=== PATIENT | male | born 1985 | race Two or more races ===

== ENCOUNTER 2017-04-11 01:16 | Emergency (ER) | payer OTHER ==
[~2017-04-11] VITALS: Ht 188 cm; Wt 93.0 kg
[~2017-04-11 01:16] MED LIST: AMLO25TA PO; DICY10SO PO; FLUO20CA19 PO; LISI20TA PO; MULT1TAB8 PO; PANT40TA2 PO; ZOFR4TAB3 PO
[2017-04-11] MEDS ORDERED: TESS100C PO (01:48)
[2017-04-11] MEDS ORDERED: MUCI600T37 PO (01:48)
[2017-04-11] MEDS ORDERED: IBUP-1022 PO (01:48)
[2017-04-11] MEDS ORDERED: SUDA30TA PO (01:48)
[2017-04-11] MEDS ORDERED: FLON1SPR (01:48)
[2017-04-11 01:53] VITALS: BP 150/100
[2017-04-11] MEDS ORDERED: BENZONATATE 100 MG CAP PO ONE (02:00)
== END 2017-04-11 02:05 | disposition home or self-care (01) ==
LOC: M ED 01:16
DX: J06.9 Acute upper respiratory infection, unspecified (principal)

== ENCOUNTER 2017-04-20 06:08 | Emergency (ER) | payer OTHER ==
[~2017-04-20] VITALS: Ht 188 cm; Wt 95.5 kg
[~2017-04-20 06:08] MED LIST changes: +FLON1SPR; +IBUP-1022 PO; +MUCI600T37 PO; +SUDA30TA PO; +TESS100C PO
--- NOTE | 2017-04-20 06:57 | ED PDOC ---
Post-Departure Follow-Up WHEN ASKING PT ABOUT ORIGIN OF HIS SYMPTOMS TODAY, HE STATED, "WELL I HAVEN'T BEEN ABLE TO EAT IN A WHILE. I CAN'T REMEMBER THE LAST TIME I ATE. I'M BEING SEEN FOR THAT NEXT WEEK." PT STATES, "EVERY TIME I EAT, I VOMIT." STATES HE HAS LOST 60-70LBS OF WEIGHT OVER THE LAST FEW MONTHS. STATES THE LAST TIME HE WAS ABLE TO HOLD DOWN FOOD WAS IN THE SPRING TIME, POSSIBLY 6 MONTHS AGO. PT STATES HE CAN DRINK, "A LITTLE" BUT DOES NOT ALWAYS STAY HYDRATED. PT STATES SOME DYSURIA THIS MORNING. DENIES ANY ABDOMINAL PAIN OVER THE PAST 6 MONTHS WITH HIS OTHER SYMPTOMS. JADON GARCIA PA-C Apr 20, 2017 06:57
[2017-04-20] MEDS ORDERED: NS 1,000 ML IV ONE (07:00)
[2017-04-20 07:07] LABS: BASO # 0.1 10^3/uL (0.0-0.2); BASO % 0.5 % (0.0-1.0); EOS # 0.2 10^3/uL (0.0-0.50); EOS % 2.2 % (0.0-3.0); IMMATURE GRANULOCYTE % 0.4 % (0-0); LYMPH % 19.5 % (24.0-44.0); MEAN CORPUSCULAR HEMOGLOBIN 31.3 pg (27.0-33.0); MEAN CORPUSCULAR VOLUME 91.8 fl (80.0-96.0); MONO # 0.8 10^3/uL (0.0-0.8); MONO % 7.6 % (0.0-5.0); NEUTROPHILS % 69.8 % (36.0-66.0); PLATELET COUNT, AUTOMATED 240 10^3/uL (150-450); RED CELL DISTRIBUTION WIDTH 12.3 % (11.5-14.5)
--- NOTE | 2017-04-20 07:30 | REPUSA ---
CLINICAL HISTORY: Abdominal pain. TECHNIQUE: Multiple axial, sagittal and coronal CT images were obtained through the abdomen and pelvi s without administration of oral or IV contrast material. COMMENTS: Bilateral nonobstructing renal stones with the largest measuring 3 mm. 3 mm obstructing stone of the right ureter at the L4 level. Mild fullness of the right collecting system. Fluid-filled mildly prominent small bowel, probably reactive ileus. The liver is of uniform attenuation without mass or defect. There is no intra or extrahepatic biliary ductal dilatation. The spleen is normal. The gallbladder is within normal limits. The pancreas is of normal contour and attenuation characteristics. There is no evidence of adrenal mass. There is no evidence for appendicitis. There is no bowel wall thickening. No evidence for small or la rge bowel obstruction. There is no evidence of abdominal ascites or lymphadenopathy. There is no evidence of intrinsic or extrinsic bladder mass. Diffuse thickening of the wall of the bladder. There is no pelvic ascites or lymphadenopathy. Uncomplicated colonic diverticulosis. Images of the lung bases show no evidence of pleural or parenchymal mass. There are no pleural effusi ons. The bony structures are free of lytic or blastic lesions. Mild prostatomegaly. IMPRESSION: Obstructing stone of the right ureter. Bilateral nephrolithiasis. Reactive small bowel ileus. Thickened bladder. Underdistention versus minimal cystitis. Thank you for your kind referral of this patient.
[2017-04-20 08:21] LABS: ALBUMIN 3.9 GM/DL (3.2-5.2); ALBUMIN/GLOBULIN RATIO 1.05 (1.00-1.93); ALKALINE PHOSPHATASE 77 U/L (45-117); ALT/SGPT 36 U/L (12-78); ANION GAP 6 MEQ/L (8-16); AST/SGOT 21 U/L (15-37); BILIRUBIN,TOTAL 0.6 MG/DL (0.2-1.0); BLOOD UREA NITROGEN 14 MG/DL (7-18); CARBON DIOXIDE LEVEL 28 MEQ/L (21-32); CHLORIDE LEVEL 107 MEQ/L (98-107); CREATININE FOR GFR 0.67 MG/DL (0.70-1.30); GLOMERULAR FILTRATION RATE > 60.0 (>60); GLUCOSE, FASTING 96 MG/DL (70-105); POTASSIUM SERUM 3.8 MEQ/L (3.5-5.1); SODIUM LEVEL 141 MEQ/L (136-145); TOTAL PROTEIN 7.6 GM/DL (6.4-8.2)
[2017-04-20] MEDS ORDERED: FLOM5CAP PO (08:35)
[2017-04-20] MEDS ORDERED: NAPR500T PO (08:35)
[2017-04-20] MEDS ORDERED: NORCOTAB PO (08:35)
[2017-04-20 09:08] VITALS: BP 155/86
== END 2017-04-20 09:06 | disposition home or self-care (01) ==
LOC: M ED 06:08
DX: N20.2 Calculus of kidney with calculus of ureter (principal); Z72.0 Tobacco use

== ENCOUNTER → 2017-05-03 | Outpatient (CLI) | payer OTHER ==
[~2017-05-03] MED LIST changes: +E-Z-PAQUE 96% w/w SUSP 176GM BTL As Ordered ONE; +FLOM5CAP PO; +NAPR500T PO; +NORCOTAB PO
--- NOTE | 2017-05-03 19:26 | REP ---
Small bowel follow-through The procedure was performed under the direct supervision of Dr. Anglin. The images were reviewed with Dr. Anglin. The activities director scouting film shows no organomegaly or pathological masses. The intestinal gas pattern is nonspecific. Liquid barium was administered and the barium column was followed through the small bowel to the level of the terminal ileum. Small bowel transit time is approximately 3 hours . During fluoroscopy gentle palpation shows all loops are freely movable and pliable. There are no fixed or angulated loops. The small bowel mucosal pattern is normal in course and caliber. There is no transition to suggest a partial small bowel obstruction. Spot filming of the terminal ileum shows it to be unremarkable. Impression: Small bowel follow-through examination within normal limits. 35 seconds of fluoro time was utilized for this procedure. Reviewed by MARYELLEN Mclaughlin 05/03/2017 05:30 PSigned by Derek Anglin MD 05/03/2017 07:16 P
== END ==
LOC: M RAD 08:18
PROVIDERS: ATTEND Internal Medicine Gastroenterology
DX: R19.7 Diarrhea, unspecified (principal); R63.4 Abnormal weight loss

== ENCOUNTER → 2017-05-06 | Outpatient (CLI) | payer OTHER ==
[~2017-05-06] MED LIST changes: -E-Z-PAQUE 96% w/w SUSP 176GM BTL As Ordered ONE
[2017-05-06 20:13] LABS: BASO % 0.8 % (0.0-1.0); EOS # 0.2 10^3/uL (0.0-0.50); EOS % 3.7 % (0.0-3.0); IMMATURE GRANULOCYTE % 0.2 % (0-0); LYMPH # 1.6 10^3/uL (1.5-4.5); LYMPH % 31.6 % (24.0-44.0); MEAN CORPUSCULAR HEMOGLOBIN 31.9 pg (27.0-33.0); MEAN CORPUSCULAR HGB CONC 33.1 g/dl (32.0-36.5); MEAN CORPUSCULAR VOLUME 96.4 fl (80.0-96.0); MONO # 0.4 10^3/uL (0.0-0.8); MONO % 8.2 % (0.0-5.0); NEUTROPHILS # 2.8 10^3/uL (1.8-7.7); NEUTROPHILS % 55.5 % (36.0-66.0); PLATELET COUNT, AUTOMATED 206 10^3/uL (150-450); RED CELL DISTRIBUTION WIDTH 12.5 % (11.5-14.5); WHITE BLOOD COUNT 5.1 10^3/uL (4.0-10.0)
[2017-05-06 21:09] LABS: ALBUMIN 3.9 GM/DL (3.2-5.2); ALBUMIN/GLOBULIN RATIO 1.22 (1.00-1.93); ALKALINE PHOSPHATASE 74 U/L (45-117); ALT/SGPT 35 U/L (12-78); ANION GAP 7 MEQ/L (8-16); AST/SGOT 17 U/L (15-37); BILIRUBIN,TOTAL 0.3 MG/DL (0.2-1.0); BLOOD UREA NITROGEN 11 MG/DL (7-18); CALCIUM LEVEL 8.2 MG/DL (8.5-10.1); CARBON DIOXIDE LEVEL 27 MEQ/L (21-32); CHLORIDE LEVEL 108 MEQ/L (98-107); CREATININE FOR GFR 0.68 MG/DL (0.70-1.30); GLOMERULAR FILTRATION RATE > 60.0 (>60); GLUCOSE, FASTING 130 MG/DL (70-105); POTASSIUM SERUM 4.5 MEQ/L (3.5-5.1); SODIUM LEVEL 142 MEQ/L (136-145); TOTAL PROTEIN 7.1 GM/DL (6.4-8.2)
== END ==
LOC: M SMT 11:23
PROVIDERS: ATTEND Internal Medicine Gastroenterology
DX: R19.7 Diarrhea, unspecified (principal); R63.4 Abnormal weight loss

== ENCOUNTER 2017-05-10 13:32 | Day surgery (SDC) | payer OTHER ==
[~2017-05-10] VITALS: Ht 188 cm; Wt 92.9 kg
[~2017-05-10 13:32] MED LIST changes: +LIDOCAINE 2% INJ 100 MG/5 ML SDV (FOR ANES.) As Ordered ONE; +PROPOFOL 200 MG/20 ML VIAL As Ordered ONE
[2017-05-10] MEDS ORDERED: NS 1,000 ML IV ONE (13:45)
--- NOTE | 2017-05-10 14:54 | ROOR ---
Patient Name: Julito Conroy Procedure Date: 05/10/2017 2:42 PM Date of : 1985 Age: 32 Room: [facility] Gender: Male Note Status: Finalized Procedure: Upper GI endoscopy Indications: Generalized abdominal pain, Diarrhea, Nausea Providers: Tadeo PABLO MD Referring MD: Dhiraj RAO MD Requesting Provider: Medicines: Monitored Anesthesia Care Complications: No immediate complications. Procedure: Pre-Anesthesia Assessment: - The heart rate, respiratory rate, oxygen saturations, blood pressure, adequacy of pulmonary ventilation, and response to care were monitored throughout the procedure. The Endoscope was introduced through the mouth, and advanced to the second part of duodenum. The upper GI endoscopy was accomplished without difficulty. The patient tolerated the procedure well. Findings: The esophagus was normal. The stomach was normal. The examined duodenum was normal. Impression: - Normal esophagus. - Normal stomach. - Normal examined duodenum. - No specimens collected. Recommendation: - Observe patient's clinical course. - Continue present medications. - Consider trial on Amitriptyline 10-25 mg po QHS for functional abdominal symptoms Tadeo Pablo MD Tadeo PABLO MD 05/10/2017 2:54:34 PM This report has been signed electronically. Number of Addenda: 0 Note Initiated On: 05/10/2017 2:42 PM Estimated Blood Loss: Estimated blood loss: none.
--- NOTE | 2017-05-10 15:11 | ROOR ---
Patient Name: Julito Conroy Procedure Date: 05/10/2017 2:42 PM Date of : 1985 Age: 32 Room: [facility] Gender: Male Note Status: Finalized Procedure: Colonoscopy Indications: Generalized abdominal pain, Suspected irritable bowel syndrome, Chronic diarrhea Providers: Tadeo PABLO MD Referring MD: Dhiraj RAO MD Requesting Provider: Medicines: Monitored Anesthesia Care Complications: No immediate complications. Procedure: Pre-Anesthesia Assessment: - The heart rate, respiratory rate, oxygen saturations, blood pressure, adequacy of pulmonary ventilation, and response to care were monitored throughout the procedure. The Colonoscope was introduced through the anus and advanced to 10 cm into the ileum. The colonoscopy was performed without difficulty. The patient tolerated the procedure well. The quality of the bowel preparation was good. Findings: The perianal and digital rectal examinations were normal. Mild diverticulosis and small internal hemorrhoids. The entire examined colon appeared normal on direct and retroflexion views. The terminal ileum appeared normal. Biopsies for histology were taken with a cold forceps for evaluation of microscopic colitis. Impression: - Mild diverticulosis and small internal hemorrhoids. - The entire examined colon is normal on direct and retroflexion views. - The examined portion of the ileum was normal. - Biopsies were taken with a cold forceps for evaluation of microscopic colitis. - Irritable bowel syndrome. Recommendation: - Continue present medications. - Telephone endoscopist for pathology results in 2 weeks. - For continued Irritable bowel symptoms, will consider trial on Amitriptyline 10-25 mg QHS. Tadeo Pablo MD Tadeo PABLO MD 05/10/2017 3:10:52 PM This report has been signed electronically. Number of Addenda: 0 Note Initiated On: 05/10/2017 2:42 PM Estimated Blood Loss: Estimated blood loss: none.
[2017-05-10 15:40] VITALS: BP 158/99
== END 2017-05-10 15:57 | disposition home or self-care (01) ==
LOC: M OPP 13:32 → EDSTATUS 14:30 → M OPP 15:57
PROVIDERS: ATTEND Internal Medicine Gastroenterology
DX: R10.84 Generalized abdominal pain (principal); R63.4 Abnormal weight loss; R19.7 Diarrhea, unspecified; R11.2 Nausea with vomiting, unspecified; K57.30 Diverticulosis of large intestine without perforation or abscess without bleeding; K64.8 Other hemorrhoids; K58.9 Irritable bowel syndrome, unspecified; I10 Essential (primary) hypertension; J00 Acute nasopharyngitis [common cold]; F31.9 Bipolar disorder, unspecified; F41.9 Anxiety disorder, unspecified; Z87.442 Personal history of urinary calculi; F17.290 Nicotine dependence, other tobacco product, uncomplicated; Z79.899 Other long term (current) drug therapy; Z80.0 Family history of malignant neoplasm of digestive organs

== ENCOUNTER → 2017-05-14 | Outpatient (REF) | payer OTHER, MEDICARE ==
[~2017-05-14] MED LIST changes: -LIDOCAINE 2% INJ 100 MG/5 ML SDV (FOR ANES.) As Ordered ONE; -PROPOFOL 200 MG/20 ML VIAL As Ordered ONE
== END ==
LOC: M SMT 13:39
PROVIDERS: ATTEND Nurse Practitioner Women's Health
DX: N20.0 Calculus of kidney (principal)

== ENCOUNTER → 2017-06-20 | Outpatient (REF) | payer OTHER, MEDICARE | LOC: M LAB REF 17:33 | PROVIDERS: ATTEND Family Medicine Addiction Medicine | DX: N20.0 Calculus of kidney (principal) ==

== ENCOUNTER 2017-07-19 17:39 | Emergency (ER) | payer OTHER, MEDICARE ==
[2017-07-19 18:32] LABS: KETONE, URINE AUTO RFX NEGATIVE (NEGATIVE); LEUKOCYTE ESTERASE UR AUTO RFX NEGATIVE (NEGATIVE); MUCUS, URINE RFX SMALL (NEGATIVE); NITRITE, URINE AUTO RFX NEGATIVE (NEGATIVE); RBC, URINE AUTO RFX 48 /HPF (0-3); SPECIFIC GRAVITY UR AUTO RFX 1.015 (1.002-1.035); SQUAM EPITHELIAL CELL UR AURFX 0 /HPF (0-6); WBC, URINE AUTO RFX 1 /HPF (0-3)
[2017-07-19 19:24] LABS: BASO # 0.1 10^3/uL (0.0-0.2); BASO % 0.3 % (0.0-1.0); EOS # 0.1 10^3/uL (0.0-0.50); EOS % 0.4 % (0.0-3.0); IMMATURE GRANULOCYTE # 0.1 10^3/uL (0-0); IMMATURE GRANULOCYTE % 0.6 % (0-0); LYMPH # 1.4 10^3/uL (1.5-4.5); LYMPH % 7.9 % (24.0-44.0); MEAN CORPUSCULAR HEMOGLOBIN 31.7 pg (27.0-33.0); MEAN CORPUSCULAR HGB CONC 34.5 g/dl (32.0-36.5); MEAN CORPUSCULAR VOLUME 91.9 fl (80.0-96.0); MONO # 0.8 10^3/uL (0.0-0.8); MONO % 4.5 % (0.0-5.0); NEUTROPHILS # 14.7 10^3/uL (1.8-7.7); NEUTROPHILS % 86.3 % (36.0-66.0); PLATELET COUNT, AUTOMATED 246 10^3/uL (150-450); RED CELL DISTRIBUTION WIDTH 12.8 % (11.5-14.5)
[2017-07-19 19:45] LABS: ANION GAP 5 MEQ/L (8-16); BLOOD UREA NITROGEN 8 MG/DL (7-18); CALCIUM LEVEL 9.2 MG/DL (8.5-10.1); CARBON DIOXIDE LEVEL 32 MEQ/L (21-32); CHLORIDE LEVEL 104 MEQ/L (98-107); CREATININE FOR GFR 0.73 MG/DL (0.70-1.30); GLOMERULAR FILTRATION RATE > 60.0 (>60); GLUCOSE, FASTING 90 MG/DL (70-105); POTASSIUM SERUM 3.7 MEQ/L (3.5-5.1); SODIUM LEVEL 141 MEQ/L (136-145)
== END 2017-07-19 20:19 | disposition home or self-care (01) ==
LOC: M ED 17:39
DX: N20.1 Calculus of ureter (principal); N13.30 Unspecified hydronephrosis; K58.9 Irritable bowel syndrome, unspecified; F17.210 Nicotine dependence, cigarettes, uncomplicated; Z79.899 Other long term (current) drug therapy; Z87.442 Personal history of urinary calculi; Z98.890 Other specified postprocedural states
CPT/HCPCS: 74176

== ENCOUNTER 2017-08-08 05:22 | Emergency (ER) | payer OTHER, MEDICARE ==
[2017-08-08 05:55] LABS: BILIRUBIN, URINE MANUAL NEGATIVE (NEGATIVE); BLOOD URINE MANUAL RFX POSITIVE (NEGATIVE); GLUCOSE, URINE (UA) MANUAL NEGATIVE (NEGATIVE); KETONE, URINE MANUAL 1+ mg/dL (NEGATIVE); NITRITE, URINE MANUAL RFX NEGATIVE (NEGATIVE); PROTEIN, URINE MANUAL REFLEX 1+ mg/dL (NEGATIVE); UROBILINOGEN, URINE MANUAL NORMAL (NORMAL)
[2017-08-08 05:56] LABS: MICROSCOPIC INDICATED? RFX YES (NO)
[2017-08-08 06:04] LABS: SQUAMOUS EPITHELIAL CELL URINE NONE SEEN /hpf (SMALL AMT); WBC, URINE MAN RFX NONE SEEN /hpf (0-3)
[2017-08-08 06:06] LABS: BACTERIA, URINE SMALL AMOUNT; HYALINE CAST, URINE NONE SEEN /lpf (0-1); MICROSCOPIC EXAM PERFORMED; MUCUS, URINE MOD AMOUNT (NEGATIVE)
[2017-08-08] MEDS: KETOROLAC 30 MG/ML VIAL (J1885) IV (06:30)
[2017-08-08] MEDS: ONDANSETRON 4MG/2ML VIAL (J2405) IV (06:30)
[2017-08-08] MEDS: NS 1,000 ML IV (06:30)
[2017-08-08 07:06] LABS: HEMATOCRIT 46.1 % (42.0-52.0); HEMOGLOBIN 15.9 g/dl (14.0-18.0); MEAN CORPUSCULAR HEMOGLOBIN 31.6 pg (27.0-33.0); MEAN CORPUSCULAR HGB CONC 34.5 g/dl (32.0-36.5); MEAN CORPUSCULAR VOLUME 91.7 fl (80.0-96.0); PLATELET COUNT, AUTOMATED 155 10^3/uL (150-450); RED BLOOD COUNT 5.03 10^6/uL (4.30-6.10); RED CELL DISTRIBUTION WIDTH 12.5 % (11.5-14.5); WHITE BLOOD COUNT 5.8 10^3/uL (4.0-10.0)
[2017-08-08 08:03] LABS: ANION GAP 6 MEQ/L (8-16); BLOOD UREA NITROGEN 16 MG/DL (7-18); CALCIUM LEVEL 9.3 MG/DL (8.5-10.1); CARBON DIOXIDE LEVEL 28 MEQ/L (21-32); CHLORIDE LEVEL 105 MEQ/L (98-107); CREATININE FOR GFR 0.78 MG/DL (0.70-1.30); GLOMERULAR FILTRATION RATE > 60.0 (>60); GLUCOSE, FASTING 116 MG/DL (70-105); POTASSIUM SERUM 3.9 MEQ/L (3.5-5.1); SODIUM LEVEL 139 MEQ/L (136-145)
[2017-08-08] MEDS: MORPHINE 4 MG/ML 1ML SYRINGE IV (08:06)
== END 2017-08-08 08:57 | disposition home or self-care (01) ==
LOC: M ED 05:22
DX: N20.1 Calculus of ureter (principal); K58.9 Irritable bowel syndrome, unspecified; F17.210 Nicotine dependence, cigarettes, uncomplicated; Z79.899 Other long term (current) drug therapy; Z87.442 Personal history of urinary calculi
CPT/HCPCS: J2405

== ENCOUNTER → 2017-08-12 | Outpatient (CLI) | payer OTHER ==
[2017-08-12 12:08] LABS: HEMATOCRIT 42.7 % (42.0-52.0); HEMOGLOBIN 14.7 g/dl (14.0-18.0); MEAN CORPUSCULAR HEMOGLOBIN 31.1 pg (27.0-33.0); MEAN CORPUSCULAR HGB CONC 34.4 g/dl (32.0-36.5); MEAN CORPUSCULAR VOLUME 90.5 fl (80.0-96.0); PLATELET COUNT, AUTOMATED 201 10^3/uL (150-450); RED BLOOD COUNT 4.72 10^6/uL (4.30-6.10); WHITE BLOOD COUNT 5.5 10^3/uL (4.0-10.0)
[2017-08-12 12:20] LABS: INR 0.98; PROTHROMBIN TIME 13.1 SECONDS (12.4-14.5)
[2017-08-12 12:21] LABS: PARTIAL THROMBOPLASTIN TIME 31.8 SECONDS (26.8-37.9)
[2017-08-12 12:32] LABS: ANION GAP 6 MEQ/L (8-16); BLOOD UREA NITROGEN 12 MG/DL (7-18); CALCIUM LEVEL 9.2 MG/DL (8.5-10.1); CARBON DIOXIDE LEVEL 29 MEQ/L (21-32); CHLORIDE LEVEL 106 MEQ/L (98-107); CREATININE FOR GFR 0.66 MG/DL (0.70-1.30); GLOMERULAR FILTRATION RATE > 60.0 (>60); GLUCOSE, FASTING 91 MG/DL (70-100); POTASSIUM SERUM 3.8 MEQ/L (3.5-5.1); SODIUM LEVEL 141 MEQ/L (136-145)
== END ==
LOC: M LAB 11:12
DX: Z01.812 Encounter for preprocedural laboratory examination (principal); N20.1 Calculus of ureter
CPT/HCPCS: 80048

== ENCOUNTER → 2017-08-12 | Outpatient (REF) | payer OTHER, MEDICARE ==
[2017-08-12 11:08] LABS: APPEARANCE, URINE CLEAR (CLEAR); BACTERIA, URINE AUTO NEGATIVE (NEGATIVE); BILIRUBIN, URINE AUTO NEGATIVE (NEGATIVE); BLOOD, URINE BLOOD 2+ (NEGATIVE); COLOR, URINE YELLOW (YELLOW); GLUCOSE, URINE (UA) AUTO NEGATIVE (NEGATIVE); KETONE, URINE AUTO NEGATIVE (NEGATIVE); LEUKOCYTE ESTERASE, URINE AUTO NEGATIVE (NEGATIVE); MUCUS, URINE SMALL (NEGATIVE); NITRITE, URINE AUTO NEGATIVE (NEGATIVE); PROTEIN, URINE AUTO NEGATIVE (NEGATIVE); RBC, URINE AUTO 2 /HPF (0-3); SPECIFIC GRAVITY URINE AUTO 1.012 (1.002-1.035); SQUAMOUS EPITHELIAL CELL UR AU 0 /HPF (0-6); UROBILINOGEN, URINE AUTO 0.2 mg/dL (0.0-2.0); WBC, URINE AUTO 1 /HPF (0-3)
== END ==
LOC: M SMT 10:35
DX: N20.1 Calculus of ureter (principal); Z01.818 Encounter for other preprocedural examination
CPT/HCPCS: 81001

== ENCOUNTER → 2017-08-27 | Outpatient (REF) | payer OTHER ==
[2017-08-27 12:51] LABS: APPEARANCE, URINE HAZY (CLEAR); BACTERIA, URINE AUTO NEGATIVE (NEGATIVE); BILIRUBIN, URINE AUTO NEGATIVE (NEGATIVE); BLOOD, URINE BLOOD NEGATIVE (NEGATIVE); COLOR, URINE YELLOW (YELLOW); GLUCOSE, URINE (UA) AUTO NEGATIVE (NEGATIVE); KETONE, URINE AUTO NEGATIVE (NEGATIVE); LEUKOCYTE ESTERASE, URINE AUTO NEGATIVE (NEGATIVE); MUCUS, URINE SMALL (NEGATIVE); NITRITE, URINE AUTO NEGATIVE (NEGATIVE); PROTEIN, URINE AUTO NEGATIVE (NEGATIVE); RBC, URINE AUTO 0 /HPF (0-3); SPECIFIC GRAVITY URINE AUTO 1.021 (1.002-1.035); SQUAMOUS EPITHELIAL CELL UR AU 0 /HPF (0-6); UROBILINOGEN, URINE AUTO 0.2 mg/dL (0.0-2.0); WBC, URINE AUTO 0 /HPF (0-3)
== END ==
LOC: M LAB REF 12:28
DX: N20.0 Calculus of kidney (principal)

== ENCOUNTER → 2017-08-30 | Outpatient (CLI) | payer OTHER | LOC: M RAD 14:40 | DX: N20.1 Calculus of ureter (principal); N13.30 Unspecified hydronephrosis | CPT/HCPCS: 74176 ==

== ENCOUNTER 2018-04-17 22:48 | Emergency (ER) | payer OTHER ==
[2018-04-17] MEDS: IBUPROFEN 800 MG TAB PO (23:32)
[2018-04-17] MEDS: AUGMENTIN 875 MG TAB PO (23:32)
[2018-04-17] MEDS: NORCO 5/325MG TABLET (BULK FOR ED) PO (23:32)
== END 2018-04-17 23:35 | disposition home or self-care (01) ==
LOC: M ED 22:48
DX: K02.9 Dental caries, unspecified (principal); I10 Essential (primary) hypertension; K58.9 Irritable bowel syndrome, unspecified; Z79.899 Other long term (current) drug therapy; F17.210 Nicotine dependence, cigarettes, uncomplicated
CPT/HCPCS: 99282

== ENCOUNTER 2018-04-19 11:46 | Emergency (ER) | payer OTHER ==
[2018-04-19] MEDS: PERCOCET 5MG/325MG TAB PO (13:46)
== END 2018-04-19 13:48 | disposition home or self-care (01) ==
LOC: M ED 11:46
DX: K08.89 Other specified disorders of teeth and supporting structures (principal); K13.79 Other lesions of oral mucosa; I10 Essential (primary) hypertension; Z72.0 Tobacco use; Z95.818 Presence of other cardiac implants and grafts; Z79.899 Other long term (current) drug therapy
CPT/HCPCS: 99283

== ENCOUNTER 2018-04-28 01:11 | Observation (INO) | payer OTHER ==
[2018-04-28] MEDS: NS 1,000 ML IV ×4 (01:30→14:33)
[2018-04-28 01:57] LABS: BASO % 0.4 % (0.0-1.0); EOS # 0.2 10^3/uL (0.0-0.50); EOS % 2.1 % (0.0-3.0); HEMATOCRIT 41.8 % (42.0-52.0); HEMOGLOBIN 14.9 g/dl (13.5-17.5); IMMATURE GRANULOCYTE % 0.2 % (0-3.0); LYMPH # 2.6 10^3/uL (1.5-4.5); LYMPH % 26.8 % (24.0-44.0); MEAN CORPUSCULAR HEMOGLOBIN 31.9 pg (27.0-33.0); MEAN CORPUSCULAR HGB CONC 35.6 g/dl (32.0-36.5); MEAN CORPUSCULAR VOLUME 89.5 fl (80.0-96.0); MONO % 10.5 % (0.0-5.0); NEUTROPHILS # 5.8 10^3/uL (1.8-7.7); PLATELET COUNT, AUTOMATED 211 10^3/uL (150-450); RED BLOOD COUNT 4.67 10^6/uL (4.30-6.10); WHITE BLOOD COUNT 9.7 10^3/uL (4.0-10.0)
[2018-04-28] MEDS ORDERED: ATROPINE SULF 1MG/10ML SYRINGE (J0461) As Ordered (02:00)
[2018-04-28] MEDS: ATROPINE SULF 1MG/10ML SYRINGE (J0461) IV (02:21)
[2018-04-28 02:39] LABS: ANION GAP 8 MEQ/L (8-16); BLOOD UREA NITROGEN 19 MG/DL (7-18); CARBON DIOXIDE LEVEL 29 MEQ/L (21-32); CHLORIDE LEVEL 104 MEQ/L (98-107); CPK CREATINE PHOSPHOKINASE 123 U/L (39-308); CREATININE FOR GFR 0.81 MG/DL (0.70-1.30); ETHYL ALCOHOL (ETHANOL) < 0.003 % (0.000-0.010); FREE THYROXINE INDEX 3.5 % (1.4-3.8); GLOMERULAR FILTRATION RATE > 60.0 (>60); GLUCOSE, FASTING 119 MG/DL (70-100); MB/CK RELATIVE INDEX 1.38 (< OR =4); POTASSIUM SERUM 2.9 MEQ/L (3.5-5.1); SODIUM LEVEL 141 MEQ/L (136-145); T UPTAKE 33 % (33-40); THYROXINE (T4) 10.6 UG/DL (4.5-12.0); TROPONIN I < 0.02 NG/ML (< 0.10)
[2018-04-28] MEDS: POTASSIUM CHLORIDE 10 MEQ SR TABLET PO ×2 (02:45→10:01)
[2018-04-28] MEDS: CLINDAMYCIN 150 MG CAP PO ×3 (06:00→21:59)
[2018-04-28] MEDS: amLODIPine 5 MG TAB PO (08:18)
[2018-04-28] MEDS: CHLORHEXIDINE ORAL RINSE 0.12%/15ML 120ML BOTTLE SSP ×4 (08:18→20:09)
[2018-04-28] MEDS: LISINOPRIL 40 MG TAB PO (08:18)
[2018-04-28] MEDS ORDERED: CHLORTHALIDONE 12.5MG PER 1/2 TABLET PO (09:00)
[2018-04-28 09:43] LABS: ANION GAP 4 MEQ/L (8-16); BLOOD UREA NITROGEN 16 MG/DL (7-18); CALCIUM LEVEL 8.7 MG/DL (8.5-10.1); CARBON DIOXIDE LEVEL 31 MEQ/L (21-32); CHLORIDE LEVEL 108 MEQ/L (98-107); CPK CREATINE PHOSPHOKINASE 99 U/L (39-308); CREATININE FOR GFR 0.62 MG/DL (0.70-1.30); GLOMERULAR FILTRATION RATE > 60.0 (>60); GLUCOSE, FASTING 93 MG/DL (70-100); MAGNESIUM LEVEL 1.9 MG/DL (1.8-2.4); MB/CK RELATIVE INDEX 1.21 (< OR =4); POTASSIUM SERUM 3.7 MEQ/L (3.5-5.1); SODIUM LEVEL 143 MEQ/L (136-145); TROPONIN I < 0.02 NG/ML (< 0.10)
[2018-04-28] MEDS: PERCOCET 5MG/325MG TAB PO (11:29)
[2018-04-28] MEDS: LIDOCAINE VISCOUS 2% SOLN 15ML UDC PO ×2 (14:21→20:09)
[2018-04-28] MEDS ORDERED: ISOVUE-370 76% 100ML VIAL (Q9967) As Ordered (15:25)
[2018-04-28] MEDS: KETOROLAC 30 MG/ML VIAL (J1885) IV (16:30)
[2018-04-28] MEDS: ACETAMINOPHEN TAB 650MG DOSE (2X325MG) PO (18:05)
[2018-04-28] MEDS: KETOROLAC TROMETHAMINE 10 MG TAB PO (21:59)
[2018-04-28] MEDS ORDERED: KETOROLAC 30 MG/ML VIAL (J1885) IV (22:00)
[2018-04-29] MEDS: NS 1,000 ML IV (01:30)
[2018-04-29] MEDS: KETOROLAC TROMETHAMINE 10 MG TAB PO ×2 (05:13→09:29)
[2018-04-29] MEDS: CLINDAMYCIN 150 MG CAP PO (05:13)
[2018-04-29] MEDS: LIDOCAINE VISCOUS 2% SOLN 15ML UDC PO (09:00)
[2018-04-29] MEDS: LISINOPRIL 40 MG TAB PO (09:29)
[2018-04-29] MEDS: amLODIPine 5 MG TAB PO (09:29)
[2018-04-29] MEDS: CHLORHEXIDINE ORAL RINSE 0.12%/15ML 120ML BOTTLE SSP (09:29)
[2018-04-29 10:01] LABS: ANION GAP 3 MEQ/L (8-16); BLOOD UREA NITROGEN 12 MG/DL (7-18); CARBON DIOXIDE LEVEL 31 MEQ/L (21-32); CHLORIDE LEVEL 109 MEQ/L (98-107); CREATININE FOR GFR 0.73 MG/DL (0.70-1.30); GLOMERULAR FILTRATION RATE > 60.0 (>60); GLUCOSE, FASTING 124 MG/DL (70-100); POTASSIUM SERUM 3.5 MEQ/L (3.5-5.1); SODIUM LEVEL 143 MEQ/L (136-145)
== END 2018-04-29 10:36 | disposition home or self-care (01) ==
LOC: M ED 01:11 → M ED INP 02:18 → M ICU 11:01 → M ED INP 11:01 → M ICU 11:01
DX: R55 Syncope and collapse (principal); R00.1 Bradycardia, unspecified; I10 Essential (primary) hypertension; K08.89 Other specified disorders of teeth and supporting structures; Z79.899 Other long term (current) drug therapy; F17.210 Nicotine dependence, cigarettes, uncomplicated
CPT/HCPCS: J0461

== ENCOUNTER 2018-10-27 23:41 | Emergency (ER) | payer OTHER ==
[~2018-10-27] VITALS: Ht 188 cm; Wt 95.5 kg
[~2018-10-27 23:41] MED LIST changes: +ACET500T15 PO; +AMLO5TAB6 PO; +AMOX500C PO; +CHLO125TA; +CHLO125TA PO; +CIPR-249 PO; +CLEO300C2 PO; +FLOM0.4C39 PO; -FLOM5CAP PO; +HYDR-3715; +HYDR-3715 PO; +IBUP1TAB6 PO; +IBUP1TAB7 PO; +KETO10TAB PO; +LISI40TA PO; +MAGICMW SSP; +NAPR-837 PO; -NAPR500T PO; +NORC1TAB7 PO; -NORCOTAB PO; +OXYC1TAB23 PO; -PANT40TA2 PO; +PANT40TA3 PO; +PERC5TAB12 PO; +PERI12LIQ SSP; +ZOFR4TAB14 PO; -ZOFR4TAB3 PO
[2018-10-27 23:42] VITALS: BP 168/78
[2018-10-27] MEDS ORDERED: CHLORTHALIDONE (23:55)
[2018-10-27] MEDS ORDERED: AMLODIPINE (23:55)
== END 2018-10-28 02:02 | disposition left against medical advice (07) ==
LOC: M ED 23:41
DX: Z53.21 Procedure and treatment not carried out due to patient leaving prior to being seen by health care provider (principal)

== ENCOUNTER → 2019-01-23 | Outpatient (REF) | payer OTHER ==
[~2019-01-23] MED LIST changes: +AMLODIPINE; +CHLORTHALIDONE
[2019-01-23 17:35] LABS: BASO % 0.5 % (0.0-1.0); EOS # 0.2 10^3/uL (0.0-0.50); EOS % 2.4 % (0.0-3.0); HEMATOCRIT 47.4 % (42.0-52.0); HEMOGLOBIN 16.2 g/dl (13.5-17.5); LYMPH % 23.8 % (24.0-44.0); MEAN CORPUSCULAR HEMOGLOBIN 31.8 pg (27.0-33.0); MEAN CORPUSCULAR HGB CONC 34.2 g/dl (32.0-36.5); MEAN CORPUSCULAR VOLUME 92.9 fl (80.0-96.0); MONO # 0.7 10^3/uL (0.0-0.8); MONO % 7.9 % (0.0-5.0); NEUTROPHILS # 5.4 10^3/uL (1.8-7.7); NEUTROPHILS % 65.2 % (36.0-66.0); PLATELET COUNT, AUTOMATED 251 10^3/uL (150-450); WHITE BLOOD COUNT 8.3 10^3/uL (4.0-10.0)
[2019-01-23 17:50] LABS: ALBUMIN 4.7 GM/DL (3.2-5.2); ALT/SGPT 31 U/L (12-78); BILIRUBIN,TOTAL 0.3 MG/DL (0.2-1.0); BLOOD UREA NITROGEN 11 MG/DL (7-18); CALCIUM LEVEL 9.7 MG/DL (8.5-10.1); CARBON DIOXIDE LEVEL 29 MEQ/L (21-32); CHLORIDE LEVEL 107 MEQ/L (98-107); CHOLESTEROL LEVEL 193 MG/DL (<200); CHOLESTEROL RISK RATIO 5.514 (<5); CREATININE FOR GFR 0.82 MG/DL (0.70-1.30); FREE T4 0.98 NG/DL (0.76-1.46); GLOMERULAR FILTRATION RATE > 60.0 (>60); GLUCOSE, FASTING 102 MG/DL (70-100); HDL CHOLESTEROL 35 MG/DL (>40); LDL CHOLESTEROL 135 MG/DL (<100); NON-HDL-C 158 MG/DL; POTASSIUM SERUM 3.8 MEQ/L (3.5-5.1); SODIUM LEVEL 142 MEQ/L (136-145); THYROID STIMULATING HORMONE 0.699 uIU/ML (0.358-3.740); TOTAL 25(OH) VITAMIN D 20.8 NG/ML (30.0-100.0); TOTAL PROTEIN 8.1 GM/DL (6.4-8.2); TRIGLYCERIDES LEVEL 114 MG/DL (<150)
[2019-01-23 17:56] LABS: HEMOGLOBIN A1c 5.1 %
[2019-01-27 00:06] LABS: Lyme Disease IgG/IgM Antibodie <0.91 ISR (0.00-0.90); Lyme Disease IgM Ab Quantitati <0.80 index (0.00-0.79)
== END ==
LOC: M LAB REF 16:26
PROVIDERS: ATTEND Family Medicine
DX: Z13.228 Encounter for screening for other metabolic disorders (principal)

== ENCOUNTER → 2019-04-15 | Outpatient (REF) | payer OTHER ==
[~2019-04-15] MED LIST changes: -LISI20TA PO; +LISI20TA19 PO
[2019-04-15 14:24] LABS: ALBUMIN 4.3 GM/DL (3.2-5.2); ALT/SGPT 34 U/L (12-78); BILIRUBIN,TOTAL 0.6 MG/DL (0.2-1.0); BLOOD UREA NITROGEN 12 MG/DL (7-18); CALCIUM LEVEL 9.1 MG/DL (8.5-10.1); CARBON DIOXIDE LEVEL 27 MEQ/L (21-32); CHLORIDE LEVEL 105 MEQ/L (98-107); CHOLESTEROL LEVEL 184 MG/DL (<200); CREATININE FOR GFR 0.73 MG/DL (0.70-1.30); GLOMERULAR FILTRATION RATE > 60.0 (>60); GLUCOSE, FASTING 95 MG/DL (70-100); HDL CHOLESTEROL 40 MG/DL (>40); LDL CHOLESTEROL 128 MG/DL (<100); NON-HDL-C 144 MG/DL; POTASSIUM SERUM 3.7 MEQ/L (3.5-5.1); SODIUM LEVEL 140 MEQ/L (136-145); TOTAL PROTEIN 7.6 GM/DL (6.4-8.2); TRIGLYCERIDES LEVEL 78 MG/DL (<150)
== END ==
LOC: M LAB REF 12:30
PROVIDERS: ATTEND Family Medicine
DX: E78.5 Hyperlipidemia, unspecified (principal)

== ENCOUNTER 2020-12-25 09:06 | Emergency (ER) | payer OTHER ==
[~2020-12-25] VITALS: Ht 188 cm; Wt 97.7 kg
[~2020-12-25 09:06] MED LIST changes: +AMLO1TAB24 PO; -AMLO5TAB6 PO; -FLUO20CA19 PO; +FLUO20CA22 PO; -LISI20TA19 PO; +LISI20TA35 PO; -LISI40TA PO; +LISI40TA4 PO; +PANT40TA29 PO; -PANT40TA3 PO
[2020-12-25] MEDS ORDERED: ACET-910 PO (09:18)
[2020-12-25] MEDS ORDERED: MECLIZINE 25 MG TABLET PO ONE (09:40)
--- NOTE | 2020-12-25 09:51 | REP ---
INDICATION: CVA COMPARISON: 02/26/2016 TECHNIQUE: Portable AP view of the chest FINDINGS: The mediastinum and cardiac silhouette are stable and within normal limits for portable technique. The lung andrade are clear without acute consolidation, effusion, or pneumothorax. Skeletal structures are intact. Loop recorder noted. IMPRESSION: No acute cardiopulmonary process appreciated. <Electronically signed by Darryl Naqvi > 12/25/20 [id number]
[2020-12-25 09:57] LABS: BASO % 0.2 % (0.0-1.0); EOS # 0.1 10^3/uL (0.0-0.5); EOS % 0.7 % (0.0-3.0); HEMATOCRIT 48.3 % (42.0-52.0); HEMOGLOBIN 16.5 g/dl (13.5-17.5); LYMPH # 1.3 10^3/uL (1.5-5.0); LYMPH % 11.2 % (24.0-44.0); MEAN CORPUSCULAR HEMOGLOBIN 31.7 pg (27.0-33.0); MEAN CORPUSCULAR HGB CONC 34.2 g/dl (32.0-36.5); MEAN CORPUSCULAR VOLUME 92.9 fl (80.0-96.0); MONO # 0.5 10^3/uL (0.0-0.8); MONO % 4.3 % (2.0-8.0); NEUTROPHILS # 9.9 10^3/uL (1.5-8.5); NEUTROPHILS % 83.3 % (36.0-66.0); PLATELET COUNT, AUTOMATED 217 10^3/uL (150-450); WHITE BLOOD COUNT 11.9 10^3/uL (4.0-10.0)
[2020-12-25] MEDS ORDERED: ISOVUE-370 76% 100ML VIAL As Ordered ONE (09:57)
[2020-12-25] MEDS ORDERED: ONDANSETRON 4MG/2ML VIAL IV ONE (10:05)
[2020-12-25] MEDS ORDERED: ONDANSETRON 4MG/2ML VIAL As Ordered ONE (10:06)
[2020-12-25 10:28] LABS: CK-MB VALUE MASS 1.4 NG/ML (<3.6); CPK CREATINE PHOSPHOKINASE 173 U/L (39-308); MB/CK RELATIVE INDEX 0.81 (< OR =4); TROPONIN I < 0.02 NG/ML (< 0.10)
[2020-12-25] MEDS ORDERED: NS 500 ML IV ONE (10:50)
[2020-12-25 10:56] LABS: ACETAMINOPHEN LEVEL < 2.0 UG/ML (10.0-30.0); ETHYL ALCOHOL (ETHANOL) 0.003 % (0.000-0.010); SALICYLATE LEVEL 2.6 MG/DL (5.0-30.0); THYROID STIMULATING HORMONE 0.899 uIU/ML (0.358-3.740)
--- NOTE | 2020-12-25 11:10 | REP ---
INDICATION: CVA - Nursing interventions must not delay CT COMPARISON: 10/08/2015 TECHNIQUE: Axial noncontrast images from the skull base to the vertex with coronal reformations. This CT examination was performed using the following dose reduction techniques: Automated exposure control, adjustment of mA and/or kv according to the patient's size, and use of iterative reconstruction technique. FINDINGS: The ventricles, sulci, and cisterns are normal in position and appearance. Ulloa-white differentiation is maintained. No acute intracranial hemorrhage, mass/mass effect, pathology or trauma/injury. No evidence for acute infarction. No extra-axial fluid collection. Calvarium is intact. Paranasal sinuses and mastoid air cells are clear. IMPRESSION: Normal noncontrast head CT. No evidence for acute intracranial pathology or trauma/injury. <Electronically signed by Darryl Naqvi > 12/25/20 [id number]
--- NOTE | 2020-12-25 11:13 | REP ---
INDICATION: CVA - Nursing interventions must not delay CT. COMPARISON: None. TECHNIQUE: Axial contrast-enhanced images were obtained from the thoracic inlet to the skull base with coronal and sagittal reformations using 100 cc Isovue 370 intravenous contrast material. Maximal intensity projection and multiplanar re-formation images along with 3-D rendered imaging of the arterial vasculature. This CT examination was performed using the following dose reduction techniques: Automated exposure control, adjustment of mA and/or kv according to the patient's size, and the use of iterative reconstruction technique. FINDINGS: The common carotid arteries, carotid bulbs and visualized portions of the external and the internal carotid arteries are normal. There is no evidence for appreciable stenosis or occlusion. The bilateral vertebral arteries and visualized basilar artery are patent and symmetric. There are no atherosclerotic lesions, areas of significant stenosis or occlusion identified. No obvious vascular abnormality noted.. IMPRESSION: Normal CT angiography of the neck <Electronically signed by Darryl Naqvi > 12/25/20 [id number]
--- NOTE | 2020-12-25 11:15 | REP ---
INDICATION: CVA - Nursing interventions must not delay CT. COMPARISON: None. TECHNIQUE: CT contrast dose: 100 ml of intravenous Isovue 370. Axial contrast-enhanced images were obtained from the skull base to the vertex with coronal reformations using 100 cc Isovue 370 intravenous contrast material. Maximal intensity projection and multiplanar re-formation images along with 3-D rendered imaging of the arterial vasculature. FINDINGS: The [id number] and visualized vertebrobasilar system appear intact and normal. Vasculature to the bilateral hemispheres appear symmetric. No obvious arteriovenous malformation or aneurysm detected. Remainder of the examination appears essentially normal. IMPRESSION: Normal CT angiography of the head. No obvious arteriovenous malformation or aneurysm. Vasculature to the bilateral hemispheres and posterior fossa appear symmetric. <Electronically signed by Darryl Naqvi > 12/25/20 [id number]
[2020-12-25] MEDS ORDERED: AMLO1TAB25 PO (12:33)
[2020-12-25] MEDS ORDERED: CHLO125TA PO ×2 (12:33→13:07)
[2020-12-25 13:05] LABS: AMPHETAMINES LEVEL URINE NEGATIVE (NEGATIVE); BARBITURATES URINE NEGATIVE (NEGATIVE); BENZODIAZEPINES URINE NEGATIVE (NEGATIVE); CANNABINOIDS URINE POSITIVE (NEGATIVE); COCAINE METABOLITE URINE NEGATIVE (NEGATIVE); METHADONE URINE NEGATIVE (NEGATIVE); OPIATES URINE NEGATIVE (NEGATIVE); PHENCYCLIDINE URINE NEGATIVE (NEGATIVE)
[2020-12-25] MEDS ORDERED: LISI40TA4 PO (13:05)
[2020-12-25] MEDS ORDERED: lisinopriL 40 MG TAB PO ONE (13:05)
[2020-12-25] MEDS ORDERED: CHLORTHALIDONE 12.5MG PER 1/2 TABLET PO ONE (13:05)
[2020-12-25] MEDS ORDERED: MECL1TAB31 PO (13:07)
[2020-12-25 13:31] VITALS: BP 159/94
--- NOTE | 2020-12-25 19:26 | ECGEPIP ---
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
== END 2020-12-25 13:54 | disposition home or self-care (01) ==
LOC: M ED 09:06
DX: I10 Essential (primary) hypertension (principal); H81.4 Vertigo of central origin; F17.200 Nicotine dependence, unspecified, uncomplicated; F19.10 Other psychoactive substance abuse, uncomplicated; Z91.14 Patient's other noncompliance with medication regimen
CPT/HCPCS: 70450; 70496; 70498; 71045; 80047; 80143; 80307; 81001; 82077; 82550; 82553; 84443; 85025; 85730; 87798; 93005; 93041; 94760; 96361; 96374; 99285; J2405; Q9967

== ENCOUNTER 2021-04-02 10:36 | Inpatient (IN) | payer OTHER ==
[~2021-04-02] VITALS: Ht 188 cm; Wt 90.6 kg
[2021-04-02] MEDS: carBAMazepine 100MG *1/2* TABLET PO SCH ×2 (09:00→21:06)
[~2021-04-02 10:36] MED LIST changes: +ACET-910 PO; +AMLO1TAB25 PO; +MECL1TAB31 PO
[2021-04-02] MEDS ORDERED: NS 1,000 ML IV ONE (11:05)
[2021-04-02] MEDS ORDERED: diazePAM 10MG/2ML SYRINGE (J3360 PER 5MG) IV ONE ×2 (11:05→11:50)
[2021-04-02 11:41] LABS: HEMATOCRIT 45.1 % (42.0-52.0); MEAN CORPUSCULAR HEMOGLOBIN 32.7 pg (27.0-33.0); MEAN CORPUSCULAR HGB CONC 35.5 g/dl (32.0-36.5); MEAN CORPUSCULAR VOLUME 92.2 fl (80.0-96.0); PLATELET COUNT, AUTOMATED 283 10^3/uL (150-450); RED BLOOD COUNT 4.89 10^6/uL (4.30-6.10); WHITE BLOOD COUNT 14.8 10^3/uL (4.0-10.0)
[2021-04-02] MEDS ORDERED: MEDR4PAK PO (11:43)
[2021-04-02] MEDS ORDERED: ATOR1TAB21 PO (11:43)
[2021-04-02] MEDS ORDERED: GABA600T4 (11:43)
[2021-04-02] MEDS ORDERED: CARB1TAB20 PO (11:43)
[2021-04-02] MEDS ORDERED: ONDANSETRON 4MG/2ML VIAL IV ONE (11:50)
[2021-04-02 12:06] LABS: ALBUMIN 4.6 GM/DL (3.2-5.2); ALT/SGPT 52 U/L (12-78); BILIRUBIN,TOTAL 0.6 MG/DL (0.2-1.0); BLOOD UREA NITROGEN 21 MG/DL (7-18); CALCIUM LEVEL 11.3 MG/DL (8.5-10.1); CARBON DIOXIDE LEVEL 30 MEQ/L (21-32); CHLORIDE LEVEL 103 MEQ/L (98-107); CREATININE FOR GFR 0.86 MG/DL (0.70-1.30); GLOMERULAR FILTRATION RATE > 60.0 (>60); GLUCOSE, FASTING 155 MG/DL (70-100); POTASSIUM SERUM 4.5 MEQ/L (3.5-5.1); SODIUM LEVEL 139 MEQ/L (136-145)
[2021-04-02] MEDS ORDERED: MECL-86 PO (12:57)
[2021-04-02] MEDS ORDERED: HOME MED LIST COMPLETE! XX SCH (13:00)
[2021-04-02] MEDS ORDERED: ACETAMINOPHEN TAB 650MG DOSE (2X325MG) PO PRN (13:40)
--- NOTE | 2021-04-02 13:55 | HPEPDOC ---
[facility] Medical History & Physical Date of Admission Apr 02, 2021 Date of Service: Apr 02, 2021 History and Physical Chief complaint: Who presented to the hospital with dizziness History of present illness: Patient is a 36-year-old male with a PMHx of Bradycardia, HTN, DLP, Hx of Vertigo, Recently diagnosed with Trigeminal neuralgia (on Prednisone / Carbamazepine) who presented to the hospital with vertigo. Patient reported that he woke up this morning with the room spinning reported significant nausea and multiple episodes of vomiting. Patient reported that he has vomited at least 8 times described as watery. The last episode contained a small amount of blood. Patient denies any chest pain, shortness of breath or cough. Denies any abdominal pain, has reported diarrhea. Denies any urinary discomfort or constipation. At home. Patient has not experience any fevers but did report chills. Patient has reported that he was experiencing some jaw pain earlier and was evaluated by the dentist who says that was not the cause. He subsequently went to urgent care who suggested that he might be having trigeminal neuralgia. Ultimately went to [facility] on Saturday and was prescribed steroids and carbamazepine. 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; 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 Review of Systems: 10 point review of systems complete, all negative otherwise stated in HPI Physical exam: - Vitals: BP [160/70], HR [45], RR [16], Sat [100%RA], Temp [96.6F] - General: Lying in bed, No acute distress, Speaking in full sentences, AAOx3 - HEENT: NC, AT, PERRLA - CVS: Bradycardia, +S1S2, - Murmurs / rubs / gallops - Lungs: Fair air entry bilaterally, No appreciable wheezing / rales / rhonchi - Abdomen: Soft, Non-distended, Non-tender - Extremities: No lower extremity edema, No calf tenderness - Neuro: No focal motor or sensory deficit - Skin: No visible rashes Labs: See below Imaging: See below EKG: See below Assessment and Plan: Intractable nausea and vomiting - likely 2/2 vertigo - Remains hemodynamically stable and afebrile - No significant electrolyte abnormalities or signs of dehydration - Will continue with Zofran PRN (QTC noted and not prolonged) - s/p 1 L NS in the ER - c/w Normal saline at this time Acute vertigo - Patient reported that he had a prior history of vertigo December/2020 - Has reported that hes been experiencing vertigo since he experienced a head trauma December 2020 - Currently patient does not exhibit any focal neurologic deficits - Will get MRI / MRA Brain - s/p Diazepam x2 in the ER - Will start Meclizine - Will have PT / OT (Vestibular therapy) evaluation Hypercalcemia - Will check Vitamin D and PTH - c/w IV fluids (see above) Leukocytosis - likely 2/2 corticosteroid use - Review of systems does not reveal any source of infection - Will hold off on antibiotic therapy Bradycardia - Patient reports that he has had a workup in [place] with a tilt table test - Patient also had a loop recorder placement 2015; without any significant findings - c/w Telemetry monitoring at this time HTN - BP slightly elevated - Will hold Chlorthalidone - c/w Lisinopril with hold parameters DLP - c/w Atorvastatin Trigeminal neuralgia - Patient reports that this was recently diagnosed to [facility] on Saturday - Has been prescribed Medrol pack / Carbamazepine DVT prophylaxis - Will start CAM/Sequentials Vital Signs Vital Signs Date Time Temp Pulse Resp B/P (MAP) Pulse Ox O2 Delivery O2 Flow Rate FiO2 04/02/21 12:36 40 04/02/21 12:31 160/70 (100) 04/02/21 12:21 16 100 Room Air 04/02/21 11:00 96.6 Laboratory Data Labs 24H Laboratory Tests 2 04/02/21 11:30: Nucleated Red Blood Cells % (auto) 0.0, Anion Gap 6L, Glomerular Filtration Rate > 60.0, Calcium Level 11.3H, Total Bilirubin 0.6, Aspartate Amino Transf (AST/SGOT) 19, Alanine Aminotransferase (ALT/SGPT) 52, Alkaline Phosphatase 88, Total Protein 8.0, Albumin 4.6, Albumin/Globulin Ratio 1.4 04/02/21 13:16: CBC/BMP Laboratory Tests 04/02/21 11:30 Home Medications Scheduled Atorvastatin Calcium (Atorvastatin Calcium) 20 Mg Tablet, 20 MG PO DAILY Carbamazepine (Carbamazepine) 200 Mg Tablet, 100 MG PO BID START 200MG BID ON 04/05/21 Chlorthalidone (Chlorthalidone) 25 Mg Tablet, 12.5 MG PO DAILY Lisinopril (Lisinopril) 40 Mg Tab, 40 MG PO DAILY Methylprednisolone (Medrol) 4 Mg Tab.ds.pk, 1 DOSE PO ASDIRECTED TAKE 6 TABS ON THE FIRST DAY THEN 5 TABS, THEN 4 TABS, THEN 3 TABS, THEN 2 TABS, THEN 1 TAB Scheduled PRN Meclizine HCl (Meclizine HCl) 25 Mg Tablet, 25 MG PO TID PRN for DIZZINESS Allergies Coded Allergies: No Known Allergies (Unverified , 10/27/18) EMILY STEVENSON MD Apr 02, 2021 13:55
[2021-04-02 14:01] LABS: RSV AMPLIFICATION NEGATIVE (NEGATIVE)
[2021-04-02] MEDS: NS 1,000 ML IV SCH (14:16)
[2021-04-02] MEDS: MECLIZINE 25 MG TABLET PO SCH ×3 (15:33→23:44)
[2021-04-02] MEDS: lisinopriL 40 MG TAB PO SCH (15:34)
[2021-04-02] MEDS: LACTOBACILLUS ACIDOPHILUS CAP (BACID) PO SCH ×2 (16:00→20:33)
[2021-04-02] MEDS: ONDANSETRON 4MG/2ML VIAL IV PRN (18:37)
[2021-04-02 20:00] VITALS: BP 145/80
--- NOTE | 2021-04-02 20:12 | ECGEPIP ---
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
[2021-04-02] MEDS: ATORVASTATIN 20 MG TAB PO SCH (20:33)
--- NOTE | 2021-04-02 21:07 | REPVR ---
PROCEDURE INFORMATION: Exam: MR Head Without Contrast Exam date and time: 04/02/2021 7:14 PM Age: 36 years old Clinical indication: Intractable vertigo, left sided facial pain that comes and goes, severe headache; Tension TECHNIQUE: Imaging protocol: MR of the head without contrast. COMPARISON: 1. CT Head without contrast 12/25/2020 10:[address] ANGIO HEAD 12/25/2020 10:00:47 AM (The reports from these studies were not available for review at the time of this interpretation.) FINDINGS: Limitations: Motion artifact degrades the image quality of several sequences obtained. Brain: There is no acute infarct. No acute intracranial hemorrhage is seen. No mass, mass effect, midline shift, or herniation is noted. The cortical gyration pattern, basal ganglia, thalami, brainstem, and cerebellum are normal in appearance. Cerebral ventricles: Normal. No hydrocephalus. Bones/joints: Unremarkable. Paranasal sinuses: There is mild mucosal thickening in the ethmoid sinuses. No air-fluid levels are seen in the sinuses. Mastoid air cells: The mastoid air cells are well aerated. Orbital cavity: The globes and orbits are unremarkable. Soft tissues: Unremarkable. IMPRESSION: Normal MRI brain without contrast. Electronically signed by: Sandeep Franco On 04/02/2021 21:06:51 PM
--- NOTE | 2021-04-02 21:08 | REPVR ---
PROCEDURE INFORMATION: Exam: MRA Head Without Contrast; Arteriography Exam date and time: 04/02/2021 7:14 PM Age: 36 years old Clinical indication: Other: Severe vertigo; Headache; Patient HX: Intractable vertigo, lt sided facial pain that comes and goes, severe h/a TECHNIQUE: Imaging protocol: Magnetic resonance angiography head without contrast. Exam focused on the arteries. COMPARISON: CT ANGIO HEAD 12/25/2020 10:00 AM FINDINGS: ANTERIOR CIRCULATION: Right internal carotid artery: Intracranial segment is patent with no significant stenosis. No aneurysm. Right middle cerebral artery: No occlusion or significant stenosis. No aneurysm. Right anterior cerebral artery: No occlusion or significant stenosis. No aneurysm. Left internal carotid artery: Intracranial segment is patent with no significant stenosis. No aneurysm. Left middle cerebral artery: No occlusion or significant stenosis. No aneurysm. Left anterior cerebral artery: No occlusion or significant stenosis. No aneurysm. POSTERIOR CIRCULATION: Right vertebral artery: No occlusion or significant stenosis. No aneurysm. Left vertebral artery: No occlusion or significant stenosis. No aneurysm. Basilar artery: No occlusion or significant stenosis. No aneurysm. Right posterior cerebral artery: No occlusion or significant stenosis. No aneurysm. Left posterior cerebral artery: No occlusion or significant stenosis. No aneurysm. IMPRESSION: No stenosis or occlusion. Electronically signed by: Cam Greene On 04/02/2021 21:08:13 PM
[2021-04-03] VITALS: BP 122/57
[2021-04-03] MEDS: NS 1,000 ML IV SCH ×2 (03:49→15:32)
[2021-04-03 04:00] VITALS: BP 120/66
[2021-04-03 05:32] LABS: BASO # 0.1 10^3/uL (0.0-0.2); BASO % 0.5 % (0.0-1.0); EOS # 0.2 10^3/uL (0.0-0.5); EOS % 2.3 % (0.0-3.0); HEMATOCRIT 41.8 % (42.0-52.0); HEMOGLOBIN 14.3 g/dl (13.5-17.5); LYMPH # 2.6 10^3/uL (1.5-5.0); LYMPH % 25.1 % (24.0-44.0); MEAN CORPUSCULAR HEMOGLOBIN 32.6 pg (27.0-33.0); MEAN CORPUSCULAR HGB CONC 34.2 g/dl (32.0-36.5); MEAN CORPUSCULAR VOLUME 95.4 fl (80.0-96.0); MONO # 1.3 10^3/uL (0.0-0.8); MONO % 12.1 % (2.0-8.0); NEUTROPHILS # 6.3 10^3/uL (1.5-8.5); NEUTROPHILS % 59.7 % (36.0-66.0); PLATELET COUNT, AUTOMATED 232 10^3/uL (150-450); RED BLOOD COUNT 4.38 10^6/uL (4.30-6.10); WHITE BLOOD COUNT 10.5 10^3/uL (4.0-10.0)
[2021-04-03 05:50] LABS: BLOOD UREA NITROGEN 20 MG/DL (7-18); CALCIUM LEVEL 10.2 MG/DL (8.5-10.1); CARBON DIOXIDE LEVEL 32 MEQ/L (21-32); CHLORIDE LEVEL 107 MEQ/L (98-107); CREATININE FOR GFR 0.67 MG/DL (0.70-1.30); GLOMERULAR FILTRATION RATE > 60.0 (>60); GLUCOSE, FASTING 77 MG/DL (70-100); MAGNESIUM LEVEL 2.3 MG/DL (1.8-2.4); POTASSIUM SERUM 4.4 MEQ/L (3.5-5.1); SODIUM LEVEL 142 MEQ/L (136-145)
[2021-04-03] MEDS: MECLIZINE 25 MG TABLET PO SCH ×4 (05:50→23:58)
[2021-04-03] MEDS: ONDANSETRON 4MG/2ML VIAL IV PRN ×2 (06:38→12:07)
[2021-04-03 07:22] VITALS: BP 127/56
[2021-04-03] MEDS: carBAMazepine 100MG *1/2* TABLET PO SCH ×2 (09:36→21:24)
[2021-04-03] MEDS: ATORVASTATIN 20 MG TAB PO SCH (09:36)
[2021-04-03] MEDS: LACTOBACILLUS ACIDOPHILUS CAP (BACID) PO SCH ×3 (09:36→21:24)
[2021-04-03] MEDS: lisinopriL 40 MG TAB PO SCH (09:36)
--- NOTE | 2021-04-03 09:42 | IPNPDOC ---
Text Note Date of Service The patient was seen on 04/03/21. NOTE Subjective: Patient is a 36-year-old male with a PMHx of Bradycardia, HTN, DLP, Hx of Vertigo, Recently diagnosed with Trigeminal neuralgia (on Prednisone / Carbamazepine) who presented to the hospital with vertigo. Patient reported that he woke up on 8/12 AM with the room spinning reported significant nausea and multiple episodes of vomiting. Patient reported that he has vomited at least 8 times described as watery. Patient was admitted to hospital service for intractable nausea and vomiting. Patient was seen and examined at the bedside. Patient denies any chest pain, shortness breath, palpitations. Reports that he still experiences some dizzi ness, however, markedly improved compared to yesterday. Has not experience any further nausea, vomiting. Denies any abdominal pain, diarrhea, or urinary discomfort. Objective: Vitals (See below) General: Lying in bed, appears comfortable, AAOx3 HEENT: NC, AT CVS: RRR, +S1S2 Lungs: Fair air entry b/l, no wheezing, rales or rhonchi Abdomen: Soft, nondistended, nontender Extremities: No evidence of edema Imaging: MRI Brain 04/02: Normal MRI brain without contrast. MRA Brain 04/02: No stenosis or occlusion. Assessment and plan: s/p Intractable nausea and vomiting - likely 2/2 vertigo - Again he remain hemodynamically stable / Afebrile - No significant electrolyte abnormalities or signs of dehydration - c/w Zofran PRN (QTC noted and not prolonged) - c/w Normal saline for maintenance until tolerating PO diet - Will consider advancing diet this afternoon Acute vertigo - Patient reported that he had a prior history of vertigo December/2020 - Has reported that hes been experiencing vertigo since he experienced a head trauma December 2020 - No focal neurologic deficits - Imaging noted above; negative - s/p Diazepam x2 in the ER - c/w Meclizine - c/w PT / OT (Vestibular therapy) evaluation Hypercalcemia - Vitamin D and PTH pending - c/w IV fluids (see above) Leukocytosis - likely 2/2 corticosteroid use - Trending down - Review of systems does not reveal any source of infection - No indication for antibiotics at this time Bradycardia - Patient reports that he has had a workup in [place] with a tilt table test - Patient also had a loop recorder placement 2015; without any significant findings - c/w Telemetry monitoring at this time HTN - BP normotensive - Will hold Chlorthalidone (re: poor oral intake / on fluids) - c/w Lisinopril with hold parameters DLP - c/w Atorvastatin Trigeminal neuralgia - Patient reports that this was recently diagnosed to [facility] on Saturday - Has been prescribed Medrol pack / Carbamazepine DVT prophylaxis - c/w CAM/Sequentials Disposition: - Awaiting clinical improvement VSZion, I+O VSZion I+O Laboratory Tests 04/02/21 11:30 04/03/21 04:55 04/03/21 04:56 Vital Signs Date Time Temp Pulse Resp B/P (MAP) Pulse Ox O2 Delivery O2 Flow Rate FiO2 04/03/21 07:22 97.6 44 18 127/56 (79) 96 Room Air I&O- Last 24 Hours up to 6 AM 04/03/21 06:00 Intake Total 1960 ml Output Total 300 ml Balance 1660 ml EMILY STEVENSON MD Apr 03, 2021 09:42
[2021-04-03 12:01] VITALS: BP 133/73
[2021-04-03 12:34] LABS: PTH INTACT 73.9 PG/ML (18.5-88.0); TOTAL 25(OH) VITAMIN D 27.8 NG/ML (30.0-100.0)
[2021-04-03] MEDS ORDERED: METOCLOPRAMIDE INJ 10MG/2ML VIAL (J2765 PER 1) IV PRN (18:10)
[2021-04-03 20:00] VITALS: BP 113/58
[2021-04-03 22:15] VITALS: BP 145/75
[2021-04-04 00:07] VITALS: BP 139/88
[2021-04-04] MEDS: NS 1,000 ML IV SCH ×2 (02:53→15:25)
[2021-04-04 03:45] VITALS: BP 141/89
--- NOTE | 2021-04-04 04:35 | IPNPDOC ---
Text Note Date of Service The patient was seen on 04/04/21. NOTE Significant event. Pt with notably worse dizziness and sustained bradycardia hr 35. Pt reports the dizziness woke him up then became nauseated. He appears weak and ill, cooling rag on forehead. Nurse reports pt was diaphoretic at time of episode. BG 75, hr 35, BP 148/56, RR 14, T97.3. HR improved to 42 during exam. He is regular rohan. CTA. no neuro deficits appreciated. Pt reports he feels about as poorly as he has been before the episode. He is unable to give much detail regarding heart history or his baseline HR. Pt reports "always thought had high HR". He did have noted w/u in [place] tilt table, but uncertain timing and loop recorder 2015. EKG sinus rohan, no evidence of block. Check orthostats modified supine/sitting (not standing). AM labs for metabolic considerations WCTM and adjust care plan accordingly. VS,Fishbone, I+O VS, Fishbone, I+O Laboratory Tests 04/03/21 04:55 04/03/21 04:56 Vital Signs Date Time Temp Pulse Resp B/P (MAP) Pulse Ox O2 Delivery O2 Flow Rate FiO2 04/04/21 00:07 97.3 42 139/88 (105) 04/03/21 22:15 17 99 Room Air I&O- Last 24 Hours up to 6 AM 04/04/21 06:00 Intake Total 1850 ml Output Total 500 ml Balance 1350 ml KANDI BEASLEY NP Apr 04, 2021 04:26
[2021-04-04 05:20] LABS: BASO # 0.1 10^3/uL (0.0-0.2); BASO % 0.8 % (0.0-1.0); EOS # 0.2 10^3/uL (0.0-0.5); EOS % 2.4 % (0.0-3.0); HEMATOCRIT 40.2 % (42.0-52.0); LYMPH # 2.7 10^3/uL (1.5-5.0); LYMPH % 33.3 % (24.0-44.0); MEAN CORPUSCULAR HEMOGLOBIN 32.6 pg (27.0-33.0); MEAN CORPUSCULAR HGB CONC 34.8 g/dl (32.0-36.5); MEAN CORPUSCULAR VOLUME 93.7 fl (80.0-96.0); MONO # 0.9 10^3/uL (0.0-0.8); MONO % 10.6 % (2.0-8.0); NEUTROPHILS # 4.2 10^3/uL (1.5-8.5); NEUTROPHILS % 52.6 % (36.0-66.0); PLATELET COUNT, AUTOMATED 196 10^3/uL (150-450); RED BLOOD COUNT 4.29 10^6/uL (4.30-6.10)
[2021-04-04 05:45] VITALS: BP_SYST 110; BP_SYST 128; BP_SYST 135; BP_DIAS 62; BP_DIAS 80; BP_DIAS 89
[2021-04-04 05:45] LABS: HEMOGLOBIN A1c 5.2 %
[2021-04-04 06:00] VITALS: BP 118/69
[2021-04-04 06:08] LABS: BLOOD UREA NITROGEN 19 MG/DL (7-18); CALCIUM LEVEL 9.7 MG/DL (8.5-10.1); CARBON DIOXIDE LEVEL 28 MEQ/L (21-32); CHLORIDE LEVEL 107 MEQ/L (98-107); GLOMERULAR FILTRATION RATE > 60.0 (>60); GLUCOSE, FASTING 91 MG/DL (70-100); MAGNESIUM LEVEL 2.4 MG/DL (1.8-2.4); PHOSPHORUS LEVEL 2.3 MG/DL (2.5-4.9); POTASSIUM SERUM 4.2 MEQ/L (3.5-5.1); SODIUM LEVEL 141 MEQ/L (136-145); THYROID STIMULATING HORMONE 0.555 uIU/ML (0.358-3.740)
[2021-04-04] MEDS: MECLIZINE 25 MG TABLET PO SCH ×2 (06:08→11:30)
[2021-04-04] MEDS: lisinopriL 40 MG TAB PO SCH (09:00)
[2021-04-04] MEDS: LACTOBACILLUS ACIDOPHILUS CAP (BACID) PO SCH (09:08)
[2021-04-04] MEDS: carBAMazepine 100MG *1/2* TABLET PO SCH (09:08)
[2021-04-04] MEDS: ATORVASTATIN 20 MG TAB PO SCH (09:09)
[2021-04-04 10:21] LABS: VITAMIN B12 LEVEL 791 PG/ML (247-911)
[2021-04-04] MEDS ORDERED: MECL-86 PO (13:13)
--- NOTE | 2021-04-04 15:59 | DS.PDOC ---
Discharge Summary General Date of Admission Apr 02, 2021 at 13:38 Date of Discharge 04/04/2021 Attending Physician: BROOKLYN LEGER MD Discharge Summary PROCEDURES PERFORMED DURING STAY: None ADMITTING DIAGNOSES: Vertigo DISCHARGE DIAGNOSES: Vertigo likely multifactorial possible BPPV and recent trigeminal neuralgia Chronic history of asymptomatic bradycardia HTN DLP Hx of Vertigo Recently diagnosed with Trigeminal neuralgia (on Prednisone / Carbamazepine) COMPLICATIONS/CHIEF COMPLAINT: Intractable Vomiting,Vertigo. HISTORY OF PRESENT ILLNESS: 36-year-old male with a PMHx of Bradycardia, HTN, DLP, Hx of Vertigo, Recently diagnosed with Trigeminal neuralgia (on Prednisone / Carbamazepine) who presented to the hospital with acute vertigo with significant nausea and multiple episodes of vomiting. Patient reported that he had vomited at least 8 times, without any associated headache, chest pain, shortness of breath, vision changes. He also denied any abdominal pain, fever, chills. On his presentation, he reported that he had been experiencing some jaw pain earlier and was evaluated by the dentist who says that was not the cause. He subsequently went to urgent care who suggested that he might be having trigeminal neuralgia. Ultimately went to [facility] where he was prescribed steroids and carbamazepine. HOSPITAL COURSE: He was admitted for ongoing vertigo and had an MRI brain and MRA that were negative for mass, bleeding, infarction. He was seen by PT that noted L sided positive [facility] but suspected that it was likely a combination of factors including the ongoing neuralgia. They recommended that he was safe for discharge home with some meclizine and would likely benefit from some vestibular therapy in the outpatient setting. He did have noted nocturnal sinus bradycardic episodes. He now reports that he feels better and is being discharged home to continue PRN meclizine and with a script for outpatient vestibular therapy with close PCP follow up. I discussed with him that if these symptoms persist he may require neurology referral in the outpatient setting. DISCHARGE MEDICATIONS: Please see below. ALLERGIES: Please see below. PHYSICAL EXAMINATION ON DISCHARGE: VITAL SIGNS: Please see below. General: Lying in bed, appears comfortable, AAOx3 HEENT: NC, AT CVS: RRR, +S1S2 Lungs: Fair air entry b/l, no wheezing, rales or rhonchi Abdomen: Soft, nondistended, nontender Extremities: No evidence of edema LABORATORY DATA: Please see below. IMAGING: MRI Brain 04/02: Normal MRI brain without contrast. MRA Brain 04/02: No stenosis or occlusion. PROGNOSIS: Good ACTIVITY: As tolerated DIET: regular DISCHARGE PLAN: home with PRN meclizine, close PCP follow up and script for outpatient vestibular therapy. DISPOSITION: Home DISCHARGE INSTRUCTIONS: home with PRN meclizine, close PCP follow up and script for outpatient vestibular therapy. ITEMS TO FOLLOWUP ON ON OUTPATIENT: Vertigo DISCHARGE CONDITION: Stable TIME SPENT ON DISCHARGE: 46 minutes. Vital Signs/I&Os Vital Signs Date Time Temp Pulse Resp B/P (MAP) Pulse Ox O2 Delivery O2 Flow Rate FiO2 04/04/21 06:00 97.5 43 15 118/69 (85) 98 Room Air I&O- Last 24 Hours up to 6 AM 04/04/21 06:00 Intake Total 2490 ml Output Total 500 ml Balance 1990 ml Laboratory Data Labs 24H Laboratory Tests 2 04/04/21 03:48: Bedside Glucose (Misc Panel) 75 04/04/21 04:25: Bedside Glucose (Misc Panel) 78 04/04/21 05:11: Immature Granulocyte % (Auto) 0.3, Neutrophils (%) (Auto) 52.6, Lymphocytes (%) (Auto) 33.3, Monocytes (%) (Auto) 10.6H, Eosinophils (%) (Auto) 2.4, Basophils (%) (Auto) 0.8, Neutrophils # (Auto) 4.2, Lymphocytes # (Auto) 2.7, Monocytes # (Auto) 0.9H, Eosinophils # (Auto) 0.2, Basophils # (Auto) 0.1, Nucleated Red Blood Cells % (auto) 0.0, Anion Gap 6L, Glomerular Filtration Rate > 60.0, Estimated Mean Plasma Glucose 103, Hemoglobin A1c 5.2, Calcium Level 9.7, Phosphorus Level 2.3L, Magnesium Level 2.4, Vitamin B12 Level 791, Thyroid Stimulating Hormone (TSH) 0.555 CBC/BMP Laboratory Tests 04/04/21 05:11 FSBS Laboratory Tests Test 04/04/21 03:48 04/04/21 04:25 Range/Units Bedside Glucose (Misc Panel) 75 78 70-105 MG/DL Discharge Medications Scheduled Atorvastatin Calcium (Atorvastatin Calcium) 20 Mg Tablet, 20 MG PO DAILY, (Reported) Carbamazepine (Carbamazepine) 200 Mg Tablet, 100 MG PO BID, (Reported) START 200MG BID ON 04/05/21 Chlorthalidone (Chlorthalidone) 25 Mg Tablet, 12.5 MG PO DAILY, (Reported) Lisinopril (Lisinopril) 40 Mg Tab, 40 MG PO DAILY, (Reported) Methylprednisolone (Medrol) 4 Mg Tab.ds.pk, 1 DOSE PO ASDIRECTED, (Reported) TAKE 6 TABS ON THE FIRST DAY THEN 5 TABS, THEN 4 TABS, THEN 3 TABS, THEN 2 TABS, THEN 1 TAB Scheduled PRN Meclizine HCl (Meclizine HCl) 25 Mg Tablet, 25 MG PO TIDP PRN for DIZZINESS Allergies Coded Allergies: No Known Allergies (Unverified , 10/27/18) BROOKLYN LEGER MD Apr 04, 2021 15:59
--- NOTE | 2021-04-04 18:16 | ECGEPIP ---
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
== END 2021-04-04 16:30 | disposition home or self-care (01) | DRG 111 ==
LOC: M ED 10:36 → M ED INP 13:38 → M PCU 20:04 → M MSPAV 04-03 22:17
PROVIDERS: ADMIT Internal Medicine; ATTEND Internal Medicine
DX: H81.13 Benign paroxysmal vertigo, bilateral (principal); E83.52 Hypercalcemia; I10 Essential (primary) hypertension; R11.2 Nausea with vomiting, unspecified; D72.829 Elevated white blood cell count, unspecified; R00.1 Bradycardia, unspecified; G50.0 Trigeminal neuralgia; Z79.899 Other long term (current) drug therapy

== ENCOUNTER 2021-05-12 19:13 | Emergency (ER) | payer OTHER ==
[~2021-05-12] VITALS: Ht 188 cm; Wt 95.6 kg
[~2021-05-12 19:13] MED LIST changes: +ATOR1TAB21 PO; +CARB1TAB20 PO; +GABA600T4; +MECL-86 PO; +MEDR4PAK PO
--- OUTSIDE RECORDS SUMMARY | 2021-05-12 19:21 | CCD ---
Author Organization Unknown Address [address] [place] [address] Phone [phone] Care Team Providers Care Sorting And Folding Supervisor Name Role Phone [facility] 2 [phone] Allergies Code Code System Name Reaction Severity Status Onset 862252 RxNorm Chantix Active 08/21/2016 Medications Name Status Start Date Stop Date amlodipine 10 mg tablet Completed 02/04/20 21 atorvastatin 10 mg tablet Completed 2020 atorvastatin 20 mg tablet TAKE ONE TABLET BY MOUTH ONCE DAILY Active Not available carbamazepine 200 mg tablet TAKE 1/2 TABLET BY MOUTH TWICE DAILY FOR FOURTEEN DAYS, THEN TAKE ONE TABLET BY MOUTH TWICE DAILY Active Not available chlorthalidone 25 mg tablet Active Not available cyclobenzaprine 10 mg tablet TAKE ONE TABLET BY MOUTH THREE TIMES DAILY Completed 02/03/2021 gabapentin 600 mg tablet TAKE ONE TABLET BY MOUTH THREE TIMES DAILY DIRECTED Active Not available ibuprofen 800 mg tablet Completed 02/04/20 21 lisinopril 40 mg tablet TAKE ONE TABLET BY MOUTH ONCE DAILY Active Not available meclizine 25 mg tablet TAKE ONE TABLET BY MOUTH THREE TIMES DAILY NEEDED FOR dizziness Active Not available methylprednisolone 4 mg tablets in a dos e pack USE DIRECTED ON PACKAGE - START TOMORROW Completed 04/13/2021 nicotine 14 mg/24 hr daily transdermal patch Completed 05/30/2020 Problems Name Status Onset Date Source Hypertensive Disorder Active 03/09/2014 History Emotional State Finding Unknown 03/09/2014 History Hyperlipidemia Active 03/19/2014 History Open Wound of Nose Unknown 03/31/2014 History Generalized Anxiety Disorder Active 04/12/2014 His tory Depressive Disorder Active 04/12/2014 History Verruca Plantaris Active 11/22/2014 History Nicotine Dependence Active 03/16/2015 History Gastroesophageal Reflux Disease Active 03/16/2015 History Gastroesophageal Reflux Disease without Esophagitis Active 03/16/2015 History Syncope and Collapse Unknown 04/19/2015 History Memory Finding Unknown 05/04/2015 History Dysthymia Unknown 03/28/2016 History Vomiting without Nausea Unknown 03/29/2017 History Clinical Finding Unknown 04/26/2017 History Overweight Unknown 04/21/2018 History Body Mass Index 25-29 - Overweight Active 04/21/2018 History Tooth Finding Unknown 04/21/2018 History Tobacco Use and Exposure - Finding Unknown 05/07/2018 History Puncture Wound of Foot Unknown 10/28/2018 History Influenza Vaccine Needed Unknown 10/28/2018 History Endocrine/metabolic Screening Unknown 10/28/2018 Hi story Cellulitis of Finger of Left Hand Unknown 10/28/2018 History Vitamin D Deficiency Active 01/30/2019 History Syncope Active 09/13/2020 Procedures Notes: Loop recorder Results Lab Results Date Name Specimen Result Interpretation Description Value Range Status Address 04/04/2021 Glucose, Fingerstick, Blood Normal Bedside Glucose 75 mg/dL 70- 105 mg/dL [facility]: 83 0 [facility] 04/04/2021 Glucose, Fingerstick, Blood Normal Bedside Glucose 78 mg/dL 70- 105 mg/dL [facility]: 83 0 [facility] 04/04/2021 CBC W/ Auto Diff Normal White Blood Count 8.0 10 4.0-10.0 10 [facility]: 830 [facility] Low Red Blood Count 4.29 10 4.30-6.10 10 [facility]: 830 [facility] Normal Hemoglobin 14.0 g/dL 13.5-17.5 g/dL [facility]: 0 [facility] Low Hematocrit 40.2 % 42.0-52.0 % [facility]: 830 [facility] Normal Mean Corpuscular Volume 93.7 fL 80.0 -96.0 fL [facility]: 830 [facility] Normal Mean Corpuscular Hemoglobin 32.6 pg 27.0-33.0 pg [facility]: 0 [facility] Normal Mean Corpuscular HGB Conc 34.8 g/dL 32.0-36.5 g/dL [facility]: 0 [facility] Normal Red Cell Distribution Width 12.1 % 1 1.5-14.5 % [facility]: 830 [facility] Normal Platelet Count, Automated 196 10 150 -450 10 [facility]: 830 [facility] Normal Neutrophils % 52.6 % 36.0-66.0 % [facility]: 830 [facility] Normal Lymph % 33.3 % 24.0-44.0 % [facility]: 830 [facility] High Rogers % 10.6 % 2.0-8.0 % Final [facility]: 830 [facility] Normal Eos % 2.4 % 0.0-3.0 % [facility]: 830 [facility] Normal Baso % 0.8 % 0.0-1.0 % [facility]: [address] [place] [address] Normal Immature Granulocyte % 0.3 % 0-3.0 % [facility]: [address] [place] [address] Normal Nucleated Red Blood Cell % 0.0 % 0- 0 % [facility]: [address] [facility] Normal Neutrophils # 4.2 10 1.5-8.5 10 [facility]: 830 [facility] Normal Lymph # 2.7 10 1.5-5.0 10 [facility]: 8[address] [facility] High Rogers # 0.9 10 0.0-0.8 10 [facility]: 830 [facility] Normal Eos # 0.2 10 0.0-0.5 10 [facility]: 830 [facility] Normal Baso # 0.1 10 0.0-0.2 10 [facility]: 830 [facility] 04/04/2021 HbA1C (Hemoglobin a1C), Blood Normal Hemogl obin a1C 5.2 % [facility]: 830 [facility] Normal Estimated Average Glucose 103 mg/dL 60-110 mg/dL [facility]: 0 [facility] 04/04/2021 BMP, Serum or Plasma Normal Glucose, Fastin g 91 mg/dL 70-100 mg/dL [facility]: 83 0 [facility] High Blood Urea Nitrogen 19 mg/dL 7-18 mg /dL [facility]: 0 [facility] Low Creatinine for GFR 0.60 mg/dL 0.70-1 .30 mg/dL [facility]: 0 [facility] Normal Glomerular Filtration Rate > 60.0 >6 0 [facility]: [address] [facility] Normal Sodium Level 141 mEq/L 136-145 mEq/L [facility]: 8[address] [facility] Normal Potassium Serum 4.2 mEq/L 3.5-5.1 mE q/L [facility]: 0 [facility] Normal Chloride Level 107 mEq/L 98-107 mEq/ L [facility]: 8[address] [facility] Normal Carbon Dioxide Level 28 mEq/L 21-32 mEq/L [facility]: 8[address] [facility] Low Anion Gap 6 mEq/L 8-16 mEq/L [facility]: 830 [facility] Normal Calcium Level 9.7 mg/dL 8.5-10.1 mg/ dL [facility]: 830 [facility] 04/04/2021 Phosphorus Level Low Phosphorus Level 2 .3 mg/dL 2.5-4.9 mg/dL [facility]: 0 [facility] 04/04/2021 Magnesium, Serum or Plasma Normal Magnesium Level 2.4 mg/dL 1.8-2.4 mg/dL [facility]: 83 0 [facility] 04/04/2021 TSH, Serum or Plasma Normal Thyroid Stimulating Hormone 0.555 uIU/mL 0.358-3.740 uIU/mL [facility] nter: 830 [facility] 04/04/2021 Vitamin B12, Serum Normal Vitamin B12 Level 791 pg/mL 247-911 pg/mL [facility]: 83 0 [facility] 04/03/2021 CBC W/ Auto Diff High White Blood Count 10.5 10 4.0-10.0 10 [facility]: 830 [facility] Normal Red Blood Count 4.38 10 4.30-6.10 10 [facility]: 830 [facility] Normal Hemoglobin 14.3 g/dL 13.5-17.5 g/dL [facility]: [address] [place] [address] Low Hematocrit 41.8 % 42.0-52.0 % [facility]: [address] [place] [address] Normal Mean Corpuscular Volume 95.4 fL 80.0 -96.0 fL [facility]: [address] [place] [address] Normal Mean Corpuscular Hemoglobin 32.6 pg 27.0-33.0 pg [facility]: [address] [place] [address] Normal Mean Corpuscular HGB Conc 34.2 g/dL 32.0-36.5 g/dL [facility]: [address] [place] [address] Normal Red Cell Distribution Width 12.4 % 1 1.5-14.5 % [facility]: [address] [place] [address] Normal Platelet Count, Automated 232 10 150 -450 10 [facility]: 0 [facility] Normal Neutrophils % 59.7 % 36.0-66.0 % [facility]: 8[address] [facility] Normal Lymph % 25.1 % 24.0-44.0 % [facility]: 8[address] [facility] High Rogers % 12.1 % 2.0-8.0 % [facility]: 8[address] [facility] Normal Eos % 2.3 % 0.0-3.0 % [facility]: 0 [facility] Normal Baso % 0.5 % 0.0-1.0 % [facility]: 0 [facility] Normal Immature Granulocyte % 0.3 % 0-3.0 % [facility]: 0 [facility] Normal Nucleated Red Blood Cell % 0.0 % 0- 0 % [facility]: 830 [facility] Normal Neutrophils # 6.3 10 1.5-8.5 10 [facility]: 830 [facility] Normal Lymph # 2.6 10 1.5-5.0 10 [facility]: 8[address] [facility] High Rogers # 1.3 10 0.0-0.8 10 [facility]: 830 [facility] Normal Eos # 0.2 10 0.0-0.5 10 [facility]: 830 [facility] Normal Baso # 0.1 10 0.0-0.2 10 [facility]: 830 [facility] 04/03/2021 BMP, Serum or Plasma Normal Glucose, Fastin g 77 mg/dL 70-100 mg/dL [facility]: 83 0 [facility] High Blood Urea Nitrogen 20 mg/dL 7-18 mg /dL [facility]: 830 [facility] Low Creatinine for GFR 0.67 mg/dL 0.70-1 .30 mg/dL [facility]: 0 [facility] Normal Glomerular Filtration Rate > 60.0 >6 0 [facility]: 830 [facility] Normal Sodium Level 142 mEq/L 136-145 mEq/L [facility]: 830 [facility] Normal Potassium Serum 4.4 mEq/L 3.5-5.1 mE q/L [facility]: 830 [facility] Normal Chloride Level 107 mEq/L 98-107 mEq/ L [facility]: 0 [facility] Normal Carbon Dioxide Level 32 mEq/L 21-32 mEq/L [facility]: 0 [facility] Low Anion Gap 3 mEq/L 8-16 mEq/L [facility]: 0 [facility] High Calcium Level 10.2 mg/dL 8.5-10.1 mg /dL [facility]: 830 [facility] 04/03/2021 Magnesium, Serum or Plasma Normal Magnesium Level 2.3 mg/dL 1.8-2.4 mg/dL [facility]: 83 0 [facility] 04/03/2021 Glucose, Fingerstick, Blood Normal Bedside Glucose 91 mg/dL 70- 105 mg/dL [facility]: 83 0 [facility] 04/02/2021 Cbc High White Blood Count 14.8 10 4.0-10 .0 10 [facility]: 830 [facility] Normal Red Blood Count 4.89 10 4.30-6.10 10 [facility]: 830 [facility] Normal Hemoglobin 16.0 g/dL 13.5-17.5 g/dL [facility]: 830 [facility] Normal Hematocrit 45.1 % 42.0-52.0 % [facility]: 830 [facility] Normal Mean Corpuscular Volume 92.2 fL 80.0 -96.0 fL [facility]: 830 [facility] Normal Mean Corpuscular Hemoglobin 32.7 pg 27.0-33.0 pg [facility]: 0 [facility] Normal Mean Corpuscular HGB Conc 35.5 g/dL 32.0-36.5 g/dL [facility]: 0 [facility] Normal Red Cell Distribution Width 12.1 % 1 1.5-14.5 % [facility]: [address] [facility] Normal Platelet Count, Automated 283 10 150 -450 10 [facility]: 830 [facility] Normal Nucleated Red Blood Cell % 0.0 % 0- 0 % [facility]: 830 [facility] 04/02/2021 CMP, Serum or Plasma High Glucose, Fastin g 155 mg/dL 70-100 mg/dL [facility]: 83 0 [facility] High Blood Urea Nitrogen 21 mg/dL 7-18 mg /dL [facility]: [address] [place] [address] Normal Creatinine for GFR 0.86 mg/dL 0.70-1 .30 mg/dL [facility]: [address] [place] [address] Normal Glomerular Filtration Rate > 60.0 >6 0 [facility]: 0 [facility] Normal Sodium Level 139 mEq/L 136-145 mEq/L [facility]: [address] [place] [address] Normal Potassium Serum 4.5 mEq/L 3.5-5.1 mE q/L [facility]: 0 [facility] Normal Chloride Level 103 mEq/L 98-107 mEq/ L [facility]: [address] [place] [address] Normal Carbon Dioxide Level 30 mEq/L 21-32 mEq/L [facility]: [address] [place] [address] Low Anion Gap 6 mEq/L 8-16 mEq/L [facility]: [address] [place] [address] High Calcium Level 11.3 mg/dL 8.5-10.1 mg /dL [facility]: 0 [facility] Normal AST/SGOT 19 U/L 7-37 U/L [facility]: 0 [facility] Normal ALT/SGPT 52 U/L 12-78 U/L [facility]: 0 [facility] Normal Alkaline Phosphatase 88 U/L 45-117 U /L [facility]: [address] [place] [address] Normal Bilirubin,total 0.6 mg/dL 0.2-1.0 mg /dL [facility]: 0 [facility] Normal Total Protein 8.0 gm/dL 6.4-8.2 gm/d L [facility]: 0 [facility] Normal Albumin 4.6 gm/dL 3.2-5.2 gm/dL Nicolasa l [facility]: 0 [facility] Normal Albumin/globulin Ratio 1.4 [facility]: 0 [facility] 04/02/2021 Influenza A/B RSV Covid Amp Normal Influenza a Amplification negative negative [facility] nter: 830 [facility] Normal Influenza B Amplification negative n egative [facility]: 830 [facility] Normal RSV Amplification negative negative [facility]: 8[address] [facility] Normal Sars Covid-19 Amplification negative negative [facility]: [address] [facility] 04/02/2021 Ionized Calcium Normal Ionized Calcium 4.5 mg/dL 4.5-5.3 mg/dL [facility]: 830 [facility] 04/02/2021 PTH (Parathyroid Hormone), Intact, Serum or Plasma Normal PTH Intact 73.9 pg/mL 18.5-88.0 pg/mL [facility]: 0 [facility] 04/02/2021 Vitamin D, 25-Hydroxy, Total, Serum Low Total 25(Oh) Vitamin D 27.8 NG/mL 30.0-100.0 NG/mL [facility] nter: 830 [facility] 12/25/2020 Glucose, Fingerstick, Blood High Bedside Glucose 114 mg/dL 70- 105 mg/dL [facility]: 83 0 [facility] 12/25/2020 UA W/ Reflex to Culture Normal Appearance, Urine Rfx clear clear [facility]: 83 0 [facility] Normal Color, Urine Rfx yellow yellow [facility]: 830 [facility] Normal pH,urine Rfx 7.0 units 5.0-9.0 units [facility]: 830 [facility] Normal Specific Lee Ur Auto Rfx S3 1.002-1.035 [facility]: 8[address] [facility] High Protein, Urine Auto Rfx 2+ mg/dL neg ative mg/dL [facility]: 830 [facility] Normal Glucose, Urine (UA) Auto Rfx n egative mg/dL negative mg/dL [facility]: 8[address] [facility] High Ketone, Urine Auto Rfx 1+ mg/dL nega tive mg/dL [facility]: [address] [facility] Normal Urobilinogen, Urine Auto Rfx 0.2 mg/ dL 0.0-2.0 mg/dL [facility]: 8[address] [facility] Normal Bilirubin, Urine Auto Rfx negative n egative [facility]: 8[address] [facility] Normal Nitrite, Urine Auto Rfx negative neg ative [facility]: 830 [facility] Normal Leukocyte Esterase Ur Auto Rfx negat megha negative [facility]: 8[address] [facility] Normal Blood, Urine Blood Rfx negative nega tive [facility]: 830 [facility] Normal WBC, Urine Auto Rfx 1 /hpf 0-3 /hpf [facility]: 830 [facility] Normal RBC, Urine Auto Rfx 1 /hpf 0-3 /hpf [facility]: 8[address] [facility] Normal Bacteria, Urine Auto Rfx negative [facility] 830 [facility] Normal Squam Epithelial Cell Ur Aurfx 0 /hp f 0-6 /hpf [facility]: 8[address] [facility] Normal Mucus, Urine Rfx small negative Fin [facility]: 8[address] [facility] Normal Hyaline Cast, Urine Auto Rfx 0 /lpf 0-1 /lpf [facility]: 830 [facility] 12/25/2020 Drug Screen, Urine Normal Amphetamines Leve l Urine negative negative [facility]: 83 0 [facility] Normal Barbiturates Urine negative negative [facility]: 8[address] [facility] Normal Benzodiazepines Urine negative negat megha [facility]: 8[address] [facility] High Cannabinoids Urine positive negative [facility]: 8[address] [facility] Normal Cocaine Metabolite Urine negative ne gative [facility]: 8[address] [facility] Normal Methadone Urine negative negative [facility]: 830 [facility] Normal Opiates Urine negative negative Nicolasa l [facility]: 8[address] [facility] Normal Phencyclidine Urine negative negativ e Final [facility]: 8[address] [facility] Lipid Panel, Serum Blood venous High Cholesterol, T otal 233 mg/dL <200 mg/dL Final [facility]: 875 [facility] Blood venous Low HDL Cholesterol 35 mg/dL > or = 40 mg/dL Final [facility]: 875 [facility] Blood venous Normal Triglycerides 108 mg/dL <150 mg/dL Final [facility]: 875 [facility] Blood venous High LDL-cholesterol 175 mg/dL (ca lc) Final [facility]: 8[address] [facility] Blood venous High Chol/hdlc Ratio 6.7 (calc) <5 .0 (calc) Final [facility]: 8[address] [facility] Blood venous High Non HDL Cholesterol 198 mg/dL (calc) <130 mg/dL (calc) Final [facility]: 875 [facility] CMP, Serum or Plasma Blood venous High Glucose 110 mg/dL 65-99 mg/dL Final [facility]: 875 [facility] Normal Urea Nitrogen (BUN) 15 mg/dL 7-25 mg/dL Final [facility]: 8[address] [facility] Blood venous Normal Creatinine 0.70 mg/dL 0.60-1. 35 mg/dL [facility]: [address] [facility] Blood venous Normal eGFR Non-afr. Austrian 1 21 mL/min/1.73m2 > or = 60 mL/min/1.73m2 Final [facility]: [address] [facility] Blood venous Normal eGFR 14 0 mL/min/1.73m2 > or = 60 mL/min/1.73m2 Final [facility]: 8[address] [facility] Blood venous BUN/creatinine Ratio not applicable (calc) 6-22 (calc) Final [facility]: [address] Brandan thurstonee [facility] Blood venous Normal Sodium 139 mmol/L 135-146 mmo l/L Final [facility]: 8[address] [facility] Blood venous Normal Potassium 4.0 mmol/L 3.5-5.3 mmol/L Final [facility]: 8[address] [facility] Blood venous Normal Chloride 103 mmol/L 98-110 mm ol/L [facility]: [address] [facility] Blood venous Normal Carbon Dioxide 29 mmol/L 20-3 2 mmol/L Final [facility]: [address] [facility] Blood venous High Calcium 11.0 mg/dL 8.6-10.3 m g/dL [facility]: [address] [facility] Blood venous Normal Protein, Total 7.5 g/dL 6.1-8 .1 g/dL [facility]: [address] [facility] Blood venous Normal Albumin 4.8 g/dL 3.6-5.1 g/dL [facility]: [address] [facility] Blood venous Normal Globulin 2.7 g/dL (calc) 1.9- 3.7 g/dL (calc) Final [facility]: 8[address] [facility] Blood venous Normal Albumin/globulin Ratio 1 .8 (calc) 1.0-2.5 (calc) Final [facility]: [address] [facility] Blood venous Normal Bilirubin, Total 0.6 mg/dL 0. 2-1.2 mg/dL Final [facility]: [address] [facility] Blood venous Normal Alkaline Phosphatase 84 U/L 3 6-130 U/L Final [facility]: 8[address] [facility] Blood venous Normal Ast 23 U/L 10-40 U/L Final [facility]: 8[address] [facility] Blood venous Normal Alt 23 U/L 9-46 U/L Final [facility]: 8[address] [facility] Urinalysis, Complete Color tnp Fi nal [facility]: [facility] Past Encounters 04/14/2021 [facility]: [address] [place] [phone], Ph. 04/13/2021 Body Mass Index 25-29 - Overweight; Tobacco User; Vertigo; Fatigue Ashia Steinberg PA-C: [address] [place] [phone], Ph. 02/17/2021 Hypertensive Disorder Ashia SHANTE Steinberg: [address] [place] [address], Ph. 02/03/2021 Hypertensive Disorder; Obstructive Sleep Apnea Syndrome Ashia Steinberg PA-C: [address] [place] [address], Ph. 11/29/2020 SARS-CoV-2 Vaccination Lyndsay GRETTA CesarC: [address] [place] [phone], Ph. 11/01/2020 SARS-CoV-2 Vaccination GRETTA GonzalezC: [address] [place] [phone], Ph. 05/30/2020 Low Back Pain; Hip Pain Ashia Steinberg PA-C: [address] [place] [address], Ph. Social History Tobacco Smoking Status Light Tobacco Smoker (1/4 pack per da y) Vaccine List Vaccine Type COVID-19, mRNA, LNP-S, PF, 100 mcg/0.5 m L dose 10.5 mL 10.5 mL Tdap 10/28/20180.5 mL Plan of Care Reminders Provider Appointments None recorded. Lab None recorded. Referral None recorded. Procedures None recorded. Surgeries None recorded. Imaging None recorded. Vitals 04/13/2021 04:40PM ESTABLISHED [id number] Height Weight BMI Blood Pressure 74 in 212 lbs 2 oz 27.2 kg/m2 132/83 mm[Hg] 02/17/2021 08:40AM NURSE LAB COLLECTION Height 74 in 02/03/2021 09:20AM ESTABLISHED [id number] Height Weight BMI Blood Pressure 74 in 209 lbs 26.8 kg/m2 136/75 mm[Hg] 05/30/2020 10:20AM ESTABLISHED [id number] Height Weight BMI Blood Pressure 74 in 210 lbs 4 oz 27 kg/m2 143/97 mm[Hg] 09/08/2019 Height Weight BMI Blood Pressure 74 in 212 lbs 9.6 oz 27.39 kg/m2 149/88 mm[Hg ] 05/08/2019 Height Weight BMI Blood Pressure 74 in 208 lbs 26.80 kg/m2 150/80 mm[Hg] 01/30/2019 Height Weight BMI Blood Pressure 74 in 212 lbs 27.32 kg/m2 157/87 mm[Hg] 10/28/2018 Height Weight BMI Blood Pressure 74 in 217 lbs 27.96 kg/m2 159/84 mm[Hg]
--- OUTSIDE RECORDS SUMMARY | 2021-05-12 19:21 | CCD ---
Author Organization Unknown Address [address] [place] [address] Phone [phone] Care Team Providers Care Smoke Jumper Supervisor Name Role Phone [facility] 2 [phone] Allergies Code Code System Name Reaction Severity Status Onset 236751 RxNorm Chantix Active 08/21/2016 Medications Name Status Start Date Stop Date amlodipine 10 mg tablet Completed 02/04/20 21 atorvastatin 10 mg tablet Completed 2020 atorvastatin 20 mg tablet TAKE ONE TABLET BY MOUTH ONCE DAILY Active Not available carbamazepine 200 mg tablet TAKE 1/2 TABLET BY MOUTH TWICE DAILY FOR FOURTEEN DAYS, THEN TAKE ONE TABLET BY MOUTH TWICE DAILY Completed 05/10/2021 chlorthalidone 25 mg tablet Active Not available cyclobenzaprine 10 mg tablet TAKE ONE TABLET BY MOUTH THREE TIMES DAILY Completed 02/03/2021 gabapentin 600 mg tablet TAKE ONE TABLET BY MOUTH THREE TIMES DAILY DIRECTED Completed 05/10/2021 ibuprofen 800 mg tablet Completed 02/04/20 21 [...] mg/24 hr daily transdermal patch Completed 05/30/2020 Vitamin C Active Not available Problems Name Status Onset Date Source Hypertensive [...] Bedside Glucose 75 mg/dL 70- 105 mg/dL [facility]: 83 0 [facility] 04/04/2021 Glucose, Fingerstick, Blood Normal Bedside Glucose 78 mg/dL 70- 105 mg/dL [facility]: 83 0 [facility] 04/04/2021 CBC W/ Auto Diff Normal White Blood Count 8.0 10 4.0-10.0 10 [facility]: 830 [facility] Low Red Blood Count 4.29 10 4.30-6.10 10 [facility]: 830 [facility] Normal Hemoglobin 14.0 g/dL 13.5-17.5 g/dL [facility]: 830 [facility] Low Hematocrit 40.2 % 42.0-52.0 % [facility]: 830 [facility] Normal Mean Corpuscular Volume 93.7 fL 80.0 -96.0 fL [facility]: 830 [facility] Normal Mean Corpuscular Hemoglobin 32.6 pg 27.0-33.0 pg [facility]: 830 [facility] Normal Mean Corpuscular HGB Conc 34.8 g/dL 32.0-36.5 g/dL [facility]: 830 [facility] Normal Red Cell Distribution Width 12.1 % 1 1.5-14.5 % [facility]: 830 [facility] Normal Platelet Count, Automated 196 10 150 -450 10 [facility]: 830 [facility] Normal Neutrophils % 52.6 % 36.0-66.0 % [facility]: 830 [facility] Normal Lymph % 33.3 % 24.0-44.0 % [facility]: 830 [facility] High [place] % 10.6 % 2.0-8.0 % Final [facility]: 830 [facility] Normal Eos % 2.4 % 0.0-3.0 % [facility]: 830 [facility] Normal Baso % 0.8 % 0.0-1.0 % [facility]: 830 [facility] Normal Immature Granulocyte % 0.3 % 0-3.0 % [facility]: 830 [facility] Normal Nucleated Red Blood Cell % 0.0 % 0- 0 % [facility]: 830 [facility] Normal Neutrophils # 4.2 10 1.5-8.5 10 [facility]: 830 [facility] Normal Lymph # 2.7 10 1.5-5.[address] [facility]: 830 [facility] [place] # 0.9 10 0.0-0.8 10 [facility]: 830 [facility] Normal Eos # 0.2 10 0.0-0.5 10 [facility]: 830 [facility] Normal Baso # 0.1 10 0.0-0.2 10 [facility]: 830 [facility] 04/04/2021 HbA1C (Hemoglobin a1C), Blood Normal Hemogl obin a1C 5.2 % [facility]: 830 [facility] Normal Estimated Average Glucose 103 mg/dL 60-110 mg/dL [facility]: 830 [facility] 04/04/2021 BMP, Serum or Plasma Normal Glucose, Fastin g 91 mg/dL 70-100 mg/dL [facility]: 83 0 [facility] High Blood Urea Nitrogen 19 mg/dL 7-18 mg /dL [facility]: 0 [facility] Low Creatinine for GFR 0.60 mg/dL 0.70-1 .30 mg/dL [facility]: 0 [facility] Normal Glomerular Filtration Rate > 60.0 >6 0 [facility]: 830 [facility] Normal Sodium Level 141 mEq/L 136-145 mEq/L [facility]: 0 [facility] Normal Potassium Serum 4.2 mEq/L 3.5-5.1 mE q/L [facility]: 830 [facility] Normal Chloride Level 107 mEq/L 98-107 mEq/ L [facility]: 0 [facility] Normal Carbon Dioxide Level 28 mEq/L 21-32 mEq/L [facility]: 830 [facility] Low Anion Gap 6 mEq/L 8-16 mEq/L [facility]: 0 [facility] Normal Calcium Level 9.7 mg/dL 8.5-10.1 mg/ dL [facility]: 830 [facility] 04/04/2021 Phosphorus Level Low Phosphorus Level 2 .3 mg/dL 2.5-4.9 mg/dL [facility]: 830 [facility] 04/04/2021 Magnesium, Serum or Plasma Normal Magnesium Level 2.4 mg/dL 1.8-2.4 mg/dL [facility]: 83 0 [facility] 04/04/2021 TSH, Serum or Plasma Normal Thyroid Stimulating Hormone 0.555 uIU/mL 0.358-3.740 uIU/mL [facility] nter: 830 [facility] 04/04/2021 Vitamin B12, Serum Normal Vitamin B12 Level 791 pg/mL 247-911 pg/mL [facility]: 83 0 [facility] 04/03/2021 CBC W/ Auto Diff High White Blood Count 10.5 10 4.0-10.0 10 [facility]: 830 [facility] Normal Red Blood Count 4.38 10 4.30-6.10 10 [facility]: 830 [facility] Normal Hemoglobin 14.3 g/dL 13.5-17.5 g/dL [facility]: 830 [facility] Low Hematocrit 41.8 % 42.0-52.0 % [facility]: 830 [facility] Normal Mean Corpuscular Volume 95.4 fL 80.0 -96.0 fL [facility]: [address] [place] [address] Normal Mean Corpuscular Hemoglobin 32.6 pg 27.0-33.0 pg [facility]: [address] [place] [address] Normal Mean Corpuscular HGB Conc 34.2 g/dL 32.0-36.5 g/dL [facility]: 830 [facility] Normal Red Cell Distribution Width 12.4 % 1 1.5-14.5 % [facility]: 0 [facility] Normal Platelet Count, Automated 232 10 150 -450 10 [facility]: 830 [facility] Normal Neutrophils % 59.7 % 36.0-66.0 % Fin [facility]: 830 [facility] Normal Lymph % 25.1 % 24.0-44.0 % [facility]: 830 [facility] High [place] % 12.1 % 2.0-8.0 % [facility]: 830 [facility] Normal Eos % 2.3 % 0.0-3.0 % [facility]: 830 [facility] Normal Baso % 0.5 % 0.0-1.0 % [facility]: 830 [facility] Normal Immature Granulocyte % 0.3 % 0-3.0 % [facility]: 830 [facility] Normal Nucleated Red Blood Cell % 0.0 % 0- 0 % [facility]: 830 [facility] Normal Neutrophils # 6.3 10 1.5-8.5 10 [facility]: 830 [facility] Normal Lymph # 2.6 10 1.5-5.[address] [facility]: 830 [facility] High [place] # 1.3 10 0.0-0.8 10 [facility]: 830 [facility] Normal Eos # 0.2 10 0.0-0.5 10 [facility]: 830 [facility] Normal Baso # 0.1 10 0.0-0.2 10 [facility]: 0 [facility] 04/03/2021 BMP, Serum or Plasma Normal Glucose, Fastin g 77 mg/dL 70-100 mg/dL [facility]: 83 0 [facility] High Blood Urea Nitrogen 20 mg/dL 7-18 mg /dL [facility]: 0 [facility] Low Creatinine for GFR 0.67 mg/dL 0.70-1 .30 mg/dL [facility]: [address] [place] [address] Normal Glomerular Filtration Rate > 60.0 >6 0 [facility]: 0 [facility] Normal Sodium Level 142 mEq/L 136-145 mEq/L [facility]: 0 [facility] Normal Potassium Serum 4.4 mEq/L 3.5-5.1 mE q/L [facility]: 830 [facility] Normal Chloride Level 107 mEq/L 98-107 mEq/ L [facility]: 0 [facility] Normal Carbon Dioxide Level 32 mEq/L 21-32 mEq/L [facility]: 0 [facility] Low Anion Gap 3 mEq/L 8-16 mEq/L [facility]: 0 [facility] High Calcium Level 10.2 mg/dL 8.5-10.1 mg /dL [facility]: 830 [facility] 04/03/2021 Magnesium, Serum or Plasma Normal Magnesium Level 2.3 mg/dL 1.8-2.4 mg/dL [facility]: 83 0 [facility] 04/03/2021 Glucose, Fingerstick, Blood Normal Bedside Glucose 91 mg/dL 70- 105 mg/dL [facility]: 83 0 [facility] 04/02/2021 Cbc High White Blood Count 14.8 10 4.0-10 .0 10 [facility]: 830 [facility] Normal Red Blood Count 4.89 10 4.30-6.10 10 [facility]: 830 [facility] Normal Hemoglobin 16.0 g/dL 13.5-17.5 g/dL [facility]: 830 [facility] Normal Hematocrit 45.1 % 42.0-52.0 % [facility]: 830 [facility] Normal Mean Corpuscular Volume 92.2 fL 80.0 -96.0 fL [facility]: 830 [facility] Normal Mean Corpuscular Hemoglobin 32.7 pg 27.0-33.0 pg [facility]: 830 [facility] Normal Mean Corpuscular HGB Conc 35.5 g/dL 32.0-36.5 g/dL [facility]: 830 [facility] Normal Red Cell Distribution Width 12.1 % 1 1.5-14.5 % [facility]: 830 [facility] Normal Platelet Count, Automated 283 10 150 -450 10 [facility]: 830 [facility] Normal Nucleated Red Blood Cell % 0.0 % 0- 0 % [facility]: 830 [facility] 04/02/2021 CMP, Serum or Plasma High Glucose, Fastin g 155 mg/dL 70-100 mg/dL [facility]: 83 0 [facility] High Blood Urea Nitrogen 21 mg/dL 7-18 mg /dL [facility]: 830 [facility] Normal Creatinine for GFR 0.86 mg/dL 0.70-1 .30 mg/dL [facility]: 830 [facility] Normal Glomerular Filtration Rate > 60.0 >6 0 [facility]: 830 [facility] Normal Sodium Level 139 mEq/L 136-145 mEq/L [facility]: 830 [facility] Normal Potassium Serum 4.5 mEq/L 3.5-5.1 mE q/L [facility]: 830 [facility] Normal Chloride Level 103 mEq/L 98-107 mEq/ L [facility]: 0 [facility] Normal Carbon Dioxide Level 30 mEq/L 21-32 mEq/L [facility]: 0 [facility] Low Anion Gap 6 mEq/L 8-16 mEq/L [facility]: 0 [facility] High Calcium Level 11.3 mg/dL 8.5-10.1 mg /dL [facility]: 830 [facility] Normal AST/SGOT 19 U/L 7-37 U/L [facility]: 0 [facility] Normal ALT/SGPT 52 U/L 12-78 U/L [facility]: 830 [facility] Normal Alkaline Phosphatase 88 U/L 45-117 U /L [facility]: 830 [facility] Normal Bilirubin,total 0.6 mg/dL 0.2-1.0 mg /dL [facility]: 830 [facility] Normal Total Protein 8.0 gm/dL 6.4-8.2 gm/d L [facility]: 830 [facility] Normal Albumin 4.6 gm/dL 3.2-5.2 gm/dL Nicolas[facility]: 830 [facility] Normal Albumin/globulin Ratio 1.4 [facility]: 0 [facility] 04/02/2021 Influenza A/B RSV Covid Amp Normal Influenza a Amplification negative negative [facility] nter: 830 [facility] Normal Influenza B Amplification negative n egative [facility]: 830 [facility] Normal RSV Amplification negative negative [facility]: 830 [facility] Normal Sars Covid-19 Amplification negative negative [facility]: 830 [facility] 04/02/2021 Ionized Calcium Normal Ionized Calcium 4.5 mg/dL 4.5-5.3 mg/dL [facility]: 830 [facility] 04/02/2021 PTH (Parathyroid Hormone), Intact, Serum or Plasma Normal PTH Intact 73.9 pg/mL 18.5-88.0 pg/mL [facility]: 830 [facility] 04/02/2021 Vitamin D, 25-Hydroxy, Total, Serum Low Total 25(Oh) Vitamin D 27.8 NG/mL 30.0-100.0 NG/mL [facility] nter: 830 [facility] 12/25/2020 Glucose, Fingerstick, Blood High Bedside Glucose 114 mg/dL 70- 105 mg/dL [facility]: 83 0 [facility] 12/25/2020 UA W/ Reflex to Culture Normal Appearance, Urine Rfx clear clear [facility]: 83 0 [facility] Normal Color, Urine Rfx yellow yellow [facility]: 830 [facility] Normal pH,urine Rfx 7.0 units 5.0-9.0 units [facility]: 830 [facility] Normal Specific Carpenter Ur Auto Rfx S3 1.002-1.035 [facility]: 830 [facility] High Protein, Urine Auto Rfx 2+ mg/dL neg ative mg/dL [facility]: 830 [facility] Normal Glucose, Urine (UA) Auto Rfx n egative mg/dL negative mg/dL [facility]: 830 [facility] High Ketone, Urine Auto Rfx 1+ mg/dL nega tive mg/dL [facility]: 830 [facility] Normal Urobilinogen, Urine Auto Rfx 0.2 mg/ dL 0.0-2.0 mg/dL [facility]: 830 [facility] Normal Bilirubin, Urine Auto Rfx negative n egative [facility]: 830 [facility] Normal Nitrite, Urine Auto Rfx negative neg ative [facility]: 830 [facility] Normal Leukocyte Esterase Ur Auto Rfx negat megha negative [facility]: 830 [facility] Normal Blood, Urine Blood Rfx negative nega tive [facility]: 830 [facility] Normal WBC, Urine Auto Rfx 1 /hpf 0-3 /hpf [facility]: 830 [facility] Normal RBC, Urine Auto Rfx 1 /hpf 0-3 /hpf [facility]: 830 [facility] Normal Bacteria, Urine Auto Rfx negative ne gative [facility]: 830 [facility] Normal Squam Epithelial Cell Ur Aurfx 0 /hp f 0-6 /hpf [facility]: 830 [facility] Normal Mucus, Urine Rfx small negative Fin [facility]: 830 [facility] Normal Hyaline Cast, Urine Auto Rfx 0 /lpf 0-1 /lpf [facility]: 830 [facility] 12/25/2020 Drug Screen, Urine Normal Amphetamines Leve l Urine negative negative [facility]: 83 0 [facility] Normal Barbiturates Urine negative negative [facility]: 830 [facility] Normal Benzodiazepines Urine negative negat megha [facility]: 830 [facility] High Cannabinoids Urine positive negative [facility]: 830 [facility] Normal Cocaine Metabolite Urine negative ne gative [facility]: 830 [facility] Normal Methadone Urine negative negative Fi [facility]: 830 [facility] Normal Opiates Urine negative negative Nicolas[facility] l [facility]: 830 [facility] Normal Phencyclidine Urine negative negativ e Final [facility]: 830 [facility] Lipid Panel, Serum Blood venous High Cholesterol, T otal 233 mg/dL <200 mg/dL Final [facility]: 875 [facility] Blood venous Low HDL Cholesterol 35 mg/dL > or = 40 mg/dL Final [facility]: 8[address] [facility] Blood venous Normal Triglycerides 108 mg/dL <150 mg/dL Final [facility]: 8[address] [facility] Blood venous High LDL-cholesterol 175 mg/dL (ca lc) Final [facility]: 8[address] [facility] Blood venous High Chol/hdlc Ratio 6.7 (calc) <5 .0 (calc) Final [facility]: 8[address] [facility] Blood venous High Non HDL Cholesterol 198 mg/dL (calc) <130 mg/dL (calc) Final [facility]: 8[address] [facility] CMP, Serum or Plasma Blood venous High Glucose 110 mg/dL 65-99 mg/dL [facility]: 875 [facility] Blood venous Normal Urea Nitrogen (BUN) 15 mg/dL 7-25 mg/dL [facility]: 8[address] [facility] Blood venous Normal Creatinine 0.70 mg/dL 0.60-1. 35 mg/dL Final [facility]: 8[address] [facility] Blood venous Normal eGFR Non-afr. [place]rugu[place] 1 21 mL/min/1.73m2 > or = 60 mL/min/1.73m2 Final [facility]: 8[address] [facility] Blood venous Normal eGFR 14 0 mL/min/1.73m2 > or = 60 mL/min/1.73m2 Final [facility]: 8[address] [facility] Blood venous BUN/creatinine Ratio not applicable (calc) 6-22 (calc) [facility]: [address] [facility] Blood venous Normal Sodium 139 mmol/L 135-146 mmo l/L Final [facility]: 8[address] [facility] Blood venous Normal Potassium 4.0 mmol/L 3.5-5.3 mmol/L [facility]: 8[address] [facility] Blood venous Normal Chloride 103 mmol/L 98-110 mm ol/L [facility]: 8[address] [facility] Blood venous Normal Carbon Dioxide 29 mmol/L 20-3 2 mmol/L [facility]: 8[address] [facility] Blood venous High Calcium 11.0 mg/dL 8.6-10.3 m g/dL [facility]: 8[address] [facility] Blood venous Normal Protein, Total 7.5 g/dL 6.1-8 .1 g/dL [facility]: 8[address] [facility] Blood venous Normal Albumin 4.8 g/dL 3.6-5.1 g/dL [facility]: 8[address] [facility] Blood venous Normal Globulin 2.7 g/dL (calc) 1.9- 3.7 g/dL (calc) Final [facility]: 8[address] [facility] Blood venous Normal Albumin/globulin Ratio 1 .8 (calc) 1.0-2.5 (calc) [facility]: [address] [facility] Blood venous Normal Bilirubin, Total 0.6 mg/dL 0. 2-1.2 mg/dL [facility]: 8[address] [facility] Blood venous Normal Alkaline Phosphatase 84 U/L 3 6-130 U/L Final [facility]: 8[address] [facility] Blood venous Normal Ast 23 U/L 10-40 U/L Final [facility]: 8[address] [facility] Blood venous Normal Alt 23 U/L 9-46 U/L Final uest [facility]: [address] [facility] Urinalysis, Complete Color tnp Fi nal [facility]: [address] [facility] Lyme Disease Igg+igm, Serum, Reflex Western Blot Blood ve nous Normal Lyme Ab Screen <0.[address] [facility]: 8[address] [facility] Past Encounters 05/10/2021 Nicotine Dependence with Current Use; Patient New to Provider; Immunization Advised; Hyperlipidemia; Vertigo Chelle JewellNEERAJ worley: [address] [place] [address], Ph. 04/14/2021 Ashia Steinberg PA-C: [address] [place] [address], Ph. 04/13/2021 Body Mass Index 25-29 - Overweight; Tobacco User; Vertigo; Fatigue Ashia Steinberg PA-C: [address] [place] [address], Ph. 02/17/2021 Hypertensive Disorder Ashia Steinberg PA-C: [address] [place] [address], Ph. 02/03/2021 Hypertensive Disorder; Obstructive Sleep Apnea Syndrome Ashia Steinberg PA-C: [address] [place] [phone], Ph. 11/29/2020 Administration of SARS-CoV-2 Antigen Vaccine GRETTA GonzalezC: [address] [place] [phone], Ph. 11/01/2020 Administration of SARS-CoV-2 Antigen Vaccine GRETTA GonzalezC: [address] [place] [phone], Ph. 05/30/2020 Low Back Pain; Hip Pain Ashia Steinberg PA-C: [address] [place] [address], Ph. Social History Tobacco Smoking Status Heavy Tobacco Smoker (1 pack per a da y) Vaccine List Vaccine Type COVID-19, mRNA, LNP-S, PF, 100 mcg/0.5 m L dose 10.5 mL 10.5 mL Tdap 10/28/20180.5 mL Notes: Pt declines flu vaccine today, is extremely fearful of needles, will consider getting it in the future. Plan of Care Reminders Provider Appointments None recorded. Lab None recorded. Referral None recorded. Procedures None recorded. Surgeries None recorded. Imaging None recorded. Vitals 05/10/2021 08:00AM ESTABLISHED [id number] Height Weight BMI Blood Pressure 74 in 213 lbs 4 oz 27.4 kg/m2 125/82 mm[Hg] 04/13/2021 04:40PM ESTABLISHED [id number] Height Weight BMI Blood Pressure 74 in 212 lbs 2 oz 27.2 kg/m2 132/83 mm[Hg] 02/17/2021 08:40AM NURSE LAB COLLECTION Height 74 in 02/03/2021 09:20AM ESTABLISHED [id number] Height Weight BMI Blood Pressure 74 in 209 lbs 26.8 kg/m2 136/75 mm[Hg] 05/30/2020 10:20AM ESTABLISHED [id number] Height Weight BMI Blood Pressure 74 in [...]
--- OUTSIDE RECORDS SUMMARY | 2021-05-12 19:22 | CCD | Continuity of Care Document ---
Author Organization Unknown Address Unknown Phone Unavailable Care Team Providers Care Vault Mechanic Name Role Phone Jeninfer Escamilla DO AUTM [phone] Problems Active Problems Provider Date Syncope and collapse Chuckie Crabtree MD Onset: 04/21/2015 Obstructive sleep apnea syndrome Chuckie Crabtree MD Onset: 04/21/2015 Electrocardiogram abnormal Chuckie Crabtree MD Onset: 2014 Chronic bronchitis Chuckie Crabtree MD Onset: 04/21/2015 Essential hypertension GREG Dill Onset: 03/18/20 17 Tobacco user GREG Dill Onset: 2017 Overweight GREG Dill Onset: 2017 Dietary management surveillance GREG Dill Onset: 2017 Presence of other cardiac implants and grafts GREG Dill Onset: 2017 Mixed hyperlipidemia AILYN Balderas Onset: 1 Social History Type Date Description Comments Sex Unknown ETOH Use Does not consume alcohol Tobacco Use Start: Unknown Patient is a current smoker, smo kes every day about 1/2 to 3/4 ppd, previously 2 ppd, started at 12 yrs old Smoking Status Reviewed: 09/27/20 Patient is a current smoker, smokes every day about 1/2 to 3/4 ppd, previously 2 ppd, started at 12 yrs old Exercise Type/Frequency Walks daily Exercise Type/Frequency Physical Labor Exercise Type/Frequency Does yardwork twice a we ek Exercise Type/Frequency Does yardwork sporadical ly snow shoveling as needed Exercise Limitations None Allergies, Adverse Reactions, Alerts Active Allergies Criticality Reaction | Severity Comments Date Chantix Unable to assess criticality memory loss and GI issues 08/06/2019 Inactive Allergies NKDA Unable to assess criticality 04/21/2015 Medications Active Medications SIG Qnty Indications Ordering Provide r Date Chlorthalidone 25mg Tablets 1 by mouth every day Jennifer Escamilla DO 2020 Meclizine HCL 25mg Tablets Every 8 Hours 30tabs Unknown 12/25/2020 Atorvastatin Calcium 10mg Tablets 1 by mouth every night at bedtime Unknown Amlodipine Besylate 10mg Tablets 1 by mouth every day 90tabs Tadeo Morton MD 08/07/2018 Lisinopril 40mg Tablets 1 by mouth every day 90tabs Chuckie Crabtree MD 03/25/2018 Acetaminophen 325mg Tablets Every 4-6 Hours As Needed as needed for Pain Or Fever 100tabs Unkn own Immunizations Description No Information Available Vital Signs Date Vital Result Comment 09/27/2020 8:02am Weight 216.00 lb Home Weight 217lb Height 74 inches 6'2" BMI (Body Mass Index) 27.7 kg/m2 BP Systolic Sitting 146 mmHg Ra, large cuff BP Diastolic Sitting 84 mmHg Ra, large cuff 03/08/2020 9:09am Weight 201.00 lb Home Weight 210lb Home weight Height 74 inches 6'2" BMI (Body Mass Index) 25.8 kg/m2 BP Systolic Sitting 128 mmHg BP Diastolic Sitting 82 mmHg Results Test Acquired Date Facility Test Result H/L Range Note CBC without Differential 12/25/2020 [facility] - not inter faced (315)- - White Blood Count 11.9 High 5.0-10.0 Red Blood Count 5.20 4.00-5.40 Platelets 217 172-450 Hemoglobin 16.5 Hematocrit 48.3 Laboratory test finding 12/25/2020 [facility] - not interf aced (315)- - Troponin <0.02 Thyroid Stimulating Hormone 0.899 Procedures Description No Information Available Medical Devices Description No Information Available Encounters Description No Information Available Assessments Description No Information Available Plan of Treatment Future Appointment(s):* 03/31/2021 8:15 am - AILYN Balderas at Main Office 09/27/2020 - AILYN Balderas* I10 Essential (primary) hypertension* New Labs:* BMP, Ordered: 09/27/20 * Recommendations:* Continue amlodipine, chlorthalidone, and lisinopril at the current dosages Advised patient to please monitor blood pressures at home and to alert our office for readings >140/>90 or <110/<60 Please obtain labs * R55 Syncope and collapse* Recommendations:* Advised patient to alert our office with any additional episodes of syncope No further evaluation is needed at this time * Z95.818 Presence of other cardiac implants and grafts* Recommendations:* No further evaluation is necessary * E78.2 Mixed hyperlipidemia* New Labs:* Lipid Panel, Ordered: 09/27/20 * Recommendations:* Please obtain fasting labs Continue atorvastatin at the current dosage * G47.33 Obstructive sleep apnea (adult) (pediatric)* Recommendations:* Reinforced the consistent use of CPAP will assist in blood pressure reduction and promote nocturnal blood pressure dipping patterns. Negative effects of hypoxia during sleep were reviewed including impaired daytime cognition and level of alertness. * F17.210 Nicotine dependence, cigarettes, uncomplicated* Recommendations:* Advised patient on the negative consequences of continued tobacco abuse including but not limited to chronic bronchitis, emphysema, lung cancer, CAD, [place], CVA * R94.31 Abnormal electrocardiogram [ECG] [EKG]* Recommendations:* No further evaluation is needed at this time. * E66.3 Overweight * Z87.891 Personal history of nicotine dependence * Z71.3 Dietary counseling and surveillance* Recommendations:* Recommended for patient to follow a more whole food diet. Advised patient to avoid overly processed foods and packaged foods. Advised patient to avoid sodas, juices and other liquid calories. Recommended at least 30 minutes of exercise 3 days a week. * Z71.6 Tobacco abuse counseling * All * Follow up:* Follow up in 6 months Functional Status Functional Condition Comment Date Status Independent with all ADL's Activ e Mental Status Description No Information Available Referrals Description No Information Available
--- OUTSIDE RECORDS SUMMARY | 2021-05-12 19:22 | CCD | Continuity of Care Document ---
Author Author Julito CAMERON Organization Unknown Address [address] [place] [address] [place] [address] Phone [phone] Care Team Providers Care Local Area Network Systems Adminstrator Name Role Phone Jennifer Escamilla AUTM [phone] Ashia Steinberg AUTM [phone] Problems Active Problems Provider Date Syncope and [...] a current smoker, smo kes every day 1 ppd, previously 2 ppd, started at 12 yrs old Smoking Status Reviewed: 03/31/21 Patient is a current smoker, smokes every day 1 ppd, previously 2 ppd, started at 12 yrs old Exercise Type/Frequency Walks daily Exercise Type/Frequency Physical Labor Exercise Type/Frequency Does yardwork twice a we ek Exercise Type/Frequency Does yardwork sporadical ly snow shoveling as needed Exercise Limitations Other Trigeminal neuralgia Allergies, Adverse Reactions, Alerts Active Allergies Criticality Reaction | Severity Comments Date Chantix Unable to assess criticality memory loss and GI issues 08/06/2019 Inactive Allergies NKDA Unable to assess criticality 04/21/2015 Medications Active Medications SIG Qnty Indications Ordering Provide r Date Methylprednisolone 4mg Tablets 6 by mouth day 1, 5 by mouth day 2, 4 by mouth day 3, 3 by mouth day 4, 2 by mouth day 5, and 1 by mouth day 6 Kathy Chacon PA 03/2021 Atorvastatin Calcium 20mg Tablets 1 by mouth every night at bedtime Ashia Steinberg PA 0 03/30/2021 Chlorthalidone 25mg Tablets 1/2 by mouth every day Ashia Steinberg PA 03/30/2021 Carbamazepine 200mg Tablets 1/2 by mouth twice a day for 14 days then 1 by mouth twice daily Humberto Clement PA 03/30/2021 Chlorthalidone 25mg Tablets 1 by mouth every day Jennifer Escamilla DO 2020 Meclizine HCL 25mg Tablets Every 8 Hours 30tabs Unknown 12/25/2020 Lisinopril 40mg Tablets 1 by mouth every day 90tabs Chuckie Crabtree MD 03/25/2018 Acetaminophen 325mg Tablets Every 4-6 Hours As Needed as needed for Pain Or Fever 100tabs Unkn own Covid-19 vaccine, Unspecified Inj ection Unknown Covid-19 vaccine, Unspecified Inj ection Unknown Immunizations Description No Information Available Vital Signs Date Vital Result Comment 03/31/2021 8:11am Weight 200.00 lb Height 74 inches 6'2" BMI (Body Mass Index) 25.7 kg/m2 Heart Rate 77 /min BP Systolic Sitting 128 mmHg large cuff, Ra BP Diastolic Sitting 84 mmHg large cuff, Ra 09/27/2020 8:02am Weight 216.00 lb Home Weight 217lb Height 74 inches 6'2" BMI (Body Mass Index) 27.7 kg/m2 BP Systolic Sitting 146 mmHg Ra, large cuff BP Diastolic Sitting 84 mmHg Ra, large cuff Results Test Acquired Date Facility Test Result H/L Range Note CBC without Differential 12/25/2020 [facility] - not inter faced (315)- - White Blood Count 11.9 High 5.0-10.0 Red Blood Count 5.20 4.00-5.40 Platelets 217 172-450 Hemoglobin 16.5 Hematocrit 48.3 Laboratory test finding 12/25/2020 [facility] - not interf aced (315)- - Troponin <0.02 Thyroid Stimulating Hormone 0.899 Procedures Date Code Description Status 03/31/2021 94899 Smoking & Tobacco Ce ssation Counseling Visit Intermediate 3-10Min Completed 03/31/2021 47176 Office/Outpatient Established Mo d MDM 30-39 Min Completed 03/31/2021 90468 ECG 12-Lead Completed Medical Devices Description No Information Available Encounters Type Date Location Provider Dx Diagnosis Office Visit 03/31/2021 8:15a Main Office AILYN Balderas I10 Essential (primary) hypertension R55 Syncope and collapse 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 E78.2 Mixed hyperlipidemia G47.33 Obstructive sleep apnea (nima lt) (pediatric) F17.210 Nicotine dependence, cigaret mau, uncomplicated R94.31 Abnormal electrocardiogram [ ECG] [EKG] Z71.3 Dietary counseling and surve illance Assessments Date Code Description Provider 03/31/2021 I10 Essential (primary) hypertension AILYN Balderas 03/31/2021 R55 Syncope and collapse AILYN Molina 03/31/2021 Z95.818 Presence of other cardiac implan ts and grafts AILYN Balderas 03/31/2021 E78.2 Mixed hyperlipidemia AILYN Molina 03/31/2021 G47.33 Obstructive sleep apnea (adult) (pediatric) AILYN Balderas 03/31/2021 F17.210 Nicotine dependence, cigarettes, uncomplicated AILYN Balderas 03/31/2021 R94.31 Abnormal electrocardiogram [ECG] [EKG] AILYN Balderas 03/31/2021 Z71.3 Dietary counseling and surveilla nce AILYN Balderas Plan of Treatment Future Appointment(s):* 09/28/2021 8:15 am - AILYN Balderas at Main Office 03/31/2021 - AILYN Balderas* I10 Essential (primary) hypertension* New Labs:* CMP & CBC, Ordered: 03/31/21 * Recommendations:* Continue amlodipine, chlorthalidone, and lisinopril [...] Mixed hyperlipidemia* New Labs:* Lipid Panel, Ordered: 03/31/21 * Recommendations:* Please obtain fasting labs Continue atorvastatin at the current dosage * G47.33 Obstructive sleep apnea (adult) (pediatric)* Recommendations:* Reinforced the consistent use of therapy will assist in blood pressure reduction and promote nocturnal blood pressure dipping patterns. Negative effects of hypoxia during sleep were reviewed including impaired daytime cognition and level of alertness. * F17.210 Nicotine dependence, cigarettes, uncomplicated* Recommendations:* Advised patient on the negative consequences of continued tobacco abuse including but not limited to chronic bronchitis, emphysema, lung cancer, CAD, [place], CVA * R94.31 Abnormal electrocardiogram [ECG] [EKG]* Recommendations:* No further evaluation is needed at this time. * Z71.3 Dietary counseling and surveillance* Recommendations:* Recommended for patient to follow a more whole food diet. Advised patient to avoid overly processed foods and packaged foods. Advised patient to avoid sodas, juices and other liquid calories. Recommended at least 30 minutes of exercise 3 days a week. * All * Comments:* Advised patient while he is on steroids he may experience palpitations and elevated blood pressure readings, if these persist after he is done with the steroids please contact the office. * Follow up:* Follow up in 6 months Functional Status Functional Condition Comment Date Status Independent with all ADL's Activ e Mental Status Description No Information Available Referrals Description No Information Available
--- OUTSIDE RECORDS SUMMARY | 2021-05-12 19:22 | CCD ---
Author Organization Unknown Address [address] [place] [address] Phone [phone] Care Team Providers Care [employer] Name Role Phone [facility] 2 [phone] Allergies Code Code System Name Reaction Severity Status Onset 625689 RxNorm Chantix Active 08/21/2016 Medications Name Status [...] Bedside Glucose 75 mg/dL 70- 105 mg/dL [facility]: 83 0 [facility] 04/04/2021 Glucose, Fingerstick, Blood Normal Bedside Glucose 78 mg/dL 70- 105 mg/dL [facility]: 83 0 [facility] 04/04/2021 CBC W/ Auto Diff Normal White Blood Count 8.0 10 4.0-10.0 10 [facility]: 830 [facility] Low Red Blood Count 4.29 10 4.30-6.10 10 [facility]: 830 [facility] Normal Hemoglobin 14.0 g/dL 13.5-17.5 g/dL [facility]: 0 [facility] Low Hematocrit 40.2 % 42.0-52.0 % [facility]: 830 [facility] Normal Mean Corpuscular Volume 93.7 fL 80.0 -96.0 fL [facility]: 830 [facility] Normal Mean Corpuscular Hemoglobin 32.6 pg 27.0-33.0 pg [facility]: 0 [facility] Normal Mean Corpuscular HGB Conc 34.8 g/dL 32.0-36.5 g/dL [facility]: 0 [facility] Normal Red Cell Distribution Width 12.1 % 1 1.5-14.5 % [facility]: 830 [facility] Normal Platelet Count, Automated 196 10 150 -450 10 [facility]: 830 [facility] Normal Neutrophils % 52.6 % 36.0-66.0 % [facility]: 830 [facility] Normal Lymph % 33.3 % 24.0-44.0 % [facility]: 830 [facility] High Anderson % 10.6 % 2.0-8.0 % Final [facility]: 830 [facility] Normal Eos % 2.4 % 0.0-3.0 % [facility]: 830 [facility] Normal Baso % 0.8 % 0.0-1.0 % [facility] [place]: [address] [place] [address] Normal Immature Granulocyte % 0.3 % 0-3.0 % [facility]: [address] [place] [address] Normal Nucleated Red Blood Cell % 0.0 % 0- 0 % [facility]: 830 [facility] Normal Neutrophils # 4.2 10 1.5-8.5 10 [facility]: 830 [facility] Normal Lymph # 2.7 10 1.5-5.0 10 [facility]: 830 [facility] High Anderson # 0.9 10 0.0-0.8 10 [facility]: 830 [facility] Normal Eos # 0.2 10 0.0-0.[address] [facility]: 830 [facility] Normal Baso # 0.1 10 0.0-0.2 10 [facility]: 830 [facility] 04/04/2021 HbA1C (Hemoglobin a1C), Blood Normal Hemogl obin a1C 5.2 % [facility]: 830 [facility] Normal Estimated Average Glucose 103 mg/dL 60-110 mg/dL [facility]: 0 [facility] 04/04/2021 BMP, Serum or Plasma Normal Glucose, Fastin g 91 mg/dL 70-100 mg/dL [facility]: 83 0 [facility] High Blood Urea Nitrogen 19 mg/dL 7-18 mg /dL [facility]: 0 [facility] Low Creatinine for GFR 0.60 mg/dL 0.70-1 .30 mg/dL [facility]: 0 [facility] Normal Glomerular Filtration Rate > 60.0 >6 0 [facility]: 830 [facility] Normal Sodium Level 141 mEq/L 136-145 mEq/L [facility]: 830 [facility] Normal Potassium Serum 4.2 mEq/L 3.5-5.1 mE q/L [facility]: 0 [facility] Normal Chloride Level 107 mEq/L 98-107 mEq/ L [facility]: 830 [facility] Normal Carbon Dioxide Level 28 mEq/L 21-32 mEq/L [facility]: 830 [facility] Low Anion Gap 6 mEq/L 8-16 mEq/L [facility]: 830 [facility] Normal Calcium Level 9.7 mg/dL 8.5-10.1 mg/ dL [facility]: 830 [facility] 04/04/2021 Phosphorus Level Low Phosphorus Level 2 .3 mg/dL 2.5-4.9 mg/dL [facility]: 0 [facility] 04/04/2021 Magnesium, Serum or Plasma Normal Magnesium Level 2.4 mg/dL 1.8-2.4 mg/dL [facility]: 83 0 [facility] 04/04/2021 TSH, Serum or Plasma Normal Thyroid Stimulating Hormone 0.555 uIU/mL 0.358-3.740 uIU/mL [facility] nter: 830 [facility] 04/04/2021 Vitamin B12, Serum Normal Vitamin B12 Level 791 pg/mL 247-911 pg/mL [facility]: 83 0 [facility] 04/03/2021 CBC W/ Auto Diff High White Blood Count 10.5 10 4.0-10.0 10 [facility]: 830 [facility] Normal Red Blood Count 4.38 10 4.30-6.10 10 [facility]: 830 [facility] Normal Hemoglobin 14.3 g/dL 13.5-17.5 g/dL [facility]: [address] [place] [address] Low Hematocrit 41.8 % 42.0-52.0 % [facility]: [address] [place] [address] Normal Mean Corpuscular Volume 95.4 fL 80.0 -96.0 fL [facility]: [address] [place] [address] Normal Mean Corpuscular Hemoglobin 32.6 pg 27.0-33.0 pg [facility]: [address] [place] [address] Normal Mean Corpuscular HGB Conc 34.2 g/dL 32.0-36.5 g/dL [facility]: [address] [place] [address] Normal Red Cell Distribution Width 12.4 % 1 1.5-14.5 % [facility]: [address] [place] [address] Normal Platelet Count, Automated 232 10 150 -450 10 [facility]: 0 [facility] Normal Neutrophils % 59.7 % 36.0-66.0 % [facility]: 830 [facility] Normal Lymph % 25.1 % 24.0-44.0 % [facility]: 830 [facility] High Anderson % 12.1 % 2.0-8.0 % [facility] [place]: 830 [facility] Normal Eos % 2.3 % 0.0-3.0 % [facility]: 0 [facility] Normal Baso % 0.5 % 0.0-1.0 % [facility] [place]: 0 [facility] Normal Immature Granulocyte % 0.3 % 0-3.0 % [facility]: 0 [facility] Normal Nucleated Red Blood Cell % 0.0 % 0- 0 % [facility]: 830 [facility] Normal Neutrophils # 6.3 10 1.5-8.[address] [facility]: 830 [facility] Normal Lymph # 2.6 10 1.5-5.0 10 [facility]: 830 [facility] High Anderson # 1.3 10 0.0-0.8 10 [facility]: 830 [facility] Normal Eos # 0.2 10 0.0-0.[address] [facility] [place]: 830 [facility] Normal Baso # 0.1 10 0.0-0.2 10 [facility]: 830 [facility] 04/03/2021 BMP, Serum or Plasma Normal Glucose, Fastin g 77 mg/dL 70-100 mg/dL [facility]: 83 0 [facility] High Blood Urea Nitrogen 20 mg/dL 7-18 mg /dL [facility]: 830 [facility] Low Creatinine for GFR 0.67 mg/dL 0.70-1 .30 mg/dL [facility]: 0 [facility] Normal Glomerular Filtration Rate > 60.0 >6 0 [facility]: 830 [facility] Normal Sodium Level 142 mEq/L 136-145 mEq/L [facility]: 830 [facility] Normal Potassium Serum 4.4 mEq/L 3.5-5.1 mE q/L [facility]: 830 [facility] Normal Chloride Level 107 mEq/L 98-107 mEq/ L [facility]: 0 [facility] Normal Carbon Dioxide Level 32 mEq/L 21-32 mEq/L [facility]: 0 [facility] Low Anion Gap 3 mEq/L 8-16 mEq/L [facility]: 0 [facility] High Calcium Level 10.2 mg/dL 8.5-10.1 mg /dL [facility]: 830 [facility] 04/03/2021 Magnesium, Serum or Plasma Normal Magnesium Level 2.3 mg/dL 1.8-2.4 mg/dL [facility]: 83 0 [facility] 04/03/2021 Glucose, Fingerstick, Blood Normal Bedside Glucose 91 mg/dL 70- 105 mg/dL [facility]: 83 0 [facility] 04/02/2021 Cbc High White Blood Count 14.8 10 4.0-10 .0 10 [facility]: 830 [facility] Normal Red Blood Count 4.89 10 4.30-6.10 10 [facility]: 830 [facility] Normal Hemoglobin 16.0 g/dL 13.5-17.5 g/dL [facility]: 830 [facility] Normal Hematocrit 45.1 % 42.0-52.0 % [facility]: 830 [facility] Normal Mean Corpuscular Volume 92.2 fL 80.0 -96.0 fL [facility]: 830 [facility] Normal Mean Corpuscular Hemoglobin 32.7 pg 27.0-33.0 pg [facility]: 0 [facility] Normal Mean Corpuscular HGB Conc 35.5 g/dL 32.0-36.5 g/dL [facility]: 0 [facility] Normal Red Cell Distribution Width 12.1 % 1 1.5-14.5 % [facility]: 830 [facility] Normal Platelet Count, Automated 283 10 150 -450 10 [facility]: 830 [facility] Normal Nucleated Red Blood Cell % 0.0 % 0- 0 % [facility]: 830 [facility] 04/02/2021 CMP, Serum or Plasma High Glucose, Fastin g 155 mg/dL 70-100 mg/dL [facility]: 83 0 [facility] High Blood Urea Nitrogen 21 mg/dL 7-18 mg /dL [facility]: [address] [place] [address] Normal Creatinine for GFR 0.86 mg/dL 0.70-1 .30 mg/dL [facility]: [address] [place] [address] Normal Glomerular Filtration Rate > 60.0 >6 0 [facility]: 0 [facility] Normal Sodium Level 139 mEq/L 136-145 mEq/L [facility]: [address] [place] [address] Normal Potassium Serum 4.5 mEq/L 3.5-5.1 mE q/L [facility]: 0 [facility] Normal Chloride Level 103 mEq/L 98-107 mEq/ L [facility]: [address] [place] [address] Normal Carbon Dioxide Level 30 mEq/L 21-32 mEq/L [facility]: [address] [place] [address] Low Anion Gap 6 mEq/L 8-16 mEq/L [facility]: [address] [place] [address] High Calcium Level 11.3 mg/dL 8.5-10.1 mg /dL [facility]: 0 [facility] Normal AST/SGOT 19 U/L 7-37 U/L [facility]: 0 [facility] Normal ALT/SGPT 52 U/L 12-78 U/L [facility]: 0 [facility] Normal Alkaline Phosphatase 88 U/L 45-117 U /L [facility]: [address] [place] [address] Normal Bilirubin,total 0.6 mg/dL 0.2-1.0 mg /dL [facility]: 0 [facility] Normal Total Protein 8.0 gm/dL 6.4-8.2 gm/d L [facility]: 0 [facility] Normal Albumin 4.6 gm/dL 3.2-5.2 gm/dL [facility]: 0 [facility] Normal Albumin/globulin Ratio 1.4 [facility]: 0 [facility] 04/02/2021 Influenza A/B RSV Covid Amp Normal Influenza a Amplification negative negative [facility] nter: 830 [facility] Normal Influenza B Amplification negative n egative [facility]: 830 [facility] Normal RSV Amplification negative negative [facility]: 830 [facility] Normal Sars Covid-19 Amplification negative negative [facility]: 830 [facility] 04/02/2021 Ionized Calcium Normal Ionized Calcium 4.5 mg/dL 4.5-5.3 mg/dL [facility]: 830 [facility] 04/02/2021 PTH (Parathyroid Hormone), Intact, Serum or Plasma Normal PTH Intact 73.9 pg/mL 18.5-88.0 pg/mL [facility]: 0 [facility] 04/02/2021 Vitamin D, 25-Hydroxy, Total, Serum Low Total 25(Oh) Vitamin D 27.8 NG/mL 30.0-100.0 NG/mL [facility] nter: 830 [facility] 12/25/2020 Glucose, Fingerstick, Blood High Bedside Glucose 114 mg/dL 70- 105 mg/dL [facility]: 83 0 [facility] 12/25/2020 UA W/ Reflex to Culture Normal Appearance, Urine Rfx clear clear [facility]: 83 0 [facility] Normal Color, Urine Rfx yellow yellow [facility]: 830 [facility] Normal pH,urine Rfx 7.0 units 5.0-9.0 units [facility]: 830 [facility] Normal Specific [place] Ur Auto Rfx S3 1.002-1.035 [facility]: 830 [facility] High Protein, Urine Auto Rfx 2+ mg/dL neg ative mg/dL [facility]: 830 [facility] Normal Glucose, Urine (UA) Auto Rfx n egative mg/dL negative mg/dL [facility]: 830 [facility] High Ketone, Urine Auto Rfx 1+ mg/dL nega tive mg/dL [facility]: 830 [facility] Normal Urobilinogen, Urine Auto Rfx 0.2 mg/ dL 0.0-2.0 mg/dL [facility]: 830 [facility] Normal Bilirubin, Urine Auto Rfx negative n egative [facility]: 830 [facility] Normal Nitrite, Urine Auto Rfx negative neg ative [facility]: 830 [facility] Normal Leukocyte Esterase Ur Auto Rfx negat megha negative [facility]: 830 [facility] Normal Blood, Urine Blood Rfx negative nega tive [facility]: 830 [facility] Normal WBC, Urine Auto Rfx 1 /hpf 0-3 /hpf [facility]: 830 [facility] Normal RBC, Urine Auto Rfx 1 /hpf 0-3 /hpf [facility]: 830 [facility] Normal Bacteria, Urine Auto Rfx negative [facility] 830 [facility] Normal Squam Epithelial Cell Ur Aurfx 0 /hp f 0-6 /hpf [facility]: 830 [facility] Normal Mucus, Urine Rfx small negative Fin [facility]: 830 [facility] Normal Hyaline Cast, Urine Auto Rfx 0 /lpf 0-1 /lpf [facility]: 830 [facility] 12/25/2020 Drug Screen, Urine Normal Amphetamines Leve l Urine negative negative [facility]: 83 0 [facility] Normal Barbiturates Urine negative negative [facility]: 830 [facility] Normal Benzodiazepines Urine negative negat megha [facility]: 830 [facility] High Cannabinoids Urine positive negative [facility]: 830 [facility] Normal Cocaine Metabolite Urine negative ne gative [facility]: 830 [facility] Normal Methadone Urine negative negative Fi [facility]: 830 [facility] Normal Opiates Urine negative negative [facility]: 830 [facility] Normal Phencyclidine Urine negative negativ e Final [facility]: 830 [facility] Lipid Panel, Serum Blood venous High Cholesterol, T otal 233 mg/dL <200 mg/dL Final [facility]: [address] [facility] Blood venous Low HDL Cholesterol 35 mg/dL > or = 40 mg/dL Final [facility]: [address] [facility] Blood venous Normal Triglycerides 108 mg/dL <150 mg/dL Final [facility]: [address] [facility] Blood venous High LDL-cholesterol 175 mg/dL (ca lc) Final [facility]: [address] [facility] Blood venous High Chol/hdlc Ratio 6.7 (calc) <5 .0 (calc) Final [facility]: [address] [facility] Blood venous High Non HDL Cholesterol 198 mg/dL (calc) <130 mg/dL (calc) Final [facility]: [address] [facility] CMP, Serum or Plasma Blood venous High Glucose 110 mg/dL 65-99 mg/dL Final [facility]: [facility] Normal Urea Nitrogen (BUN) 15 mg/dL 7-25 mg/dL Final [facility]: [address] [facility] Blood venous Normal Creatinine 0.70 mg/dL 0.60-1. 35 mg/dL [facility]: [address] [facility] Blood venous Normal eGFR Non-afr. Indonesian 1 21 mL/min/1.73m2 > or = 60 mL/min/1.73m2 Final [facility]: [address] [facility] Blood venous Normal eGFR 14 0 mL/min/1.73m2 > or = 60 mL/min/1.73m2 Final [facility]: [address] [facility] Blood venous BUN/creatinine Ratio not applicable (calc) 6-22 (calc) Final [facility]: [address] [facility] Blood venous Normal Sodium 139 mmol/L 135-146 mmo l/L Final [facility]: [address] [facility] Blood venous Normal Potassium 4.0 mmol/L 3.5-5.3 mmol/L Final [facility]: [address] [facility] Blood venous Normal Chloride 103 mmol/L 98-110 mm ol/L [facility]: [address] [facility] Blood venous Normal Carbon Dioxide 29 mmol/L 20-3 2 mmol/L Final [facility]: [address] [facility] Blood venous High Calcium 11.0 mg/dL 8.6-10.3 m g/dL [facility]: [address] [facility] Blood venous Normal Protein, Total 7.5 g/dL 6.1-8 .1 g/dL [facility]: [address] [facility] Blood venous Normal Albumin 4.8 g/dL 3.6-5.1 g/dL [facility]: [address] [facility] Blood venous Normal Globulin 2.7 g/dL (calc) 1.9- 3.7 g/dL (calc) Final [facility]: [address] [facility] Blood venous Normal Albumin/globulin Ratio 1 .8 (calc) 1.0-2.5 (calc) Final [facility]: [address] [facility] Blood venous Normal Bilirubin, Total 0.6 mg/dL 0. 2-1.2 mg/dL Final [facility]: [address] [facility] Blood venous Normal Alkaline Phosphatase 84 U/L 3 6-130 U/L Final [facility]: [address] [facility] Blood venous Normal Ast 23 U/L 10-40 U/L Final [facility]: [address] [facility] Blood venous Normal Alt 23 U/L 9-46 U/L Final [facility]: [address] [facility] Urinalysis, Complete Color tnp Fi nal [facility] Past Encounters 04/14/2021 [facility] BermudezC: [address] [place] [address], Ph. 04/13/2021 Body Mass Index 25-29 - Overweight; Tobacco User; Vertigo; Fatigue Ashia Steinberg PA-C: [address] [place] [phone], Ph. 02/17/2021 Hypertensive Disorder Ashia SHANTE Steinberg: [address] [place] [address], Ph. 02/03/2021 Hypertensive Disorder; Obstructive Sleep Apnea Syndrome Ashia Steinberg PA-C: [address] [place] [address], Ph. 11/29/2020 SARS-CoV-2 Vaccination Lyndsay GRETTA CesarC: [address] [place] [phone], Ph. 11/01/2020 SARS-CoV-2 Vaccination GRETTA GonzalezC: [address] [place] [phone], Ph. 05/30/2020 Low Back Pain; Hip Pain Ashia Steinberg PA-C: [address] [place] [address], Ph. Social History Tobacco Smoking Status Light Tobacco Smoker (1/4 pack per da y) Vaccine List Vaccine Type COVID-19, mRNA, LNP-S, PF, 100 mcg/0.5 m L dose 10.5 mL 10.5 mL Tdap 10/28/20180.5 mL Plan of Care Reminders Provider Appointments None recorded. Lab None recorded. Referral None recorded. Procedures None recorded. Surgeries None recorded. Imaging None recorded. Vitals 04/13/2021 04:40PM ESTABLISHED [id number] Height Weight BMI Blood Pressure 74 in 212 lbs 2 oz 27.2 kg/m2 132/83 mm[Hg] 02/17/2021 08:40AM NURSE LAB COLLECTION Height 74 in 02/03/2021 09:20AM ESTABLISHED [id number] Height Weight BMI Blood Pressure 74 in 209 lbs 26.8 kg/m2 136/75 mm[Hg] 05/30/2020 10:20AM ESTABLISHED [id number] Height Weight BMI Blood Pressure 74 in [...]
--- OUTSIDE RECORDS SUMMARY | 2021-05-12 19:22 | CCD ---
Author Organization Unknown Address [address] [place] [address] Phone [phone] Care Team Providers Care Cashier Host/Hostess Name Role Phone Ashia Steinberg Unavailable Unavailable Allergies Code Code System Name Reaction Severity Status Onset 153672 RxNorm Chantix Active 08/21/2016 Medications Name Status Start Date Stop Date amlodipine 10 mg tablet Completed 02/04/20 21 atorvastatin 10 mg tablet Completed 2020 chlorthalidone 25 mg tablet Active Not available cyclobenzaprine 10 mg tablet TAKE ONE TABLET BY MOUTH THREE TIMES DAILY Completed 02/03/2021 ibuprofen 800 mg tablet Completed 02/04/20 21 lisinopril 40 mg tablet TAKE ONE TABLET BY MOUTH ONCE DAILY Active Not available meclizine 25 mg tablet TAKE ONE TABLET BY MOUTH EVERY 8 HOURS Active Not available nicotine 14 mg/24 hr daily transdermal patch [...] History Gastroesophageal Reflux Disease Active 03/16/2015 History Finding of Esophagus Active 03/16/2015 History Syncope and Collapse Unknown [...] Result Interpretation Description Value Range Status Address 12/25/2020 Glucose, Fingerstick, Blood High Bedside Glucose 114 mg/dL 70- 105 mg/dL [facility]: [address] [facility] 12/25/2020 UA W/ Reflex to Culture Normal Appearance, Urine Rfx clear clear [facility]: [address] [facility] Normal Color, Urine Rfx yellow yellow [facility]: [address] [facility] Normal pH,urine Rfx 7.0 units 5.0-9.0 units [facility]: [address] [facility] Normal Specific [place] Ur Auto Rfx S3 1.002-1.035 [facility]: [address] [facility] High Protein, Urine Auto Rfx 2+ mg/dL neg ative mg/dL [facility]: [address] [facility] Normal Glucose, Urine (UA) Auto Rfx n egative mg/dL negative mg/dL [facility]: [address] [facility] High Ketone, Urine Auto Rfx 1+ mg/dL nega tive mg/dL [facility]: [address] [facility] Normal Urobilinogen, Urine Auto Rfx 0.2 mg/ dL 0.0-2.0 mg/dL [facility]: [address] [facility] Normal Bilirubin, Urine Auto Rfx negative n egative [facility]: [address] [facility] Normal Nitrite, Urine Auto Rfx negative neg ative [facility]: [address] [facility] Normal Leukocyte Esterase Ur Auto Rfx negat megha negative [facility]: [address] [facility] Normal Blood, Urine Blood Rfx negative nega tive [facility]: [address] [facility] Normal WBC, Urine Auto Rfx 1 /hpf 0-3 /hpf [facility]: [address] [facility] Normal RBC, Urine Auto Rfx 1 /hpf 0-3 /hpf [facility]: [address] [facility] Normal Bacteria, Urine Auto Rfx negative ne gative [facility]: [address] [facility] Normal Squam Epithelial Cell Ur Aurfx 0 /hp f 0-6 /hpf [facility]: [address] [facility] Normal Mucus, Urine Rfx small negative Fin al [facility]: [address] [facility] Normal Hyaline Cast, Urine Auto Rfx 0 /lpf 0-1 /lpf [facility]: [address] [facility] 12/25/2020 Drug Screen, Urine Normal Amphetamines Leve l Urine negative negative [facility]: [address] [facility] Normal Barbiturates Urine negative negative [facility]: [address] [facility] Normal Benzodiazepines Urine negative negat megha [facility]: [address] [facility] High Cannabinoids Urine positive negative [facility]: [address] [facility] Normal Cocaine Metabolite Urine negative ne gative [facility]: [address] [facility] Normal Methadone Urine negative negative Fi nal [facility]: [address] [facility] Normal Opiates Urine negative negative Nicolasa l [facility]: [address] [facility] Normal Phencyclidine Urine negative negativ e [facility]: [address] [facility] Past Encounters 02/17/2021 Hypertensive Disorder Ashia Steinberg PA-C: [address] [place] [address], Ph. 02/03/2021 Hypertensive Disorder; Obstructive Sleep Apnea Syndrome Ashia Steinberg PA-C: [address] [place] [address], Ph. 11/29/2020 SARS-CoV-2 Vaccination GRETTA GonzalezC: [address] [place] [address], Ph. 11/01/2020 SARS-CoV-2 Vaccination NEERAJ Gonzalez-C: [address] [place] [address], Ph. 05/30/2020 Low Back Pain; Hip Pain [facility]: [address] [place] [address], Ph. Social History Tobacco Smoking Status Light Tobacco Smoker (1/4 pack per da y) Vaccine List Vaccine Type COVID-19, mRNA, LNP-S, PF, 100 mcg/0.5 m L dose 10.5 mL 10.5 mL Tdap 10/28/20180.5 mL Plan of Care Reminders Provider Appointments None recorded. Lab None recorded. Referral None recorded. Procedures None recorded. Surgeries None recorded. Imaging None recorded. Vitals 02/17/2021 08:40AM NURSE LAB COLLECTION Height 74 in 02/03/2021 09:20AM ESTABLISHED [id number] Height Weight BMI Blood Pressure 74 in 209 lbs 26.8 kg/m2 136/75 mm[Hg] 05/30/2020 10:20AM ESTABLISHED [id number] Height Weight BMI Blood Pressure 74 in [...]
--- OUTSIDE RECORDS SUMMARY | 2021-05-12 19:23 | CCD ---
Author Author [facility] Address Unknown Phone Unavailable Care Team Providers Care Adolescent Psychiatrist Name Role Phone Angelia Horner MD Unavailable Unavailable Angelia Horner MD Unavailable Unavailable Angelia Horner MD Unavailable Unavailable Angelia Horner MD Unavailable Unavailable Angelia Horner MD Unavailable Unavailable Angelia Horner MD Unavailable Unavailable Angelia Horner MD Unavailable Unavailable Angelia Horner MD Unavailable Unavailable Angelia Horner MD Unavailable Unavailable Angelia Horner MD Unavailable Unavailable Angelia Horner MD Unavailable Unavailable Angelia Horner MD Unavailable Unavailable Angelia Horner MD Unavailable Unavailable Angelia Horner MD Unavailable Unavailable Angelia Horner MD Unavailable Unavailable Angelia Horner MD Unavailable Unavailable Angelia Horner MD Unavailable Unavailable Angelia Horner MD Unavailable Unavailable Angelia Horner MD Unavailable Unavailable Angelia Horner MD Unavailable Unavailable Angelia Horner MD Unavailable Unavailable Angelia Horner MD Unavailable Unavailable Angelia Horner MD Unavailable Unavailable Angelia Horner MD Unavailable Unavailable Angelia Honrer MD Unavailable Unavailable Angelia Horner MD Unavailable Unavailable Angelia Horner MD Unavailable Unavailable Angelia Horner MD Unavailable Unavailable Angelia Horner MD Unavailable Unavailable Angelia Horner MD Unavailable Unavailable Angelia Horner MD Unavailable Unavailable Angelia Horner MD Unavailable Unavailable Angelia Horner MD Unavailable Unavailable Angelia Horner MD Unavailable Unavailable Angelia Horner MD Unavailable Unavailable Angelia Horner MD Unavailable Unavailable Angelia Horner MD Unavailable Unavailable Angelia Horner MD Unavailable Unavailable Angelia Horner MD Unavailable Unavailable Angelia Horner MD Unavailable Unavailable Angelia Horner MD Unavailable Unavailable Angelia Horner MD Unavailable Unavailable Angelia Horner MD Unavailable Unavailable Angelia Horner MD Unavailable Unavailable Angelia Horner MD Unavailable Unavailable Angelia Horner MD Unavailable Unavailable Angelia Horner MD Unavailable Unavailable Angelia Horner MD Unavailable Unavailable Angelia Horner MD Unavailable Unavailable Angelia Horner MD Unavailable Unavailable Angelia Horner MD Unavailable Unavailable Angelia Horner MD Unavailable Unavailable Angelia Horner MD Unavailable Unavailable Angelia Horner MD Unavailable Unavailable Angelia Horner MD Unavailable Unavailable Angelia Horner MD Unavailable Unavailable Angelia Horner MD Unavailable Unavailable Angelia Horner MD Unavailable Unavailable Angelia Horner MD Unavailable Unavailable Angelia Horner MD Unavailable Unavailable Angelia Horner MD Unavailable Unavailable Angelia Horner MD Unavailable Unavailable Angelia Horner MD Unavailable Unavailable Angelia Horner MD Unavailable Unavailable Angelia Horner MD Unavailable Unavailable Angelia Horner MD Unavailable Unavailable Angelia Horner MD Unavailable Unavailable Angelia Horner MD Unavailable Unavailable Angelia Horner MD Unavailable Unavailable Angelia Horner MD Unavailable Unavailable Angelia Horner MD Unavailable Unavailable Angelia Horner MD Unavailable Unavailable Angelia Horner MD Unavailable Unavailable Angelia Horner MD Unavailable Unavailable Angelia Horner MD Unavailable Unavailable Angelia Horner MD Unavailable Unavailable Angelia Horner MD Unavailable Unavailable Angelia Horner MD Unavailable Unavailable Angelia Horner MD Unavailable Unavailable Angelia Horner MD Unavailable Unavailable Angelia Horner MD Unavailable Unavailable Angelia Horner MD Unavailable Unavailable Angelia Horner MD Unavailable Unavailable Angelia Horner MD Unavailable Unavailable Angelia Horner MD Unavailable Unavailable Angelia Horner MD Unavailable Unavailable Angelia Horner MD Unavailable Unavailable Angelia Horner MD Unavailable Unavailable Angelia Horner MD Unavailable Unavailable Angelia Horner MD Unavailable Unavailable Angelia Horner MD Unavailable Unavailable Angelia Horner MD Unavailable Unavailable Angelia Horner MD Unavailable Unavailable Meme WANG MD Unavailable Unavailable Meme WANG MD Unavailable Unavailable Meme WANG MD Unavailable Unavailable Meme WANG MD Unavailable Unavailable Meme WANG MD Unavailable Unavailable Meme WANG MD Unavailable Unavailable Meme WANG MD Unavailable Unavailable Meme WANG MD Unavailable Unavailable Meme WANG MD Unavailable Unavailable Meme WANG MD Unavailable Unavailable Meme WANG MD Unavailable Unavailable Meme WANG MD Unavailable Unavailable Meme WANG MD Unavailable Unavailable Meme WANG MD Unavailable Unavailable Meme WANG MD Unavailable Unavailable Meme WANG MD Unavailable Unavailable Meme WANG MD Unavailable Unavailable Meme WANG MD Unavailable Unavailable Meme WANG MD Unavailable Unavailable Meme WANG MD Unavailable Unavailable Meme WANG MD Unavailable Unavailable Meme WANG MD Unavailable Unavailable Meme WANG MD Unavailable Unavailable Meme WANG MD Unavailable Unavailable Meme WANG MD Unavailable Unavailable Meme WANG MD Unavailable Unavailable Meme WANG MD Unavailable Unavailable Meme WANG MD Unavailable Unavailable Meme WANG MD Unavailable Unavailable Meme WANG MD Unavailable Unavailable Meme WANG MD Unavailable Unavailable Meme WANG MD Unavailable Unavailable Meme WANG MD Unavailable Unavailable Meme WANG MD Unavailable Unavailable Meme WANG MD Unavailable Unavailable Meme WANG MD Unavailable Unavailable Meme WANG MD Unavailable Unavailable Meme WANG MD Unavailable Unavailable Meme WANG MD Unavailable Unavailable Meme WANG MD Unavailable Unavailable Meme WANG MD Unavailable Unavailable Meme WANG MD Unavailable Unavailable Meme WANG MD Unavailable Unavailable Meme WANG MD Unavailable Unavailable Meme WANG MD Unavailable Unavailable Meme WANG MD Unavailable Unavailable Meme WANG MD Unavailable Unavailable Meme WANG MD Unavailable Unavailable Meme WANG MD Unavailable Unavailable Meem WANG MD Unavailable Unavailable Meme WANG MD Unavailable Unavailable Meme WANG MD Unavailable Unavailable Meme WANG MD Unavailable Unavailable Meme WANG MD Unavailable Unavailable Meme WANG MD Unavailable Unavailable Meme WANG MD Unavailable Unavailable Meme WANG MD Unavailable Unavailable Meme WANG MD Unavailable Unavailable Meme WANG MD Unavailable Unavailable Meme WANG MD Unavailable Unavailable Meme WANG MD Unavailable Unavailable Meme WANG MD Unavailable Unavailable Meme WANG MD Unavailable Unavailable Meme WANG MD Unavailable Unavailable Meme WANG MD Unavailable Unavailable Meme WANG MD Unavailable Unavailable Meme WANG MD Unavailable Unavailable Meme WANG MD Unavailable Unavailable Meme WANG MD Unavailable Unavailable Meme WANG MD Unavailable Unavailable Meme WANG MD Unavailable Unavailable Meme WANG MD Unavailable Unavailable Meme WANG MD Unavailable Unavailable Meme WANG MD Unavailable Unavailable Meme WANG MD Unavailable Unavailable Meme WANG MD Unavailable Unavailable Meme AWNG MD Unavailable Unavailable Meme WANG MD Unavailable Unavailable Meme WANG MD Unavailable Unavailable Meme WANG MD Unavailable Unavailable Meme WANG MD Unavailable Unavailable Mmee WANG MD Unavailable Unavailable Meme WANG MD Unavailable Unavailable Meme WANG MD Unavailable Unavailable Meme WANG MD Unavailable Unavailable Meme WANG MD Unavailable Unavailable Meme WANG MD Unavailable Unavailable Meme WANG MD Unavailable Unavailable Meme WANG MD Unavailable Unavailable SYMENOW, G CHRISTOPHER PA Unavailable Unavailable SYMENOW, G CHRISTOPHER PA Unavailable Unavailable SYMENOW, G CHRISTOPHER PA Unavailable Unavailable SYMENOW, G CHRISTOPHER PA Unavailable Unavailable SYMENOW, G CHRISTOPHER PA Unavailable Unavailable SYMENOW, G CHRISTOPHER PA Unavailable Unavailable SYMENOW, G CHRISTOPHER PA Unavailable Unavailable SYMENOW, G CHRISTOPHER PA Unavailable Unavailable SYMENOW, G CHRISTOPHER PA Unavailable Unavailable SYMENOW, G CHRISTOPHER PA Unavailable Unavailable SYMENOW, G CHRISTOPHER PA Unavailable Unavailable SYMENOW, G CHRISTOPHER PA Unavailable Unavailable SYMENOW, G CHRISTOPHER PA Unavailable Unavailable SYMENOW, G CHRISTOPHER PA Unavailable Unavailable SYMENOW, G CHRISTOPHER PA Unavailable Unavailable SYMENOW, G CHRISTOPHER PA Unavailable Unavailable NISHA, L AIMEE PA Unavailable Unavailable NISHA, L AIMEE PA Unavailable Unavailable NISHA, L AIMEE PA Unavailable Unavailable NISHA, L AIMEE PA Unavailable Unavailable NISHA, L AIMEE PA Unavailable Unavailable NISHA, L AIMEE PA Unavailable Unavailable NISHA, L AIMEE PA Unavailable Unavailable NISHA, L AIMEE PA Unavailable Unavailable NISHA, L AIMEE PA Unavailable Unavailable NISHA, L AIMEE PA Unavailable Unavailable NISHA, L AIMEE PA Unavailable Unavailable NISHA, L AIMEE PA Unavailable Unavailable NISHA, L AIMEE PA Unavailable Unavailable NISHA, L AIMEE PA Unavailable Unavailable NISHA, L AIMEE PA Unavailable Unavailable NISHA, L AIMEE PA Unavailable Unavailable YOON, G EDWARD RPA Unavailable Unavailable YOON, G EDWARD RPA Unavailable Unavailable YOON, G EDWARD RPA Unavailable Unavailable YOON, G EDWARD RPA Unavailable Unavailable YOON, G EDWARD RPA Unavailable Unavailable YOON, G EDWARD RPA Unavailable Unavailable YOON, G EDWARD RPA Unavailable Unavailable YOON, G EDWARD RPA Unavailable Unavailable YOON, G EDWARD RPA Unavailable Unavailable YOON, G EDWARD RPA Unavailable Unavailable YOON, G EDWARD RPA Unavailable Unavailable YOON, G EDWARD RPA Unavailable Unavailable YOON, G EDWARD RPA Unavailable Unavailable YOON, G EDWARD RPA Unavailable Unavailable YOON, G EDWARD RPA Unavailable Unavailable YOON, G EDWARD RPA Unavailable Unavailable YOON, G EDWARD RPA Unavailable Unavailable YOON, G EDWARD RPA Unavailable Unavailable YOON, G EDWARD RPA Unavailable Unavailable YOON, G EDWARD RPA Unavailable Unavailable YOON, G EDWARD RPA Unavailable Unavailable YOON, G EDWARD RPA Unavailable Unavailable YOON, G EDWARD RPA Unavailable Unavailable YOON, G EDWARD RPA Unavailable Unavailable YOON, G EDWARD RPA Unavailable Unavailable YOON, G EDWARD RPA Unavailable Unavailable YOON, G EDWARD RPA Unavailable Unavailable YOON, G EDWARD RPA Unavailable Unavailable YOON, G EDWARD RPA Unavailable Unavailable YOON, G EDWARD RPA Unavailable Unavailable YOON, G EDWARD RPA Unavailable Unavailable YOON, G EDWARD RPA Unavailable Unavailable YOON, G EDWARD RPA Unavailable Unavailable YOON, G EDWARD RPA Unavailable Unavailable YOON, G EDWARD RPA Unavailable Unavailable Chelle Clay Unavailable [phone] Chelle Clay Unavailable [phone] Yun Clayly Unavailable [phone] Scordo, M Ashia PA Unavailable Unavailable Scordo, M Ashia PA Unavailable Unavailable Scordo, M Ashia PA Unavailable Unavailable Scordo, M Ashia PA Unavailable Unavailable Scordo, M Ashia PA Unavailable Unavailable Scordo, M Ashia PA Unavailable Unavailable Scordo, M Ashia PA Unavailable Unavailable Scordo, M Ashia PA Unavailable Unavailable Scordo, M Ashia PA Unavailable Unavailable Scordo, M Ashia PA Unavailable Unavailable Scordo, M Ashia PA Unavailable Unavailable Scordo, M Ashia PA Unavailable Unavailable Scordo, M Ashia PA Unavailable Unavailable Scordo, M Ashia PA Unavailable Unavailable Scordo, M Ashia PA Unavailable Unavailable Scordo, M Ashia PA Unavailable Unavailable Scordo, M Ashia PA Unavailable Unavailable Scordo, M Ashia PA Unavailable Unavailable Scordo, M Ashia PA Unavailable Unavailable Scordo, M Ashia PA Unavailable Unavailable Scordo, M Ashia PA Unavailable Unavailable Scordo, M Ashia PA Unavailable Unavailable Scordo, M Ashia PA Unavailable Unavailable Scordo, M Ashia PA Unavailable Unavailable Scordo, M Ashia PA Unavailable Unavailable Scordo, M Ashia PA Unavailable Unavailable Scordo, M Ashia PA Unavailable Unavailable Scordo, M Ashia PA Unavailable Unavailable Scordo, M Ashia PA Unavailable Unavailable Scordo, M Ashia PA Unavailable Unavailable Scordo, M Ashia PA Unavailable Unavailable Scordo, M Ashia PA Unavailable Unavailable Scordo, M Ashia PA Unavailable Unavailable Scordo, M Ashia PA Unavailable Unavailable Scordo, M Ashia PA Unavailable Unavailable Scordo, M Ashia PA Unavailable Unavailable Scordo, M Ashia PA Unavailable Unavailable Scordo, M Ashia PA Unavailable Unavailable Scordo, M Ashia PA Unavailable Unavailable Scordo, M Ashia PA Unavailable Unavailable Scordo, M Ashia PA Unavailable Unavailable Scordo, M Ashia PA Unavailable Unavailable Scordo, M Ashia PA Unavailable Unavailable Scordo, M Ashia PA Unavailable Unavailable Scordo, M Ashia PA Unavailable Unavailable Scordo, M Ashia PA Unavailable Unavailable Scordo, M Ashia PA Unavailable Unavailable CHANLIECCO, C KOMAL MD Unavailable Unavailable CHANLIECCO, C KOMAL MD Unavailable Unavailable CHANLIECCO, C KOMAL MD Unavailable Unavailable CHANLIECCO, C KOMAL MD Unavailable Unavailable CHANLIECCO, C KOMAL MD Unavailable Unavailable CHANLIECCO, C KOMAL MD Unavailable Unavailable CHANLIECCO, C KOMAL MD Unavailable Unavailable CHANLIECCO, C KOMAL MD Unavailable Unavailable CHANLIECCO, C KOMAL MD Unavailable Unavailable CHANLIECCO, C KOMAL MD Unavailable Unavailable CHANLIECCO, C KOMAL MD Unavailable Unavailable Cesar, [place] Lyndsay Unavailable Unavailable Cesar, [place] Lyndsay Unavailable Unavailable Cesar, [place] Lyndsay Unavailable Unavailable Cesar, [place] Lyndsay Unavailable Unavailable Cesar, [place] Lyndsay Unavailable Unavailable Cesar, [place] Lyndsay Unavailable Unavailable Cesar, [place] Lyndsay Unavailable Unavailable Cesar, [place] Lyndsay Unavailable Unavailable Cesar, [place] Lyndsay Unavailable Unavailable Cesar, [place] Lyndsay Unavailable Unavailable Cesar, [place] Lyndsay Unavailable Unavailable Cesar, [place] Lyndsay Unavailable Unavailable Cesar, [place] Lyndsay Unavailable Unavailable Re-disclosure Warning The records that you are about to access may contain information from federally-assisted alcohol or drug abuse programs. If such information is present, then the following federally mandated warning applies: This information has been disclosed to you from records protected by federal confidentiality rules (42 CFR part 2). The federal rules prohibit you from making any further disclosure of this information unless further disclosure is expressly permitted by the written consent of the person to whom it pertains or as otherwise permitted by 42 CFR part 2. A general authorization for the release of medical or other information is NOT sufficient for this purpose. The Federal rules restrict any use of the information to criminally investigate or prosecute any alcohol or drug abuse patient.The records that you are about to access may contain highly sensitive health information, the redisclosure of which is protected by Article 27-F of the [facility] Public Health law. If you continue you may have access to information: Regarding HIV / AIDS; Provided by facilities licensed or operated by the [facility] Office of Mental Health; or Provided by the [facility] Office for People With Developmental Disabilities. If such information is present, then the following [facility] mandated warning applies: This information has been disclosed to you from confidential records which are protected by state law. State law prohibits you from making any further disclosure of this information without the specific written consent of the person to whom it pertains, or as otherwise permitted by law. Any unauthorized further disclosure in violation of state law may result in a fine or prison sentence or both. A general authorization for the release of medical or other information is NOT sufficient authorization for further disc losure. Family History Family Member Name Family Member Gender Family Member Status Date o f Status Description Data Source(s) Unknown Unknown Problem [facility] PGM Unknown Unknown Problem [facility] ([facility]) Encounters Encounter Providers Location Date Indications Data Source(s ) NEERAJ Johnson: [address], [place] [address], Ph. Attender: Chelle Clay [facility] Medical 05/10/2021 12:00:00 AM EDT [facility]) Ashia Steinberg PA-C: [address], [place] [address], Ph. Attender: Ashia ROBERTSON [facility] Medical 04/14/2021 12:00:00 AM EDT [facility]) Ashia Steinberg PA-C: [address], [place] [address], Ph. Attender: Ashia ROBERTSON [facility] Medical 04/14/2021 12:00:00 AM EDT [facility]) Ashia Steinberg PA-C: [address], [place] [address], Ph. Attender: Ashia ROBERTSON [facility] Medical 04/14/2021 12:00:00 AM EDT [facility]) Ashia Scordo, PA-C: [address], [place] [address], Ph. Attender: Ashia ROBERTSON [facility] Medical 04/13/2021 12:00:00 AM EDT [facility]) Ashia Steinberg PA-C: [address], [place] [address], Ph. Attender: Ashia ROBERTSON [facility] Medical 04/13/2021 12:00:00 AM EDT [place] ([facility]) Ashia Steinberg PA-C: [address], [place] [address], Ph. Attender: Ashia ROBERTSON [facility] Medical 04/13/2021 12:00:00 AM EDT [place] ([facility]) Outpatient Attender: AIMEE ROBERTSON Main Office 03/31/2021 0 8:15:00 AM EDT [facility] ([facility]) Emergency Attender: KOMAL PEREZ MDConsultant: Paul Horner MD 03/30/2021 08:31:00 AM EDT - 03/30/2021 10:10:00 AM EDT [facility] Patient discharged. Outpatient Attender: DAISHA YOON RPA 03/29 09:01:59 AM EDT - 03/29/2021 10:43:28 AM EDT [facility] ([facility] ) Ashia Steinberg PA-C: [address], [place] [address], Ph. Attender: Ashia ROBERTSON [facility] Medical 02/17/2021 12:00:00 AM EDT [facility]) Ashia Steinberg PA-C: [address], [place] [address], Ph. Attender: Ashia ROBERTSON [facility] Medical 02/17/2021 12:00:00 AM EDT [place] ([facility]) Ashia Steinberg PA-C: [address], [place] [address], Ph. Attender: Ashia ROBERTSON [facility] Medical 02/17/2021 12:00:00 AM EDT [facility] ([facility]) Ashia Steinberg PA-C: [address], [place] [address], Ph. Attender: Ashia ROBERTSON [facility] Medical 02/17/2021 12:00:00 AM EDT [facility] ([facility]) Ashia Steinberg PA-C: [address], [place] [address], Ph. Attender: Ashia ROBERTSON [facility] Medical 02/03/2021 12:00:00 AM EDT [facility] ([facility]) Ashia Steinberg PA-C: [address], [place] [address], Ph. Attender: Ashia ROBERTSON [facility] Medical 02/03/2021 12:00:00 AM EDT [place] ([facility]) Ashia Steinberg PA-C: [address], [place] [address], Ph. Attender: Ashia ROBERTSON [facility] Medical 02/03/2021 12:00:00 AM EDT [place] ([facility]) Ashia Steinberg PA-C: [address], [place] [address], Ph. Attender: Ashia ROBERTSON [facility] Medical 02/03/2021 12:00:00 AM EDT [place] ([facility]) Ashia Steinberg PA-C: [address] [place] [address], Ph. Attender: Ashia ROBERTSON [facility] Medical 02/03/2021 12:00:00 AM EDT [facility] ([facility]) GRETTA GonzalezC: [address], [place] [address], Ph. Attender: Lyndsay Cesar [facility] Medical 11/29/2020 12:00:00 AM EDT [place] ([facility]) GRETTA GonzalezC: [address] [place] [address], Ph. Attender: Lyndsay Cesar [facility] Medical 11/29/2020 12:00:00 AM EDT [place] ([facility]) GRETTA GonzalezC: [address], [place] [address], Ph. Attender: Lyndsay Cesar [facility] Medical 11/29/2020 12:00:00 AM EDT [place] ([facility]) GREG Gonzalez: [address], [place] [address], Ph. Attender: Lyndsay Cesar [facility] Medical 11/29/2020 12:00:00 AM EDT [place] ([facility]) GRETTA GonzalezC: [address] [place] [address], Ph. Attender: Lyndsay Cesar [facility] Medical 11/29/2020 12:00:00 AM EDT [place] ([facility]) GRETTA GonzalezC: [address], [place] [address], Ph. Attender: Lyndsay Cesar [facility] Medical 11/29/2020 12:00:00 AM EDT [place] ([facility]) GRETTA GonzalezC: [address], [place] [address], Ph. Attender: Lyndsay Cesar [facility] Medical 11/01/2020 12:00:00 AM EDT [place] ([facility]) GRETTA GonzalezC: [address], [place] [address], Ph. Attender: Lyndsay Cesar [facility] Medical 11/01/2020 12:00:00 AM EDT [place] ([facility]) GRETTA GonzalezC: [address], [place] [address], Ph. Attender: Lyndsay Cesar [facility] Medical 11/01/2020 12:00:00 AM EDT [place] ([facility]) GRETTA GonzalezC: [address], [place] [address], Ph. Attender: Lyndsay Cesar [facility] Medical 11/01/2020 12:00:00 AM EDT [place] ([facility]) GRETTA GonzalezC: [address], [place] [address], Ph. Attender: Lyndsay Cesar [facility] Medical 11/01/2020 12:00:00 AM EDT [place] ([facility]) GRETTA GonzalezC: [address], [place] [address], Ph. Attender: Lyndsay Cesar [facility] Medical 11/01/2020 12:00:00 AM EDT [place] ([facility]) GRETTA GonzalezC: [address], [place] [address], Ph. Attender: Lyndsay Cesar [facility] Medical 11/01/2020 12:00:00 AM EDT [place] ([facility]) Outpatient Attender: AIMEE ROBERTSON Main Office 09/27/2020 0 7:00:00 AM EST [facility] ([facility]) Ashia Steinberg PA-C: [address], [facility] [place] [address], Ph. Attender: Ashia ROBERTSON [facility] Medical 05/30/2020 12:00:00 AM EST [place] ([facility]) Ashia Steinberg PA-C: [address], [facility] [place] [address], Ph. Attender: Ashia ROBERTSON [facility] Medical 05/30/2020 12:00:00 AM EST [place] ([facility]) Ashia Steinberg PA-C: [address], [place] [address], Ph. Attender: Ashia ROBERTSON [facility] Medical 05/30/2020 12:00:00 AM EST [place] ([facility]) Ashia Steinberg PA-C: [address], [place] [address], Ph. Attender: Ashia ROBERTSON [facility] Medical 05/30/2020 12:00:00 AM EST [place] ([facility]) Ashia Steinberg PA-C: [address], [place] [address], Ph. Attender: Ashia ROBERTSON [facility] Medical 05/30/2020 12:00:00 AM EST [place] ([facility]) Ashia Steinberg PA-C: [address], [place] [address], Ph. Attender: Ashia ROBERTSON [facility] Medical 05/30/2020 12:00:00 AM EST [facility] ([facility]) Ashia Steinberg PA-C: [address], [place] [address], Ph. Attender: Ashia ROBERTSON [facility] Medical 05/30/2020 12:00:00 AM EST [facility]) Ashia Steinberg PA-C: [address], [place] [address], Ph. Attender: Ashia ROBERTSON [facility] Medical 05/30/2020 12:00:00 AM LORNA VICTORIAENA ([facility]) Emergency Attender: TIMI ROBERTSON EMERGENCY ROOM- ER 03/30/2020 01:12:00 PM EDT - 03/30/2020 02:32:00 PM EDT [facility] Patient discharged. Outpatient Attender: JAYLON WANG MD 03/30/2020 08:06:00 A M EDT [facility] Immunizations Vaccine Date Status Description Data Source(s) COVID-19, mRNA, LNP-S, PF, 100 mcg/0.5 mL dose 11/29/2020 05 :26:14 PM EDT completed .5 mL [place] ([facility]) COVID-19, mRNA, LNP-S, PF, 100 mcg/0.5 mL dose 11/29/2020 05 :26:14 PM EDT completed .5 mL [facility]) COVID-19, mRNA, LNP-S, PF, 100 mcg/0.5 mL dose 11/29/2020 05 :26:14 PM EDT completed .5 mL [facility]) COVID-19, mRNA, LNP-S, PF, 100 mcg/0.5 mL dose 11/29/2020 05 :26:14 PM EDT completed .5 mL [facility]) COVID-19, mRNA, LNP-S, PF, 100 mcg/0.5 mL dose 11/29/2020 05 :26:14 PM EDT completed .5 mL [facility]) COVID-19, mRNA, LNP-S, PF, 100 mcg/0.5 mL dose 11/29/2020 05 :26:14 PM EDT completed .5 mL [facility]) COVID-19 VACCINE Moderna 11/29/2020 12:00:00 AM EDT completed NYSIIS Vaccine Series Complete: YESThis Data wa s Submitted to [facility] Via NYSIIS. COVID-19, mRNA, LNP-S, PF, 100 mcg/0.5 mL dose 11/01/2020 06 :02:28 PM EDT completed .5 mL [facility]) COVID-19, mRNA, LNP-S, PF, 100 mcg/0.5 mL dose 11/01/2020 06 :02:28 PM EDT completed .5 mL [facility]) COVID-19, mRNA, LNP-S, PF, 100 mcg/0.5 mL dose 11/01/2020 06 :02:28 PM EDT completed .5 mL [facility]) COVID-19, mRNA, LNP-S, PF, 100 mcg/0.5 mL dose 11/01/2020 06 :02:28 PM EDT completed .5 mL [facility]) COVID-19, mRNA, LNP-S, PF, 100 mcg/0.5 mL dose 11/01/2020 06 :02:28 PM EDT completed 10.5 mL [place] ([facility]) COVID-19, mRNA, LNP-S, PF, 100 mcg/0.5 mL dose 11/01/2020 06 :02:28 PM EDT completed .5 mL [place] ([facility]) COVID-19, mRNA, LNP-S, PF, 100 mcg/0.5 mL dose 11/01/2020 06 :02:28 PM EDT completed .5 mL [place] ([facility]) COVID-19 VACCINE Moderna 11/01/2020 12:00:00 AM EDT completed [facility]SIIS Vaccine Series Complete: NOThis Data was Submitted to [facility] Via ADMETA. Medications Medication Brand Name Start Date Product Form Dose Route Admi nistrative Instructions Pharmacy Instructions Status Indications Reaction Description Data Source(s) Methylprednisolone 4 MG Oral Tablet Methylprednisolone 03/2021 12:00:00 AM EDT ORAL active [facility] ([facility] Chlorthalidone 25 MG Oral Tablet Chlorthalidone 03/30/2021 12:00:00 A M EDT ORAL active [facility] ([facility]) atorvastatin 20 MG Oral Tablet Atorvastatin Calcium 03/30/2021 1 2:00:00 AM EDT ORAL active [facility] ( [facility]) Carbamazepine 200 MG Oral Tablet Carbamazepine 03/30/2021 12:00:00 AM EDT ORAL active [facility] ([facility]) Chlorthalidone 25 MG Oral Tablet Chlorthalidone 12/30/2020 12:00:00 A M EDT ORAL active [facility] ([facility]) 40 mg 12/25/2020 12:00:00 AM EDT tablet 30 TAKE ONE TABLET BY MOUTH EVERY DAY TAKE ONE TABLET BY MOUTH EVERY DAY SOLD: 12/25/2020 Romero Sims Meclizine Hydrochloride 25 MG Oral Tablet MECLIZINE HCL 12/25/2020 12:00:00 AM EDT tablet 30 TAKE ONE TABLET BY MOUTH [place] RY 8 HOURS TAKE ONE TABLET BY MOUTH EVERY 8 HOURS SOLD: 12/25/2020 Romero cook Meclizine Hydrochloride 25 MG Oral Tablet Meclizine HCL 12/25/2020 12:00:00 AM EDT active [facility] ([facility]) 25 mg 12/25/2020 12:00:00 AM EDT tablet 30 TAKE ONE-HALF TABLET BY MOUTH EVERY DAY TAKE ONE-HALF TABLET BY MOUTH EVERY DAY SOLD: 12/25/2020 Romero iSms 24 HR Nicotine 0.583 MG/HR Transdermal P atch nicotine 14 mg/24 hr daily transdermal patch nicotine 14 mg/24 hr daily transdermal patch completed 24 HR nicotine 0.583 MG/HR Trans dermal System [place] ([facility]) atorvastatin 10 MG Oral Tablet atorvastatin 10 mg tabl et atorvastatin 10 mg tablet completed atorvastatin 10 MG Oral Tablet [place] ([facility]) Amlodipine 10 MG Oral Tablet amlodipine 10 mg tablet amlodipine 10 mg tablet completed amlodipine 10 MG Oral Tablet [place] ([facility]) Amlodipine 10 MG Oral Tablet amlodipine 10 mg tablet amlodipine 10 mg tablet completed amlodipine 10 MG Oral Tablet [place] ([facility]) gabapentin 600 MG Oral Tablet gabapentin 600 mg tablet TAKE ONE TABLET BY MOUTH THREE TIMES DAILY DIRECTED gabapentin 600 mg tablet TAKE ONE TABLET BY MOUTH THREE TIMES DAILY DIRECTED complete d gabapentin 600 MG Oral Tablet [facility]) atorvastatin 10 MG Oral Tablet atorvastatin 10 mg tabl et atorvastatin 10 mg tablet completed atorvastatin 10 MG Oral Tablet [place] ([facility]) Ibuprofen 800 MG Oral Tablet ibuprofen 800 mg tablet ibuprofen 8 00 mg tablet completed ibuprofen 800 MG Oral Tablet [facility]) atorvastatin 10 MG Oral Tablet atorvastatin 10 mg tabl et atorvastatin 10 mg tablet completed atorvastatin 10 MG Oral Tablet [place] ([facility]) 24 HR Nicotine 0.583 MG/HR Transdermal P atch nicotine 14 mg/24 hr daily transdermal patch nicotine 14 mg/24 hr daily transdermal patch completed 24 HR nicotine 0.583 MG/HR Trans dermal System [place] ([facility]) 24 HR Nicotine 0.583 MG/HR Transdermal P atch nicotine 14 mg/24 hr daily transdermal patch nicotine 14 mg/24 hr daily transdermal patch completed 24 HR nicotine 0.583 MG/HR Trans dermal System [place] ([facility]) Ibuprofen 800 MG Oral Tablet ibuprofen 800 mg tablet ibuprofen 8 00 mg tablet completed ibuprofen 800 MG Oral Tablet [place] ([facility]) Ibuprofen 800 MG Oral Tablet ibuprofen 800 mg tablet ibuprofen 8 00 mg tablet completed ibuprofen 800 MG Oral Tablet [place] ([facility]) Amlodipine 10 MG Oral Tablet amlodipine 10 mg tablet amlodipine 10 mg tablet completed amlodipine 10 MG Oral Tablet [place] ([facility]) Cyclobenzaprine hydrochloride 10 MG Oral Tablet cyclobenzaprine 10 mg tablet TAKE ONE TABLET BY MOUTH THREE TIMES DAILY cyclobenzaprine 10 mg tablet TAKE ONE TABLET BY MOUTH THREE TIMES DAILY comp leted cyclobenzaprine hydrochloride 10 MG Oral Tablet [place] ([facility]) atorvastatin 10 MG Oral Tablet atorvastatin 10 mg tabl et atorvastatin 10 mg tablet completed atorvastatin 10 MG Oral Tablet [place] ([facility]) Cyclobenzaprine hydrochloride 10 MG Oral Tablet cyclobenzaprine 10 mg tablet TAKE ONE TABLET BY MOUTH THREE TIMES DAILY cyclobenzaprine 10 mg tablet TAKE ONE TABLET BY MOUTH THREE TIMES DAILY comp leted cyclobenzaprine hydrochloride 10 MG Oral Tablet [place] ([facility]) 24 HR Nicotine 0.583 MG/HR Transdermal P atch nicotine 14 mg/24 hr daily transdermal patch nicotine 14 mg/24 hr daily transdermal patch completed 24 HR nicotine 0.583 MG/HR Trans dermal System [place] ([facility]) Ibuprofen 800 MG Oral Tablet ibuprofen 800 mg tablet ibuprofen 8 00 mg tablet completed ibuprofen 800 MG Oral Tablet [place] ([facility]) Carbamazepine 200 MG Oral Tablet carbama zepine 200 mg tablet TAKE 1/2 TABLET BY MOUTH TWICE DAILY FOR FOURTEEN DAYS, THEN TAKE ONE TABLET BY MOUTH TWICE DAILY carbamazepine 200 mg tablet TAKE 1/2 TABLET BY MOUTH TWICE DAILY FOR FOURTEEN DAYS, THEN TAKE ONE TABLET BY MOUTH TWICE DAILY completed carbamazepine 200 MG Oral Tablet [place] ([facility]) atorvastatin 10 MG Oral Tablet atorvastatin 10 mg tabl et atorvastatin 10 mg tablet completed atorvastatin 10 MG Oral Tablet [place] ([facility]) Amlodipine 10 MG Oral Tablet amlodipine 10 mg tablet amlodipine 10 mg tablet completed amlodipine 10 MG Oral Tablet [place] ([facility]) methylprednisolone 4 mg tablets in a dos e pack USE DIRECTED ON PACKAGE - START TOMORROW [id number] completed methylprednisolone 4 mg tablets in a dose pack [place] ([facility]) 24 HR Nicotine 0.583 MG/HR Transdermal P atch nicotine 14 mg/24 hr daily transdermal patch nicotine 14 mg/24 hr daily transdermal patch completed 24 HR nicotine 0.583 MG/HR Trans dermal System [place] ([facility]) Amlodipine 10 MG Oral Tablet amlodipine 10 mg tablet amlodipine 10 mg tablet completed amlodipine 10 MG Oral Tablet [place] ([facility]) 24 HR Nicotine 0.583 MG/HR Transdermal P atch nicotine 14 mg/24 hr daily transdermal patch nicotine 14 mg/24 hr daily transdermal patch completed 24 HR nicotine 0.583 MG/HR Trans dermal System [place] ([facility]) Cyclobenzaprine hydrochloride 10 MG Oral Tablet cyclobenzaprine 10 mg tablet TAKE ONE TABLET BY MOUTH THREE TIMES DAILY cyclobenzaprine 10 mg tablet TAKE ONE TABLET BY MOUTH THREE TIMES DAILY comp leted cyclobenzaprine hydrochloride 10 MG Oral Tablet [place] ([facility]) methylprednisolone 4 mg tablets in a dos e pack USE DIRECTED ON PACKAGE - START [id number] completed methylprednisolone 4 mg tablets in a dose pack [place] ([facility]) 24 HR Nicotine 0.583 MG/HR Transdermal P atch nicotine 14 mg/24 hr daily transdermal patch nicotine 14 mg/24 hr daily transdermal patch completed 24 HR nicotine 0.583 MG/HR Trans dermal System [place] ([facility]) Ibuprofen 800 MG Oral Tablet ibuprofen 800 mg tablet ibuprofen 8 00 mg tablet completed ibuprofen 800 MG Oral Tablet [place] ([facility]) Cyclobenzaprine hydrochloride 10 MG Oral Tablet cyclobenzaprine 10 mg tablet TAKE ONE TABLET BY MOUTH THREE TIMES DAILY cyclobenzaprine 10 mg tablet TAKE ONE TABLET BY MOUTH THREE TIMES DAILY comp leted cyclobenzaprine hydrochloride 10 MG Oral Tablet [place] ([facility]) methylprednisolone 4 mg tablets in a dos e pack USE DIRECTED ON PACKAGE - START [id number] completed methylprednisolone 4 mg tablets in a dose pack [place] ([facility]) 24 HR Nicotine 0.583 MG/HR Transdermal P atch nicotine 14 mg/24 hr daily transdermal patch nicotine 14 mg/24 hr daily transdermal patch completed 24 HR nicotine 0.583 MG/HR Trans dermal System [place] ([facility]) Cyclobenzaprine hydrochloride 10 MG Oral Tablet cyclobenzaprine 10 mg tablet TAKE ONE TABLET BY MOUTH THREE TIMES DAILY cyclobenzaprine 10 mg tablet TAKE ONE TABLET BY MOUTH THREE TIMES DAILY comp leted cyclobenzaprine hydrochloride 10 MG Oral Tablet [place] ([facility]) Insurance Providers Payer name Policy type / Coverage type Policy ID Covered alliance party ID Covered alliance party's relationship to henderson Policy [place] Plan Information Medicaid S [id number] S [id number] Medicaid S [id number] S [id number] UN COMMUNITY PLAN MCDHMO [id number] SP [id number] Managed Care - Community Plan [facility] P [id number] S [id number] Medicaid S [id number] S [id number] Managed Care - Community Plan [facility] P [id number] S [id number] Managed Care - Community Plan [facility] P [id number] S [id number] Managed Care - Community Plan [facility] P [id number] S [id number] Medicaid S [id number] S [id number] [employer]AN MCDHMO [id number] SP [id number] [facility] MCDHMO [id number] SP [id number] [facility] [employer] MCDHMO [id number] SP [id number] Managed Care - Community Plan [facility] P [id number] S [id number] Medicaid S [id number] S [id number] Managed Care - Community Plan [facility] P [id number] S [id number] Medicaid S [id number] S [id number] Managed Care - Community Plan [facility] P [id number] S [id number] Managed Care - [facility] Community Plan P [id number] S [id number] Medicaid S [id number] S [id number] Managed Care - [facility] Community Plan P [id number] S [id number] [facility] Commercial [employer] Co. [id number] Self [id number] UN COMMUNITY PLAN XIX - OP/ER [id number] 18 [id number] [facility] MEDICAID [id number] S [id number] [facility] MEDICAID [id number] S [id number] [facility] MEDICAID [id number] S [id number] [facility] Commercial [id number] Self [id number] [facility](MCAID) O [id number] S [id number] [facility] [id number] SP [id number] [facility] Health Maintenance Organization (HMO) [id number] Self [id number] [facility]-Community Plan-[place] Commercial [id number] Self [facility] MEDICAID [place] HMO 000 S 000 UN COMMUNITY PLAN [facility] [id number] SP [id number] UN COMMUNITY PLAN [facility] [id number] SP [id number] Problems, Conditions, and Diagnoses Code Display Name Description Problem Type Effective Dates Data Source(s) B16896 Nicotine dependence, cigarettes, uncompl icated Nicotine dependence, cigarettes, uncomplicated Diagnosis 03/30/2021 08:31:00 AM EDT [facility] I10 Essential (primary) hypertension Essential (primary) h ypertension Diagnosis 03/30/2021 08:31:00 AM [facility] G500 Trigeminal neuralgia Trigeminal neuralgia Diagnosis 03/30/2021 08:31:00 AM [facility] K0889 Other specified disorders of teeth and s upporting structures Other specified disorders of teeth and supporting structures Diagnosis 03/30/2021 08:31:00 AM [facility] 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 NURSING (CURRENT) DRUG THERAPY Diagnosis 03/30/2020 01:12:00 PM [facility] F17.210 Nicotine dependence, cigarettes, uncompl icated NICOTINE DEPENDENCE, CIGARETTES, UNCOMPLICATED Diagnosis 03/30/2020 01:12:00 PM T [facility] I10 Essential (primary) hypertension ESSENTIAL (PRIMARY) H YPERTENSION Diagnosis 03/30/2020 01:12:00 PM [facility] R19.7 Diarrhea, unspecified DIARRHEA, UNSPECIFIED Diagnosis 03/30/2020 01:12:00 PM [facility] E78.2 Mixed hyperlipidemia Mixed hyperlipidemia Problem 09/27/2020 12:00:00 AM LORNA LEWIS ([facility]) [id number] Syncope Syncope Problem 09/13/2020 12:00:00 AM ALLEN ALMON[place] ([facility]) [id number] Syncope Syncope Problem 09/13/2020 12:00:00 AM [place]EN [place] ([facility]) [id number] Syncope Syncope Problem 09/13/2020 12:00:00 AM [place] ([facility]) [id number] Syncope Syncope Problem 09/13/2020 12:00:00 AM [facility] [place] ([facility]) [id number] Syncope Syncope Problem 09/13/2020 12:00:00 AM [facility]EN [place] ([facility]) [id number] Syncope Syncope Problem 09/13/2020 12:00:00 AM ALLEN [place] ([facility]) [id number] Syncope Syncope Problem 09/13/2020 12:00:00 AM ALLEN [place] ([facility]) [id number] Cellulitis of finger of left hand Cellul itis of Finger of Left Hand Problem 10/28/2018 12:00:00 AM EDT - 05/30/2020 12:00:00 AM LORNA ALMON[place] ([facility]) [id number] Endocrine/metabolic screening Endocrine/metabolic Scre ening Problem 10/28/2018 12:00:00 AM EDT - 05/30/2020 12:00:00 AM LORNA [place] ([facility]) [id number] Influenza vaccine needed Influenza Vaccine Needed Pro blem 10/28/2018 12:00:00 AM EDT - 05/30/2020 12:00:00 AM LORNA [place] ([facility]) [id number] Puncture wound of foot Puncture Wound of Foot Problem 10/28/2018 12:00:00 AM EDT - 05/30/2020 12:00:00 AM LORNA [place] ([facility]) [id number] Cellulitis of finger of left hand Cellul itis of Finger of Left Hand Problem 10/28/2018 12:00:00 AM EDT - 05/30/2020 12:00:00 AM LORNA [place] ([facility]) [id number] Endocrine/metabolic screening Endocrine/metabolic Scre ening Problem 10/28/2018 12:00:00 AM EDT - 05/30/2020 12:00:00 AM LORNA [place] ([facility]) [id number] Influenza vaccine needed Influenza Vaccine Needed Pro blem 10/28/2018 12:00:00 AM EDT - 05/30/2020 12:00:00 AM LORNA ALMON[place] ([facility]) [id number] Puncture wound of foot Puncture Wound of Foot Problem 10/28/2018 12:00:00 AM EDT - 05/30/2020 12:00:00 AM LORNA [place]MON[place] ([facility]) [id number] Cellulitis of finger of left hand Cellul itis of Finger of Left Hand Problem 10/28/2018 12:00:00 AM EDT - 05/30/2020 12:00:00 AM LORNA ALMONTE ([facility]) [id number] Endocrine/metabolic screening Endocrine/metabolic Scre ening Problem 10/28/2018 12:00:00 AM EDT - 05/30/2020 12:00:00 AM LORNA [place] ([facility]) [id number] Influenza vaccine needed Influenza Vaccine Needed Pro blem 10/28/2018 12:00:00 AM EDT - 05/30/2020 12:00:00 AM LORNA [place] ([facility]) [id number] Puncture wound of foot Puncture Wound of Foot Problem 10/28/2018 12:00:00 AM EDT - 05/30/2020 12:00:00 AM LORNA ALMONTE ([facility]) [id number] Cellulitis of finger of left hand Cellul itis of Finger of Left Hand Problem 10/28/2018 12:00:00 AM EDT - 05/30/2020 12:00:00 AM LORNA ALMON[place] ([facility]) [id number] Endocrine/metabolic screening Endocrine/metabolic Scre ening Problem 10/28/2018 12:00:00 AM EDT - 05/30/2020 12:00:00 AM LORNA [place] ([facility]) [id number] Influenza vaccine needed Influenza Vaccine Needed Pro blem 10/28/2018 12:00:00 AM EDT - 05/30/2020 12:00:00 AM LORNA [place] ([facility]) [id number] Puncture wound of foot Puncture Wound of Foot Problem 10/28/2018 12:00:00 AM EDT - 05/30/2020 12:00:00 AM LORNA [place] ([facility]) [id number] Cellulitis of finger of left hand Cellul itis of Finger of Left Hand Problem 10/28/2018 12:00:00 AM EDT - 05/30/2020 12:00:00 AM EST [place] ([facility]) [id number] Endocrine/metabolic screening Endocrine/metabolic Scre ening Problem 10/28/2018 12:00:00 AM EDT - 05/30/2020 12:00:00 AM EST [place] ([facility]) [id number] Influenza vaccine needed Influenza Vaccine Needed Pro blem 10/28/2018 12:00:00 AM EDT - 05/30/2020 12:00:00 AM EST [place] ([facility]) [id number] Puncture wound of foot Puncture Wound of Foot Problem 10/28/2018 12:00:00 AM EDT - 05/30/2020 12:00:00 AM EST [place] ([facility]) [id number] Cellulitis of finger of left hand Cellul itis of Finger of Left Hand Problem 10/28/2018 12:00:00 AM EDT - 05/30/2020 12:00:00 AM LORNA ALMONTE ([facility]) [id number] Endocrine/metabolic screening Endocrine/metabolic Scre ening Problem 10/28/2018 12:00:00 AM EDT - 05/30/2020 12:00:00 AM EST [place] ([facility]) [id number] Influenza vaccine needed Influenza Vaccine Needed Pro blem 10/28/2018 12:00:00 AM EDT - 05/30/2020 12:00:00 AM LORNA ALMON[place] ([facility]) [id number] Puncture wound of foot Puncture Wound of Foot Problem 10/28/2018 12:00:00 AM EDT - 05/30/2020 12:00:00 AM LORNA [place]MON[place] ([facility]) [id number] Cellulitis of finger of left hand Cellul itis of Finger of Left Hand Problem 10/28/2018 12:00:00 AM EDT - 05/30/2020 12:00:00 AM EST [place] ([facility]) [id number] Endocrine/metabolic screening Endocrine/metabolic Scre ening Problem 10/28/2018 12:00:00 AM EDT - 05/30/2020 12:00:00 AM EST [place] ([facility]) [id number] Influenza vaccine needed Influenza Vaccine Needed Pro blem 10/28/2018 12:00:00 AM EDT - 05/30/2020 12:00:00 AM LORNA ALMON[place] ([facility]) [id number] Puncture wound of foot Puncture Wound of Foot Problem 10/28/2018 12:00:00 AM EDT - 05/30/2020 12:00:00 AM LORNA ALMON[place] ([facility]) [id number] Cellulitis of finger of left hand Cellul itis of Finger of Left Hand Problem 10/28/2018 12:00:00 AM EDT - 05/30/2020 12:00:00 AM LORNA [place] ([facility]) [id number] Endocrine/metabolic screening Endocrine/metabolic Scre ening Problem 10/28/2018 12:00:00 AM EDT - 05/30/2020 12:00:00 AM LORNA [place] ([facility]) [id number] Influenza vaccine needed Influenza Vaccine Needed Pro blem 10/28/2018 12:00:00 AM EDT - 05/30/2020 12:00:00 AM LORNA [place] ([facility]) [id number] Puncture wound of foot Puncture Wound of Foot Problem 10/28/2018 12:00:00 AM EDT - 05/30/2020 12:00:00 AM LORNA [place] ([facility]) [id number] Tobacco use and exposure - finding Tobacco Use a nd Exposure - Finding Problem 05/07/2018 12:00:00 AM EDT - 05/30/2020 12:00:00 AM ALLEN ALMON[place] ([facility]) [id number] Tobacco use and exposure - finding Tobacco Use a nd Exposure - Finding Problem 05/07/2018 12:00:00 AM EDT - 05/30/2020 12:00:00 AM ALLEN ALMONTE ([facility]) [id number] Tobacco use and exposure - finding Tobacco Use a nd Exposure - Finding Problem 05/07/2018 12:00:00 AM EDT - 05/30/2020 12:00:00 AM ALLEN ALMON[place] ([facility]) [id number] Tobacco use and exposure - finding Tobacco Use a nd Exposure - Finding Problem 05/07/2018 12:00:00 AM EDT - 05/30/2020 12:00:00 AM ALLEN ALMONTE ([facility]) [id number] Tobacco use and exposure - finding Tobacco Use a nd Exposure - Finding Problem 05/07/2018 12:00:00 AM EDT - 05/30/2020 12:00:00 AM ALLEN ALMON[place] ([facility]) [id number] Tobacco use and exposure - finding Tobacco Use a nd Exposure - Finding Problem 05/07/2018 12:00:00 AM EDT - 05/30/2020 12:00:00 AM ALLEN ALMONTE ([facility]) [id number] Tobacco use and exposure - finding Tobacco Use a nd Exposure - Finding Problem 05/07/2018 12:00:00 AM EDT - 05/30/2020 12:00:00 AM ALLEN ALMONTE ([facility]) [id number] Tobacco use and exposure - finding Tobacco Use a nd Exposure - Finding Problem 05/07/2018 12:00:00 AM EDT - 05/30/2020 12:00:00 AM ALLEN ALMONTE ([facility]) [id number] Tooth finding Tooth Finding Problem 04/21/2018 12 :00:00 AM EDT - 05/30/2020 12:00:00 AM EST SUZY ([facility]) [id number] Overweight Overweight Problem 04/21/2018 12:0 0:00 AM EDT - 05/30/2020 12:00:00 AM EST [facility]Z[place] ([facility]) [id number] Tooth finding Tooth Finding Problem 04/21/2018 12 :00:00 AM EDT - 05/30/2020 12:00:00 AM EST [facility] ([facility]) [id number] Overweight Overweight Problem 04/21/2018 12:0 0:00 AM EDT - 05/30/2020 12:00:00 AM EST [facility]Z[place] ([facility]) [id number] Tooth finding Tooth Finding Problem 04/21/2018 12 :00:00 AM EDT - 05/30/2020 12:00:00 AM EST [place] ([facility]) [id number] Overweight Overweight Problem 04/21/2018 12:0 0:00 AM EDT - 05/30/2020 12:00:00 AM EST [facility] ([facility]) [id number] Tooth finding Tooth Finding Problem 04/21/2018 12 :00:00 AM EDT - 05/30/2020 12:00:00 AM EST [facility] ([facility] [facility] [id number] Overweight Overweight Problem 04/21/2018 12:0 0:00 AM EDT - 05/30/2020 12:00:00 AM EST [facility] ([facility]) [id number] Tooth finding Tooth Finding Problem 04/21/2018 12 :00:00 AM EDT - 05/30/2020 12:00:00 AM EST [facility] ([facility]) [id number] Overweight Overweight Problem 04/21/2018 12:0 0:00 AM EDT - 05/30/2020 12:00:00 AM EST [facility] ([facility]) [id number] Tooth finding Tooth Finding Problem 04/21/2018 12 :00:00 AM EDT - 05/30/2020 12:00:00 AM EST [facility] ([facility]) [id number] Overweight Overweight Problem 04/21/2018 12:0 0:00 AM EDT - 05/30/2020 12:00:00 AM EST SUZY ([facility]) [id number] Tooth finding Tooth Finding Problem 04/21/2018 12 :00:00 AM EDT - 05/30/2020 12:00:00 AM EST [facility] ([facility]) [id number] Overweight Overweight Problem 04/21/2018 12:0 0:00 AM EDT - 05/30/2020 12:00:00 AM EST [facility] ([facility]) [id number] Tooth finding Tooth Finding Problem 04/21/2018 12 :00:00 AM EDT - 05/30/2020 12:00:00 AM EST [facility] ([facility]) [id number] Overweight Overweight Problem 04/21/2018 12:0 0:00 AM EDT - 05/30/2020 12:00:00 AM EST SUZ[facility] ([facility]) [id number] Clinical finding Clinical Finding Problem 017 12:00:00 AM EDT - 05/30/2020 12:00:00 AM EST [facility]ZY ([facility]) [id number] Clinical finding Clinical Finding Problem 017 12:00:00 AM EDT - 05/30/2020 12:00:00 AM EST SUZY ([facility]) [id number] Clinical finding Clinical Finding Problem 017 12:00:00 AM EDT - 05/30/2020 12:00:00 AM EST [facility] ([facility] er) [id number] Clinical finding Clinical Finding Problem 017 12:00:00 AM EDT - 05/30/2020 12:00:00 AM EST [facility] ([facility] er) [id number] Clinical finding Clinical Finding Problem 017 12:00:00 AM EDT - 05/30/2020 12:00:00 AM EST [facility] ([facility] er) [id number] Clinical finding Clinical Finding Problem 017 12:00:00 AM EDT - 05/30/2020 12:00:00 AM EST [facility] ([facility] er) [id number] Clinical finding Clinical Finding Problem 017 12:00:00 AM EDT - 05/30/2020 12:00:00 AM EST [facility] ([facility] er) [id number] Clinical finding Clinical Finding Problem 017 12:00:00 AM EDT - 05/30/2020 12:00:00 AM EST [facility]ZY ([facility] er) [id number] Vomiting without nausea Vomiting without Nausea Pro blem 03/29/2017 12:00:00 AM EDT - 05/30/2020 12:00:00 AM EST SUZ[facility] ([facility]) [id number] Vomiting without nausea Vomiting without Nausea Pro blem 03/29/2017 12:00:00 AM EDT - 05/30/2020 12:00:00 AM EST SUZY ([facility]) [id number] Vomiting without nausea Vomiting without Nausea Pro blem 03/29/2017 12:00:00 AM EDT - 05/30/2020 12:00:00 AM EST SUZY ([facility]) [id number] Vomiting without nausea Vomiting without Nausea Pro blem 03/29/2017 12:00:00 AM EDT - 05/30/2020 12:00:00 AM EST SUZY ([facility]) [id number] Vomiting without nausea Vomiting without Nausea Pro blem 03/29/2017 12:00:00 AM EDT - 05/30/2020 12:00:00 AM EST [facility] ([facility]) [id number] Vomiting without nausea Vomiting without Nausea Pro blem 03/29/2017 12:00:00 AM EDT - 05/30/2020 12:00:00 AM EST SUZY ([facility]) [id number] Vomiting without nausea Vomiting without Nausea Pro blem 03/29/2017 12:00:00 AM EDT - 05/30/2020 12:00:00 AM EST SUZY ([facility]) [id number] Vomiting without nausea Vomiting without Nausea Pro blem 03/29/2017 12:00:00 AM EDT - 05/30/2020 12:00:00 AM EST SUZY ([facility]) [id number] Dysthymia Dysthymia Problem 03/28/2016 12:0 0:00 AM EDT - 05/30/2020 12:00:00 AM EST SUZY ([facility] er) [id number] Dysthymia Dysthymia Problem 03/28/2016 12:0 0:00 AM EDT - 05/30/2020 12:00:00 AM EST [facility]ZY ([facility] er) [id number] Dysthymia Dysthymia Problem 03/28/2016 12:0 0:00 AM EDT - 05/30/2020 12:00:00 AM EST [facility] ([facility] er) [id number] Dysthymia Dysthymia Problem 03/28/2016 12:0 0:00 AM EDT - 05/30/2020 12:00:00 AM EST [facility]ZY ([facility] er) [id number] Dysthymia Dysthymia Problem 03/28/2016 12:0 0:00 AM EDT - 05/30/2020 12:00:00 AM EST [facility] ([facility] er) [id number] Dysthymia Dysthymia Problem 03/28/2016 12:0 0:00 AM EDT - 05/30/2020 12:00:00 AM EST [facility] ([facility] er) [id number] Dysthymia Dysthymia Problem 03/28/2016 12:0 0:00 AM EDT - 05/30/2020 12:00:00 AM EST [facility] ([facility] er) [id number] Dysthymia Dysthymia Problem 03/28/2016 12:0 0:00 AM EDT - 05/30/2020 12:00:00 AM EST SUZY ([facility]) [id number] Memory finding Memory Finding Problem 05/04/2015 12:00:00 AM EDT - 05/30/2020 12:00:00 AM EST [facility]ZY ([facility]) [id number] Memory finding Memory Finding Problem 05/04/2015 12:00:00 AM EDT - 05/30/2020 12:00:00 AM EST [facility]ZY ([facility]) [id number] Memory finding Memory Finding Problem 05/04/2015 12:00:00 AM EDT - 05/30/2020 12:00:00 AM EST [facility] ([facility]) [id number] Memory finding Memory Finding Problem 05/04/2015 12:00:00 AM EDT - 05/30/2020 12:00:00 AM EST [facility] ([facility]) [id number] Memory finding Memory Finding Problem 05/04/2015 12:00:00 AM EDT - 05/30/2020 12:00:00 AM EST [facility] ([facility]) [id number] Memory finding Memory Finding Problem 05/04/2015 12:00:00 AM EDT - 05/30/2020 12:00:00 AM EST [facility] ([facility]) [id number] Memory finding Memory Finding Problem 05/04/2015 12:00:00 AM EDT - 05/30/2020 12:00:00 AM EST [facility] ([facility]) [id number] Memory finding Memory Finding Problem 05/04/2015 12:00:00 AM EDT - 05/30/2020 12:00:00 AM EST [facility] ([facility]) [id number] Syncope and collapse Syncope and Collapse Problem 04/19/2015 12:00:00 AM EDT - 05/30/2020 12:00:00 AM EST [facility] ([facility]) [id number] Syncope and collapse Syncope and Collapse Problem 04/19/2015 12:00:00 AM EDT - 05/30/2020 12:00:00 AM EST [facility] ([facility]) [id number] Syncope and collapse Syncope and Collapse Problem 04/19/2015 12:00:00 AM EDT - 05/30/2020 12:00:00 AM EST [facility] ([facility] er) [id number] Syncope and collapse Syncope and Collapse Problem 04/19/2015 12:00:00 AM EDT - 05/30/2020 12:00:00 AM EST [facility] ([facility] er) [id number] Syncope and collapse Syncope and Collapse Problem 04/19/2015 12:00:00 AM EDT - 05/30/2020 12:00:00 AM EST [facility] ([facility] er) [id number] Syncope and collapse Syncope and Collapse Problem 04/19/2015 12:00:00 AM EDT - 05/30/2020 12:00:00 AM EST [facility] ([facility] er) [id number] Syncope and collapse Syncope and Collapse Problem 04/19/2015 12:00:00 AM EDT - 05/30/2020 12:00:00 AM EST [facility] ([facility] er) [id number] Syncope and collapse Syncope and Collapse Problem 04/19/2015 12:00:00 AM EDT - 05/30/2020 12:00:00 AM EST [facility]ZY ([facility] er) [id number] Open wound of nose Open Wound of Nose Problem 04/2014 12:00:00 AM EDT - 05/30/2020 12:00:00 AM EST [facility] ([facility] er) [id number] Open wound of nose Open Wound of Nose Problem 04/2014 12:00:00 AM EDT - 05/30/2020 12:00:00 AM EST [facility] ([facility] er) [id number] Open wound of nose Open Wound of Nose Problem 04/2014 12:00:00 AM EDT - 05/30/2020 12:00:00 AM EST [facility] ([facility] er) [id number] Open wound of nose Open Wound of Nose Problem 04/2014 12:00:00 AM EDT - 05/30/2020 12:00:00 AM EST [facility] ([facility] er) [id number] Open wound of nose Open Wound of Nose Problem 04/2014 12:00:00 AM EDT - 05/30/2020 12:00:00 AM EST [facility] ([facility] er) [id number] Open wound of nose Open Wound of Nose Problem 04/2014 12:00:00 AM EDT - 05/30/2020 12:00:00 AM EST [facility] ([facility] er) [id number] Open wound of nose Open Wound of Nose Problem 04/2014 12:00:00 AM EDT - 05/30/2020 12:00:00 AM EST [facility] ([facility] er) [id number] Open wound of nose Open Wound of Nose Problem 04/2014 12:00:00 AM EDT - 05/30/2020 12:00:00 AM EST [facility] ([facility] er) [id number] Emotional state finding Emotional State Finding Proble 03/09/2014 12:00:00 AM EDT - 05/30/2020 12:00:00 AM EST [facility] ([facility]) [id number] Emotional state finding Emotional State Finding Proble 03/09/2014 12:00:00 AM EDT - 05/30/2020 12:00:00 AM EST SUZY ([facility]) [id number] Emotional state finding Emotional State Finding Proble 03/09/2014 12:00:00 AM EDT - 05/30/2020 12:00:00 AM EST [facility]ZY ([facility]) [id number] Emotional state finding Emotional State Finding Proble 03/09/2014 12:00:00 AM EDT - 05/30/2020 12:00:00 AM EST [facility] ([facility]) [id number] Emotional state finding Emotional State Finding Proble 03/09/2014 12:00:00 AM EDT - 05/30/2020 12:00:00 AM EST [facility] ([facility]) [id number] Emotional state finding Emotional State Finding Proble 03/09/2014 12:00:00 AM EDT - 05/30/2020 12:00:00 AM EST [facility] ([facility]) [id number] Emotional state finding Emotional State Finding Proble 03/09/2014 12:00:00 AM EDT - 05/30/2020 12:00:00 AM EST [facility]ZY ([facility]) [id number] Emotional state finding Emotional State Finding Proble 03/09/2014 12:00:00 AM EDT - 05/30/2020 12:00:00 AM EST [facility]) Surgeries/Procedures Procedure Description Date Indications Data Source(s) ECG ROUTINE ECG W/LEAST 12 LDS W/I&R 03/31/2021 12:00: 00 AM EDT [facility]) OFFICE OUTPATIENT VISIT 25 MINUTES 03/31/2021 12:00:00 AM EDT [facility]) TOBACCO USE CESSATION INTERMEDIATE 3-10 MINUTES 2020 12:00:00 AM EDT [facility] ([facility]iology [facility]) ECG ROUTINE ECG W/LEAST 12 LDS W/I&R 09/27/2020 12:00: 00 AM EST [facility] ([facility]) Results ID Date Data Source [id number] 04/17/2021 12:00:00 AM EDT [facility]) Name Value Range Interpretation Code Description Data Claudia rce(s) Supporting Document(s) Borrelia burgdorferi Ab [Units/volume] in Serum by Immunoassay <0.9 0 Lyme Ab Screen [facility]) ID Date Data Source [id number] 04/04/2021 05:11:00 AM EDT [facility]) Name Value Range Interpretation Code Description Data Claudia rce(s) Supporting Document(s) vitamin B12 level 791 pg/mL [id number] Vitamin B12 Level [facility]) ID Date Data Source [id number] 04/04/2021 05:11:00 AM EDT [facility]) Name Value Range Interpretation Code Description Data Claudia rce(s) Supporting Document(s) thyroid stimulating hormone 0.555 uIU/mL 0.358-3.740 Thyroid Stimulating Hormone [facility]) ID Date Data Source [id number] 04/04/2021 05:11:00 AM EDT [facility]) Name Value Range Interpretation Code Description Data Claudia rce(s) Supporting Document(s) magnesium level 2.4 mg/dL 1.8-2.4 Magnesium Level [facility] ([facility]) ID Date Data Source [id number] 04/04/2021 05:11:00 AM EDT [place] ([facility]) Name Value Range Interpretation Code Description Data Claudia rce(s) Supporting Document(s) phosphorus level 2.3 mg/dL 2.5-4.9 Below low normal Phosphorus [place] [facility] ([facility]) ID Date Data Source [id number] 04/04/2021 05:11:00 AM EDT [facility]) Name Value Range Interpretation Code Description Data Claudia rce(s) Supporting Document(s) glucose, fasting 91 mg/dL 70-100 Glucose, Fasting AT [facility] ([facility]) creatinine for GFR 0.60 mg/dL 0.70-1.30 Below low normal Creatinine for GFR [facility] ([facility]) blood urea nitrogen 19 mg/dL 7-18 Above high normal Blood Ure a Nitrogen [facility] ([facility]) sodium level 141 mEq/L 136-145 Sodium Level [facility] ([facility]) glomerular filtration rate > 60.0 >60 Glomerula r Filtration Rate [place] ([facility]) potassium serum 4.2 mEq/L 3.5-5.1 Potassium [facility]) chloride level 107 mEq/L 98-107 Chloride Level [place] ([facility]) anion gap 6 mEq/L 8-16 Below low normal Anion Gap [place] ( [facility]) carbon dioxide level 28 mEq/L 21-32 Carbon Dioxide Level [facility] ([facility]) calcium level 9.7 mg/dL 8.5-10.1 Calcium Level [facility]) ID Date Data Source [id number] 04/04/2021 05:11:00 AM EDT [facility]) Name Value Range Interpretation Code Description Data Claudia rce(s) Supporting Document(s) Hemoglobin A1c/Hemoglobin.total in Blood 5.2 % Hemoglobin a1C [facility] ([facility]) estimated average glucose 103 mg/dL 60-110 Estimated Average Glucose [place] ([facility]) ID Date Data Source [id number] 04/04/2021 05:11:00 AM EDT [place] ([facility]) Name Value Range Interpretation Code Description Data Claudia e(s) Supporting Document(s) white blood count 8.0 10 4.0-10.0 White Blood Count [facility] ([facility]) red blood count 4.29 10 4.30-6.10 Below low normal Red Blood Coun t [facility] ([facility]) hemoglobin 14.0 g/dL 13.5-17.5 Hemoglobin [place] ([facility]) hematocrit 40.2 % 42.0-52.0 Below low normal Hematocrit [place] ( [facility]) mean corpuscular volume 93.7 fL 80.0-96.0 Mean Corpusc ular Volume [facility] ([facility]) mean corpuscular HGB conc 34.8 g/dL 32.0-36.5 Mean Corpu scular HGB Conc [place] ([facility]) mean corpuscular hemoglobin 32.6 pg 27.0-33.0 Mean Cor puscular Hemoglobin [place] ([facility]) red cell distribution width 12.1 % 11.5-14.5 Red Cell Distribution Width [place] ([facility]) platelet count, automated 196 10 150-450 Platelet C ount, Automated [facility] ([facility]) neutrophils % 52.6 % 36.0-66.0 Neutrophils % [facility] ( [facility]) lymph % 33.3 % 24.0-44.0 Lymph % [facility] ([facility]) eos % 2.4 % 0.0-3.0 Eos % [facility] ([facility]) mono % 10.6 % 2.0-8.0 Above high normal [place] % [facility] ([facility]) baso % 0.8 % 0.0-1.0 Baso % [facility] ([facility]) immature granulocyte % 0.3 % 0-3.0 Immature Gran ulocyte % [facility] ([facility]) neutrophils # 4.2 10 1.5-8.5 Neutrophils # [facility] ( [facility]) nucleated red blood cell % 0.0 % 0-0 Nucleated Red Blood Cell % [facility] ([facility]) lymph # 2.7 10 1.5-5.0 Lymph # [facility] ([facility]) eos # 0.2 10 0.0-0.5 Eos # [facility] ([facility]) mono # 0.9 10 0.0-0.8 Above high normal [place] # [facility] ([facility]) baso # 0.1 10 0.0-0.2 Baso # [facility] ([facility]) ID Date Data Source [id number] 04/04/2021 05:11:00 AM EDT [facility] ([facility]) Name Value Range Interpretation Code Description Data Claudia rce(s) Supporting Document(s) vitamin B12 level 791 pg/mL 247-911 Vitamin B12 Level [facility] ([facility]) ID Date Data Source [id number] 04/04/2021 05:11:00 AM EDT [facility] ([facility]) Name Value Range Interpretation Code Description Data Claudia rce(s) Supporting Document(s) thyroid stimulating hormone 0.555 uIU/mL 0.358-3.740 Thyroid Stimulating Hormone [facility] ([facility]) ID Date Data Source [id number] 04/04/2021 05:11:00 AM EDT [facility] ([facility]) Name Value Range Interpretation Code Description Data Claudia rce(s) Supporting Document(s) magnesium level 2.4 mg/dL 1.8-2.4 Magnesium Level [facility]) ID Date Data Source [id number] 04/04/2021 05:11:00 AM EDT [facility] ([facility]) Name Value Range Interpretation Code Description Data Claudia rce(s) Supporting Document(s) phosphorus level 2.3 mg/dL 2.5-4.9 Below low normal Phosphorus [place] [facility] ([facility]) ID Date Data Source [id number] 04/04/2021 05:11:00 AM EDT [facility] ([facility]) Name Value Range Interpretation Code Description Data Claudia rce(s) Supporting Document(s) glucose, fasting 91 mg/dL 70-100 Glucose, Fasting AT [facility]) blood urea nitrogen 19 mg/dL 7-18 Above high normal Blood Ure a Nitrogen [facility] ([facility]) glomerular filtration rate > 60.0 >60 Glomerula r Filtration Rate [place] ([facility]) creatinine for GFR 0.60 mg/dL 0.70-1.30 Below low normal Creatinine for GFR [facility] ([facility]) sodium level 141 mEq/L 136-145 Sodium Level [facility] ([facility]) chloride level 107 mEq/L 98-107 Chloride Level [facility] ([facility]) potassium serum 4.2 mEq/L 3.5-5.1 Potassium Serum [facility] ([facility]) anion gap 6 mEq/L 8-16 Below low normal Anion Gap [place] ( [facility]) carbon dioxide level 28 mEq/L 21-32 Carbon Dioxide Level [place] ([facility]) calcium level 9.7 mg/dL 8.5-10.1 Calcium Level [place] ( [facility]) ID Date Data Source [id number] 04/04/2021 05:11:00 AM EDT [facility]) Name Value Range Interpretation Code Description Data Claudia rce(s) Supporting Document(s) estimated average glucose 103 mg/dL 60-110 Estimated Average Glucose [facility]) Hemoglobin A1c/Hemoglobin.total in Blood 5.2 % Hemoglobin a1C [facility]) ID Date Data Source [id number] 04/04/2021 05:11:00 AM EDT [place] ([facility]) Name Value Range Interpretation Code Description Data Claudia rce(s) Supporting Document(s) white blood count 8.0 10 4.0-10.0 White Blood Count [facility] ([facility]) red blood count 4.29 10 4.30-6.10 Below low normal Red Blood Coun t [facility] ([facility]) hemoglobin 14.0 g/dL 13.5-17.5 Hemoglobin [facility] ([facility]) hematocrit 40.2 % 42.0-52.0 Below low normal Hematocrit [place] ( [facility]) mean corpuscular hemoglobin 32.6 pg 27.0-33.0 Mean Cor puscular Hemoglobin [place] ([facility]) mean corpuscular volume 93.7 fL 80.0-96.0 Mean Corpusc ular Volume [facility] ([facility]) mean corpuscular HGB conc 34.8 g/dL 32.0-36.5 Mean Corpu scular HGB Conc [place] ([facility]) red cell distribution width 12.1 % 11.5-14.5 Red Cell Distribution Width [place] ([facility]) platelet count, automated 196 10 150-450 Platelet C ount, Automated [place] ([facility]) neutrophils % 52.6 % 36.0-66.0 Neutrophils % [facility] ( [facility]) lymph % 33.3 % 24.0-44.0 Lymph % [facility] ([facility]) eos % 2.4 % 0.0-3.0 Eos % [facility] ([facility]) mono % 10.6 % 2.0-8.0 Above high normal [place] % [facility] ([facility]) baso % 0.8 % 0.0-1.0 Baso % [place] ([facility]) immature granulocyte % 0.3 % 0-3.0 Immature Gran ulocyte % [facility] ([facility]) lymph # 2.7 10 1.5-5.0 Lymph # [facility] ([facility]) nucleated red blood cell % 0.0 % 0-0 Nucleated Red Blood Cell % [facility] ([facility]) neutrophils # 4.2 10 1.5-8.5 Neutrophils # [facility] ( [facility]) eos # 0.2 10 0.0-0.5 Eos # [facility] ([facility]) mono # 0.9 10 0.0-0.8 Above high normal [place] # [facility] ([facility]) baso # 0.1 10 0.0-0.2 Baso # [facility] ([facility]) ID Date Data Source [id number] 04/04/2021 05:11:00 AM EDT [facility] ([facility]) Name Value Range Interpretation Code Description Data Claudia rce(s) Supporting Document(s) vitamin B12 level 791 pg/mL 247-911 Vitamin B12 Level [facility] ([facility]) ID Date Data Source [id number] 04/04/2021 05:11:00 AM EDT [place] ([facility]) Name Value Range Interpretation Code Description Data Claudia rce(s) Supporting Document(s) thyroid stimulating hormone 0.555 uIU/mL 0.358-3.740 Thyroid Stimulating Hormone [place] ([facility]) ID Date Data Source [id number] 04/04/2021 05:11:00 AM EDT [facility] ([facility]) Name Value Range Interpretation Code Description Data Claudia rce(s) Supporting Document(s) magnesium level 2.4 mg/dL 1.8-2.4 Magnesium Level [facility] ([facility]) ID Date Data Source [id number] 04/04/2021 05:11:00 AM EDT [facility]) Name Value Range Interpretation Code Description Data Claudia rce(s) Supporting Document(s) phosphorus level 2.3 mg/dL 2.5-4.9 Below low normal [facility] [place] [facility] ID Date Data Source [id number] 04/04/2021 05:11:00 AM EDT [place] ([facility]) Name Value Range Interpretation Code Description Data Claudia rce(s) Supporting Document(s) blood urea nitrogen 19 mg/dL 7-18 Above high normal Blood Ure a Nitrogen [facility] ([facility]) glucose, fasting 91 mg/dL 70-100 Glucose, Fasting AT [facility]) creatinine for GFR 0.60 mg/dL 0.70-1.30 Below low normal Creatinine for GFR [facility] ([facility]) glomerular filtration rate > 60.0 >60 Glomerula r Filtration Rate [facility] ([facility]) sodium level 141 mEq/L 136-145 Sodium Level [facility] ([facility]) potassium serum 4.2 mEq/L 3.5-5.1 Potassium [facility]) chloride level 107 mEq/L 98-107 Chloride Level [facility] ([facility]) carbon dioxide level 28 mEq/L 21-32 Carbon Dioxide Level [facility] ([facility]) anion gap 6 mEq/L 8-16 Below low normal Anion Gap [facility] ( [facility]) calcium level 9.7 mg/dL 8.5-10.1 Calcium Level [place] ( [facility]) ID Date Data Source [id number] 04/04/2021 05:11:00 AM EDT [place] [facility] [facility] Name Value Range Interpretation Code Description Data Claudia rce(s) Supporting Document(s) Hemoglobin A1c/Hemoglobin.total in Blood 5.2 % Hemoglobin a1C [facility] ([facility]) estimated average glucose 103 mg/dL 60-110 Estimated Average Glucose [place] ([facility]) ID Date Data Source [id number] 04/04/2021 05:11:00 AM EDT [place] ([facility]) Name Value Range Interpretation Code Description Data Claudia rce(s) Supporting Document(s) red blood count 4.29 10 4.30-6.10 Below low normal Red Blood Coun t SUZY ([facility]) white blood count 8.0 10 4.0-10.0 White Blood Count SUZY ([facility]) hemoglobin 14.0 g/dL 13.5-17.5 Hemoglobin SUZY ([facility]) hematocrit 40.2 % 42.0-52.0 Below low normal Hematocrit SUZY ( [facility]) mean corpuscular hemoglobin 32.6 pg 27.0-33.0 Mean Cor puscular Hemoglobin SUZY ([facility]) mean corpuscular volume 93.7 fL 80.0-96.0 Mean Corpusc ular Volume SUZY ([facility]) red cell distribution width 12.1 % 11.5-14.5 Red Cell Distribution Width SUZY ([facility]) mean corpuscular HGB conc 34.8 g/dL 32.0-36.5 Mean Corpu scular HGB Conc [facility] ([facility]) neutrophils % 52.6 % 36.0-66.0 Neutrophils % [place] ( [facility]) platelet count, automated 196 10 150-450 Platelet C ount, Automated [place] ([facility]) lymph % 33.3 % 24.0-44.0 Lymph % [place] ([facility]) mono % 10.6 % 2.0-8.0 Above high normal [place] % [place] ([facility]) eos % 2.4 % 0.0-3.0 Eos % [facility] ([facility]) baso % 0.8 % 0.0-1.0 Baso % [facility] ([facility]) nucleated red blood cell % 0.0 % 0-0 Nucleated Red Blood Cell % [facility] ([facility]) neutrophils # 4.2 10 1.5-8.5 Neutrophils # [place] ( [facility]) immature granulocyte % 0.3 % 0-3.0 Immature Gran ulocyte % [facility] ([facility]) lymph # 2.7 10 1.5-5.0 Lymph # [facility] ([facility]) mono # 0.9 10 0.0-0.8 Above high normal [place] # [facility]Y ([facility]) baso # 0.1 10 0.0-0.2 Baso # [facility] ([facility]) eos # 0.2 10 0.0-0.5 Eos # [facility] ([facility]) ID Date Data Source [id number] 04/04/2021 04:25:00 AM EDT [facility] ([facility]) Name Value Range Interpretation Code Description Data Claudia rce(s) Supporting Document(s) bedside glucose 78 mg/dL 70-105 Bedside Glucose [place]HE [place] ([facility]) ID Date Data Source [id number] 04/04/2021 04:25:00 AM EDT [facility] ([facility]) Name Value Range Interpretation Code Description Data Claudia rce(s) Supporting Document(s) bedside glucose 78 mg/dL 70-105 Bedside Glucose ATHE ([facility]) ID Date Data Source [id number] 04/04/2021 04:25:00 AM EDT [place] ([facility]) Name Value Range Interpretation Code Description Data Claudia rce(s) Supporting Document(s) bedside glucose 78 mg/dL 70-105 Bedside Glucose ATHE [place] ([facility]) ID Date Data Source [id number] 04/04/2021 03:48:00 AM EDT [facility] ([facility]) Name Value Range Interpretation Code Description Data Claudia rce(s) Supporting Document(s) bedside glucose 75 mg/dL 70-105 Bedside Glucose ATHE [place] ([facility]) ID Date Data Source [id number] 04/04/2021 03:48:00 AM EDT [place] ([facility]) Name Value Range Interpretation Code Description Data Claudia rce(s) Supporting Document(s) bedside glucose 75 mg/dL 70-105 Bedside Glucose ATHE [place] ([facility]) ID Date Data Source [id number] 04/04/2021 03:48:00 AM EDT [place] ([facility]) Name Value Range Interpretation Code Description Data Claudia rce(s) Supporting Document(s) bedside glucose 75 mg/dL 70-105 Bedside Glucose ATHE [place] ([facility]) ID Date Data Source [id number] 04/03/2021 06:51:00 AM EDT [place] ([facility]) Name Value Range Interpretation Code Description Data Claudia rce(s) Supporting Document(s) bedside glucose 91 mg/dL 70-105 Bedside Glucose ATHE [place] ([facility]) ID Date Data Source [id number] 04/03/2021 06:51:00 AM EDT [place] ([facility]) Name Value Range Interpretation Code Description Data Claudia rce(s) Supporting Document(s) bedside glucose 91 mg/dL 70-105 Bedside Glucose ATHE [place] ([facility]) ID Date Data Source [id number] 04/03/2021 06:51:00 AM EDT [facility]) Name Value Range Interpretation Code Description Data Claudia rce(s) Supporting Document(s) bedside glucose 91 mg/dL 70-105 Bedside Glucose ATHE [place] ([facility]) ID Date Data Source [id number] 04/03/2021 04:56:00 AM EDT [place] ([facility]) Name Value Range Interpretation Code Description Data Claudia rce(s) Supporting Document(s) magnesium level 2.3 mg/dL 1.8-2.4 Magnesium Level ATHE NA ([facility]) ID Date Data Source [id number] 04/03/[facility]21 04:56[facility] Name Value Range Interpretation Code Description Data Claudia rce(s) Supporting Document(s) blood urea nitrogen 20 mg/dL 7-18 Above high normal Blood Ure a Nitrogen [facility] ([facility]) glucose, fasting 77 mg/dL 70-100 Glucose, Fasting AT [facility] ([facility]) creatinine for GFR 0.67 mg/dL 0.70-1.30 Below low normal Creatinine for GFR [place] ([facility]) sodium level 142 mEq/L 136-145 Sodium Level SUZ[facility] ([facility]) glomerular filtration rate > 60.0 >60 Glomerula r Filtration Rate [place] ([facility]) potassium serum 4.4 mEq/L 3.5-5.1 Potassium Serum ATHE ([facility]) chloride level 107 mEq/L 98-107 Chloride Level [place] ([facility]) carbon dioxide level 32 mEq/L 21-32 Carbon Dioxide Level [place] ([facility]) anion gap 3 mEq/L 8-16 Below low normal Anion Gap [place] ( [facility]) calcium level 10.2 mg/dL 8.5-10.1 Above high normal [facility] ID Date Data Source [id number] 04/03/2021 04:56:00 AM EDT [facility]) Name Value Range Interpretation Code Description Data Claudia rce(s) Supporting Document(s) magnesium level 2.3 mg/dL 1.8-2.4 [facility] ID Date Data Source [id number] 04/03/2021 04:56:00 AM EDT [facility]) Name Value Range Interpretation Code Description Data Claudia rce(s) Supporting Document(s) glucose, fasting 77 mg/dL 70-100 Glucose, Fasting AT [facility] ([facility]) blood urea nitrogen 20 mg/dL 7-18 Above high normal Blood Ure a Nitrogen [place] ([facility]) glomerular filtration rate > 60.0 >60 Glomerula r Filtration Rate [facility] ([facility]) creatinine for GFR 0.67 mg/dL 0.70-1.30 Below low normal Creatinine for GFR [place] ([facility]) sodium level 142 mEq/L 136-145 Sodium Level [facility] ([facility]) potassium serum 4.4 mEq/L 3.5-5.1 Potassium Serum ATHE NA ([facility]) chloride level 107 mEq/L 98-107 Chloride Level [place] ([facility]) anion gap 3 mEq/L 8-16 Below low normal Anion Gap [place] ( [facility]) carbon dioxide level 32 mEq/L 21-32 Carbon Dioxide Level [place] ([facility]) calcium level 10.2 mg/dL 8.5-10.1 Above high normal Calcium [facility]) ID Date Data Source [id number] 04/03/2021 04:56:00 AM EDT [place] ([facility]) Name Value Range Interpretation Code Description Data Claudia rce(s) Supporting Document(s) magnesium level 2.3 mg/dL 1.8-2.4 [facility] ID Date Data Source [id number] 04/03/2021 04:56:00 AM EDT [facility]) Name Value Range Interpretation Code Description Data Claudia rce(s) Supporting Document(s) glucose, fasting 77 mg/dL 70-100 Glucose, Fasting AT [facility]) blood urea nitrogen 20 mg/dL 7-18 Above high normal Blood Ure a Nitrogen [facility] ([facility]) glomerular filtration rate > 60.0 >60 Glomerula r Filtration Rate [place] ([facility]) sodium level 142 mEq/L 136-145 Sodium Level [place] ([facility]) creatinine for GFR 0.67 mg/dL 0.70-1.30 Below low normal Creatinine for GFR [place] ([facility]) chloride level 107 mEq/L 98-107 Chloride Level [place] ([facility]) potassium serum 4.4 mEq/L 3.5-5.1 Potassium Serum ATHE NA ([facility]) carbon dioxide level 32 mEq/L 21-32 Carbon Dioxide Level [place] ([facility]) calcium level 10.2 mg/dL 8.5-10.1 Above high normal Calcium Level A [place] ([facility]) anion gap 3 mEq/L 8-16 Below low normal Anion Gap [place] ( [facility]) ID Date Data Source [id number] 04/03/2021 04:55:00 AM EDT [place] ([facility]) Name Value Range Interpretation Code Description Data Claudia rce(s) Supporting Document(s) white blood count 10.5 10 4.0-10.0 Above high normal White Blood Count [place] ([facility]) red blood count 4.38 10 4.30-6.10 Red Blood Count [place] ([facility]) hemoglobin 14.3 g/dL 13.5-17.5 Hemoglobin [place] ([facility]) hematocrit 41.8 % 42.0-52.0 Below low normal Hematocrit [place] ( [facility]) mean corpuscular volume 95.4 fL 80.0-96.0 Mean Corpusc ular Volume [facility] ([facility]) mean corpuscular HGB conc 34.2 g/dL 32.0-36.5 Mean Corpu scular HGB Conc [facility] ([facility]) mean corpuscular hemoglobin 32.6 pg 27.0-33.0 Mean Cor puscular Hemoglobin [place] ([facility]) red cell distribution width 12.4 % 11.5-14.5 Red Cell Distribution Width [place] ([facility]) neutrophils % 59.7 % 36.0-66.0 Neutrophils % [place] ( [facility]) platelet count, automated 232 10 150-450 Platelet C ount, Automated [place] ([facility]) mono % 12.1 % 2.0-8.0 Above high normal [place] % [place] ([facility]) lymph % 25.1 % 24.0-44.0 Lymph % [place] ([facility]) baso % 0.5 % 0.0-1.0 Baso % [place] ([facility]) eos % 2.3 % 0.0-3.0 Eos % [place] ([facility]) immature granulocyte % 0.3 % 0-3.0 Immature Gran ulocyte % [place] ([facility]) nucleated red blood cell % 0.0 % 0-0 Nucleated Red Blood Cell % [place] ([facility]) neutrophils # 6.3 10 1.5-8.5 Neutrophils # [place] ( [facility]) lymph # 2.6 10 1.5-5.0 Lymph # [place] ([facility]) eos # 0.2 10 0.0-0.5 Eos # [place] ([facility]) mono # 1.3 10 0.0-0.8 Above high normal [place] # [place] ([facility]) baso # 0.1 10 0.0-0.2 Baso # [place] ([facility]) ID Date Data Source [id number] 04/03/2021 04:55:00 AM EDT [place] ([facility]) Name Value Range Interpretation Code Description Data Claudia rce(s) Supporting Document(s) white blood count 10.5 10 4.0-10.0 Above high normal White Blood Count [place] ([facility]) hemoglobin 14.3 g/dL 13.5-17.5 Hemoglobin [place] ([facility]) hematocrit 41.8 % 42.0-52.0 Below low normal Hematocrit [facility] ( [facility]) red blood count 4.38 10 4.30-6.10 Red Blood Count ATHE NA ([facility]) mean corpuscular hemoglobin 32.6 pg 27.0-33.0 Mean Cor puscular Hemoglobin [place] ([facility]) mean corpuscular volume 95.4 fL 80.0-96.0 Mean Corpusc ular Volume [place] ([facility]) platelet count, automated 232 10 150-450 Platelet C ount, Automated [place] ([facility]) red cell distribution width 12.4 % 11.5-14.5 Red Cell Distribution Width [place] ([facility]) mean corpuscular HGB conc 34.2 g/dL 32.0-36.5 Mean Corpu scular HGB Conc [place] ([facility]) neutrophils % 59.7 % 36.0-66.0 Neutrophils % [place] ( [facility]) lymph % 25.1 % 24.0-44.0 Lymph % [place] ([facility]) mono % 12.1 % 2.0-8.0 Above high normal [place] % [place] ([facility]) baso % 0.5 % 0.0-1.0 Baso % [place] ([facility]) eos % 2.3 % 0.0-3.0 Eos % [place] ([facility]) immature granulocyte % 0.3 % 0-3.0 Immature Gran ulocyte % [place] ([facility]) neutrophils # 6.3 10 1.5-8.5 Neutrophils # [place] ( [facility]) nucleated red blood cell % 0.0 % 0-0 Nucleated Red Blood Cell % [place] ([facility]) eos # 0.2 10 0.0-0.5 Eos # [place] ([facility]) lymph # 2.6 10 1.5-5.0 Lymph # [place] ([facility]) mono # 1.3 10 0.0-0.8 Above high normal [place] # [place] ([facility]) baso # 0.1 10 0.0-0.2 Baso # [place] ([facility]) ID Date Data Source [id number] 04/03/2021 04:55:00 AM EDT [place] ([facility]) Name Value Range Interpretation Code Description Data Claudia rce(s) Supporting Document(s) white blood count 10.5 10 4.0-10.0 Above high normal White Blood Count [place] ([facility]) red blood count 4.38 10 4.30-6.10 Red Blood Count ATHE NA ([facility]) hemoglobin 14.3 g/dL 13.5-17.5 Hemoglobin [place] ([facility]) mean corpuscular hemoglobin 32.6 pg 27.0-33.0 Mean Cor puscular Hemoglobin [place] ([facility]) mean corpuscular volume 95.4 fL 80.0-96.0 Mean Corpusc ular Volume [place] ([facility]) hematocrit 41.8 % 42.0-52.0 Below low normal Hematocrit [place] ( [facility]) red cell distribution width 12.4 % 11.5-14.5 Red Cell Distribution Width [place] ([facility]) mean corpuscular HGB conc 34.2 g/dL 32.0-36.5 Mean Corpu scular HGB Conc [facility] ([facility]) lymph % 25.1 % 24.0-44.0 Lymph % [place] ([facility]) neutrophils % 59.7 % 36.0-66.0 Neutrophils % [place] ( [facility]) platelet count, automated 232 10 150-450 Platelet C ount, Automated [place] ([facility]) eos % 2.3 % 0.0-3.0 Eos % [place] ([facility]) baso % 0.5 % 0.0-1.0 Baso % [facility] ([facility]) mono % 12.1 % 2.0-8.0 Above high normal [place] % [place] ([facility]) nucleated red blood cell % 0.0 % 0-0 Nucleated Red Blood Cell % [place] ([facility]) immature granulocyte % 0.3 % 0-3.0 Immature Gran ulocyte % [place] ([facility]) neutrophils # 6.3 10 1.5-8.5 Neutrophils # [place] ( [facility]) mono # 1.3 10 0.0-0.8 Above high normal [place] # [place] ([facility]) lymph # 2.6 10 1.5-5.0 Lymph # [place] ([facility]) eos # 0.2 10 0.0-0.5 Eos # [place] ([facility]) baso # 0.1 10 0.0-0.2 Baso # [place] ([facility]) ID Date Data Source [id number] 04/02/2021 03:14:00 PM EDT [place] ([facility]) Name Value Range Interpretation Code Description Data Claudia rce(s) Supporting Document(s) ionized calcium 4.5 mg/dL 4.5-5.3 Ionized Calcium ATHE NA ([facility]) ID Date Data Source [id number] 04/02/2021 03:14[facility] Name Value Range Interpretation Code Description Data Claudia rce(s) Supporting Document(s) ionized calcium 4.5 mg/dL 4.5-5.3 Ionized Calcium ATHE NA ([facility]) ID Date Data Source [id number] 04/02/2021 03:14[facility]00 [facility] Name Value Range Interpretation Code Description Data Claudia rce(s) Supporting Document(s) ionized calcium 4.5 mg/dL 4.5-5.3 Ionized Calcium ATHE ([facility]) ID Date Data Source [id number] 04/02/2021 01:16:00 PM EDT [facility]) Name Value Range Interpretation Code Description Data Claudia rce(s) Supporting Document(s) influenza A amplification negative negative Influenza a Amplification [facility] ([facility]) influenza B amplification negative negative [facility] RSV amplification negative negative RSV Amplification [place] ([facility]) sars covid-19 amplification negative negative [facility]ars Cov id-19 [facility] ID Date Data Source [id number] 04/02/2021 01:16:00 [facility] Name Value Range Interpretation Code Description Data Claudia rce(s) Supporting Document(s) influenza B amplification negative negative Influenza B Amplification [facility] ([facility]) influenza A amplification negative negative Influenza a Amplification [place] ([facility]) RSV amplification negative negative RSV Amplification [place] ([facility]) sars covid-19 amplification negative negative Sars Cov id-19 Amplification [facility]) ID Date Data Source [id number] 04/02/2021 01:16:00 PM EDT [facility]) Name Value Range Interpretation Code Description Data Claudia rce(s) Supporting Document(s) influenza A amplification negative negative Influenza a Amplification [place] ([facility]) influenza B amplification negative negative Influenza B Amplification [place] ([facility]) RSV amplification negative negative RSV Amplification [place] ([facility]) sars covid-19 amplification negative negative Sars Cov id-19 Amplification [facility]) ID Date Data Source [id number] 04/02/2021 01:16:00 PM EDT [facility] Name Value Range Interpretation Code Description Data Claudia rce(s) Supporting Document(s) SARS coronavirus 2 RNA [Presence] in Res piratory specimen by [facility] with probe detection NEGATIVE [facility] This lab was ordered by [facility] a nd reported by [facility]. ID Date Data Source [id number] 04/02/2021 11:30:00 AM EDT [facility]) Name Value Range Interpretation Code Description Data Claudia rce(s) Supporting Document(s) total 25(oh) vitamin D 27.8 NG/mL 30.0-100.0 Below low normal T otal 25(Oh) Vitamin D [facility]) ID Date Data Source [id number] 04/02/2021 11:30:00 AM EDT [facility]) Name Value Range Interpretation Code Description Data Claudia rce(s) Supporting Document(s) PTH intact 73.9 pg/mL 18.5-88.0 PTH Intact [facility]) ID Date Data Source [id number] 04/02/2021 11:30:00 AM EDT [facility]) Name Value Range Interpretation Code Description Data Claudia rce(s) Supporting Document(s) glucose, fasting 155 mg/dL 70-100 Above high normal Glucose, Fas ting [facility] ([facility]) blood urea nitrogen 21 mg/dL 7-18 Above high normal Blood Ure a Nitrogen [facility] ([facility]) glomerular filtration rate > 60.0 >60 Glomerula r Filtration Rate [facility] ([facility]) creatinine for GFR 0.86 mg/dL 0.70-1.30 Creatinine for GF R [place] ([facility]) sodium level 139 mEq/L 136-145 Sodium Level [facility] ([facility]) carbon dioxide level 30 mEq/L 21-32 Carbon Dioxide Level [facility] ([facility]) potassium serum 4.5 mEq/L 3.5-5.1 Potassium Serum ATHE ([facility]) chloride level 103 mEq/L 98-107 Chloride Level [facility] ([facility]) AST/SGOT 19 U/L 7-37 AST/SGOT [facility] ([facility]) calcium level 11.3 mg/dL 8.5-10.1 Above high normal Calcium Level A [facility] ([facility]) anion gap 6 mEq/L 8-16 Below low normal Anion Gap [facility] ( [facility]) ALT/SGPT 52 U/L 12-78 ALT/SGPT [facility] ([facility]) bilirubin,total 0.6 mg/dL 0.2-1.0 Bilirubin,total ATHE ([facility]) total protein 8.0 gm/dL 6.4-8.2 Total Protein [facility]Y ( [facility]) alkaline phosphatase 88 U/L 45-117 Alkaline Phosph atase [facility] ([facility]) albumin/globulin ratio Albumin/globu mar Ratio SU[facility] ([facility]) albumin 4.6 gm/dL 3.2-5.2 Albumin [facility] ([facility]) ID Date Data Source [id number] 04/02/2021 11:30:00 AM EDT [facility] ([facility]) Name Value Range Interpretation Code Description Data Claudia rce(s) Supporting Document(s) white blood count 14.8 10 4.0-10.0 Above high normal White Blood Count [facility] ([facility]) hemoglobin 16.0 g/dL 13.5-17.5 Hemoglobin [facility] ([facility]) red blood count 4.89 10 4.30-6.10 Red Blood Count ATHE NA ([facility]) hematocrit 45.1 % 42.0-52.0 Hematocrit [facility] ([facility]) mean corpuscular volume 92.2 fL 80.0-96.0 Mean Corpusc ular Volume [facility] ([facility]) mean corpuscular HGB conc 35.5 g/dL 32.0-36.5 Mean Corpu scular HGB Conc [facility] ([facility]) mean corpuscular hemoglobin 32.7 pg 27.0-33.0 Mean Cor puscular Hemoglobin [facility] ([facility]) platelet count, automated 283 10 150-450 Platelet C ount, Automated [facility] ([facility]) nucleated red blood cell % 0.0 % 0-0 Nucleated Red Blood Cell % [facility] ([facility]) red cell distribution width 12.1 % 11.5-14.5 Red Cell Distribution Width [facility] ([facility]) ID Date Data Source [id number] 04/02/2021 11:30:00 AM EDT [facility]) Name Value Range Interpretation Code Description Data Claudia rce(s) Supporting Document(s) total 25(oh) vitamin D 27.8 NG/mL 30.0-100.0 Below low normal T otal 25(Oh) Vitamin D [facility] ([facility]) ID Date Data Source [id number] 04/02/2021 11:30:00 AM EDT [facility]) Name Value Range Interpretation Code Description Data Claudia rce(s) Supporting Document(s) PTH intact 73.9 pg/mL 18.5-88.0 [facility] ID Date Data Source [id number] 04/02/2021 11:30:00 AM EDT [facility] ([facility]) Name Value Range Interpretation Code Description Data Claudia rce(s) Supporting Document(s) glucose, fasting 155 mg/dL 70-100 Above high normal Glucose, Fas ting [facility] ([facility]) creatinine for GFR 0.86 mg/dL 0.70-1.30 Creatinine for GF R [facility] ([facility]) blood urea nitrogen 21 mg/dL 7-18 Above high normal Blood Ure a Nitrogen [facility] ([facility]) glomerular filtration rate > 60.0 >60 Glomerula r Filtration Rate [facility] ([facility]) carbon dioxide level 30 mEq/L 21-32 Carbon Dioxide Level [facility] ([facility]) potassium serum 4.5 mEq/L 3.5-5.1 Potassium Serum ATHE NA ([facility]) sodium level 139 mEq/L 136-145 Sodium Level [facility] ([facility]) chloride level 103 mEq/L 98-107 Chloride Level [facility] ([facility]) anion gap 6 mEq/L 8-16 Below low normal Anion Gap [facility] ( [facility]) AST/SGOT 19 U/L 7-37 AST/SGOT [facility] ([facility]) calcium level 11.3 mg/dL 8.5-10.1 Above high normal Calcium Level A [facility] ([facility]) ALT/SGPT 52 U/L 12-78 ALT/SGPT [facility] ([facility]) bilirubin,total 0.6 mg/dL 0.2-1.0 Bilirubin,total ATHE NA ([facility]) alkaline phosphatase 88 U/L 45-117 Alkaline Phosph atase SUZY ([facility]) albumin/globulin ratio Albumin/globu mar Ratio SUZY ([facility]) albumin 4.6 gm/dL 3.2-5.2 Albumin SUZY ([facility]) total protein 8.0 gm/dL 6.4-8.2 Total Protein SUZY ( [facility]) ID Date Data Source [id number] 04/02/2021 11:30:00 AM EDT [place] ([facility]) Name Value Range Interpretation Code Description Data Claudia rce(s) Supporting Document(s) red blood count 4.89 10 4.30-6.10 Red Blood Count ATHE ([facility]) hemoglobin 16.0 g/dL 13.5-17.5 Hemoglobin SUZY ([facility]) white blood count 14.8 10 4.0-10.0 Above high normal White Blood Count SUZY ([facility]) mean corpuscular hemoglobin 32.7 pg 27.0-33.0 Mean Cor puscular Hemoglobin SUZY ([facility]) hematocrit 45.1 % 42.0-52.0 Hematocrit SUZY ([facility]) mean corpuscular volume 92.2 fL 80.0-96.0 Mean Corpusc ular Volume SUZY ([facility]) red cell distribution width 12.1 % 11.5-14.5 Red Cell Distribution Width SUZY ([facility]) mean corpuscular HGB conc 35.5 g/dL 32.0-36.5 Mean Corpu scular HGB Conc SUZY ([facility]) platelet count, automated 283 10 150-450 Platelet C ount, Automated SUZY ([facility]) nucleated red blood cell % 0.0 % 0-0 Nucleated Red Blood Cell % SUZY ([facility]) ID Date Data Source [id number] 04/02/2021 11:30:00 AM EDT [place] ([facility]) Name Value Range Interpretation Code Description Data Claudia rce(s) Supporting Document(s) total 25(oh) vitamin D 27.8 NG/mL 30.0-100.0 Below low normal T otal 25(Oh) Vitamin D [place] ([facility]) ID Date Data Source [id number] 04/02/2021 11:30:00 AM EDT [facility]) Name Value Range Interpretation Code Description Data Claudia rce(s) Supporting Document(s) PTH intact 73.9 pg/mL 18.5-88.0 PTH Intact SUZY ([facility]) ID Date Data Source [id number] 04/02/2021 11:30:00 AM EDT [place] ([facility]) Name Value Range Interpretation Code Description Data Claudai rce(s) Supporting Document(s) blood urea nitrogen 21 mg/dL 7-18 Above high normal Blood Ure a Nitrogen SUZY ([facility]) glucose, fasting 155 mg/dL 70-100 Above high normal Glucose, Fas ting SUZY ([facility]) creatinine for GFR 0.86 mg/dL 0.70-1.30 Creatinine for GF R SUZY ([facility]) glomerular filtration rate > 60.0 >60 Glomerula r Filtration Rate SUZY ([facility]) potassium serum 4.5 mEq/L 3.5-5.1 Potassium Serum ATHE NA ([facility]) sodium level 139 mEq/L 136-145 Sodium Level SUZY ([facility]) chloride level 103 mEq/L 98-107 Chloride Level SUZY ([facility]) carbon dioxide level 30 mEq/L 21-32 Carbon Dioxide Level SUZY ([facility]) calcium level 11.3 mg/dL 8.5-10.1 Above high normal Calcium Level A [place] ([facility]) anion gap 6 mEq/L 8-16 Below low normal Anion Gap SUZY ( [facility]) alkaline phosphatase 88 U/L 45-117 Alkaline Phosph atase SUZ[place] ([facility]) AST/SGOT 19 U/L 7-37 AST/SGOT [facility] ([facility]) ALT/SGPT 52 U/L 12-78 ALT/SGPT [place] ([facility]) bilirubin,total 0.6 mg/dL 0.2-1.0 Bilirubin,total ATHE ([facility]) total protein 8.0 gm/dL 6.4-8.2 Total Protein SUZY ( [facility]) albumin 4.6 gm/dL 3.2-5.2 Albumin SUZY ([facility]) albumin/globulin ratio Albumin/globu mar Ratio SUZY ([facility]) ID Date Data Source [id number] 04/02/2021 11:30:00 AM EDT [place] ([facility]) Name Value Range Interpretation Code Description Data Claudia rce(s) Supporting Document(s) red blood count 4.89 10 4.30-6.10 Red Blood Count ATHE NA ([facility]) white blood count 14.8 10 4.0-10.0 Above high normal White Blood Count SUZY ([facility]) hemoglobin 16.0 g/dL 13.5-17.5 Hemoglobin SUZY ([facility]) hematocrit 45.1 % 42.0-52.0 Hematocrit SUZY ([facility]) mean corpuscular volume 92.2 fL 80.0-96.0 Mean Corpusc ular Volume SUZY ([facility]) mean corpuscular HGB conc 35.5 g/dL 32.0-36.5 Mean Corpu scular HGB Conc SUZY ([facility]) mean corpuscular hemoglobin 32.7 pg 27.0-33.0 Mean Cor puscular Hemoglobin SUZY ([facility]) platelet count, automated 283 10 150-450 Platelet C ount, Automated SUZ[place] ([facility]) nucleated red blood cell % 0.0 % 0-0 Nucleated Red Blood Cell % [place] ([facility]) red cell distribution width 12.1 % 11.5-14.5 Red Cell Distribution Width [place] ([facility]) ID Date Data Source [id number] 03/30/2021 08:31:00 AM EDT [facility] 1 OrderSheet [facility] Emergency Department [address] [place] [address] Phone #: ext- [phone] 03/30/2021 08:30 Patient: MARYCARMENTIMI Sex: M : 1985 Age: 36yWEIGHT:99.7 kg HEIGHT:74 inches BMI:28.2ALLERGIES: ChantixCHIEF COMPLAINT: dental painDIAGNOSIS: Trigeminal neuralgiaLAB ORDERSOrder Description Priority Entered Acknowledged InitialedDIAGNOSTIC STUDY ORDERSOrder Description Priority Entered Acknowledged InitialedMEDICATION/IV/DRIP/FLUID ORDERSOrder Description Priority Entered Acknowledged InitialedToradol IM 60 mg 09:44 03/30/2021 09:50 Robbie Wilson R.N.;predniSONE PO 60 09:44 03/30/2021 09:48 mg Robbie Wilson R.N.;GENERAL ORDERSOrder Description Priority Entered Acknowledged Initialed[Electronically signed by Janice Wilson R.N. (10:03/30/2021)][Electronically signed by Robbie Chacon (21:50 03/30/2021)][Electronically locked by Janice Wlison R.N. (10:03/30/2021)] Name Value Range Interpretation Code Description Data Claudia rce(s) Supporting Document(s) ID Date Data Source [id number] 03/30/2021 08:31:00 AM EDT [facility] 1 Medication Reconciliation Report [facility] Emergency Department [address] [place] [address] Phone #: [phone] 03/30/2021 08:30 Patient: TIMI YARBROUGH Sex: M : 1985 Age: 36yWeight: 99.7 kgHeight/Length: 74 in.BMI: 28.2ALLERGIES: ChantixThe patient's Home Medications are listed below:CONTINUE TAKING THE FOLLOWING MEDICATIONS: Atorvastatin Calcium Oral carBAMazepine Oral Chlorthalidone Oral Lisinopril Oral Meclizine HCl OralThe source(s) of the original Home Medication information:Not obtained.The following Medications were given to the patient in the Emergency Department:Prednisone [PO] PO 60 mg, administered: 09:48 03/30/2021Toradol [IM] IM 60 mg, administered: 09:50 03/30/2021The following Medications were prescribed to the patient:Medrol (Shane) 4 mg tablets in a dose pack Take 1 tablet as directed for 6 days -- start tomorrow.Dispense 21 tablet. Refills: 0. Substitution permitted.Pharmacy - [facility] - [address] [place] [address]. .gabapentin 600 mg tablet Take 1 tablet three times a day as directed for 30 days -- Dispense 90 tablet.Refills: 0. Substitution permitted.Pharmacy - [facility] - [address] [place] [address]. Phone: [phone] Medication Reconciliation Report [facility] Emergency Department [address] [place] [address] Phone #: ext- [phone] 03/30/2021 08:30 Patient: TIMI YARBROUGH Sex: M : 1985 Age: [id number] . -- AILYN Gonzalez Name Value Range Interpretation Code Description Data Claudia rce(s) Supporting Document(s) ID Date Data Source [id number] 03/30/2021 08:31:00 AM EDT [facility] 1 Medication Administration Record [facility] Emergency Department [address] [place] [address] Phone #: ext- [phone] 03/30/2021 08:30 [id number] Sex[facility] : 1985 Age: 36yWeight: 99.7 kgHeight/Length: 74 inBMI: 28.2ALLERGIES: Chantix Date/Time Medication Administered Medication OrderedGiven TORADOL [IM] (KETOROLAC Toradol IM 60 mg09:50 03/30/2021 TROMETHAMINE)Janice Wilson R.N. Dose: 60 mg IMGiven PREDNISONE [PO] predniSONE PO 60 mg09:48 03/30/2021 Dose: 60 mg Tablets Janice Tan R.N. Name Value Range Interpretation Code Description Data Claudia rce(s) Supporting Document(s) ID Date Data Source [id number] 03/30/2021 08:31:00 AM EDT [facility] 1 General Instructions [facility] Emergency Department [address] [place] [address] Phone #: ext- [phone] 03/30/2021 08:30 Patient: TIMI YARBROUGH Sex: M : 1985 Age: 36yTrigeminal neuralgiaINSTRUCTIONSWarnings: Further evaluation is necessary in order to conduct further tests. It is very important to follow upwith a healthcare provider.GENERAL WARNINGS: Return or contact your physician immediately if your condition worsens orchanges unexpectedly, if not improving as expected, or if other problems arise. Specifically return if painworsens.Your Current Medications: Your current home medications have been reviewed.CONTINUE TAKING THE FOLLOWING MEDICATIONS:Atorvastatin Calcium Oral.carBAMazepine Oral.Chlorthalidone Oral.Lisinopril Oral.Meclizine HCl Oral.Prescription Medications:Medrol ([place]) 4 mg tablets in a dose pack Take 1 tablet as directed for 6 days -- start tomorrow.Dispense 21 tablet. Refills: 0. Substitution permitted.Pharmacy - [facility] - [address] [place] [phone]. .gabapentin 600 mg tablet Take 1 tablet three times a day as directed for 30 days -- Dispense 90 tablet.Refills: 0. Substitution permitted.Pharmacy - [facility] - [address] [place] [phone]. .Follow-up:Follow up with your doctor today. Call for an appointment. Reason for referral: evaluation, treatment andrefer to Neurology. Summary of care provided to patient.Understanding of the discharge instructions verbalized by patient. ADDITIONAL INFORMATION 2 General Instructions [facility] Emergency Department [address] [place] [address] Phone #: ext- [phone] 03/30/2021 08:30 Patient: TIMI YARBROUGH Sex: M : 1985 Age: 36yTrigeminal NeuralgiaYou have trigeminal neuralgia. This is pain caused by irritation of the trigeminal nerve on your face.Symptoms include sudden, sharp pain in your head or face. It may feel like an electric shock. It canlast for several seconds or minutes. It often happens on only 1 side of your face. Pain may betriggered by things such as moving your jaw when brushing your teeth or eating. Or by a touch on theskin of your face. The pain may be caused by something irritating the trigeminal nerve, such as ablood vessel pressing against it. But the exact cause of this problem often isn't known. It can be verypainful. But the condition isn't dangerous.Trigeminal neuralgia is often treated with medicines. These include anti-seizure medicines orantidepressants. Certain other treatments may also help. In some cases, you may need surgery. Forsome people, radiation therapy is needed with a precise tool called gamma knife. This does not makeany cuts (incisions). Some people have underlying health problems causing trigeminal neuralgia,such as multiple sclerosis. You may need an imaging test such as a CT scan or an MRI of the brainand skull. You will be advised if other health problems need treatment.Home careYour healthcare provider may prescribe medicines to help ease and prevent pain. Take all medicinesas directed. Please note that it may take several changes in dose and medicines before the rightcombination is found that controls the pain.General care: Plan to rest at home today. 3 General Instructions [facility] Emergency Department [address] [place] [address] Phone #: ext- [phone] 03/30/2021 08:30 Patient: TIMI YARBROUGH Sex: M : 1985 Age: 36y Don't do any specific activities that seem to trigger the pain. Over the next few weeks, keep a pain diary. Write down when your symptoms happen and how they feel. Certain activities such as touching your face, chewing, talking, or brushing your teeth may bring on the pain. Cold air can also trigger the pain. Make sure you write down any triggers and discuss these with your provider. This will help guide treatment.Follow-up careFollow up with your healthcare provider, or as advised. If you were referred to a neurologist, be sureto make an appointment.For more information on your condition, visit: [employer] www.fpa- support.orgWhen to get medical adviceCall your healthcare provider right away if any of these occur: Fever of 100.4F (38C) or higher, or as advised by your provider Headache with very stiff neck You aren't able to keep liquids down (repeated vomiting) Extreme drowsiness or confusion Dizziness or fainting A new feeling of weakness or numbness or tingling in your arm, leg, or face Trouble speaking or seeing IPextreme. [address] [place] [address], [place] [address]. All rights reserved. This information is not intended as asubstitute for professional medical care. Always follow your healthcare professional's instructions. You have been given t he following additional information: Trigeminal Neuralgia(Electronically signed by AILYN Gonzalez 03/30/2021 21:50) 4 General Instructions [facility] Emergency Department [address] [place] [address] Phone #: ext- [phone] 03/30/2021 08:30 Patient: TIMI YARBROUGH Sex: M : 1985 Age: 36y Name Value Range Interpretation Code Description Data Claudia rce(s) Supporting Document(s) ID Date Data Source [id number] 03/30/2021 08:31:00 AM EDT [facility] 1 Clinical Report - Nurses [facility] Emergency Department [address] [place] [address] Phone #: ext- [phone] 03/30/2021 08:30 Patient: TIMI YARBROUGH Sex: M : 1985 Age: 36yTRIAGEArrived by private vehicle. Historian: patient.Triage time: 08:45 03/30/2021. Acuity: LEVEL 4.Chief Complaint: (Pain to R lower tooth since yesterday. Seen at dentist/[facility] yesterday, prescribed tegetrol,states he was told it was a nerve problem. Can't eat d/t pain.).08:45 03/30/21. Alert. No acute distress.This started yesterday. He has had weakness (from not eating). 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 SEPSIS SCREEN NEGATIVE. No suspected or confirmedsigns of infection present. --08:52 03/30/21 Faizan October, R.N.08:44 03/30/21. BP: 144/81. MAP: 102. HR: 87. RR: 18. O2 saturation: 100%. Temp: 97.9 F. Pain levelnow: 4/10. Describes the quality as throbbing. It has been constant. --08:52 03/30/21 Rosi Gloria, R.N.Weight: 99.7 kg. Height/Length: 74 inches. BMI: 28.2. --08:44 03/30/21 Faizan October, R.N.MedicationsLisinopril Oral. --08:49 03/30/21 Faizan October, R.N. Meclizine HCl Oral. --08:49 03/30/21 October, R.N. Chlorthalidone Oral. --08:50 03/30/21 October, R.N. Atorvastatin Calcium Oral. --08:50 03/30/21 October, R.N. carBAMazepine Oral. --08:50 03/30/21 Faizan October, R.N.AllergiesChantix. --08:49 03/30/21 Faizan Rosi, R.N.PROBLEMS:Vertigo.Hypercholesterolemia.Hypertension. --08:51 03/30/21 Faizan Rosi, R.N.ADDITIONAL SURGERIES:Loop recorder. --08:51 03/30/21 Rosi Gloria, R.N.History 2 Clinical Report - Nurses [facility] Emergency Department [address] [place] [address] Phone #: ext- [phone] 03/30/2021 08:30 Patient: TIMI YARBROUGH Sex: M : 1985 Age: 36y 08:45 03/30/21. SOCIAL HX: Heavy tobacco smoker- 1 pack per day. Drug use: marijuana. No alcohol use. He was offered HIV testing but declined and hepatitis C testing but declined. He has not traveled outside the [place] Infectious disease exposure: No infectious disease exposure. The patient was not exposed to Coronavirus. SELF HARM ASSESSMENT: Self harm assessment was performed. The patient answered "no" to the question(s) "Have you recently felt down, depressed, or hopeless?" and "Have you recently had thoughts about harming or killing others?". ABUSE ASSESSMENT: Abuse assessment. No suspicion of abuse. No report of abuse. NUTRITIONAL RISK ASSESSMENT: The nutritional risk assessment revealed no deficiencies. FUNCTIONAL ASSESSMENT: Functional assessment: no impairments noted. LEARNING NEEDS ASSESSMENT: The learning needs assessment revealed no barriers. FALL RISK ASSESSMENT: Fall risk assessment completed. No risk factors identified. SKIN INTEGRITY ASSESSMENT: Skin integrity risk assessment completed. No skin integrity risk identified. --08:52 03/30/21 Rosi Gloria R.N. Interventions 08:45 03/30/21. Identification and allergy band on patient. To waiting room. --08:52 03/30/21 Rosi Gloria R.N.PHYSICAL ASSESSMENTAmbulatory to room.GENERAL / NEURO / PSYCH: Alert. Appears in no acute distress. ( Pt c/o pain just below mandibularjoint, that alternates sides, currently denies pain but states may possible be trigeminal neuralgia. Pt doeshave mild diffuse dental decay, nothing outstanding, no s/s of abscess.).HEENT: No facial asymmetry noted. Mucous membranes are pink.RESPIRATORY: Respirations not labored. --09:38 03/30/21 Janice Wilson R.N.NURSING PROGRESS NOTESReassurance given. Three patient identifiers checked. Call light placed in reach. Side rails up x 2. Bedplaced in lowest position. Brakes of bed on. Patient ready for evaluation- PA notified. --09:38 03/30/21Janice Wilson R.N. 09:48 03/30/2021 Prednisone PO Tablets 60 mg given. Allergies verified and confirmed 5 rights. Information reviewed with patient including reason for taking this medication, signs of allergic reaction and precautions. Verbalizes understanding. --09:48 03/30/21 Janice Wilson R.N. 09:50 03/30/2021 Toradol (Ketorolac Tromethamine) IM 60 mg given. Given in the right deltoid. Allergies 3 Clinical Report - Nurses [facility] [address] [place] [address] Phone #: ext- [phone] 03/30/2021 08:30 Patient: TIMI YARBROUGH Sex: M : 1985 Age: 36y verified and confirmed 5 rights. Information reviewed with patient including reason for taking this medication, signs of allergic reaction and precautions. Verbalizes understanding. --09:50 03/30/21 Janice Wilson R.N. 10:03/30/2021 Prednisone PO Response: no adverse reaction. --10:03/30/21 Janice Wilson R.N. 10:03/30/2021 Toradol IM Response: no adverse reaction pain is gone now. Symptoms have improved the patient feels better. --10:03/30/21 Janice Wilson R.N.DISPOSITION / DISCHARGE Departure time: 10:03/30/2021. Condition at departure: improved and stable. ( Pt states he does sometimes have vagal response to IM injections, none noted, pt tolerated well, VSS pt feels well and able for d/c.). No learning barriers present. Discharge instructions provided and reviewed with the patient. Reviewed warnings (please see paper copy). Reviewed medication(s) side effects, precautions, dosing and course information. Prescription(s) sent electronically to pharmacy (medrol shane, gabapentin). Reviewed referrals (pcp for referral to neurology). Patient verbalized understanding. Written instructions provided in Armenian. The patient was discharged by the physician claims assistant. He was discharged home and unaccompanied at time of discharge. He left ambulatory and via private vehicle. Patient driving. --10:10 03/30/21 Janice Wilson R.N. 10:09 03/30/21. BP: 126/72. MAP: 90. HR: 65. RR: 18. O2 saturation: 99% on room air. Temp: 98.2 F (temporal). Pain level now: 0/10. --10:10 03/30/21 Jaince Wilson R.N.Locked/Released at 03/30/2021 10:10 by Janice Wilson R.N. Name Value Range Interpretation Code Description Data Claudia rce(s) Supporting Document(s) ID Date Data Source [id number] 03/30/2021 08:31:00 AM EDT [facility] 1 Clinical Report - Physicians/Mid Levels [facility] Emergency Department [address] [place] [address] Phone #: ext- [phone] 03/30/2021 08:30 [id number] Sex[facility] : 1985 Age: 36y Time Seen: 09:39 03/30/2021. Arrived- By private vehicle. Historian- patient.HISTORY OF PRESENT ILLNESS Chief Complaint: DENTAL PAIN. (Pain to R lower tooth since yesterday. Seen at dentist/[facility] yesterday, prescribed Tegretol, states he was told it was a nerve problem. Can't eat d/t pain, pt had same problem two years, he reports pain moves from side to side and saw the dentist earlier this week who said he did not have an abscess). Is still present and worsening. It was abrupt in onset and has been intermittent. Pain described as severe. No sore throat, mouth sores, nasal discharge or congestion or ear pain. No swollen jaw. He has had toothache, jaw pain and facial pain. Similar symptoms previously. Patient has had similar symptoms once. Recent medical care: The patient was seen recently at another facility in a clinic (seen at [facility]).REVIEW OF SYSTEMSNo fever, eye discomfort, cough, difficulty breathing or chest pain. No nausea, diarrhea, abdominal pain,difficulty with urination or headache. No fainting episodes, joint pain, skin rash, enlarged lymph nodes orvomiting.PAST HISTORYProblems:Vertigo.Hypercholesterolemia.Hypertension. Additional Surgeries: Loop recorder. Medications: carBAMazepine Oral. Atorvastatin Calcium Oral. Chlorthalidone Oral. Meclizine HCl Oral. Lisinopril Oral. Allergies: Chantix.SOCIAL HISTORY 2 Clinical Report - Physicians/Mid Levels [facility] Emergency Department [address] [place] [address] Phone #: ext- [phone] 03/30/2021 08:30 Patient: TIMI YARBROUGH Sex: M : 1985 Age: 36y Heavy tobacco smoker (cigarette)- 1 pack per day. Drug use: marijuana. No alcohol use.PHYSICAL EXAMVital Signs: 03/30/2021 08:44 BP: 144/81. MAP: 102. HR: 87. RR: 18. O2 saturation: 100%. Temp: 97.9F. Pain level now: 4/10. Have been reviewed as abnormal. Hypertensive. Oxygen saturation normal.Appearance: Alert. No acute distress. Anxious.Head: Normal external inspection.Eyes: Pupils equal, round and reactive to light. Conjunctivae and eyelids normal.ENT: Ears normal. Nose normal. Pharynx normal. Lips normal. Gums normal. No trismus present.Uvula midline.Neck: Normal inspection. Trachea midline. No adenopathy. Thyroid normal. Neck supple.CVS: Normal heart rate and rhythm. Heart sounds normal.Respiratory: No respiratory distress. Breath sounds normal.Abdomen: Nontender.Skin: Normal skin color. No rash. Normal skin turgor.Extremities: Extremities nontender.Neuro: Oriented X 3.PROGRESS AND PROCEDURESCourse of Care: :Mar 30 2021. Evaluation after observation. (Discussed exam findings, pt needs tofollow up with PCP for referral to Neurology). Patient counseled in person regarding the patient's stable condition, diagnosis and need for follow-up. Patient agrees with plan of care. :Mar 30 2021. Disposition: Discharged home in good and improved condition (Mar 30 2021).CLINICAL IMPRESSION Trigeminal neuralgiaINSTRUCTIONS Warnings: Further evaluation is necessary in order to conduct further tests. It is very important to follow up with a healthcare provider. GENERAL WARNINGS: Return or contact your physician immediately if your condition worsens or changes unexpectedly, if not improving as expected, or if other problems arise. Specifically return if pain worsens. Your Current Medications: Your current home medications have been reviewed. CONTINUE TAKING THE FOLLOWING MEDICATIONS: Atorvastatin Calcium Oral. 3 Clinical Report - Physicians/Mid Levels [facility] Emergency Department [address] [place] [address] Phone #: ext- [phone] 03/30/2021 08:30 Patient: TIMI YARBROUGH [facility]#: [id number] Sex: M : 1985 Age: 36y carBAMazepine Oral. Chlorthalidone Oral. Lisinopril Oral. Meclizine HCl Oral. Prescription Medications: Medrol (Shane) 4 mg tablets in a dose pack Take 1 tablet as directed for 6 days -- start tomorrow. Dispense 21 tablet. Refills: 0. Substitution permitted. Pharmacy - [facility] [facility] [address] [phone]. . gabapentin 600 mg tablet Take 1 tablet three times a day as directed for 30 days -- Dispense 90 tablet. Refills: 0. Substitution permitted. Pharmacy - [facility] [address] [phone]. . Follow-up: Follow up with your doctor today. Call for an appointment. Reason for referral: evaluation, treatment and refer to Neurology. Summary of care provided to patient. Understanding of the discharge instructions verbalized by patient.(Electronically signed by AILYN Gonzalez 03/30/2021 21:50) Name Value Range Interpretation Code Description Data Claudia rce(s) Supporting Document(s) ID Date Data Source [id number] 02/21/2021 12:00:00 AM EDT [place] ([facility]) Name Value Range Interpretation Code Description Data Claudia rce(s) Supporting Document(s) Color of Urine tnp Color [place] ([facility]) ID Date Data Source [id number] 02/21/2021 12:00:00 AM EDT [facility]) Name Value Range Interpretation Code Description Data Claudia rce(s) Supporting Document(s) Glucose [Mass/volume] in Serum or Plasma 110 mg/dL 65-99 Above high normal [facility] Creatinine [Mass/volume] in Serum or Plasma 0.70 mg/dL 0.60-1.35 Creatinine [facility]) Urea nitrogen [Mass/volume] in Serum or Plasma 15 mg/dL 7-25 [facility] N[facility] (BUN) [facility] Glomerular filtration rate/1.73 sq M.pre dicted among non-blacks [Volume Rate/Area] in Serum, Plasma or Blood by Creatinine-based formula (CKD-EPI) 121 mL/min/1.73m2 > or = 60 eGFR Non-afr. Nauruan [place] ([facility]) Sodium [Moles/volume] in Serum or Plasma 139 mmol/L 135-146 Sodium [place] ([facility]) Urea nitrogen/Creatinine [Mass Ratio] in Serum or Plasma not applic able 6-22 BUN/creatinine Ratio [facility]) Glomerular filtration rate/1.73 sq M.pre dicted among blacks [Volume Rate/Area] in Serum, Plasma or Blood by Creatinine-based formula (CKD-EPI) 140 mL/min/1.73m2 > or = 60 eGFR [place] ([facility]) Chloride [Moles/volume] in Serum or Plasma 103 mmol/L 98-110 Chloride [place] ([facility]) Calcium [Mass/volume] in Serum or Plasma 11.0 mg/dL 8.6-10.3 Above high normal Calcium [place] ([facility]) Carbon dioxide, total [Moles/volume] in Serum or Plasma 29 mmol/L 20-32 Carbon Dioxide [place] ([facility]) Potassium [Moles/volume] in Serum or Plasma 4.0 mmol/L 3.5-5.3 Potassium [place] ([facility]) Albumin [Mass/volume] in Serum or Plasma 4.8 g/dL 3.6-5.1 Albumin [place] ([facility]) Globulin [Mass/volume] in Serum by calculation 2.7 g/dL_(calc) 1.9- 3.7 Globulin [place] ([facility]) Albumin/Globulin [Mass Ratio] in Serum or Plasma 1.8 (calc) 1.0-2 .5 Albumin/globulin Ratio [place] ([facility]) Protein [Mass/volume] in Serum or Plasma 7.5 g/dL 6.1-8.1 Protein, Total [place] ([facility]) Aspartate aminotransferase [Enzymatic activity/volume] in Serum or Plasma 23 U/L 10-40 Ast [place] ([facility]) Bilirubin.total [Mass/volume] in Serum or Plasma 0.6 mg/dL 0.2-1 .2 Bilirubin, Total [place] ([facility]) Alanine aminotransferase [Enzymatic activity/volume] in Seru m or Plasma 23 U/L 9-46 Alt [place] ([facility]) Alkaline phosphatase [Enzymatic activity/volume] in Serum or Plasma 84 U/L 36-130 Alkaline Phosphatase [place] ([facility]) ID Date Data Source [id number] 02/21/2021 12:00:00 AM EDT [place] ([facility]) Name Value Range Interpretation Code Description Data Claudia rce(s) Supporting Document(s) Triglyceride [Mass/volume] in Serum or Plasma 108 mg/dL <150 Triglycerides [place] ([facility]) Cholesterol in HDL [Mass/volume] in Serum or Plasma 35 mg/dL > or = 40 Below low normal HDL Cholesterol [place] ([facility]) Cholesterol [Mass/volume] in Serum or Plasma 233 mg/dL <200 Above high normal Cholesterol, Total [place] ([facility]) Cholesterol non HDL [Mass/volume] in Serum or Plasma 198 mg/dL_( calc) <130 Above high normal Non HDL Cholesterol [place] ([facility]) Cholesterol in LDL [Mass/volume] in Serum or Plasma by calculation 175 mg/dL_(calc) Above high normal LDL-cholesterol [place] ([facility]) Cholesterol.total/Cholesterol in HDL [Mass Ratio] in Serum o r Plasma 6.7 (calc) <5.0 Above high normal Chol/hdlc Ratio [place] ([facility]) ID Date Data Source [id number] 02/21/2021 12:00:00 AM [facility] Name Value Range Interpretation Code Description Data Claudia rce(s) Supporting Document(s) Color of Urine tnp Color [place] ([facility]) ID Date Data Source [id number] 02/21/2021 12:00:00 AM EDT [place] ([facility]) Name Value Range Interpretation Code Description Data Claudia rce(s) Supporting Document(s) Glucose [Mass/volume] in Serum or Plasma 110 mg/dL 65-99 Above high normal Glucose [place] ([facility]) Urea nitrogen [Mass/volume] in Serum or Plasma 15 mg/dL 7-25 Urea Nitrogen (BUN) [place] ([facility]) Creatinine [Mass/volume] in Serum or Plasma 0.70 mg/dL 0.60-1.35 Creatinine [place] ([facility]) Urea nitrogen/Creatinine [Mass Ratio] in Serum or Plasma not applic able 6-22 BUN/creatinine Ratio [place] ([facility]) Glomerular filtration rate/1.73 sq M.pre dicted among blacks [Volume Rate/Area] in Serum, Plasma or Blood by Creatinine-based formula (CKD-EPI) 140 mL/min/1.73m2 > or = 60 eGFR [place] ([facility]) Potassium [Moles/volume] in Serum or Plasma 4.0 mmol/L 3.5-5.3 Potassium [place] ([facility]) Sodium [Moles/volume] in Serum or Plasma 139 mmol/L 135-146 Sodium [place] ([facility]) Glomerular filtration rate/1.73 sq M.pre dicted among non-blacks [Volume Rate/Area] in Serum, Plasma or Blood by Creatinine-based formula (CKD-EPI) 121 mL/min/1.73m2 > or = 60 eGFR Non-afr. [place] ([facility]) Calcium [Mass/volume] in Serum or Plasma 11.0 mg/dL 8.6-10.3 Above high normal Calcium [place] ([facility]) Protein [Mass/volume] in Serum or Plasma 7.5 g/dL 6.1-8.1 Protein, Total [place] ([facility]) Albumin [Mass/volume] in Serum or Plasma 4.8 g/dL 3.6-5.1 Albumin [place] ([facility]) Chloride [Moles/volume] in Serum or Plasma 103 mmol/L 98-110 Chloride [place] ([facility]) Carbon dioxide, total [Moles/volume] in Serum or Plasma 29 mmol/L 20-32 Carbon Dioxide [place] ([facility]) Albumin/Globulin [Mass Ratio] in Serum or Plasma 1.8 (calc) 1.0-2 .5 Albumin/globulin Ratio [place] ([facility]) Globulin [Mass/volume] in Serum by calculation 2.7 g/dL_(calc) 1.9- 3.7 Globulin [place] ([facility]) Alkaline phosphatase [Enzymatic activity/volume] in Serum or Plasma 84 U/L 36-130 Alkaline Phosphatase [place] ([facility]) Aspartate aminotransferase [Enzymatic activity/volume] in Serum or Plasma 23 U/L 10-40 Ast [place] ([facility]) Bilirubin.total [Mass/volume] in Serum or Plasma 0.6 mg/dL 0.2-1 .2 Bilirubin, Total [place] ([facility]) Alanine aminotransferase [Enzymatic activity/volume] in Seru m or Plasma 23 U/L 9-46 Alt [place] ([facility]) ID Date Data Source [id number] 02/21/2021 12:00:00 AM EDT [place] ([facility]) Name Value Range Interpretation Code Description Data Claudia rce(s) Supporting Document(s) Cholesterol [Mass/volume] in Serum or Plasma 233 mg/dL <200 Above high normal Cholesterol, Total [place] ([facility]) Triglyceride [Mass/volume] in Serum or Plasma 108 mg/dL <150 Triglycerides [place] ([facility]) Cholesterol in LDL [Mass/volume] in Serum or Plasma by calculation 175 mg/dL_(calc) Above high normal LDL-cholesterol [place] ([facility]) Cholesterol in HDL [Mass/volume] in Serum or Plasma 35 mg/dL > or = 40 Below low normal HDL Cholesterol [place] ([facility]) Cholesterol.total/Cholesterol in HDL [Mass Ratio] in Serum o r Plasma 6.7 (calc) <5.0 Above high normal Chol/hdlc Ratio [place] ([facility]) Cholesterol non HDL [Mass/volume] in Serum or Plasma 198 mg/dL_( calc) <130 Above high normal Non HDL Cholesterol [place] ([facility]) ID Date Data Source [id number] 02/21/2021 12:00:00 AM EDT [place] ([facility]) Name Value Range Interpretation Code Description Data Claudia rce(s) Supporting Document(s) Color of Urine tnp Color [place] ([facility]) ID Date Data Source [id number] 02/21/2021 12:00:00 AM EDT [place] ([facility]) Name Value Range Interpretation Code Description Data Claudia rce(s) Supporting Document(s) Urea nitrogen [Mass/volume] in Serum or Plasma 15 mg/dL 7-25 Urea Nitrogen (BUN) [place] ([facility]) Glucose [Mass/volume] in Serum or Plasma 110 mg/dL 65-99 Above high normal Glucose [place] ([facility]) Creatinine [Mass/volume] in Serum or Plasma 0.70 mg/dL 0.60-1.35 Creatinine [place] ([facility]) Sodium [Moles/volume] in Serum or Plasma 139 mmol/L 135-146 Sodium [place] ([facility]) Glomerular filtration rate/1.73 sq M.pre dicted among blacks [Volume Rate/Area] in Serum, Plasma or Blood by Creatinine-based formula (CKD-EPI) 140 mL/min/1.73m2 > or = 60 eGFR [place] ([facility]) Urea nitrogen/Creatinine [Mass Ratio] in Serum or Plasma not applic able 6-22 BUN/creatinine Ratio [place] ([facility]) Glomerular filtration rate/1.73 sq M.pre dicted among non-blacks [Volume Rate/Area] in Serum, Plasma or Blood by Creatinine-based formula (CKD-EPI) 121 mL/min/1.73m2 > or = 60 eGFR Non-afr. [place]uan [place] ([facility]) Calcium [Mass/volume] in Serum or Plasma 11.0 mg/dL 8.6-10.3 Above high normal Calcium [place] ([facility]) Chloride [Moles/volume] in Serum or Plasma 103 mmol/L 98-110 Chloride [place] ([facility]) Potassium [Moles/volume] in Serum or Plasma 4.0 mmol/L 3.5-5.3 Potassium [place] ([facility]) Protein [Mass/volume] in Serum or Plasma 7.5 g/dL 6.1-8.1 Protein, Total [place] ([facility]) Carbon dioxide, total [Moles/volume] in Serum or Plasma 29 mmol/L 20-32 [facility] Albumin/Globulin [Mass Ratio] in Serum or Plasma 1.8 (calc) 1.0-2 .5 Albumin[facility]globulin [facility] Globulin [Mass/volume] in Serum by calculation 2.7 g/dL_(calc) 1.9- 3.7 Globulin [place] ([facility]) Albumin [Mass/volume] in Serum or Plasma 4.8 g/dL 3.6-5.1 Albumin [place] ([facility]) Alanine aminotransferase [Enzymatic activity/volume] in Seru m or Plasma 23 U/L 9-46 Alt [place] ([facility]) Alkaline phosphatase [Enzymatic activity/volume] in Serum or Plasma 84 U/L 36-130 Alkaline Phosphatase [place] ([facility]) Bilirubin.total [Mass/volume] in Serum or Plasma 0.6 mg/dL 0.2-1 .2 Bilirubin, Total [place] ([facility]) Aspartate aminotransferase [Enzymatic activity/volume] in Serum or Plasma 23 U/L 10-40 Ast [place] ([facility]) ID Date Data Source [id number] 02/21/2021 12:00:00 AM EDT [place] ([facility]) Name Value Range Interpretation Code Description Data Claudia rce(s) Supporting Document(s) Cholesterol in HDL [Mass/volume] in Serum or Plasma 35 mg/dL > or = 40 Below low normal HDL Cholesterol [place] ([facility]) Cholesterol [Mass/volume] in Serum or Plasma 233 mg/dL <200 Above high normal Cholesterol, Total [place] ([facility]) Cholesterol.total/Cholesterol in HDL [Mass Ratio] in Serum o r Plasma 6.7 (calc) <5.0 Above high normal Chol/hdlc Ratio [place] ([facility]) Cholesterol in LDL [Mass/volume] in Serum or Plasma by calculation 175 mg/dL_(calc) Above high normal LDL-cholesterol [place] ([facility]) Triglyceride [Mass/volume] in Serum or Plasma 108 mg/dL <150 Triglycerides [place] ([facility]) Cholesterol non HDL [Mass/volume] in Serum or Plasma 198 mg/dL_( calc) <130 Above high normal Non HDL Cholesterol [place] ([facility]) ID Date Data Source [id number] 12/25/2020 12:19:00 PM EDT [place] ([facility]) Name Value Range Interpretation Code Description Data Claudia rce(s) Supporting Document(s) amphetamines level urine negative negative Amphetamine s Level Urine [place] ([facility]) barbiturates urine negative negative Barbiturates Urin e [place] ([facility]) benzodiazepines urine negative negative Benzodiazepine s Urine [place] ([facility]) methadone urine negative negative Methadone Urine [place] ([facility]) cannabinoids urine positive negative Above high normal Cannabinoi ds Urine [place] ([facility]) opiates urine negative negative Opiates Urine [place] ( [facility]) cocaine metabolite urine negative negative Cocaine Met abolite Urine [place] ([facility]) phencyclidine urine negative negative Phencyclidine Ur ine [place] ([facility]) ID Date Data Source [id number] 12/25/2020 12:19:00 PM EDT [place] ([facility]) Name Value Range Interpretation Code Description Data Claudia rce(s) Supporting Document(s) appearance, urine rfx clear clear Appearance, Ur ine Rfx [place] ([facility]) color, urine rfx yellow yellow Color, Urine Rfx [place] ([facility]) specific gravity ur auto rfx S3 1.002-1.035 Specif ic [place] Ur Auto Rfx [place] ([facility]) pH,urine rfx 7.0 units 5.0-9.0 pH,urine Rfx [place] ([facility]) protein, urine auto rfx 2+ negative Above high normal Prote in, Urine Auto Rfx [place] ([facility]) ketone, urine auto rfx 1+ negative Above high normal Ketone , Urine Auto Rfx [place] ([facility]) glucose, urine (UA) auto rfx negative negative Glucose , Urine (UA) Auto Rfx [place] ([facility]) urobilinogen, urine auto rfx 0.2 mg/dL 0.0-2.0 Urobili nogen, Urine Auto Rfx [place] ([facility]) blood, urine blood rfx negative negative Blood, Urine Blood Rfx [place] ([facility]) nitrite, urine auto rfx negative negative Nitrite, Uri ne Auto Rfx [place] ([facility]) leukocyte esterase ur auto rfx negative negative Leukocyte Esterase Ur Auto Rfx [place] ([facility]) bilirubin, urine auto rfx negative negative Bilirubin, Urine Auto Rfx [place] ([facility]) WBC, urine auto rfx 1 /hpf 0-3 WBC, Urine Auto Rfx [place] ([facility]) bacteria, urine auto rfx negative negative Bacteria, U rine Auto Rfx [place] ([facility]) RBC, urine auto rfx 1 /hpf 0-3 RBC, Urine Auto Rfx [place] ([facility]) squam epithelial cell ur aurfx 0 /hpf 0-6 Squam Epithelial Cell Ur Aurfx [place] ([facility]) mucus, urine rfx small negative Mucus, Urine Rfx AT [facility] ([facility]) hyaline cast, urine auto rfx 0 /lpf 0-1 Hyaline Cast, Urine Auto Rfx [place] ([facility]) ID Date Data Source [id number] 12/25/2020 12:19:00 PM EDT [place] ([facility]) Name Value Range Interpretation Code Description Data Claudia rce(s) Supporting Document(s) barbiturates urine negative negative Barbiturates Urin e [place] ([facility]) amphetamines level urine negative negative Amphetamine s Level Urine [place] ([facility]) benzodiazepines urine negative negative Benzodiazepine s Urine [place] ([facility]) cannabinoids urine positive negative Above high normal Cannabinoi ds Urine [place] ([facility]) opiates urine negative negative Opiates Urine [place] ( [facility]) methadone urine negative negative Methadone Urine [place] ([facility]) cocaine metabolite urine negative negative Cocaine Met abolite Urine [place] ([facility]) phencyclidine urine negative negative Phencyclidine Ur ine [place] ([facility]) ID Date Data Source [id number] 12/25/2020 12:19:00 PM EDT [place] ([facility]) Name Value Range Interpretation Code Description Data Claudia rce(s) Supporting Document(s) appearance, urine rfx clear clear Appearance, Ur ine Rfx [place] ([facility]) protein, urine auto rfx 2+ negative Above high normal Prote in, Urine Auto Rfx [place] ([facility]) pH,urine rfx 7.0 units 5.0-9.0 pH,urine Rfx [place] ([facility]) color, urine rfx yellow yellow Color, Urine Rfx AT [facility] ([facility]) specific gravity ur auto rfx S3 1.002-1.035 Specif ic [place] Ur Auto Rfx [place] ([facility]) urobilinogen, urine auto rfx 0.2 mg/dL 0.0-2.0 Urobili nogen, Urine Auto Rfx [place] ([facility]) ketone, urine auto rfx 1+ negative Above high normal Ketone , Urine Auto Rfx [place] ([facility]) glucose, urine (UA) auto rfx negative negative Glucose , Urine (UA) Auto Rfx [place] ([facility]) bilirubin, urine auto rfx negative negative Bilirubin, Urine Auto Rfx [place] ([facility]) nitrite, urine auto rfx negative negative Nitrite, Uri ne Auto Rfx [place] ([facility]) leukocyte esterase ur auto rfx negative negative Leukocyte Esterase Ur Auto Rfx [place] ([facility]) blood, urine blood rfx negative negative Blood, Urine Blood Rfx [place] ([facility]) WBC, urine auto rfx 1 /hpf 0-3 WBC, Urine Auto Rfx [place] ([facility]) bacteria, urine auto rfx negative negative Bacteria, U rine Auto Rfx [place] ([facility]) mucus, urine rfx small negative Mucus, Urine Rfx AT [facility] ([facility]) RBC, urine auto rfx 1 /hpf 0-3 RBC, Urine Auto Rfx [place] ([facility]) squam epithelial cell ur aurfx 0 /hpf 0-6 Squam Epithelial Cell Ur Aurfx [place] ([facility]) hyaline cast, urine auto rfx 0 /lpf 0-1 Hyaline Cast, Urine Auto Rfx [place] ([facility]) ID Date Data Source [id number] 12/25/2020 12:19:00 PM EDT [place] ([facility]) Name Value Range Interpretation Code Description Data Claudia rce(s) Supporting Document(s) amphetamines level urine negative negative Amphetamine s Level Urine [place] ([facility]) barbiturates urine negative negative Barbiturates Urin e [place] ([facility]) cocaine metabolite urine negative negative Cocaine Met abolite Urine [place] ([facility]) cannabinoids urine positive negative Above high normal Cannabinoi ds Urine [place] ([facility]) benzodiazepines urine negative negative Benzodiazepine s Urine [place] ([facility]) methadone urine negative negative Methadone Urine [place] ([facility]) opiates urine negative negative Opiates Urine [place] ( [facility]) phencyclidine urine negative negative Phencyclidine Ur ine [place] ([facility]) ID Date Data Source [id number] 12/25/2020 12:19:00 PM EDT [place] ([facility]) Name Value Range Interpretation Code Description Data Claudia rce(s) Supporting Document(s) appearance, urine rfx clear clear Appearance, Ur ine Rfx [place] ([facility]) specific gravity ur auto rfx S3 1.002-1.035 Specif ic [place] Ur Auto Rfx [place] ([facility]) color, urine rfx yellow yellow Color, Urine Rfx [place] ([facility]) pH,urine rfx 7.0 units 5.0-9.0 pH,urine Rfx [place] ([facility]) protein, urine auto rfx 2+ negative Above high normal Prote in, Urine Auto Rfx [place] ([facility]) ketone, urine auto rfx 1+ negative Above high normal Ketone , Urine Auto Rfx [place] ([facility]) glucose, urine (UA) auto rfx negative negative Glucose , Urine (UA) Auto Rfx [place] ([facility]) urobilinogen, urine auto rfx 0.2 mg/dL 0.0-2.0 Urobili nogen, Urine Auto Rfx [place] ([facility]) blood, urine blood rfx negative negative Blood, Urine Blood Rfx [place] ([facility]) bilirubin, urine auto rfx negative negative Bilirubin, Urine Auto Rfx [place] ([facility]) leukocyte esterase ur auto rfx negative negative Leukocyte Esterase Ur Auto Rfx [place] ([facility]) nitrite, urine auto rfx negative negative Nitrite, Uri ne Auto Rfx [place] ([facility]) squam epithelial cell ur aurfx 0 /hpf 0-6 Squam Epithelial Cell Ur Aurfx [place] ([facility]) RBC, urine auto rfx 1 /hpf 0-3 RBC, Urine Auto Rfx [place] ([facility]) bacteria, urine auto rfx negative negative Bacteria, U rine Auto Rfx [place] ([facility]) WBC, urine auto rfx 1 /hpf 0-3 WBC, Urine Auto Rfx [place] ([facility]) mucus, urine rfx small negative Mucus, Urine Rfx [place] ([facility]) hyaline cast, urine auto rfx 0 /lpf 0-1 Hyaline Cast, Urine Auto Rfx [place] ([facility]) ID Date Data Source [id number] 12/25/2020 12:19:00 PM EDT [place] ([facility]) Name Value Range Interpretation Code Description Data Claudia rce(s) Supporting Document(s) barbiturates urine negative negative Barbiturates Urin e [place] ([facility]) cocaine metabolite urine negative negative Cocaine Met abolite Urine [place] ([facility]) amphetamines level urine negative negative Amphetamine s Level Urine [place] ([facility]) cannabinoids urine positive negative Above high normal Cannabinoi ds Urine [place] ([facility]) benzodiazepines urine negative negative Benzodiazepine s Urine [place] ([facility]) methadone urine negative negative [facility] phencyclidine urine negative negative Phencyclidine Ur ine [place] ([facility]) opiates urine negative negative Opiates Urine [place] ( [facility]) ID Date Data Source [id number] 12/25/2020 12:19:00 PM EDT [place] ([facility]) Name Value Range Interpretation Code Description Data Claudia rce(s) Supporting Document(s) appearance, urine rfx clear clear Appearance, Ur ine Rfx [place] ([facility]) specific gravity ur auto rfx S3 1.002-1.035 Specif ic [place] Ur Auto Rfx [place] ([facility]) color, urine rfx yellow yellow Color, Urine Rfx [place] ([facility]) pH,urine rfx 7.0 units 5.0-9.0 pH,urine Rfx [place] ([facility]) protein, urine auto rfx 2+ negative Above high normal Prote in, Urine Auto Rfx [place] ([facility]) ketone, urine auto rfx 1+ negative Above high normal Ketone , Urine Auto Rfx [place] ([facility]) glucose, urine (UA) auto rfx negative negative Glucose , Urine (UA) Auto Rfx [place] ([facility]) bilirubin, urine auto rfx negative negative Bilirubin, Urine Auto Rfx [place] ([facility]) urobilinogen, urine auto rfx 0.2 mg/dL 0.0-2.0 Urobili nogen, Urine Auto Rfx [place] ([facility]) nitrite, urine auto rfx negative negative Nitrite, Uri ne Auto Rfx [place] ([facility]) leukocyte esterase ur auto rfx negative negative Leukocyte Esterase Ur Auto Rfx [place] ([facility]) WBC, urine auto rfx 1 /hpf 0-3 WBC, Urine Auto Rfx [place] ([facility]) RBC, urine auto rfx 1 /hpf 0-3 RBC, Urine Auto Rfx [place] ([facility]) blood, urine blood rfx negative negative Blood, Urine Blood Rfx [place] ([facility]) squam epithelial cell ur aurfx 0 /hpf 0-6 Squam Epithelial Cell Ur Aurfx [place] ([facility]) bacteria, urine auto rfx negative negative Bacteria, U rine Auto Rfx [place] ([facility]) mucus, urine rfx small negative Mucus, Urine Rfx AT [facility]) hyaline cast, urine auto rfx 0 /lpf 0-1 Hyaline Cast, Urine Auto Rfx [place] ([facility]) ID Date Data Source [id number] 12/25/2020 12:19:00 PM EDT [facility]) Name Value Range Interpretation Code Description Data Claudia rce(s) Supporting Document(s) amphetamines level urine negative negative Amphetamine s Level Urine [place] ([facility]) cannabinoids urine positive negative Above high normal Cannabinoi ds Urine [place] ([facility]) barbiturates urine negative negative Barbiturates Urin e [place] ([facility]) benzodiazepines urine negative negative Benzodiazepine s Urine [place] ([facility]) opiates urine negative negative Opiates Urine [place] ( [facility]) methadone urine negative negative Methadone Urine [facility] cocaine metabolite urine negative negative Cocaine Met abolite Urine [place] ([facility]) phencyclidine urine negative negative Phencyclidine Ur ine [place] ([facility]) ID Date Data Source [id number] 12/25/2020 12:19:00 PM EDT [facility]) Name Value Range Interpretation Code Description Data Claudia rce(s) Supporting Document(s) appearance, urine rfx clear clear Appearance, Ur ine Rfx [place] ([facility]) color, urine rfx yellow yellow Color, Urine Rfx AT [facility] ([facility]) specific gravity ur auto rfx S3 1.002-1.035 Specif ic [place] Ur Auto Rfx [place] ([facility]) protein, urine auto rfx 2+ negative Above high normal Prote in, Urine Auto Rfx [place] ([facility]) pH,urine rfx 7.0 units 5.0-9.0 pH,urine Rfx [place] ([facility]) urobilinogen, urine auto rfx 0.2 mg/dL 0.0-2.0 Urobili nogen, Urine Auto Rfx [place] ([facility]) glucose, urine (UA) auto rfx negative negative Glucose , Urine (UA) Auto Rfx [place] ([facility]) ketone, urine auto rfx 1+ negative Above high normal Ketone , Urine Auto Rfx [place] ([facility]) bilirubin, urine auto rfx negative negative Bilirubin, Urine Auto Rfx [place] ([facility]) nitrite, urine auto rfx negative negative Nitrite, Uri ne Auto Rfx [place] ([facility]) blood, urine blood rfx negative negative Blood, Urine Blood Rfx [place] ([facility]) leukocyte esterase ur auto rfx negative negative Leukocyte Esterase Ur Auto Rfx [place] ([facility]) WBC, urine auto rfx 1 /hpf 0-3 WBC, Urine Auto Rfx [place] ([facility]) mucus, urine rfx small negative Mucus, Urine Rfx AT [facility] ([facility]) RBC, urine auto rfx 1 /hpf 0-3 RBC, Urine Auto Rfx [place] ([facility]) squam epithelial cell ur aurfx 0 /hpf 0-6 Squam Epithelial Cell Ur Aurfx [place] ([facility]) bacteria, urine auto rfx negative negative Bacteria, U rine Auto Rfx [place] ([facility]) hyaline cast, urine auto rfx 0 /lpf 0-1 Hyaline Cast, Urine Auto Rfx [place] ([facility]) ID Date Data Source [id number] 12/25/2020 10:53:00 AM EDT [facility] Name Value Range Interpretation Code Description Data Claudia rce(s) Supporting Document(s) SARS-CoV-2 (COVID 19) NEGATIVE - SARS-CoV-2 (COVID19) [place] This lab was ordered by [facility] a nd reported by [facility]. ID Date Data Source [id number] 12/25/2020 10:13:00 AM EDT [place] ([facility]) Name Value Range Interpretation Code Description Data Claudia rce(s) Supporting Document(s) bedside glucose 114 mg/dL 70-105 Above high normal Bedside Gluco se [place] ([facility]) ID Date Data Source [id number] 12/25/2020 10:13:00 AM EDT [facility]) Name Value Range Interpretation Code Description Data Claudia rce(s) Supporting Document(s) bedside glucose 114 mg/dL 70-105 Above high normal Bedside Gluco se [facility]) ID Date Data Source [id number] 12/25/2020 10:13:00 AM EDT [facility]) Name Value Range Interpretation Code Description Data Claudia rce(s) Supporting Document(s) bedside glucose 114 mg/dL 70-105 Above high normal Bedside Gluco se [facility]) ID Date Data Source [id number] 12/25/2020 10:13:00 AM EDT [facility]) Name Value Range Interpretation Code Description Data Claudia rce(s) Supporting Document(s) bedside glucose 114 mg/dL 70-105 Above high normal Bedside Gluco se [facility]) ID Date Data Source [id number] 12/25/2020 10:13:00 AM EDT [facility]) Name Value Range Interpretation Code Description Data Claudia rce(s) Supporting Document(s) bedside glucose 114 mg/dL 70-105 Above high normal Bedside Gluco se [facility]) ID Date Data Source [id number] 12/25/2020 08:10:00 AM EDT [facility]) Name Value Range Interpretation Code Description Data Claudia rce(s) Supporting Document(s) Troponin Laboratory test result [facility] ([facility]) Thyroid Stimulating Hormone 0.899 [place] ([facility]) ID Date Data Source [id number] 12/25/2020 08:10:00 AM EDT [facility] ([facility]) Name Value Range Interpretation Code Description Data Claudia rce(s) Supporting Document(s) Red Blood Count 5.20 4.00-5.40 [facility] ([facility]) White Blood Count 11.9 5.0-10.0 [facility] ([facility]) Platelets 217 172-450 [facility] ([facility]) Hemoglobin 16.5 [facility] ([facility]) Hematocrit 48.3 [facility] ([facility]) ID Date Data Source [id number] 03/30/2020 05:22:00 PM EDT [facility] Patient: TIMI YARBROUGHion Report - Physicians/Mid Levels [place].VisitID: [id number] [place] [address] [phone], MRegistration Date/Time: 03/30/2020 11:53 Weight:90.7 kg (S). Height/Length:74 inches (S). BMI:25.7 PAST HISTORYProblems:Hypertension. Additional Surgeries:"Heart monitor in my chest".Colonoscopy. (X2)Endoscopy. (X2). Medications:Chlorthalidone Oral (Tablet 25 mg), daily at bedtime, last dose 1 week ago.AmLODIPine Besylate Oral 10 mg, daily, last dose 1 week ago.Lisinopril Oral 25mg, daily, last dose 1 week ago. Allergies:None. FAMILY HISTORYNegative - denies family medical history. INSTRUCTIONSYour Current Medications: Your current home medications have been reviewed. CONTINUE TAKING THE FOLLOWING MEDICATIONS:AmLODIPine Besylate Oral : 10 mg daily, Last: 1 week ago. Chlorthalidone Oral : Tablet 25 mg, daily, Last: 1 week ago, at bedtime. Lisinopril Oral : 25mg daily, Last: 1 week ago. (Electronically signed by Dillon Ashley 03/30/2020 17:06) Name Value Range Interpretation Code Description Data Claudia rce(s) Supporting Document(s) ID Date Data Source [id number] 03/30/2020 02:17:00 PM EDT [facility] TSYSORDER [id number] Name Value Range Interpretation Code Description Data Claudia rce(s) Supporting Document(s) URINE RBC 0-2 /hpf 0-3 [facility] URINE WBC 0-2 /hpf 0-5 [facility] URINE EPITHELIAL CELLS 1+ /hpf 0 [facility] URINE MUCUS 3+ NEGATIVE Located Within [facility] ID Date Data Source [id number] 03/30/2020 02:09:00 PM EDT [facility] ital TSYSORDER [id number] Name Value Range Interpretation Code Description Data Claudia rce(s) Supporting Document(s) URINE COLOR. [facility] URINE APPEARANCE CLEAR [facility] SPECIFIC GRAVITY,URINE >= 1.030 1.001-1.035 [facility] URINE LEUKOCYTE ESTERASE NEGATIVE NEGATIVE [facility] URINE NITRATE NEGATIVE NEGATIVE [facility] PH,URINE 5.5 5.0-9.0 [facility] URINE PROTEIN TRACE mg/dL NEGATIVE [facility] URINE GLUCOSE (UA) NEGATIVE mg/dL NEGATIVE [facility] URINE KETONE 40(MODERATE) mg/dL NEGATIVE [facility] URINE UROBILINOGEN NORMAL(0.2-1) mg/dL 0-1 R [facility] URINE BILIRUBIN NEGATIVE NEGATIVE [facility] URINE BLOOD NEGATIVE NEGATIVE [facility] ID Date Data Source [id number] 03/30/2020 12:43:00 PM EDT [facility] DATE OF EXAMINATION: 03/30/2020 12:17 EDT TECHNIQUE: 1 views of the abdomen were obtained. HISTORY: Pain The intra-abdominal bowel gas pattern is nonspecific with no evidence forobstruction. No abnormal calcifications are identified within the abdomen. Noevidence for organomegaly or ascites is noted. No free intraperitoneal air is noted. IMPRESSION: Unremarkable abdomen exam. Electronically signed in [id number] by: Alfie Covington M.D. 03/30/2020 12:37 EDT Name Value Range Interpretation Code Description Data Claudia rce(s) Supporting Document(s) ID Date Data Source [id number] 03/30/2020 01:05:00 PM EDT [facility] TSYSORDER [id number] Name Value Range Interpretation Code Description Data Claudia rce(s) Supporting Document(s) FREE T4 1.19 ng/dL 0.76-1.46 [facility] ID Date Data Source [id number] 03/30/2020 01:05:00 PM EDT [facility] TSYSORDER [id number] Name Value Range Interpretation Code Description Data Claudia rce(s) Supporting Document(s) TSH 0.45 uIU/mL 0.36-3.74 [facility] ID Date Data Source [id number] 03/30/2020 12:58:00 PM EDT [facility] TSYSORDER [id number] Name Value Range Interpretation Code Description Data Claudia rce(s) Supporting Document(s) MAGNESIUM 1.9 mg/dL 1.8-2.4 [facility] ID Date Data Source [id number] 03/30/2020 12:58:00 PM EDT [facility] TSYSORDER [id number] Name Value Range Interpretation Code Description Data Claudia rce(s) Supporting Document(s) LIPASE 100 U/L 73-393 [facility] ID Date Data Source [id number] 03/30/2020 12:58:00 PM EDT [facility] TSYSORDER [id number] Name Value Range Interpretation Code Description Data Claudia rce(s) Supporting Document(s) GLUCOSE 89 mg/dL 74-106 [facility] BLOOD UREA NITROGEN 11 mg/dL 7-18 [facility] CREATININE 0.7 mg/dL 0.7-1.3 [facility] SODIUM 139 mmol/L 136-145 [facility] POTASSIUM 3.4 mmol/L 3.5-5.1 L [facility] CHLORIDE 102 mmol/L 98-107 [facility] CO2 27 mmol/L 21-32 [facility] CALCIUM 9.8 mg/dL 8.5-10.1 [facility] ANION GAP 10.0 mmol/L 5-12 [facility] GLOMERULAR FILTRATION RATE >90 mL/min [facility] GFR IS CALCULATED IN mL/min/1.73m2 CLARKE L FUNCTION: >90MILDLY DECREASED: 60-89MILDY TO MODERATELY DECREASED: 45-59 MODERATELY TO SEVERELY DECREASED: 30-44SEVERELY DECREASED: 15-29RENAL FAILURE: <15 AST 24 U/L 15-37 [facility] ALT 30 U/L 12-78 [facility] ALKALINE PHOSPHATASE 83 U/L 46-116 [facility]ital TOTAL BILIRUBIN 0.7 mg/dL 0.2-1.0 [facility] TOTAL PROTEIN 8.4 g/dl 6.4-8.2 H [facility] ALBUMIN 4.7 gm/dL 3.4-5.0 [facility] ID Date Data Source [id number] 03/30/2020 12:51:00 PM EDT [facility] [id number] Name Value Range Interpretation Code Description Data Claudia rce(s) Supporting Document(s) PARTIAL THROMBOPLASTIN TIME 27.6 SECONDS 21.4-30.2 [facility] ID Date Data Source [id number] 03/30/2020 12:51:00 PM EDT [facility] TSYSORDER [id number] Name Value Range Interpretation Code Description Data Claudia rce(s) Supporting Document(s) PROTHROMBIN TIME (PATIENT) 11.0 SECONDS 9.2-11.6 [facility] INR 1.06 0.87-1.06 [facility] ID Date Data Source [id number] 03/30/2020 12:31:00 PM EDT [facility] TSYSORDER [id number] Name Value Range Interpretation Code Description Data Claudia rce(s) Supporting Document(s) WHITE BLOOD COUNT 7.5 K/mm3 4.0-10.0 [facility] al RED BLOOD COUNT 4.59 M/mm3 4.50-6.00 [facility] HEMOGLOBIN 14.6 gm/dL 14.0-18.0 [facility] HEMATOCRIT 41.7 % 42.0-54.0 L [facility] MEAN CELL VOLUME 90.8 fl 80-96 [facility] MEAN CORPUSCULAR HEMOGLOBIN 31.8 pg 27.0-31.0 H [facility] MEAN CORPUSCULAR HGB CONC 35.0 g/dl 32.0-36.0 [facility] RED CELL DISTRIBUTION WIDTH 12.3 % 10.0-14.5 [facility] PLATELET COUNT 253 K/mm3 172-450 [facility] MEAN PLATELET VOLUME 10.1 fl 9.0-13.0 [facility]ital GRAN % 68.0 % 50-80.0 [facility] IG% 0.1 % 0.0-0.2 [facility] LYMPH % 23.1 % 25.0-50.0 L [facility] MONO % 7.3 % 2.0-10.0 [facility] EOS % 1.2 % 0-5.0 [facility] BASO % 0.3 % 0.0-2.0 [facility] GRAN # 5.1 K/mm3 2.0-8.00 [facility] IG# 0.0 K/mm3 0.0-0.2 [facility] LYMPH # 1.7 K/mm3 1.0-5.0 [facility] MONO # 0.6 K/mm3 0.10-1.20 [facility] EOS # 0.1 K/mm3 0.0-0.5 [facility] BASO # 0.0 K/mm3 0.0-0.2 [facility] Procedure Social History No Information Vital Signs ID Date Data Source [id number] Name Value Range Interpretation Code Description Data Source(s) Diastolic blood pressure 82 mm[Hg] 82 mm[Hg] [place] ([facility]) Body height 74 [in_i] 74 [in_i] [place] ([facility]) Body mass index (BMI) [Ratio] 27.4 kg/m2 27.4 k g/m2 [place] ([facility]) Systolic blood pressure 125 mm[Hg] 125 mm[Hg] A [facility] ([facility]) Body weight 3412 [oz_av] 3412 [oz_av] [place] ([facility]) Diastolic blood pressure 83 mm[Hg] 83 mm[Hg] [place] ([facility]) Body height 74 [in_i] 74 [in_i] [place] ([facility]) Body mass index (BMI) [Ratio] 27.2 kg/m2 27.2 k g/m2 [place] ([facility]) Systolic blood pressure 132 mm[Hg] 132 mm[Hg] A [facility] ([facility]) Body weight 3394 [oz_av] 3394 [oz_av] [place] ([facility]) Diastolic blood pressure 83 mm[Hg] 83 mm[Hg] [place] ([facility]) Body height 74 [in_i] 74 [in_i] [place] ([facility]) Body mass index (BMI) [Ratio] 27.2 kg/m2 27.2 k g/m2 [place] ([facility]) Systolic blood pressure 132 mm[Hg] 132 mm[Hg] A [facility] ([facility]) Body weight 3394 [oz_av] 3394 [oz_av] [place] ([facility]) Diastolic blood pressure 83 mm[Hg] 83 mm[Hg] [place] ([facility]) Body height 74 [in_i] 74 [in_i] [place] ([facility]) Body mass index (BMI) [Ratio] 27.2 kg/m2 27.2 k g/m2 [place] ([facility]) Systolic blood pressure 132 mm[Hg] 132 mm[Hg] A [place] ([facility]) Body weight 3394 [oz_av] 3394 [oz_av] [place] ([facility]) Body weight 200.00 [lb_av] 200.00 [lb_av] [place] ([facility]) Body height 74 [in_i] 74 [in_i] [facility] ([facility]) 6'2" Body mass index (BMI) [Ratio] 25.7 kg/m2 25.7 k g/m2 [facility] ([facility]) Heart rate 77 /min 77 /min [facility] ([facility]) Systolic blood pressure--sitting 128 mm[Hg] 128 mm[Hg] [facility] ([facility]) large cuff, Ra Diastolic blood pressure--sitting 84 mm[Hg] 84 mm[Hg] [facility] ([facility]) large cuff, Ra Body height 74 [in_i] 74 [in_i] [place] ([facility]) Body height 74 [in_i] 74 [in_i] [place] ([facility]) Body height 74 [in_i] 74 [in_i] [place] ([facility]) Body height 74 [in_i] 74 [in_i] [place] ([facility]) Diastolic blood pressure 75 mm[Hg] 75 mm[Hg] [place] ([facility]) Body height 74 [in_i] 74 [in_i] [place] ([facility]) Body mass index (BMI) [Ratio] 26.8 kg/m2 26.8 k g/m2 [place] ([facility]) Systolic blood pressure 136 mm[Hg] 136 mm[Hg] A [place] ([facility]) Body weight 3344 [oz_av] 3344 [oz_av] [place] ([facility]) Diastolic blood pressure 75 mm[Hg] 75 mm[Hg] [place] ([facility]) Body height 74 [in_i] 74 [in_i] [place] ([facility]) Body mass index (BMI) [Ratio] 26.8 kg/m2 26.8 k g/m2 [place] ([facility]) Systolic blood pressure 136 mm[Hg] 136 mm[Hg] A THE[place] ([facility]) Body weight 3344 [oz_av] 3344 [oz_av] [place] ([facility]) Diastolic blood pressure 75 mm[Hg] 75 mm[Hg] [place] ([facility]) Body height 74 [in_i] 74 [in_i] [place] ([facility]) Body mass index (BMI) [Ratio] 26.8 kg/m2 26.8 k g/m2 [place] ([facility]) Systolic blood pressure 136 mm[Hg] 136 mm[Hg] A [place] ([facility]) Body weight 3344 [oz_av] 3344 [oz_av] [place] ([facility]) Diastolic blood pressure 75 mm[Hg] 75 mm[Hg] [place] ([facility]) Body height 74 [in_i] 74 [in_i] [place] ([facility]) Body mass index (BMI) [Ratio] 26.8 kg/m2 26.8 k g/m2 [place] ([facility]) Systolic blood pressure 136 mm[Hg] 136 mm[Hg] A [place] ([facility]) Body weight 3344 [oz_av] 3344 [oz_av] [place] ([facility]) Diastolic blood pressure 75 mm[Hg] 75 mm[Hg] [place] ([facility]) Body height 74 [in_i] 74 [in_i] [place] ([facility]) Body mass index (BMI) [Ratio] 26.8 kg/m2 26.8 k g/m2 [place] ([facility]) Systolic blood pressure 136 mm[Hg] 136 mm[Hg] A THENA ([facility]) Body weight 3344 [oz_av] 3344 [oz_av] [place] ([facility]) Body weight 216.00 [lb_av] 216.00 [lb_av] MADELEINE T ([facility]) Body height 74 [in_i] 74 [in_i] JOS[facility] ([facility]) 6'2" Body mass index (BMI) [Ratio] 27.7 kg/m2 27.7 k g/m2 [place] ([facility]) Systolic blood pressure--sitting 146 mm[Hg] 146 mm[Hg] [facility] ([facility]) Ra, large cuff Diastolic blood pressure--sitting 84 mm[Hg] 84 mm[Hg] [facility] ([facility]) Ra, large cuff Diastolic blood pressure 97 mm[Hg] 97 mm[Hg] [facility] ([facility]) Body height 74 [in_i] 74 [in_i] [place]YZ ([facility]) Body mass index (BMI) [Ratio] 27 kg/m2 27 kg/ m2 [place] ([facility]) Systolic blood pressure 143 mm[Hg] 143 mm[Hg] A [facility] ([facility]) Body weight 3364 [oz_av] 3364 [oz_av] [place] ([facility]) Diastolic blood pressure 97 mm[Hg] 97 mm[Hg] [place] ([facility]) Body weight 3364 [oz_av] 3364 [oz_av] [place] ([facility]) Systolic blood pressure 143 mm[Hg] 143 mm[Hg] A THENA ([facility]) Body height 74 [in_i] 74 [in_i] [place] ([facility]) Body mass index (BMI) [Ratio] 27 kg/m2 27 kg/ m2 [place] ([facility]) Diastolic blood pressure 97 mm[Hg] 97 mm[Hg] [facility] ([facility]) Body height 74 [in_i] 74 [in_i] [place] ([facility]) Body mass index (BMI) [Ratio] 27 kg/m2 27 kg/ m2 [facility] ([facility]) Systolic blood pressure 143 mm[Hg] 143 mm[Hg] A THENA ([facility]) Body weight 3364 [oz_av] 3364 [oz_av] [facility] ([facility]) Diastolic blood pressure 97 mm[Hg] 97 mm[Hg] [facility] ([facility]) Body height 74 [in_i] 74 [in_i] [place] ([facility]) Body mass index (BMI) [Ratio] 27 kg/m2 27 kg/ m2 [facility] ([facility]) Systolic blood pressure 143 mm[Hg] 143 mm[Hg] A THENA ([facility]) Body weight 3364 [oz_av] 3364 [oz_av] [facility] ([facility]) Body weight 3364 [oz_av] 3364 [oz_av] [facility] ([facility]) Diastolic blood pressure 97 mm[Hg] 97 mm[Hg] [facility] ([facility]) Body height 74 [in_i] 74 [in_i] [place] ([facility]) Body mass index (BMI) [Ratio] 27 kg/m2 27 kg/ m2 [facility] ([facility]) Systolic blood pressure 143 mm[Hg] 143 mm[Hg] A [facility] ([facility]) Diastolic blood pressure 97 mm[Hg] 97 mm[Hg] [facility] ([facility]) Body height 74 [in_i] 74 [in_i] [facility] ([facility]) Body mass index (BMI) [Ratio] 27 kg/m2 27 kg/ m2 [facility] ([facility]) Systolic blood pressure 143 mm[Hg] 143 mm[Hg] A THENA ([facility]) Body weight 3364 [oz_av] 3364 [oz_av] SUZY ([facility]) Diastolic blood pressure 97 mm[Hg] 97 mm[Hg] SUZY ([facility]) Body height 74 [in_i] 74 [in_i] SUZY ([facility]) Body mass index (BMI) [Ratio] 27 kg/m2 27 kg/ m2 SUZY ([facility]) Systolic blood pressure 143 mm[Hg] 143 mm[Hg] A THENA ([facility]) Body weight 3364 [oz_av] 3364 [oz_av] SUZY ([facility]) Diastolic blood pressure 97 mm[Hg] 97 mm[Hg] SUZY ([facility]) Body height 74 [in_i] 74 [in_i] SUZY ([facility]) Body mass index (BMI) [Ratio] 27 kg/m2 27 kg/ m2 SUZY ([facility]) Systolic blood pressure 143 mm[Hg] 143 mm[Hg] [place] THENA ([facility]) Body weight 3364 [oz_av] 3364 [oz_av] SUZY ([facility]) Patient Treatment Plan of Care Planned Activity Planned Date Details Description Data Source (s) 24 HR Nicotine 0.583 MG/HR Transdermal Patch SUZY ([facility]) methylprednisolone 4 mg tablets in a dos e pack USE DIRECTED ON PACKAGE - START TOMORROW SUZY ([facility]) Ibuprofen 800 MG Oral Tablet SUZY ([facility]) gabapentin 600 MG Oral Tablet SUZY ([facility]) Cyclobenzaprine hydrochloride 10 MG Oral Tablet SUZY ([facility]) Carbamazepine 200 MG Oral Tablet SUZY ([facility]) atorvastatin 10 MG Oral Tablet SUZY ([facility]) Amlodipine 10 MG Oral Tablet SUZY ([facility]) 24 HR Nicotine 0.583 MG/HR Transdermal Patch SUZY ([facility]) methylprednisolone 4 mg tablets in a dos e pack USE DIRECTED ON PACKAGE - START TOMORROW SUZY ([facility]) Ibuprofen 800 MG Oral Tablet SUZY ([facility]) Cyclobenzaprine hydrochloride 10 MG Oral Tablet SUZY ([facility]) atorvastatin 10 MG Oral Tablet SUZY ([facility]) Amlodipine 10 MG Oral Tablet SUZY ([facility]) 24 HR Nicotine 0.583 MG/HR Transdermal Patch SUZY ([facility]) methylprednisolone 4 mg tablets in a dos e pack USE DIRECTED ON PACKAGE - START TOMORROW SUZY ([facility]) Ibuprofen 800 MG Oral Tablet SUZY ([facility]) Cyclobenzaprine hydrochloride 10 MG Oral Tablet SUZY ([facility]) atorvastatin 10 MG Oral Tablet SUZY ([facility]) Amlodipine 10 MG Oral Tablet SUZY ([facility]) 24 HR Nicotine 0.583 MG/HR Transdermal Patch SUZY ([facility]) Ibuprofen 800 MG Oral Tablet SUZY ([facility]) Cyclobenzaprine hydrochloride 10 MG Oral Tablet SUZY ([facility]) atorvastatin 10 MG Oral Tablet SUZY ([facility]) Amlodipine 10 MG Oral Tablet SUZY ([facility]) 24 HR Nicotine 0.583 MG/HR Transdermal Patch SUZY ([facility]) Ibuprofen 800 MG Oral Tablet SUZY ([facility]) Cyclobenzaprine hydrochloride 10 MG Oral Tablet SUZY ([facility]) atorvastatin 10 MG Oral Tablet SUZY ([facility]) Amlodipine 10 MG Oral Tablet SUZY ([facility]) 24 HR Nicotine 0.583 MG/HR Transdermal Patch SUZY ([facility]) 24 HR Nicotine 0.583 MG/HR Transdermal Patch SUZY ([facility]) 24 HR Nicotine 0.583 MG/HR Transdermal Patch SUZY ([facility])
[2021-05-12] MEDS: MORPHINE 2 MG/ML 1ML VIAL (J2270) IV PRN ×3 (20:00→20:25)
[2021-05-12] MEDS ORDERED: ONDANSETRON 4MG/2ML VIAL IV ONE (20:00)
[2021-05-12] MEDS ORDERED: ISOVUE-370 76% 100ML VIAL As Ordered ONE (20:47)
[2021-05-12 21:04] LABS: BASO % 0.3 % (0.0-1.0); EOS # 0.1 10^3/uL (0.0-0.5); EOS % 0.8 % (0.0-3.0); HEMOGLOBIN 13.9 g/dl (13.5-17.5); LYMPH # 1.9 10^3/uL (1.5-5.0); LYMPH % 16.2 % (24.0-44.0); MEAN CORPUSCULAR HEMOGLOBIN 32.9 pg (27.0-33.0); MEAN CORPUSCULAR HGB CONC 34.8 g/dl (32.0-36.5); MEAN CORPUSCULAR VOLUME 94.6 fl (80.0-96.0); MONO % 8.5 % (2.0-8.0); NEUTROPHILS # 8.5 10^3/uL (1.5-8.5); NEUTROPHILS % 73.9 % (36.0-66.0); PLATELET COUNT, AUTOMATED 238 10^3/uL (150-450); RED BLOOD COUNT 4.23 10^6/uL (4.30-6.10); WHITE BLOOD COUNT 11.4 10^3/uL (4.0-10.0)
[2021-05-12 21:37] LABS: ALBUMIN 4.1 GM/DL (3.2-5.2); BILIRUBIN,DIRECT 0.2 MG/DL (0.0-0.2); BILIRUBIN,TOTAL 0.5 MG/DL (0.2-1.0); THYROID STIMULATING HORMONE 1.34 uIU/ML (0.358-3.740); TOTAL PROTEIN 7.5 GM/DL (6.4-8.2)
--- NOTE | 2021-05-12 21:56 | REPVR ---
PROCEDURE INFORMATION: Exam: CTA Chest With Contrast Exam date and time: 05/12/2021 8:51 PM Age: 36 years old Clinical indication: Pain; Chest pressure; Additional info: Chest pain; R/O pe/taa TECHNIQUE: Imaging protocol: Computed tomographic angiography of the chest with contrast. 3D rendering (Not supervised by radiologist): MIP and/or 3D reconstructed images were created by the technologist. Radiation optimization: All CT scans at this facility use at least one of these dose optimization techniques: automated exposure control; mA and/or kV adjustment per patient size (includes targeted exams where dose is matched to clinical indication); or iterative reconstruction. Contrast material: ISOVUE 370; Contrast volume: 75 ml; Contrast route: INTRAVENOUS (IV); COMPARISON: 1. CR PORTABLE CHEST X-RAY 2021-05-12 20:07 2. CR PORTABLE CHEST X-RAY 2020-12-25 09:41 FINDINGS: Pulmonary arteries: The pulmonary arteries demonstrate mild central enlargement, consistent with mild pulmonary hypertension. No filling defects in the pulmonary arteries to suggest pulmonary emboli. Aorta: Unremarkable. No aortic aneurysm. No aortic dissection. Lungs: Dependent subsegmental pulmonary atelectasis. Minimal bronchial wall thickening with scattered small amounts of mucus secretions within them. Correlate for bronchiolitis Pleural spaces: Unremarkable. No pneumothorax. No pleural effusion. Heart: Unremarkable. No cardiomegaly. No pericardial effusion. Lymph nodes: Unremarkable. No enlarged lymph nodes. Spleen: Splenomegaly. Bones/joints: Unremarkable. No acute fracture. Soft tissues: Unremarkable. IMPRESSION: 1. Splenomegaly. 2. Minimal bronchial wall thickening with scattered small amounts of mucus secretions within them. Correlate for bronchiolitis Impression. 3. No filling defects in the pulmonary arteries to suggest pulmonary emboli. 4. The pulmonary arteries demonstrate mild central enlargement, consistent with mild pulmonary hypertension. Electronically signed by: Tadeo Ng On 05/12/2021 21:55:59 PM
--- NOTE | 2021-05-12 21:56 | REPVR ---
PROCEDURE INFORMATION: Exam: XR Chest Exam date and time: 05/12/2021 8:43 PM Age: 36 years old Clinical indication: Other: Chest pain TECHNIQUE: Imaging protocol: XR of the chest. Views: 1 view. COMPARISON: 1. CR PORTABLE CHEST X-RAY 2020-12-25 09:41 2. CR Chest, 2 view PA, Lat 2016-02-26 23:09 3. CR Chest, 1 view 2015-10-08 16:23 FINDINGS: Lungs: Unremarkable. No consolidation. Pleural spaces: Unremarkable. No pleural effusion. No pneumothorax. Heart/Mediastinum: Unremarkable. No cardiomegaly. Bones/joints: Unremarkable. IMPRESSION: No acute findings. Electronically signed by: Tadeo Ng On 05/12/2021 21:56:27 PM
--- OUTSIDE RECORDS SUMMARY | 2021-05-12 22:13 | CCD ---
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 Name Role Phone Angelia Horner MD Unavailable [...] Unavailable Unavailable Angelia Horner MD Unavailable Unavailable Angelai Horner MD Unavailable Unavailable Angelia Horner MD Unavailable Unavailable Angelia Horner MD Unavailable Unavailable Angelia oHrner MD Unavailable Unavailable Angelia Horner MD Unavailable [...] EDWARD RPA Unavailable Unavailable Chelle Clay Unavailable [phone] Chelle Clay Unavailable [phone] Yun Clayly Unavailable [phone] Scordo, M Ashia PA Unavailable Unavailable Scordo, [...] M Ashia PA Unavailable Unavailable Scordo, M Asiha PA Unavailable Unavailable Scordo, M Ashia PA [...] CHANLIECCO, C KOMAL MD Unavailable Unavailable Cesar, [place] Lyndsay Unavailable Unavailable Cesar, [place] Lyndsay Unavailable Unavailable Cesar, [place] Lyndsay Unavailable Unavailable Cesar, [place] Lyndsay Unavailable Unavailable Cesar, [place] Lyndsay Unavailable Unavailable Cesar, [place] Lyndsay Unavailable Unavailable Cesar, [place] Lyndsay Unavailable Unavailable Cesar, [place] Lyndsay Unavailable Unavailable Cesar, [place] Lyndsay Unavailable Unavailable Cesar, [place] Lyndsay Unavailable Unavailable Cesar, [place] Lyndsay Unavailable Unavailable Cesar, [place] Lyndsay Unavailable Unavailable Cesar, [place] Lyndsay Unavailable Unavailable Re-disclosure Warning The records [...] is protected by Article 27-F of the [facility] Public Health law. If you continue you may have access to information: Regarding HIV / AIDS; Provided by facilities licensed or operated by the [facility] Office of Mental Health; or Provided by the [facility] Office for People With Developmental Disabilities. If such information is present, then the following [facility] mandated warning applies: This information has been [...] law may result in a fine or shelter sentence or both. A general authorization for the release of medical or other information is NOT sufficient authorization for further disc losure. Family History Family Member Name Family Member Gender Family Member Status Date o f Status Description Data Source(s) Unknown Unknown Problem [facility] PGM Unknown Unknown Problem [facility] ([facility]) Encounters Encounter Providers Location Date Indications Data Source(s ) NEERAJ Johnson: [address], [place] [address], Ph. Attender: Chelle Clay [facility] Medical 05/10/2021 12:00:00 AM EDT [facility]) Ashia Steinberg PA-C: [address], [place] [address], Ph. Attender: Ashia ROBERTSON [facility] Medical 04/14/2021 12:00:00 AM EDT [facility]) Ashia Steinberg PA-C: [address], [place] [address], Ph. Attender: Ashia ROBERTSON [facility] Medical 04/14/2021 12:00:00 AM EDT [facility]) Ashia Steinberg PA-C: [address], [place] [address], Ph. Attender: Ashia ROBERTSON [facility] Medical 04/14/2021 12:00:00 AM EDT [facility]) Ashia Scordo, PA-C: [address], [place] [address], Ph. Attender: Ashia ROBERTSON [facility] Medical 04/13/2021 12:00:00 AM EDT [facility]) Ashia Steinberg PA-C: [address], [place] [address], Ph. Attender: Ashia ROBERTSON [facility] Medical 04/13/2021 12:00:00 AM EDT [place] ([facility]) Ashia Steinberg PA-C: [address], [place] [address], Ph. Attender: Ashia ROBERTSON [facility] Medical 04/13/2021 12:00:00 AM EDT [place] ([facility]) Outpatient Attender: AIMEE ROBERTSON Main Office 03/31/2021 0 8:15:00 AM EDT [facility] ([facility]) Emergency Attender: KOMAL PEREZ MDConsultant: Paul Horner MD 03/30/2021 08:31:00 AM EDT - 03/30/2021 10:10:00 AM EDT [facility] Patient discharged. Outpatient Attender: DAISHA YOON RPA 03/29 09:01:59 AM EDT - 03/29/2021 10:43:28 AM EDT [facility] ([facility] ) Ashia Steinberg PA-C: [address], [place] [address], Ph. Attender: Ashia ROBERTSON [facility] Medical 02/17/2021 12:00:00 AM EDT [facility]) Ashia Steinberg PA-C: [address], [place] [address], Ph. Attender: Ashia ROBERTSON [facility] Medical 02/17/2021 12:00:00 AM EDT [facility] ([facility]) Ashia Steinberg PA-C: [address], [place] [address], Ph. Attender: Ashia ROBERTSON [facility] Medical 02/17/2021 12:00:00 AM EDT [facility] ([facility]) Ashia Steinberg PA-C: [address], [place] [address], Ph. Attender: Ashia ROBERTSON [facility] Medical 02/17/2021 12:00:00 AM EDT [facility] ([facility]) Ashia Steinberg PA-C: [address], [place] [address], Ph. Attender: Ashia ROBERTSON [facility] Medical 02/03/2021 12:00:00 AM EDT [facility] ([facility]) Ashia Steinberg PA-C: [address], [place] [address], Ph. Attender: Ashia ROBERTSON [facility] Medical 02/03/2021 12:00:00 AM EDT [facility] ([facility]) Ashia Steinberg PA-C: [address], [place] [address], Ph. Attender: Ashia ROBERTSON [facility] Medical 02/03/2021 12:00:00 AM EDT [facility] ([facility]) Ashia Steinberg PA-C: [address], [place] [address], Ph. Attender: Ashia ROBERTSON [facility] Medical 02/03/2021 12:00:00 AM EDT [place] ([facility]) Ashia Steinberg PA-C: [address] [place] [address], Ph. Attender: Ashia ROBERTSON [facility] Medical 02/03/2021 12:00:00 AM EDT [facility] ([facility]) GRETTA GonzalezC: [address], [place] [address], Ph. Attender: Lyndsay Cesar [facility] Medical 11/29/2020 12:00:00 AM EDT [place] ([facility]) GRETTA GonzalezC: [address] [place] [address], Ph. Attender: Lyndsay Cesar [facility] Medical 11/29/2020 12:00:00 AM EDT [place] ([facility]) GRETTA GonzalezC: [address], [place] [address], Ph. Attender: Lyndsay Cesar [facility] Medical 11/29/2020 12:00:00 AM EDT [place] ([facility]) GREG Gonzalez: [address], [place] [address], Ph. Attender: Lyndsay Cesar [facility] Medical 11/29/2020 12:00:00 AM EDT [place] ([facility]) GRETTA GonzalezC: [address] [place] [address], Ph. Attender: Lyndsay Cesar [facility] Medical 11/29/2020 12:00:00 AM EDT [facility] ([facility]) GRETTA GonzalezC: [address], [place] [address], Ph. Attender: Lyndsay Cesar [facility] Medical 11/29/2020 12:00:00 AM EDT [place] ([facility]) GRETTA GonzalezC: [address], [place] [address], Ph. Attender: Lyndsay Cesar [facility] Medical 11/01/2020 12:00:00 AM EDT [place] ([facility]) GRETTA GonzalezC: [address], [place] [address], Ph. Attender: Lyndsay Cesar [facility] Medical 11/01/2020 12:00:00 AM EDT [place] ([facility]) GRETTA GonzalezC: [address], [place] [address], Ph. Attender: Lyndsay Cesar [facility] Medical 11/01/2020 12:00:00 AM EDT [place] ([facility]) GRETTA GonzalezC: [address], [place] [address], Ph. Attender: Lyndsay Cesar [facility] Medical 11/01/2020 12:00:00 AM EDT [place] ([facility]) GRETTA GonzalezC: [address], [place] [address], Ph. Attender: Lyndsay Cesar [facility] Medical 11/01/2020 12:00:00 AM EDT [place] ([facility]) GRETTA GonzalezC: [address], [place] [address], Ph. Attender: Lyndsay Cesar [facility] Medical 11/01/2020 12:00:00 AM EDT [facility] ([facility]) GRETTA GonzalezC: [address], [place] [address], Ph. Attender: Lyndsay Cesar [facility] Medical 11/01/2020 12:00:00 AM EDT [facility] ([facility]) Outpatient Attender: AIMEE ROBERTSON Main Office 09/27/2020 0 7:00:00 AM EST [facility] ([facility]) Ashia Steinberg PA-C: [address], [facility] [place] [address], Ph. Attender: Ashia ROBERTSON [facility] Medical 05/30/2020 12:00:00 AM EST [facility] ([facility]) Ashia Steinberg PA-C: [address], [facility] [place] [address], Ph. Attender: Ashia ROBERTSON [facility] Medical 05/30/2020 12:00:00 AM EST [facility] ([facility]) Ashia Steinberg PA-C: [address], [place] [address], Ph. Attender: Ashia ROBERTSON [facility] Medical 05/30/2020 12:00:00 AM EST [place] ([facility]) Ashia Steinberg PA-C: [address], [place] [address], Ph. Attender: Ashia ROBERTSON [facility] Medical 05/30/2020 12:00:00 AM EST [facility] ([facility]) Ashia Steinberg PA-C: [address], [place] [address], Ph. Attender: Ashia ROBERTSON [facility] Medical 05/30/2020 12:00:00 AM EST [facility] ([facility]) Ashia Steinberg PA-C: [address], [place] [address], Ph. Attender: Ashia ROBERTSON [facility] Medical 05/30/2020 12:00:00 AM EST [facility] ([facility]) Ashia Steinberg PA-C: [address], [place] [address], Ph. Attender: Ashia ROBERTSON [facility] Medical 05/30/2020 12:00:00 AM EST [facility]) Ashia Steinberg PA-C: [address], [place] [address], Ph. Attender: Ashia ROBERTSON [facility] Medical 05/30/2020 12:00:00 AM [facility] ([facility]) Emergency Attender: TIMI ROBERTSON EMERGENCY ROOM- ER 03/30/2020 01:12:00 PM EDT - 03/30/2020 02:32:00 PM EDT [facility] Patient discharged. Outpatient Attender: JAYLON WANG MD 03/30/2020 08:06:00 A M EDT [facility] Immunizations Vaccine Date Status Description Data Source(s) COVID-19, mRNA, LNP-S, PF, 100 mcg/0.5 mL dose 11/29/2020 05 :26:14 PM EDT completed .5 mL [place] ([facility]) COVID-19, mRNA, LNP-S, PF, 100 mcg/0.5 mL dose 11/29/2020 05 :26:14 PM EDT completed .5 mL [facility]) COVID-19, mRNA, LNP-S, PF, 100 mcg/0.5 mL dose 11/29/2020 05 :26:14 PM EDT completed .5 mL [facility]) COVID-19, mRNA, LNP-S, PF, 100 mcg/0.5 mL dose 11/29/2020 05 :26:14 PM EDT completed .5 mL [facility]) COVID-19, mRNA, LNP-S, PF, 100 mcg/0.5 mL dose 11/29/2020 05 :26:14 PM EDT completed .5 mL [facility]) COVID-19, mRNA, LNP-S, PF, 100 mcg/0.5 mL dose 11/29/2020 05 :26:14 PM EDT completed .5 mL [facility]) COVID-19 VACCINE Moderna 11/29/2020 12:00:00 AM EDT completed [facility] Vaccine Series Complete: YESThis Data wa s Submitted to [facility] Via [employer]. COVID-19, mRNA, LNP-S, PF, 100 mcg/0.5 mL dose 11/01/2020 06 :02:28 PM EDT completed .5 mL [facility]) COVID-19, mRNA, LNP-S, PF, 100 mcg/0.5 mL dose 11/01/2020 06 :02:28 PM EDT completed .5 mL [facility]) COVID-19, mRNA, LNP-S, PF, 100 mcg/0.5 mL dose 11/01/2020 06 :02:28 PM EDT completed .5 mL [facility]) COVID-19, mRNA, LNP-S, PF, 100 mcg/0.5 mL dose 11/01/2020 06 :02:28 PM EDT completed .5 mL [facility]) COVID-19, mRNA, LNP-S, PF, 100 mcg/0.5 mL dose 11/01/2020 06 :02:28 PM EDT completed 10.5 mL [facility] ([facility]) COVID-19, mRNA, LNP-S, PF, 100 mcg/0.5 mL dose 11/01/2020 06 :02:28 PM EDT completed .5 mL [facility] ([facility]) COVID-19, mRNA, LNP-S, PF, 100 mcg/0.5 mL dose 11/01/2020 06 :02:28 PM EDT completed .5 mL [place] ([facility]) COVID-19 VACCINE Moderna 11/01/2020 12:00:00 AM EDT completed [facility] Vaccine Series Complete: NOThis Data was Submitted to [facility] Via [employer]. Medications Medication Brand Name Start Date Product Form Dose Route Admi nistrative Instructions Pharmacy Instructions Status Indications Reaction Description Data Source(s) Methylprednisolone 4 MG Oral Tablet Methylprednisolone 03/2021 12:00:00 AM EDT ORAL active [facility] Chlorthalidone 25 MG Oral Tablet Chlorthalidone 03/30/2021 12:00:00 A M EDT ORAL active [facility] ([facility]) atorvastatin 20 MG Oral Tablet Atorvastatin Calcium 03/30/2021 1 2:00:00 AM EDT ORAL active [facility] ( [facility]) Carbamazepine 200 MG Oral Tablet Carbamazepine 03/30/2021 12:00:00 AM EDT ORAL active [facility] ([facility]) Chlorthalidone 25 MG Oral Tablet Chlorthalidone 12/30/2020 12:00:00 A M EDT ORAL active [facility] ([facility]) 40 mg 12/25/2020 12:00:00 AM EDT [...] EDT active [facility] ([facility]) 25 mg 12/25/2020 12:00:00 AM EDT tablet 30 TAKE ONE-HALF TABLET BY MOUTH EVERY DAY TAKE ONE-HALF TABLET BY MOUTH EVERY DAY SOLD: 12/25/2020 Romero Sims 24 HR Nicotine 0.583 MG/HR Transdermal P atch nicotine 14 mg/24 hr daily transdermal patch nicotine 14 mg/24 hr daily transdermal patch completed 24 HR nicotine 0.583 MG/HR Trans dermal System [facility] ([facility]) atorvastatin 10 MG Oral Tablet atorvastatin 10 mg tabl et atorvastatin 10 mg tablet completed atorvastatin 10 MG Oral Tablet [place] ([facility]) Amlodipine 10 MG Oral Tablet amlodipine 10 mg tablet amlodipine 10 mg tablet completed amlodipine 10 MG Oral Tablet [place] ([facility]) Amlodipine 10 MG Oral Tablet amlodipine 10 mg tablet amlodipine 10 mg tablet completed amlodipine 10 MG Oral Tablet [place] ([facility]) gabapentin 600 MG Oral Tablet gabapentin 600 mg tablet TAKE ONE TABLET BY MOUTH THREE TIMES DAILY DIRECTED gabapentin 600 mg tablet TAKE ONE TABLET BY MOUTH THREE TIMES DAILY DIRECTED complete d gabapentin 600 MG Oral Tablet [facility] er) atorvastatin 10 MG Oral Tablet atorvastatin 10 mg tabl et atorvastatin 10 mg tablet completed atorvastatin 10 MG Oral Tablet [place] ([facility]) Ibuprofen 800 MG Oral Tablet ibuprofen 800 mg tablet ibuprofen 8 00 mg tablet completed ibuprofen 800 MG Oral Tablet [facility]) atorvastatin 10 MG Oral Tablet atorvastatin 10 mg tabl et atorvastatin 10 mg tablet completed atorvastatin 10 MG Oral Tablet [facility] ([facility]) 24 HR Nicotine 0.583 MG/HR Transdermal P atch nicotine 14 mg/24 hr daily transdermal patch nicotine 14 mg/24 hr daily transdermal patch completed 24 HR nicotine 0.583 MG/HR Trans dermal System [facility] ([facility]) 24 HR Nicotine 0.583 MG/HR Transdermal P atch nicotine 14 mg/24 hr daily transdermal patch nicotine 14 mg/24 hr daily transdermal patch completed 24 HR nicotine 0.583 MG/HR Trans dermal System [facility] ([facility]) Ibuprofen 800 MG Oral Tablet ibuprofen 800 mg tablet ibuprofen 8 00 mg tablet completed ibuprofen 800 MG Oral Tablet [facility] ([facility]) Ibuprofen 800 MG Oral Tablet ibuprofen 800 mg tablet ibuprofen 8 00 mg tablet completed ibuprofen 800 MG Oral Tablet [facility] ([facility]) Amlodipine 10 MG Oral Tablet amlodipine 10 mg tablet amlodipine 10 mg tablet completed amlodipine 10 MG Oral Tablet [place] ([facility]) Cyclobenzaprine hydrochloride 10 MG Oral Tablet cyclobenzaprine 10 mg tablet TAKE ONE TABLET BY MOUTH THREE TIMES DAILY cyclobenzaprine 10 mg tablet TAKE ONE TABLET BY MOUTH THREE TIMES DAILY comp leted cyclobenzaprine hydrochloride 10 MG Oral Tablet [facility] ([facility]) atorvastatin 10 MG Oral Tablet atorvastatin 10 mg tabl et atorvastatin 10 mg tablet completed atorvastatin 10 MG Oral Tablet [place] ([facility]) Cyclobenzaprine hydrochloride 10 MG Oral Tablet cyclobenzaprine 10 mg tablet TAKE ONE TABLET BY MOUTH THREE TIMES DAILY cyclobenzaprine 10 mg tablet TAKE ONE TABLET BY MOUTH THREE TIMES DAILY comp leted cyclobenzaprine hydrochloride 10 MG Oral Tablet [facility] ([facility]) 24 HR Nicotine 0.583 MG/HR Transdermal P atch nicotine 14 mg/24 hr daily transdermal patch nicotine 14 mg/24 hr daily transdermal patch completed 24 HR nicotine 0.583 MG/HR Trans dermal System [facility] ([facility]) Ibuprofen 800 MG Oral Tablet ibuprofen 800 mg tablet ibuprofen 8 00 mg tablet completed ibuprofen 800 MG Oral Tablet [place] ([facility]) Carbamazepine 200 MG Oral Tablet carbama zepine 200 mg tablet TAKE 1/2 TABLET BY MOUTH TWICE DAILY FOR FOURTEEN DAYS, THEN TAKE ONE TABLET BY MOUTH TWICE DAILY carbamazepine 200 mg tablet TAKE 1/2 TABLET BY MOUTH TWICE DAILY FOR FOURTEEN DAYS, THEN TAKE ONE TABLET BY MOUTH TWICE DAILY completed carbamazepine 200 MG Oral Tablet [facility] ([facility]) atorvastatin 10 MG Oral Tablet atorvastatin 10 mg tabl et atorvastatin 10 mg tablet completed atorvastatin 10 MG Oral Tablet [place] ([facility]) Amlodipine 10 MG Oral Tablet amlodipine 10 mg tablet amlodipine 10 mg tablet completed amlodipine 10 MG Oral Tablet [place] ([facility]) methylprednisolone 4 mg tablets in a dos e pack USE DIRECTED ON PACKAGE - START TOMORROW [id number] completed methylprednisolone 4 mg tablets in a dose pack [facility] ([facility]) 24 HR Nicotine 0.583 MG/HR Transdermal P atch nicotine 14 mg/24 hr daily transdermal patch nicotine 14 mg/24 hr daily transdermal patch completed 24 HR nicotine 0.583 MG/HR Trans dermal System [facility] ([facility]) Amlodipine 10 MG Oral Tablet amlodipine 10 mg tablet amlodipine 10 mg tablet completed amlodipine 10 MG Oral Tablet [facility] ([facility]) 24 HR Nicotine 0.583 MG/HR Transdermal P atch nicotine 14 mg/24 hr daily transdermal patch nicotine 14 mg/24 hr daily transdermal patch completed 24 HR nicotine 0.583 MG/HR Trans dermal System [facility] ([facility]) Cyclobenzaprine hydrochloride 10 MG Oral Tablet cyclobenzaprine 10 mg tablet TAKE ONE TABLET BY MOUTH THREE TIMES DAILY cyclobenzaprine 10 mg tablet TAKE ONE TABLET BY MOUTH THREE TIMES DAILY comp leted cyclobenzaprine hydrochloride 10 MG Oral Tablet [facility] ([facility]) methylprednisolone 4 mg tablets in a dos e pack USE DIRECTED ON PACKAGE - START [id number] completed methylprednisolone 4 mg tablets in a dose pack [facility] ([facility]) 24 HR Nicotine 0.583 MG/HR Transdermal P atch nicotine 14 mg/24 hr daily transdermal patch nicotine 14 mg/24 hr daily transdermal patch completed 24 HR nicotine 0.583 MG/HR Trans dermal System [facility] ([facility]) Ibuprofen 800 MG Oral Tablet ibuprofen 800 mg tablet ibuprofen 8 00 mg tablet completed ibuprofen 800 MG Oral Tablet [place] ([facility]) Cyclobenzaprine hydrochloride 10 MG Oral Tablet cyclobenzaprine 10 mg tablet TAKE ONE TABLET BY MOUTH THREE TIMES DAILY cyclobenzaprine 10 mg tablet TAKE ONE TABLET BY MOUTH THREE TIMES DAILY comp leted cyclobenzaprine hydrochloride 10 MG Oral Tablet [facility] ([facility]) methylprednisolone 4 mg tablets in a dos e pack USE DIRECTED ON PACKAGE - START [id number] completed methylprednisolone 4 mg tablets in a dose pack [facility] ([facility]) 24 HR Nicotine 0.583 MG/HR Transdermal P atch nicotine 14 mg/24 hr daily transdermal patch nicotine 14 mg/24 hr daily transdermal patch completed 24 HR nicotine 0.583 MG/HR Trans dermal System [facility] ([facility]) Cyclobenzaprine hydrochloride 10 MG Oral Tablet cyclobenzaprine 10 mg tablet TAKE ONE TABLET BY MOUTH THREE TIMES DAILY cyclobenzaprine 10 mg tablet TAKE ONE TABLET BY MOUTH THREE TIMES DAILY comp leted cyclobenzaprine hydrochloride 10 MG Oral Tablet [facility] ([facility]) Insurance Providers Payer name Policy type / Coverage type Policy ID Covered libertarian ID Covered libertarian's relationship to henderson Policy Henderson Plan Information Medicaid S [id number] S [id number] Medicaid S [id number] S [id number] UN COMMUNITY PLAN MCDHMO [id number] SP [id number] Managed Care - Community Plan [facility] P [id number] S [id number] Medicaid S [id number] S [id number] Managed Care - Community Plan [facility] P [id number] S [id number] Managed Care - Community Plan [facility] P [id number] S [id number] Managed Care - Community Plan [facility] P [id number] S [id number] Medicaid S [id number] UN COMMUNITY PLAN MCDHMO [id number] SP [id number] [facility] COMMUNITY PLAN MCDHMO [id number] SP [id number] [facility] COMMUNITY PLAN MCDHMO [id number] SP [id number] Managed Care - Community Plan [facility] P [id number] S [id number] Medicaid S [id number] Managed Care - Community Plan [facility] P [id number] S [id number] Medicaid S [id number] Managed Care - Community Plan [facility] P [id number] S [id number] Managed Care - [facility] Community Plan P [id number] S [id number] Medicaid S [id number] Managed Care - [facility] Community Plan P [id number] S [id number] [facility] Commercial [employer] Co. [id number] Self [id number] UN COMMUNITY PLAN XIX - OP/ER [id number] 18 [id number] [facility] MEDICAID [id number] S [id number] [facility] MEDICAID [id number] S [id number] [facility] MEDICAID [id number] S [id number] [facility] Commercial [id number] Self [id number] [facility](MCAID) O [id number] S [id number] [facility] [id number] SP [id number] [facility] Health Maintenance Organization (HMO) [id number] Self [id number] [facility] Plan-[place] Commercial [id number] Self [facility] MEDICAID [place] HMO 000 S 000 [facility] COMMUNITY [facility]AN [facility] [id number] SP [id number] UN COMMUNITY PLAN [facility] [id number] SP [id number] Problems, Conditions, and Diagnoses Code Display Name Description Problem Type Effective Dates Data Source(s) N94694 Nicotine dependence, cigarettes, uncompl icated Nicotine dependence, cigarettes, uncomplicated Diagnosis 03/30/2021 08:31:00 AM EDT [facility] I10 Essential (primary) hypertension Essential (primary) h ypertension Diagnosis 03/30/2021 08:31:00 AM [facility] G500 Trigeminal neuralgia Trigeminal neuralgia Diagnosis 03/30/2021 08:31:00 AM [facility] K0889 Other specified disorders of teeth and s upporting structures Other specified disorders of teeth and supporting structures Diagnosis 03/30/2021 08:31:00 AM 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 O THER LONGTERM (CURRENT) DRUG THERAPY Diagnosis 03/30/2020 01:12:00 PM [facility] F17.210 Nicotine dependence, cigarettes, uncompl icated NICOTINE DEPENDENCE, CIGARETTES, UNCOMPLICATED Diagnosis 03/30/2020 01:12:00 PM [facility] I10 Essential (primary) hypertension ESSENTIAL (PRIMARY) H YPERTENSION Diagnosis 03/30/2020 01:12:00 PM [facility] [place] R19.7 Diarrhea, unspecified DIARRHEA, UNSPECIFIED Diagnosis 03/30/2020 01:12:00 PM [facility] [place] E78.2 Mixed hyperlipidemia Mixed hyperlipidemia Problem 09/27/2020 12:00:00 AM LORNA LEWIS ([facility]) [id number] Syncope Syncope Problem 09/13/2020 12:00:00 AM ALLEN ALMONTE ([facility]) [id number] Syncope Syncope Problem 09/13/2020 12:00:00 AM ALLEN ALMONTE ([facility]) [id number] Syncope Syncope Problem 09/13/2020 12:00:00 AM ALLEN ALMONTE ([facility]) [id number] Syncope Syncope Problem 09/13/2020 12:00:00 AM ALLEN ALMONTE ([facility]) [id number] Syncope Syncope Problem 09/13/2020 12:00:00 AM ALLEN ALMONTE ([facility]) [id number] Syncope Syncope Problem 09/13/2020 12:00:00 AM ALLEN ALMONTE ([facility]) [id number] Syncope Syncope Problem 09/13/2020 12:00:00 AM ALLEN ALMONTE ([facility]) [id number] Cellulitis of finger of left hand Cellul itis of Finger of Left Hand Problem 10/28/2018 12:00:00 AM EDT - 05/30/2020 12:00:00 AM LORNA ALMONTE ([facility]) [id number] Endocrine/metabolic screening Endocrine/metabolic Scre ening Problem 10/28/2018 12:00:00 AM EDT - 05/30/2020 12:00:00 AM LORNA SUZY ([facility]) [id number] Influenza vaccine needed Influenza Vaccine Needed Pro blem 10/28/2018 12:00:00 AM EDT - 05/30/2020 12:00:00 AM LORNA SUZY ([facility]) [id number] Puncture wound of foot Puncture Wound of Foot Problem 10/28/2018 12:00:00 AM EDT - 05/30/2020 12:00:00 AM LORNA SUZY ([facility]) [id number] Cellulitis of finger of left hand Cellul itis of Finger of Left Hand Problem 10/28/2018 12:00:00 AM EDT - 05/30/2020 12:00:00 AM LORNA SUZY ([facility]) [id number] Endocrine/metabolic screening Endocrine/metabolic Scre ening Problem 10/28/2018 12:00:00 AM EDT - 05/30/2020 12:00:00 AM LORNA SUZY ([facility]) [id number] Influenza vaccine needed Influenza Vaccine Needed Pro blem 10/28/2018 12:00:00 AM EDT - 05/30/2020 12:00:00 AM LORNA ALMONTE ([facility]) [id number] Puncture wound of foot Puncture Wound of Foot Problem 10/28/2018 12:00:00 AM EDT - 05/30/2020 12:00:00 AM LORNA ALMONTE ([facility]) [id number] Cellulitis of finger of left hand Cellul itis of Finger of Left Hand Problem 10/28/2018 12:00:00 AM EDT - 05/30/2020 12:00:00 AM LORNA ALMONTE ([facility]) [id number] Endocrine/metabolic screening Endocrine/metabolic Scre ening Problem 10/28/2018 12:00:00 AM EDT - 05/30/2020 12:00:00 AM LORNA SUZY ([facility]) [id number] Influenza vaccine needed Influenza Vaccine Needed Pro blem 10/28/2018 12:00:00 AM EDT - 05/30/2020 12:00:00 AM LORNA SUZY ([facility]) [id number] Puncture wound of foot Puncture Wound of Foot Problem 10/28/2018 12:00:00 AM EDT - 05/30/2020 12:00:00 AM LORNA ALMONTE ([facility]) [id number] Cellulitis of finger of left hand Cellul itis of Finger of Left Hand Problem 10/28/2018 12:00:00 AM EDT - 05/30/2020 12:00:00 AM LORNA ALMONTE ([facility]) [id number] Endocrine/metabolic screening Endocrine/metabolic Scre ening Problem 10/28/2018 12:00:00 AM EDT - 05/30/2020 12:00:00 AM LORNA SUZY ([facility]) [id number] Influenza vaccine needed Influenza Vaccine Needed Pro blem 10/28/2018 12:00:00 AM EDT - 05/30/2020 12:00:00 AM LORNA SUZY ([facility]) [id number] Puncture wound of foot Puncture Wound of Foot Problem 10/28/2018 12:00:00 AM EDT - 05/30/2020 12:00:00 AM LORNA SUZY ([facility]) [id number] Cellulitis of finger of left hand Cellul itis of Finger of Left Hand Problem 10/28/2018 12:00:00 AM EDT - 05/30/2020 12:00:00 AM EST SUZY ([facility]) [id number] Endocrine/metabolic screening Endocrine/metabolic Scre ening Problem 10/28/2018 12:00:00 AM EDT - 05/30/2020 12:00:00 AM EST SUZY ([facility]) [id number] Influenza vaccine needed Influenza Vaccine Needed Pro blem 10/28/2018 12:00:00 AM EDT - 05/30/2020 12:00:00 AM EST SUZY ([facility]) [id number] Puncture wound of foot Puncture Wound of Foot Problem 10/28/2018 12:00:00 AM EDT - 05/30/2020 12:00:00 AM EST SUZY ([facility]) [id number] Cellulitis of finger of left hand Cellul itis of Finger of Left Hand Problem 10/28/2018 12:00:00 AM EDT - 05/30/2020 12:00:00 AM LORNA ALMONTE ([facility]) [id number] Endocrine/metabolic screening Endocrine/metabolic Scre ening Problem 10/28/2018 12:00:00 AM EDT - 05/30/2020 12:00:00 AM EST SUZY ([facility]) [id number] Influenza vaccine needed Influenza Vaccine Needed Pro blem 10/28/2018 12:00:00 AM EDT - 05/30/2020 12:00:00 AM LORNA ALMONTE ([facility]) [id number] Puncture wound of foot Puncture Wound of Foot Problem 10/28/2018 12:00:00 AM EDT - 05/30/2020 12:00:00 AM LORNA ALMONTE ([facility]) [id number] Cellulitis of finger of left hand Cellul itis of Finger of Left Hand Problem 10/28/2018 12:00:00 AM EDT - 05/30/2020 12:00:00 AM EST SUZY ([facility]) [id number] Endocrine/metabolic screening Endocrine/metabolic Scre ening Problem 10/28/2018 12:00:00 AM EDT - 05/30/2020 12:00:00 AM EST SUZY ([facility]) [id number] Influenza vaccine needed Influenza Vaccine Needed Pro blem 10/28/2018 12:00:00 AM EDT - 05/30/2020 12:00:00 AM LORNA ALMONTE ([facility]) [id number] Puncture wound of foot Puncture Wound of Foot Problem 10/28/2018 12:00:00 AM EDT - 05/30/2020 12:00:00 AM LORNA ALMONTE ([facility]) [id number] Cellulitis of finger of left hand Cellul itis of Finger of Left Hand Problem 10/28/2018 12:00:00 AM EDT - 05/30/2020 12:00:00 AM LORNA SUZY ([facility]) [id number] Endocrine/metabolic screening Endocrine/metabolic Scre ening Problem 10/28/2018 12:00:00 AM EDT - 05/30/2020 12:00:00 AM LORNA SUZY ([facility]) [id number] Influenza vaccine needed Influenza Vaccine Needed Pro blem 10/28/2018 12:00:00 AM EDT - 05/30/2020 12:00:00 AM LORNA SUZY ([facility]) [id number] Puncture wound of foot Puncture Wound of Foot Problem 10/28/2018 12:00:00 AM EDT - 05/30/2020 12:00:00 AM LORNA SUZY ([facility]) [id number] Tobacco use and exposure - finding Tobacco Use a nd Exposure - Finding Problem 05/07/2018 12:00:00 AM EDT - 05/30/2020 12:00:00 AM ALLEN ALMONTE ([facility]) [id number] Tobacco use and exposure - finding Tobacco Use a nd Exposure - Finding Problem 05/07/2018 12:00:00 AM EDT - 05/30/2020 12:00:00 AM ALLEN ALMONTE ([facility]) [id number] Tobacco use and exposure - finding Tobacco Use a nd Exposure - Finding Problem 05/07/2018 12:00:00 AM EDT - 05/30/2020 12:00:00 AM ALLEN ALMONTE ([facility]) [id number] Tobacco use and exposure - finding Tobacco Use a nd Exposure - Finding Problem 05/07/2018 12:00:00 AM EDT - 05/30/2020 12:00:00 AM ALLEN ALMONTE ([facility]) [id number] Tobacco use and exposure - finding Tobacco Use a nd Exposure - Finding Problem 05/07/2018 12:00:00 AM EDT - 05/30/2020 12:00:00 AM ALLEN ALMONTE ([facility]) [id number] Tobacco use and exposure - finding Tobacco Use a nd Exposure - Finding Problem 05/07/2018 12:00:00 AM EDT - 05/30/2020 12:00:00 AM ALLEN ALMONTE ([facility]) [id number] Tobacco use and exposure - finding Tobacco Use a nd Exposure - Finding Problem 05/07/2018 12:00:00 AM EDT - 05/30/2020 12:00:00 AM ALLEN ALMONTE ([facility]) [id number] Tobacco use and exposure - finding Tobacco Use a nd Exposure - Finding Problem 05/07/2018 12:00:00 AM EDT - 05/30/2020 12:00:00 AM ALLEN ALMONTE ([facility]) [id number] Tooth finding Tooth Finding Problem 04/21/2018 12 :00:00 AM EDT - 05/30/2020 12:00:00 AM EST SUZY ([facility]) [id number] Overweight Overweight Problem 04/21/2018 12:0 0:00 AM EDT - 05/30/2020 12:00:00 AM EST SUZY ([facility]) [id number] Tooth finding Tooth Finding Problem 04/21/2018 12 :00:00 AM EDT - 05/30/2020 12:00:00 AM EST SUZY ([facility]) [id number] Overweight Overweight Problem 04/21/2018 12:0 0:00 AM EDT - 05/30/2020 12:00:00 AM EST SUZY ([facility]) [id number] Tooth finding Tooth Finding Problem 04/21/2018 12 :00:00 AM EDT - 05/30/2020 12:00:00 AM EST SUZY ([facility]) [id number] Overweight Overweight Problem 04/21/2018 12:0 0:00 AM EDT - 05/30/2020 12:00:00 AM EST SUZY ([facility]) [id number] Tooth finding Tooth Finding Problem 04/21/2018 12 :00:00 AM EDT - 05/30/2020 12:00:00 AM EST SUZY ([facility]) [id number] Overweight Overweight Problem 04/21/2018 12:0 0:00 AM EDT - 05/30/2020 12:00:00 AM EST SUZY ([facility]) [id number] Tooth finding Tooth Finding Problem 04/21/2018 12 :00:00 AM EDT - 05/30/2020 12:00:00 AM EST SUZY ([facility]) [id number] Overweight Overweight Problem 04/21/2018 12:0 0:00 AM EDT - 05/30/2020 12:00:00 AM EST SUZY ([facility]) [id number] Tooth finding Tooth Finding Problem 04/21/2018 12 :00:00 AM EDT - 05/30/2020 12:00:00 AM EST SUZY ([facility]) [id number] Overweight Overweight Problem 04/21/2018 12:0 0:00 AM EDT - 05/30/2020 12:00:00 AM EST SUZY ([facility]) [id number] Tooth finding Tooth Finding Problem 04/21/2018 12 :00:00 AM EDT - 05/30/2020 12:00:00 AM EST SUZY ([facility]) [id number] Overweight Overweight Problem 04/21/2018 12:0 0:00 AM EDT - 05/30/2020 12:00:00 AM EST SUZY ([facility]) [id number] Tooth finding Tooth Finding Problem 04/21/2018 12 :00:00 AM EDT - 05/30/2020 12:00:00 AM EST SUZY ([facility]) [id number] Overweight Overweight Problem 04/21/2018 12:0 0:00 AM EDT - 05/30/2020 12:00:00 AM EST SUZY ([facility]) [id number] Clinical finding Clinical Finding Problem 017 12:00:00 AM EDT - 05/30/2020 12:00:00 AM EST SUZY ([facility]) [id number] Clinical finding Clinical Finding Problem 017 12:00:00 AM EDT - 05/30/2020 12:00:00 AM EST SUZY ([facility]) [id number] Clinical finding Clinical Finding Problem 017 12:00:00 AM EDT - 05/30/2020 12:00:00 AM EST SUZY ([facility]) [id number] Clinical finding Clinical Finding Problem 017 12:00:00 AM EDT - 05/30/2020 12:00:00 AM EST SUZY ([facility]) [id number] Clinical finding Clinical Finding Problem 017 12:00:00 AM EDT - 05/30/2020 12:00:00 AM EST SUZY ([facility]) [id number] Clinical finding Clinical Finding Problem 017 12:00:00 AM EDT - 05/30/2020 12:00:00 AM EST SUZY ([facility]) [id number] Clinical finding Clinical Finding Problem 017 12:00:00 AM EDT - 05/30/2020 12:00:00 AM EST SUZY ([facility]) [id number] Clinical finding Clinical Finding Problem 017 12:00:00 AM EDT - 05/30/2020 12:00:00 AM EST SUZY ([facility]) [id number] Vomiting without nausea Vomiting without Nausea Pro blem 03/29/2017 12:00:00 AM EDT - 05/30/2020 12:00:00 AM EST SUZY ([facility]) [id number] Vomiting without nausea Vomiting without Nausea Pro blem 03/29/2017 12:00:00 AM EDT - 05/30/2020 12:00:00 AM EST SUZY ([facility]) [id number] Vomiting without nausea Vomiting without Nausea Pro blem 03/29/2017 12:00:00 AM EDT - 05/30/2020 12:00:00 AM EST SUZY ([facility]) [id number] Vomiting without nausea Vomiting without Nausea Pro blem 03/29/2017 12:00:00 AM EDT - 05/30/2020 12:00:00 AM EST SUZY ([facility]) [id number] Vomiting without nausea Vomiting without Nausea Pro blem 03/29/2017 12:00:00 AM EDT - 05/30/2020 12:00:00 AM EST SUZY ([facility]) [id number] Vomiting without nausea Vomiting without Nausea Pro blem 03/29/2017 12:00:00 AM EDT - 05/30/2020 12:00:00 AM EST SUZY ([facility]) [id number] Vomiting without nausea Vomiting without Nausea Pro blem 03/29/2017 12:00:00 AM EDT - 05/30/2020 12:00:00 AM EST SUZY ([facility]) [id number] Vomiting without nausea Vomiting without Nausea Pro blem 03/29/2017 12:00:00 AM EDT - 05/30/2020 12:00:00 AM EST SUZY ([facility]) [id number] Dysthymia Dysthymia Problem 03/28/2016 12:0 0:00 AM EDT - 05/30/2020 12:00:00 AM EST SUZY ([facility]) [id number] Dysthymia Dysthymia Problem 03/28/2016 12:0 0:00 AM EDT - 05/30/2020 12:00:00 AM EST SUZY ([facility]) [id number] Dysthymia Dysthymia Problem 03/28/2016 12:0 0:00 AM EDT - 05/30/2020 12:00:00 AM EST SUZY ([facility]) [id number] Dysthymia Dysthymia Problem 03/28/2016 12:0 0:00 AM EDT - 05/30/2020 12:00:00 AM EST SUZY ([facility]) [id number] Dysthymia Dysthymia Problem 03/28/2016 12:0 0:00 AM EDT - 05/30/2020 12:00:00 AM EST SUZY ([facility]) [id number] Dysthymia Dysthymia Problem 03/28/2016 12:0 0:00 AM EDT - 05/30/2020 12:00:00 AM EST SUZY ([facility]) [id number] Dysthymia Dysthymia Problem 03/28/2016 12:0 0:00 AM EDT - 05/30/2020 12:00:00 AM EST SUZY ([facility]) [id number] Dysthymia Dysthymia Problem 03/28/2016 12:0 0:00 AM EDT - 05/30/2020 12:00:00 AM EST SUZY ([facility]) [id number] Memory finding Memory Finding Problem 05/04/2015 12:00:00 AM EDT - 05/30/2020 12:00:00 AM EST SUZY ([facility]) [id number] Memory finding Memory Finding Problem 05/04/2015 12:00:00 AM EDT - 05/30/2020 12:00:00 AM EST SUZY ([facility]) [id number] Memory finding Memory Finding Problem 05/04/2015 12:00:00 AM EDT - 05/30/2020 12:00:00 AM EST SUZY ([facility]) [id number] Memory finding Memory Finding Problem 05/04/2015 12:00:00 AM EDT - 05/30/2020 12:00:00 AM EST SUZY ([facility]) [id number] Memory finding Memory Finding Problem 05/04/2015 12:00:00 AM EDT - 05/30/2020 12:00:00 AM EST SUZY ([facility]) [id number] Memory finding Memory Finding Problem 05/04/2015 12:00:00 AM EDT - 05/30/2020 12:00:00 AM EST SUZY ([facility]) [id number] Memory finding Memory Finding Problem 05/04/2015 12:00:00 AM EDT - 05/30/2020 12:00:00 AM EST SUZY ([facility]) [id number] Memory finding Memory Finding Problem 05/04/2015 12:00:00 AM EDT - 05/30/2020 12:00:00 AM EST SUZY ([facility]) [id number] Syncope and collapse Syncope and Collapse Problem 04/19/2015 12:00:00 AM EDT - 05/30/2020 12:00:00 AM EST SUZY ([facility]) [id number] Syncope and collapse Syncope and Collapse Problem 04/19/2015 12:00:00 AM EDT - 05/30/2020 12:00:00 AM EST SUZY ([facility]) [id number] Syncope and collapse Syncope and Collapse Problem 04/19/2015 12:00:00 AM EDT - 05/30/2020 12:00:00 AM EST SUZY ([facility]) [id number] Syncope and collapse Syncope and Collapse Problem 04/19/2015 12:00:00 AM EDT - 05/30/2020 12:00:00 AM EST SUZY ([facility]) [id number] Syncope and collapse Syncope and Collapse Problem 04/19/2015 12:00:00 AM EDT - 05/30/2020 12:00:00 AM EST SUZY ([facility]) [id number] Syncope and collapse Syncope and Collapse Problem 04/19/2015 12:00:00 AM EDT - 05/30/2020 12:00:00 AM EST SUZY ([facility]) [id number] Syncope and collapse Syncope and Collapse Problem 04/19/2015 12:00:00 AM EDT - 05/30/2020 12:00:00 AM EST SUZY ([facility]) [id number] Syncope and collapse Syncope and Collapse Problem 04/19/2015 12:00:00 AM EDT - 05/30/2020 12:00:00 AM EST SUZY ([facility]) [id number] Open wound of nose Open Wound of Nose Problem 04/2014 12:00:00 AM EDT - 05/30/2020 12:00:00 AM EST SUZY ([facility]) [id number] Open wound of nose Open Wound of Nose Problem 04/2014 12:00:00 AM EDT - 05/30/2020 12:00:00 AM EST SUZY ([facility]) [id number] Open wound of nose Open Wound of Nose Problem 04/2014 12:00:00 AM EDT - 05/30/2020 12:00:00 AM EST SUZY ([facility]) [id number] Open wound of nose Open Wound of Nose Problem 04/2014 12:00:00 AM EDT - 05/30/2020 12:00:00 AM EST SUZY ([facility]) [id number] Open wound of nose Open Wound of Nose Problem 04/2014 12:00:00 AM EDT - 05/30/2020 12:00:00 AM EST SUZY ([facility]) [id number] Open wound of nose Open Wound of Nose Problem 04/2014 12:00:00 AM EDT - 05/30/2020 12:00:00 AM EST SUZY ([facility]) [id number] Open wound of nose Open Wound of Nose Problem 04/2014 12:00:00 AM EDT - 05/30/2020 12:00:00 AM EST SUZY ([facility]) [id number] Open wound of nose Open Wound of Nose Problem 04/2014 12:00:00 AM EDT - 05/30/2020 12:00:00 AM EST SUZY ([facility]) [id number] Emotional state finding Emotional State Finding Proble 03/09/2014 12:00:00 AM EDT - 05/30/2020 12:00:00 AM EST SUZY ([facility]) [id number] Emotional state finding Emotional State Finding Proble 03/09/2014 12:00:00 AM EDT - 05/30/2020 12:00:00 AM EST SUZY ([facility]) [id number] Emotional state finding Emotional State Finding Proble 03/09/2014 12:00:00 AM EDT - 05/30/2020 12:00:00 AM EST SUZY ([facility]) [id number] Emotional state finding Emotional State Finding Proble 03/09/2014 12:00:00 AM EDT - 05/30/2020 12:00:00 AM EST SUZY ([facility]) [id number] Emotional state finding Emotional State Finding Proble 03/09/2014 12:00:00 AM EDT - 05/30/2020 12:00:00 AM EST SUZY ([facility]) [id number] Emotional state finding Emotional State Finding Proble 03/09/2014 12:00:00 AM EDT - 05/30/2020 12:00:00 AM EST SUZY ([facility]) [id number] Emotional state finding Emotional State Finding Proble 03/09/2014 12:00:00 AM EDT - 05/30/2020 12:00:00 AM EST SUZY ([facility]) [id number] Emotional state finding Emotional State Finding Proble 03/09/2014 12:00:00 AM EDT - 05/30/2020 12:00:00 AM EST [facility]) Surgeries/Procedures Procedure Description Date Indications Data Source(s) ECG ROUTINE ECG W/LEAST 12 LDS W/I&R 03/31/2021 12:00: 00 AM EDT [facility] ([facility]) OFFICE OUTPATIENT VISIT 25 MINUTES 03/31/2021 12:00:00 AM EDT [facility] ([facility]) TOBACCO USE CESSATION INTERMEDIATE 3-10 MINUTES 2020 12:00:00 AM EDT [facility] ([facility]) ECG ROUTINE ECG W/LEAST 12 LDS W/I&R 09/27/2020 12:00: 00 AM EST [facility] ([facility]) Results ID Date Data Source [id number] 04/17/2021 12:00:00 AM EDT [facility]) Name Value Range Interpretation Code Description Data Claudia rce(s) Supporting Document(s) Borrelia burgdorferi Ab [Units/volume] in Serum by Immunoassay <0.9 0 Lyme Ab Screen [facility]) ID Date Data Source [id number] 04/04/2021 05:11:00 AM EDT [facility]) Name Value Range Interpretation Code Description Data Claudia rce(s) Supporting Document(s) vitamin B12 level 791 pg/mL [id number] Vitamin B12 Level [facility]) ID Date Data Source [id number] 04/04/2021 05:11:00 AM EDT [facility]) Name Value Range Interpretation Code Description Data Claudia rce(s) Supporting Document(s) thyroid stimulating hormone 0.555 uIU/mL 0.358-3.740 Thyroid Stimulating Hormone [facility]) ID Date Data Source [id number] 04/04/2021 05:11:00 AM EDT [facility]) Name Value Range Interpretation Code Description Data Claudia rce(s) Supporting Document(s) magnesium level 2.4 mg/dL 1.8-2.4 Magnesium Level [facility] ([facility]) ID Date Data Source [id number] 04/04/2021 05:11:00 AM EDT [facility] ([facility]) Name Value Range Interpretation Code Description Data Claudia rce(s) Supporting Document(s) phosphorus level 2.3 mg/dL 2.5-4.9 Below low normal Phosphorus [place] [facility] ([facility]) ID Date Data Source [id number] 04/04/2021 05:11:00 AM EDT [facility]) Name Value Range Interpretation Code Description Data Claudia rce(s) Supporting Document(s) glucose, fasting 91 mg/dL 70-100 Glucose, Fasting AT [facility] ([facility]) creatinine for GFR 0.60 mg/dL 0.70-1.30 Below low normal Creatinine for GFR [facility] ([facility]) blood urea nitrogen 19 mg/dL 7-18 Above high normal Blood Ure a Nitrogen [facility] ([facility]) sodium level 141 mEq/L 136-145 Sodium Level [facility] ([facility]) glomerular filtration rate > 60.0 >60 Glomerula r Filtration Rate [facility] ([facility]) potassium serum 4.2 mEq/L 3.5-5.1 Potassium Serum [facility] ([facility]) chloride level 107 mEq/L 98-107 Chloride Level [facility] ([facility]) anion gap 6 mEq/L 8-16 Below low normal Anion Gap [facility] ( [facility]) carbon dioxide level 28 mEq/L 21-32 Carbon Dioxide Level [facility] ([facility]) calcium level 9.7 mg/dL 8.5-10.1 Calcium Level [facility]) ID Date Data Source [id number] 04/04/2021 05:11:00 AM EDT [facility]) Name Value Range Interpretation Code Description Data Claudia rce(s) Supporting Document(s) Hemoglobin A1c/Hemoglobin.total in Blood 5.2 % Hemoglobin a1C [facility] ([facility]) estimated average glucose 103 mg/dL 60-110 Estimated Average Glucose [facility] ([facility]) ID Date Data Source [id number] 04/04/2021 05:11:00 AM EDT [facility] ([facility]) Name Value Range Interpretation Code Description Data Claudia e(s) Supporting Document(s) white blood count 8.0 10 4.0-10.0 White Blood Count [facility] ([facility]) red blood count 4.29 10 4.30-6.10 Below low normal Red Blood Coun t [facility] ([facility]) hemoglobin 14.0 g/dL 13.5-17.5 Hemoglobin [facility] ([facility]) hematocrit 40.2 % 42.0-52.0 Below low normal Hematocrit [facility] ( [facility]) mean corpuscular volume 93.7 fL 80.0-96.0 Mean Corpusc ular Volume [facility] ([facility]) mean corpuscular HGB conc 34.8 g/dL 32.0-36.5 Mean Corpu scular HGB Conc [facility] ([facility]) mean corpuscular hemoglobin 32.6 pg 27.0-33.0 Mean Cor puscular Hemoglobin [facility] ([facility]) red cell distribution width 12.1 % 11.5-14.5 Red Cell Distribution Width [facility] ([facility]) platelet count, automated 196 10 150-450 Platelet C ount, Automated [facility] ([facility]) neutrophils % 52.6 % 36.0-66.0 Neutrophils % [facility] ( [facility]) lymph % 33.3 % 24.0-44.0 Lymph % [facility] ([facility]) eos % 2.4 % 0.0-3.0 Eos % SUZY ([facility]) mono % 10.6 % 2.0-8.0 Above high normal [place] % SUZY ([facility]) baso % 0.8 % 0.0-1.0 Baso % SUZY ([facility]) immature granulocyte % 0.3 % 0-3.0 Immature Gran ulocyte % SUZY ([facility]) neutrophils # 4.2 10 1.5-8.5 Neutrophils # SUZY ( [facility]) nucleated red blood cell % 0.0 % 0-0 Nucleated Red Blood Cell % SUZY ([facility]) lymph # 2.7 10 1.5-5.0 Lymph # SUZY ([facility]) eos # 0.2 10 0.0-0.5 Eos # [facility] ([facility]) mono # 0.9 10 0.0-0.8 Above high normal [place] # SUZY ([facility]) baso # 0.1 10 0.0-0.2 Baso # [facility] ([facility]) ID Date Data Source [id number] 04/04/2021 05:11:00 AM EDT SUZY ([facility]) Name Value Range Interpretation Code Description Data Claudia rce(s) Supporting Document(s) vitamin B12 level 791 pg/mL 247-911 Vitamin B12 Level SUZY ([facility]) ID Date Data Source [id number] 04/04/2021 05:11:00 AM EDT SUZY ([facility]) Name Value Range Interpretation Code Description Data Claudia rce(s) Supporting Document(s) thyroid stimulating hormone 0.555 uIU/mL 0.358-3.740 Thyroid Stimulating Hormone SUZY ([facility]) ID Date Data Source [id number] 04/04/2021 05:11:00 AM EDT SUZY ([facility]) Name Value Range Interpretation Code Description Data Claudia rce(s) Supporting Document(s) magnesium level 2.4 mg/dL 1.8-2.4 Magnesium Level ATHE [facility]) ID Date Data Source [id number] 04/04/2021 05:11:00 AM EDT SUZY ([facility]) Name Value Range Interpretation Code Description Data Claudia rce(s) Supporting Document(s) phosphorus level 2.3 mg/dL 2.5-4.9 Below low normal Phosphorus [place] SUZY ([facility]) ID Date Data Source [id number] 04/04/2021 05:11:00 AM EDT SUZY ([facility]) Name Value Range Interpretation Code Description Data Claudia rce(s) Supporting Document(s) glucose, fasting 91 mg/dL 70-100 Glucose, Fasting AT [facility]) blood urea nitrogen 19 mg/dL 7-18 Above high normal Blood Ure a Nitrogen SUZY ([facility]) glomerular filtration rate > 60.0 >60 Glomerula r Filtration Rate [place] ([facility]) creatinine for GFR 0.60 mg/dL 0.70-1.30 Below low normal Creatinine for GFR SUZY ([facility]) sodium level 141 mEq/L 136-145 Sodium Level SUZY (No [facility]) chloride level 107 mEq/L 98-107 Chloride Level SUZY ([facility]) potassium serum 4.2 mEq/L 3.5-5.1 Potassium Serum ATH NA ([facility]) anion gap 6 mEq/L 8-16 Below low normal Anion Gap [place] ( [facility]) carbon dioxide level 28 mEq/L 21-32 Carbon Dioxide Level [place] ([facility]) calcium level 9.7 mg/dL 8.5-10.1 Calcium Level [place] ( [facility]) ID Date Data Source [id number] 04/04/2021 05:11:00 AM EDT [facility]) Name Value Range Interpretation Code Description Data Claudia rce(s) Supporting Document(s) estimated average glucose 103 mg/dL 60-110 Estimated Average Glucose [facility]) Hemoglobin A1c/Hemoglobin.total in Blood 5.2 % Hemoglobin a1C [facility]) ID Date Data Source [id number] 04/04/2021 05:11:00 AM EDT [place] ([facility]) Name Value Range Interpretation Code Description Data Claudia rce(s) Supporting Document(s) white blood count 8.0 10 4.0-10.0 White Blood Count SUZY ([facility]) red blood count 4.29 10 4.30-6.10 Below low normal Red Blood Coun t SUZY ([facility]) hemoglobin 14.0 g/dL 13.5-17.5 Hemoglobin SU[facility] ([facility]) hematocrit 40.2 % 42.0-52.0 Below low normal Hematocrit [place] ( [facility]) mean corpuscular hemoglobin 32.6 pg 27.0-33.0 Mean Cor puscular Hemoglobin [place] ([facility]) mean corpuscular volume 93.7 fL 80.0-96.0 Mean Corpusc ular Volume SUZY ([facility]) mean corpuscular HGB conc 34.8 g/dL 32.0-36.5 Mean Corpu scular HGB Conc [place] ([facility]) red cell distribution width 12.1 % 11.5-14.5 Red Cell Distribution Width [place] ([facility]) platelet count, automated 196 10 150-450 Platelet C ount, Automated [place] ([facility]) neutrophils % 52.6 % 36.0-66.0 Neutrophils % SUZY ( [facility]) lymph % 33.3 % 24.0-44.0 Lymph % SUZY ([facility]) eos % 2.4 % 0.0-3.0 Eos % SUYZ ([facility]) mono % 10.6 % 2.0-8.0 Above high normal [place] % SUZ[facility] ([facility]) baso % 0.8 % 0.0-1.0 Baso % [place] ([facility]) immature granulocyte % 0.3 % 0-3.0 Immature Gran ulocyte % SU[facility] ([facility]) lymph # 2.7 10 1.5-5.0 Lymph # [facility] ([facility]) nucleated red blood cell % 0.0 % 0-0 Nucleated Red Blood Cell % [facility] ([facility]) neutrophils # 4.2 10 1.5-8.5 Neutrophils # [facility]ZY ( [facility]) eos # 0.2 10 0.0-0.5 Eos # [facility] ([facility]) mono # 0.9 10 0.0-0.8 Above high normal [place] # [facility]ZY ([facility]) baso # 0.1 10 0.0-0.2 Baso # [facility] ([facility]) ID Date Data Source [id number] 04/04/2021 05:11:00 AM EDT SUZY ([facility]) Name Value Range Interpretation Code Description Data Claudia rce(s) Supporting Document(s) vitamin B12 level 791 pg/mL 247-911 Vitamin B12 Level [facility] ([facility]) ID Date Data Source [id number] 04/04/2021 05:11:00 AM EDT [place] ([facility]) Name Value Range Interpretation Code Description Data Claudia rce(s) Supporting Document(s) thyroid stimulating hormone 0.555 uIU/mL 0.358-3.740 Thyroid Stimulating Hormone [place] ([facility]) ID Date Data Source [id number] 04/04/2021 05:11:00 AM EDT SUZY ([facility]) Name Value Range Interpretation Code Description Data Claudia rce(s) Supporting Document(s) magnesium level 2.4 mg/dL 1.8-2.4 Magnesium Level ATHE NA ([facility]) ID Date Data Source [id number] 04/04/2021 05:11:00 AM EDT [facility]) Name Value Range Interpretation Code Description Data Claudia rce(s) Supporting Document(s) phosphorus level 2.3 mg/dL 2.5-4.9 Below low normal Phosphorus [place] [facility] Data Source [id number] 04/04/2021 05:11:00 AM EDT [place] ([facility]) Name Value Range Interpretation Code Description Data Claudia rce(s) Supporting Document(s) blood urea nitrogen 19 mg/dL 7-18 Above high normal Blood Ure a Nitrogen SUZY ([facility]) glucose, fasting 91 mg/dL 70-100 Glucose, Fasting AT [facility]) creatinine for GFR 0.60 mg/dL 0.70-1.30 Below low normal Creatinine for GFR SUZY ([facility]) glomerular filtration rate > 60.0 >60 Glomerula r Filtration Rate SU[facility]Y ([facility]) sodium level 141 mEq/L 136-145 Sodium Level SUZY (No [facility]) potassium serum 4.2 mEq/L 3.5-5.1 [facility] chloride level 107 mEq/L 98-107 Chloride Level SUZY ([facility]) carbon dioxide level 28 mEq/L 21-32 Carbon Dioxide Level SUZY ([facility]) anion gap 6 mEq/L 8-16 Below low normal Anion Gap SU[facility] ( [facility]) calcium level 9.7 mg/dL 8.5-10.1 Calcium Level [place] ( [facility]) ID Date Data Source [id number] 04/04/2021 05:11:00 AM EDT [place] ([facility]) Name Value Range Interpretation Code Description Data Claudia rce(s) Supporting Document(s) Hemoglobin A1c/Hemoglobin.total in Blood 5.2 % Hemoglobin a1C [facility] ([facility]) estimated average glucose 103 mg/dL 60-110 Estimated Average Glucose [place] ([facility]) ID Date Data Source [id number] 04/04/2021 05:11:00 AM EDT [place] ([facility]) Name Value Range Interpretation Code Description Data Claudia rce(s) Supporting Document(s) red blood count 4.29 10 4.30-6.10 Below low normal Red Blood Coun t SUZY ([facility]) white blood count 8.0 10 4.0-10.0 White Blood Count [facility] ([facility]) hemoglobin 14.0 g/dL 13.5-17.5 Hemoglobin [facility] ([facility]) hematocrit 40.2 % 42.0-52.0 Below low normal Hematocrit SUZY ( [facility]) mean corpuscular hemoglobin 32.6 pg 27.0-33.0 Mean Cor puscular Hemoglobin SUZY ([facility]) mean corpuscular volume 93.7 fL 80.0-96.0 Mean Corpusc ular Volume SUZ[facility] ([facility]) red cell distribution width 12.1 % 11.5-14.5 Red Cell Distribution Width [facility] ([facility]) mean corpuscular HGB conc 34.8 g/dL 32.0-36.5 Mean Corpu scular HGB Conc [facility]ZY ([facility]) neutrophils % 52.6 % 36.0-66.0 Neutrophils % [place] ( [facility]) platelet count, automated 196 10 150-450 Platelet C ount, Automated [facility] ([facility]) lymph % 33.3 % 24.0-44.0 Lymph % [place] ([facility]) mono % 10.6 % 2.0-8.0 Above high normal [place] % [place] ([facility]) eos % 2.4 % 0.0-3.0 Eos % SUZY ([facility]) baso % 0.8 % 0.0-1.0 Baso % [facility] ([facility]) nucleated red blood cell % 0.0 % 0-0 Nucleated Red Blood Cell % [facility] ([facility]) neutrophils # 4.2 10 1.5-8.5 Neutrophils # [place] ( [facility]) immature granulocyte % 0.3 % 0-3.0 Immature Gran ulocyte % [facility] ([facility]) lymph # 2.7 10 1.5-5.0 Lymph # [facility] ([facility]) mono # 0.9 10 0.0-0.8 Above high normal [place] # [facility] ([facility]) baso # 0.1 10 0.0-0.2 Baso # [facility] ([facility]) eos # 0.2 10 0.0-0.5 Eos # [facility] ([facility]) ID Date Data Source [id number] 04/04/2021 04:25:00 AM EDT SUZ[facility] ([facility]) Name Value Range Interpretation Code Description Data Claudia rce(s) Supporting Document(s) bedside glucose 78 mg/dL 70-105 Bedside Glucose ATHE [place] ([facility]) ID Date Data Source [id number] 04/04/2021 04:25:00 AM EDT [facility] ([facility]) Name Value Range Interpretation Code Description Data Claudia rce(s) Supporting Document(s) bedside glucose 78 mg/dL 70-105 Bedside Glucose ATHE ([facility]) ID Date Data Source [id number] 04/04/2021 04:25:00 AM EDT [facility] ([facility]) Name Value Range Interpretation Code Description Data Claudia rce(s) Supporting Document(s) bedside glucose 78 mg/dL 70-105 Bedside Glucose ATHE [place] ([facility]) ID Date Data Source [id number] 04/04/2021 03:48:00 AM EDT [facility] ([facility]) Name Value Range Interpretation Code Description Data Claudia rce(s) Supporting Document(s) bedside glucose 75 mg/dL 70-105 Bedside Glucose ATHE [place] ([facility]) ID Date Data Source [id number] 04/04/2021 03:48:00 AM EDT [facility] ([facility]) Name Value Range Interpretation Code Description Data Claudia rce(s) Supporting Document(s) bedside glucose 75 mg/dL 70-105 Bedside Glucose ATHE [place] ([facility]) ID Date Data Source [id number] 04/04/2021 03:48:00 AM EDT [facility] ([facility]) Name Value Range Interpretation Code Description Data Claudia rce(s) Supporting Document(s) bedside glucose 75 mg/dL 70-105 Bedside Glucose ATHE [place] ([facility]) ID Date Data Source [id number] 04/03/2021 06:51:00 AM EDT [facility] ([facility]) Name Value Range Interpretation Code Description Data Claudia rce(s) Supporting Document(s) bedside glucose 91 mg/dL 70-105 Bedside Glucose ATHE [place] ([facility]) ID Date Data Source [id number] 04/03/2021 06:51:00 AM EDT [facility] ([facility]) Name Value Range Interpretation Code Description Data Claudia rce(s) Supporting Document(s) bedside glucose 91 mg/dL 70-105 Bedside Glucose ATHE [place] ([facility]) ID Date Data Source [id number] 04/03/2021 06:51:00 AM EDT [facility]) Name Value Range Interpretation Code Description Data Claudia rce(s) Supporting Document(s) bedside glucose 91 mg/dL 70-105 Bedside Glucose ATHE [place] ([facility]) ID Date Data Source [id number] 04/03/2021 04:56:00 AM EDT [facility] ([facility]) Name Value Range Interpretation Code Description Data Claudia rce(s) Supporting Document(s) magnesium level 2.3 mg/dL 1.8-2.4 Magnesium Level ATHE NA ([facility]) ID Date Data Source [id number] 04/03/2021 04:56:00 [facility] Name Value Range Interpretation Code Description Data Claudia rce(s) Supporting Document(s) blood urea nitrogen 20 mg/dL 7-18 Above high normal Blood Ure a Nitrogen SU[facility]Y ([facility]) glucose, fasting 77 mg/dL 70-100 Glucose, Fasting AT [facility] ([facility]) creatinine for GFR 0.67 mg/dL 0.70-1.30 Below low normal Creatinine for GFR [facility] ([facility]) sodium level 142 mEq/L 136-145 Sodium Level [facility] ([facility]) glomerular filtration rate > 60.0 >60 Glomerula r Filtration Rate [facility] ([facility]) potassium serum 4.4 mEq/L 3.5-5.1 Potassium Serum ATHE ([facility]) chloride level 107 mEq/L 98-107 Chloride Level [place] ([facility]) carbon dioxide level 32 mEq/L 21-32 Carbon Dioxide Level [place] ([facility]) anion gap 3 mEq/L 8-16 Below low normal Anion Gap [facility] ( [facility]) calcium level 10.2 mg/dL 8.5-10.1 Above high normal [facility] ID Date Data Source [id number] 04/03/2021 04:56:00 AM EDT [facility]) Name Value Range Interpretation Code Description Data Claudia rce(s) Supporting Document(s) magnesium level 2.3 mg/dL 1.8-2.4 [facility] Data Source [id number] 04/03/2021 04:56:00 AM EDT [facility]) Name Value Range Interpretation Code Description Data Claudia rce(s) Supporting Document(s) glucose, fasting 77 mg/dL 70-100 Glucose, Fasting AT [facility] ([facility]) blood urea nitrogen 20 mg/dL 7-18 Above high normal Blood Ure a Nitrogen [facility] ([facility]) glomerular filtration rate > 60.0 >60 Glomerula r Filtration Rate [facility] ([facility]) creatinine for GFR 0.67 mg/dL 0.70-1.30 Below low normal Creatinine for GFR [facility] ([facility]) sodium level 142 mEq/L 136-145 Sodium Level SUZY (No [facility]) potassium serum 4.4 mEq/L 3.5-5.1 Potassium Serum ATHE NA ([facility]) chloride level 107 mEq/L 98-107 Chloride Level [facility] ([facility]) anion gap 3 mEq/L 8-16 Below low normal Anion Gap [facility] ( [facility]) carbon dioxide level 32 mEq/L 21-32 Carbon Dioxide Level [facility] ([facility]) calcium level 10.2 mg/dL 8.5-10.1 Above high normal Calcium Level [facility] ID Date Data Source [id number] 04/03/2021 04:56:00 AM EDT [place] ([facility]) Name Value Range Interpretation Code Description Data Claudia rce(s) Supporting Document(s) magnesium level 2.3 mg/dL 1.8-2.4 [facility] ID Date Data Source [id number] 04/03/2021 04:56:00 AM EDT [facility]) Name Value Range Interpretation Code Description Data Claudia rce(s) Supporting Document(s) glucose, fasting 77 mg/dL 70-100 Glucose, Fasting AT [facility]) blood urea nitrogen 20 mg/dL 7-18 Above high normal Blood Ure a Nitrogen [facility] ([facility]) glomerular filtration rate > 60.0 >60 Glomerula r Filtration Rate [facility] ([facility]) sodium level 142 mEq/L 136-145 Sodium Level [facility] ([facility]) creatinine for GFR 0.67 mg/dL 0.70-1.30 Below low normal Creatinine for GFR [facility] ([facility]) chloride level 107 mEq/L 98-107 Chloride Level [facility] ([facility]) potassium serum 4.4 mEq/L 3.5-5.1 Potassium Serum ATHE NA ([facility]) carbon dioxide level 32 mEq/L 21-32 Carbon Dioxide Level [facility] ([facility]) calcium level 10.2 mg/dL 8.5-10.1 Above high normal Calcium Level A [facility] ([facility]) anion gap 3 mEq/L 8-16 Below low normal Anion Gap [facility] ( [facility]) ID Date Data Source [id number] 04/03/2021 04:55:00 AM EDT [facility] ([facility]) Name Value Range Interpretation Code Description Data Claudia rce(s) Supporting Document(s) white blood count 10.5 10 4.0-10.0 Above high normal White Blood Count [facility] ([facility]) red blood count 4.38 10 4.30-6.10 Red Blood Count ATHE ([facility]) hemoglobin 14.3 g/dL 13.5-17.5 Hemoglobin [facility] ([facility]) hematocrit 41.8 % 42.0-52.0 Below low normal Hematocrit [facility] ( [facility]) mean corpuscular volume 95.4 fL 80.0-96.0 Mean Corpusc ular Volume [facility]Y ([facility]) mean corpuscular HGB conc 34.2 g/dL 32.0-36.5 Mean Corpu scular HGB Conc [facility] ([facility]) mean corpuscular hemoglobin 32.6 pg 27.0-33.0 Mean Cor puscular Hemoglobin [facility] ([facility]) red cell distribution width 12.4 % 11.5-14.5 Red Cell Distribution Width [facility] ([facility]) neutrophils % 59.7 % 36.0-66.0 Neutrophils % [facility] ( [facility]) platelet count, automated 232 10 150-450 Platelet C ount, Automated [facility] ([facility]) mono % 12.1 % 2.0-8.0 Above high normal [place] % [facility] ([facility]) lymph % 25.1 % 24.0-44.0 Lymph % [facility] ([facility]) baso % 0.5 % 0.0-1.0 Baso % [facility] ([facility]) eos % 2.3 % 0.0-3.0 Eos % [facility] ([facility]) immature granulocyte % 0.3 % 0-3.0 Immature Gran ulocyte % [facility] ([facility]) nucleated red blood cell % 0.0 % 0-0 Nucleated Red Blood Cell % [facility] ([facility]) neutrophils # 6.3 10 1.5-8.5 Neutrophils # [facility] ( [facility]) lymph # 2.6 10 1.5-5.0 Lymph # [facility] ([facility]) eos # 0.2 10 0.0-0.5 Eos # [facility] ([facility]) mono # 1.3 10 0.0-0.8 Above high normal [place] # [facility] ([facility]) baso # 0.1 10 0.0-0.2 Baso # [facility] ([facility]) ID Date Data Source [id number] 04/03/2021 04:55:00 AM EDT [place] ([facility]) Name Value Range Interpretation Code Description Data Claudia rce(s) Supporting Document(s) white blood count 10.5 10 4.0-10.0 Above high normal White Blood Count [facility] ([facility]) hemoglobin 14.3 g/dL 13.5-17.5 Hemoglobin [facility] ([facility]) hematocrit 41.8 % 42.0-52.0 Below low normal Hematocrit [facility] ( [facility]) red blood count 4.38 10 4.30-6.10 Red Blood Count ATHE NA ([facility]) mean corpuscular hemoglobin 32.6 pg 27.0-33.0 Mean Cor puscular Hemoglobin [facility] ([facility]) mean corpuscular volume 95.4 fL 80.0-96.0 Mean Corpusc ular Volume [facility] ([facility]) platelet count, automated 232 10 150-450 Platelet C ount, Automated [facility] ([facility]) red cell distribution width 12.4 % 11.5-14.5 Red Cell Distribution Width [facility] ([facility]) mean corpuscular HGB conc 34.2 g/dL 32.0-36.5 Mean Corpu scular HGB Conc [facility] ([facility]) neutrophils % 59.7 % 36.0-66.0 Neutrophils % [facility] ( [facility]) lymph % 25.1 % 24.0-44.0 Lymph % [facility] ([facility]) mono % 12.1 % 2.0-8.0 Above high normal [place] % [facility] ([facility]) baso % 0.5 % 0.0-1.0 Baso % [facility] ([facility]) eos % 2.3 % 0.0-3.0 Eos % [facility] ([facility]) immature granulocyte % 0.3 % 0-3.0 Immature Gran ulocyte % [facility] ([facility]) neutrophils # 6.3 10 1.5-8.5 Neutrophils # [facility] ( [facility]) nucleated red blood cell % 0.0 % 0-0 Nucleated Red Blood Cell % [facility] ([facility]) eos # 0.2 10 0.0-0.5 Eos # [facility] ([facility]) lymph # 2.6 10 1.5-5.0 Lymph # [facility] ([facility]) mono # 1.3 10 0.0-0.8 Above high normal [place] # [facility] ([facility]) baso # 0.1 10 0.0-0.2 Baso # [facility] ([facility]) ID Date Data Source [id number] 04/03/2021 04:55:00 AM EDT [facility] ([facility]) Name Value Range Interpretation Code Description Data Claudia rce(s) Supporting Document(s) white blood count 10.5 10 4.0-10.0 Above high normal White Blood Count [facility] ([facility]) red blood count 4.38 10 4.30-6.10 Red Blood Count ATHE NA ([facility]) hemoglobin 14.3 g/dL 13.5-17.5 Hemoglobin [facility] ([facility]) mean corpuscular hemoglobin 32.6 pg 27.0-33.0 Mean Cor puscular Hemoglobin [facility] ([facility]) mean corpuscular volume 95.4 fL 80.0-96.0 Mean Corpusc ular Volume [facility] ([facility]) hematocrit 41.8 % 42.0-52.0 Below low normal Hematocrit [facility] ( [facility]) red cell distribution width 12.4 % 11.5-14.5 Red Cell Distribution Width [facility] ([facility]) mean corpuscular HGB conc 34.2 g/dL 32.0-36.5 Mean Corpu scular HGB Conc [facility] ([facility]) lymph % 25.1 % 24.0-44.0 Lymph % [facility] ([facility]) neutrophils % 59.7 % 36.0-66.0 Neutrophils % [place] ( [facility]) platelet count, automated 232 10 150-450 Platelet C ount, Automated [facility] ([facility]) eos % 2.3 % 0.0-3.0 Eos % [place] ([facility]) baso % 0.5 % 0.0-1.0 Baso % [facility] ([facility]) mono % 12.1 % 2.0-8.0 Above high normal [place] % [facility] ([facility]) nucleated red blood cell % 0.0 % 0-0 Nucleated Red Blood Cell % [place] ([facility]) immature granulocyte % 0.3 % 0-3.0 Immature Gran ulocyte % [place] ([facility]) neutrophils # 6.3 10 1.5-8.5 Neutrophils # [facility] ( [facility]) mono # 1.3 10 0.0-0.8 Above high normal [place] # [facility] ([facility]) lymph # 2.6 10 1.5-5.0 Lymph # [facility] ([facility]) eos # 0.2 10 0.0-0.5 Eos # [facility] ([facility]) baso # 0.1 10 0.0-0.2 Baso # [facility] ([facility]) ID Date Data Source [id number] 04/02/2021 03:14:00 PM EDT [facility] ([facility]) Name Value Range Interpretation Code Description Data Claudia rce(s) Supporting Document(s) ionized calcium 4.5 mg/dL 4.5-5.3 Ionized Calcium ATHE NA ([facility]) ID Date Data Source [id number] 04/02/2021 03:14:00 PM [facility] Name Value Range Interpretation Code Description Data Claudia rce(s) Supporting Document(s) ionized calcium 4.5 mg/dL 4.5-5.3 Ionized Calcium ATHE NA ([facility]) ID Date Data Source [id number] 04/02/2021 03:14:00 PM [facility] Name Value Range Interpretation Code Description Data Claudia rce(s) Supporting Document(s) ionized calcium 4.5 mg/dL 4.5-5.3 Ionized Calcium ATHE ([facility]) ID Date Data Source [id number] 04/02/2021 01:16:00 PM EDT [facility]) Name Value Range Interpretation Code Description Data Claudia rce(s) Supporting Document(s) influenza A amplification negative negative Influenza a Amplification [facility] ([facility]) influenza B amplification negative negative [facility] RSV amplification negative negative RSV Amplification [facility] ([facility]) sars covid-19 amplification negative negative [facility] ID Date Data Source [id number] 04/02/2021 01:16:00 PM EDT [facility] Name Value Range Interpretation Code Description Data Claudia rce(s) Supporting Document(s) influenza B amplification negative negative Influenza B Amplification [facility] ([facility]) influenza A amplification negative negative Influenza a Amplification [facility] ([facility]) RSV amplification negative negative RSV Amplification [facility] ([facility]) sars covid-19 amplification negative negative Sars Cov id-19 Amplification [facility]) ID Date Data Source [id number] 04/02/2021 01:16:00 PM EDT [facility]) Name Value Range Interpretation Code Description Data Claudia rce(s) Supporting Document(s) influenza A amplification negative negative Influenza a Amplification [place] ([facility]) influenza B amplification negative negative Influenza B Amplification [place] ([facility]) RSV amplification negative negative RSV Amplification [place] ([facility]) sars covid-19 amplification negative negative Sars Cov id-19 Amplification [facility]) ID Date Data Source [id number] 04/02/2021 01:16:00 PM EDT [facility] Name Value Range Interpretation Code Description Data Claudia rce(s) Supporting Document(s) SARS coronavirus 2 RNA [Presence] in Res piratory specimen by SUE with probe detection NEGATIVE [facility] This lab was ordered by [facility] a nd reported by [facility]. ID Date Data Source [id number] 04/02/2021 11:30:00 AM EDT [facility]) Name Value Range Interpretation Code Description Data Claudia rce(s) Supporting Document(s) total 25(oh) vitamin D 27.8 NG/mL 30.0-100.0 Below low normal T otal 25(Oh) Vitamin D [facility]) ID Date Data Source [id number] 04/02/2021 11:30:00 AM EDT [facility]) Name Value Range Interpretation Code Description Data Claudia rce(s) Supporting Document(s) PTH intact 73.9 pg/mL 18.5-88.0 PTH Intact [facility]) ID Date Data Source [id number] 04/02/2021 11:30:00 AM EDT [facility]) Name Value Range Interpretation Code Description Data Claudia rce(s) Supporting Document(s) glucose, fasting 155 mg/dL 70-100 Above high normal Glucose, Fas ting [facility] ([facility]) blood urea nitrogen 21 mg/dL 7-18 Above high normal Blood Ure a Nitrogen [facility] ([facility]) glomerular filtration rate > 60.0 >60 Glomerula r Filtration Rate [facility] ([facility]) creatinine for GFR 0.86 mg/dL 0.70-1.30 Creatinine for GF R [facility] ([facility]) sodium level 139 mEq/L 136-145 Sodium Level [facility] ([facility]) carbon dioxide level 30 mEq/L 21-32 Carbon Dioxide Level [facility] ([facility]) potassium serum 4.5 mEq/L 3.5-5.1 Potassium Serum [facility] ([facility]) chloride level 103 mEq/L 98-107 Chloride Level [facility] ([facility]) AST/SGOT 19 U/L 7-37 AST/SGOT [facility] ([facility]) calcium level 11.3 mg/dL 8.5-10.1 Above high normal Calcium Level A [facility] ([facility]) anion gap 6 mEq/L 8-16 Below low normal Anion Gap [facility] ( [facility]) ALT/SGPT 52 U/L 12-78 ALT/SGPT [facility] ([facility]) bilirubin,total 0.6 mg/dL 0.2-1.0 Bilirubin,total [facility] ([facility]) total protein 8.0 gm/dL 6.4-8.2 Total Protein [facility] ( [facility]) alkaline phosphatase 88 U/L 45-117 Alkaline Phosph atase [facility] ([facility]) albumin/globulin ratio Albumin/globu mar Ratio [facility] ([facility]) albumin 4.6 gm/dL 3.2-5.2 Albumin [facility] ([facility]) ID Date Data Source [id number] 04/02/2021 11:30:00 AM EDT [facility] ([facility]) Name Value Range Interpretation Code Description Data Claudia rce(s) Supporting Document(s) white blood count 14.8 10 4.0-10.0 Above high normal White Blood Count [facility] ([facility]) hemoglobin 16.0 g/dL 13.5-17.5 Hemoglobin [facility] ([facility]) red blood count 4.89 10 4.30-6.10 Red Blood Count ATHE NA ([facility]) hematocrit 45.1 % 42.0-52.0 Hematocrit [facility] ([facility]) mean corpuscular volume 92.2 fL 80.0-96.0 Mean Corpusc ular Volume [facility] ([facility]) mean corpuscular HGB conc 35.5 g/dL 32.0-36.5 Mean Corpu scular HGB Conc [facility] ([facility]) mean corpuscular hemoglobin 32.7 pg 27.0-33.0 Mean Cor puscular Hemoglobin [facility] ([facility]) platelet count, automated 283 10 150-450 Platelet C ount, Automated [facility] ([facility]) nucleated red blood cell % 0.0 % 0-0 Nucleated Red Blood Cell % [facility] ([facility]) red cell distribution width 12.1 % 11.5-14.5 Red Cell Distribution Width [facility] ([facility]) ID Date Data Source [id number] 04/02/2021 11:30:00 AM EDT [facility]) Name Value Range Interpretation Code Description Data Claudia rce(s) Supporting Document(s) total 25(oh) vitamin D 27.8 NG/mL 30.0-100.0 Below low normal T otal 25(Oh) Vitamin D [facility] ([facility]) ID Date Data Source [id number] 04/02/2021 11:30:00 AM EDT [facility]) Name Value Range Interpretation Code Description Data Claudia rce(s) Supporting Document(s) PTH intact 73.9 pg/mL 18.5-88.0 PTH Intact [facility] ID Date Data Source [id number] 04/02/2021 11:30:00 AM EDT [facility] ([facility]) Name Value Range Interpretation Code Description Data Claudia rce(s) Supporting Document(s) glucose, fasting 155 mg/dL 70-100 Above high normal Glucose, Fas ting [facility] ([facility]) creatinine for GFR 0.86 mg/dL 0.70-1.30 Creatinine for GF R [facility] ([facility]) blood urea nitrogen 21 mg/dL 7-18 Above high normal Blood Ure a Nitrogen [facility] ([facility]) glomerular filtration rate > 60.0 >60 Glomerula r Filtration Rate [facility] ([facility]) carbon dioxide level 30 mEq/L 21-32 Carbon Dioxide Level [facility] ([facility]) potassium serum 4.5 mEq/L 3.5-5.1 Potassium Serum AT[facility] NA ([facility]) sodium level 139 mEq/L 136-145 Sodium Level [facility] ([facility]) chloride level 103 mEq/L 98-107 Chloride Level [facility] ([facility]) anion gap 6 mEq/L 8-16 Below low normal Anion Gap [facility] ( [facility]) AST/SGOT 19 U/L 7-37 AST/SGOT [facility] ([facility]) calcium level 11.3 mg/dL 8.5-10.1 Above high normal Calcium Level A [facility] ([facility]) ALT/SGPT 52 U/L 12-78 ALT/SGPT [facility] ([facility]) bilirubin,total 0.6 mg/dL 0.2-1.0 Bilirubin,total ATHE NA ([facility]) alkaline phosphatase 88 U/L 45-117 Alkaline Phosph atase [facility] ([facility]) albumin/globulin ratio Albumin/globu mar Ratio [facility] ([facility]) albumin 4.6 gm/dL 3.2-5.2 Albumin [facility] ([facility]) total protein 8.0 gm/dL 6.4-8.2 Total Protein [facility] ( [facility]) ID Date Data Source [id number] 04/02/2021 11:30:00 AM EDT [place] ([facility]) Name Value Range Interpretation Code Description Data Claudia rce(s) Supporting Document(s) red blood count 4.89 10 4.30-6.10 Red Blood Count [facility] ([facility]) hemoglobin 16.0 g/dL 13.5-17.5 Hemoglobin [facility] ([facility]) white blood count 14.8 10 4.0-10.0 Above high normal White Blood Count [facility] ([facility]) mean corpuscular hemoglobin 32.7 pg 27.0-33.0 Mean Cor puscular Hemoglobin [facility] ([facility]) hematocrit 45.1 % 42.0-52.0 Hematocrit [facility] ([facility]) mean corpuscular volume 92.2 fL 80.0-96.0 Mean Corpusc ular Volume [facility] ([facility]) red cell distribution width 12.1 % 11.5-14.5 Red Cell Distribution Width [facility] ([facility]) mean corpuscular HGB conc 35.5 g/dL 32.0-36.5 Mean Corpu scular HGB Conc [facility] ([facility]) platelet count, automated 283 10 150-450 Platelet C ount, Automated [facility] ([facility]) nucleated red blood cell % 0.0 % 0-0 Nucleated Red Blood Cell % [facility] ([facility]) ID Date Data Source [id number] 04/02/2021 11:30:00 AM EDT [place] ([facility]) Name Value Range Interpretation Code Description Data Claudia rce(s) Supporting Document(s) total 25(oh) vitamin D 27.8 NG/mL 30.0-100.0 Below low normal T otal 25(Oh) Vitamin D [place] ([facility]) ID Date Data Source [id number] 04/02/2021 11:30:00 AM EDT [facility]) Name Value Range Interpretation Code Description Data Claudia rce(s) Supporting Document(s) PTH intact 73.9 pg/mL 18.5-88.0 PTH Intact [facility] ([facility]) ID Date Data Source [id number] 04/02/2021 11:30:00 AM EDT [facility] ([facility]) Name Value Range Interpretation Code Description Data Claudia rce(s) Supporting Document(s) blood urea nitrogen 21 mg/dL 7-18 Above high normal Blood Ure a Nitrogen [facility] ([facility]) glucose, fasting 155 mg/dL 70-100 Above high normal Glucose, Fas ting [facility] ([facility]) creatinine for GFR 0.86 mg/dL 0.70-1.30 Creatinine for GF R [facility] ([facility]) glomerular filtration rate > 60.0 >60 Glomerula r Filtration Rate [facility] ([facility]) potassium serum 4.5 mEq/L 3.5-5.1 Potassium Serum ATHE NA ([facility]) sodium level 139 mEq/L 136-145 Sodium Level [facility] (No [facility]) chloride level 103 mEq/L 98-107 Chloride Level [facility] ([facility]) carbon dioxide level 30 mEq/L 21-32 Carbon Dioxide Level [facility] ([facility]) calcium level 11.3 mg/dL 8.5-10.1 Above high normal Calcium Level A [facility] ([facility]) anion gap 6 mEq/L 8-16 Below low normal Anion Gap [facility] ( [facility]) alkaline phosphatase 88 U/L 45-117 Alkaline Phosph atase [facility] ([facility]) AST/SGOT 19 U/L 7-37 AST/SGOT [facility] ([facility]) ALT/SGPT 52 U/L 12-78 ALT/SGPT [facility] ([facility]) bilirubin,total 0.6 mg/dL 0.2-1.0 Bilirubin,total AT[facility] ([facility]) total protein 8.0 gm/dL 6.4-8.2 Total Protein [facility] ( [facility]) albumin 4.6 gm/dL 3.2-5.2 Albumin [facility] ([facility]) albumin/globulin ratio Albumin/globu mar Ratio [facility] ([facility]) ID Date Data Source [id number] 04/02/2021 11:30:00 AM EDT [place] ([facility]) Name Value Range Interpretation Code Description Data Claudia rce(s) Supporting Document(s) red blood count 4.89 10 4.30-6.10 Red Blood Count ATHE NA ([facility]) white blood count 14.8 10 4.0-10.0 Above high normal White Blood Count [facility] ([facility]) hemoglobin 16.0 g/dL 13.5-17.5 Hemoglobin [facility] ([facility]) hematocrit 45.1 % 42.0-52.0 Hematocrit [facility] ([facility]) mean corpuscular volume 92.2 fL 80.0-96.0 Mean Corpusc ular Volume [facility] ([facility]) mean corpuscular HGB conc 35.5 g/dL 32.0-36.5 Mean Corpu scular HGB Conc [facility] ([facility]) mean corpuscular hemoglobin 32.7 pg 27.0-33.0 Mean Cor puscular Hemoglobin [facility] ([facility]) platelet count, automated 283 10 150-450 Platelet C ount, Automated [facility] ([facility]) nucleated red blood cell % 0.0 % 0-0 Nucleated Red Blood Cell % [place] ([facility]) red cell distribution width 12.1 % 11.5-14.5 Red Cell Distribution Width [place] ([facility]) ID Date Data Source [id number] 03/30/2021 08:31:00 AM EDT [facility] 1 OrderSheet [facility] Emergency Department [address] [place] [address] Phone #: ext- [phone] 03/30/2021 08:30 Patient: [...] Robbie Chacon (21:50 03/30/2021)][Electronically locked by Janice Wilson R.N. (10:03/30/2021)] Name Value Range Interpretation Code Description Data Claudia rce(s) Supporting Document(s) ID Date Data Source [id number] 03/30/2021 08:31:00 AM EDT [facility] 1 Medication Reconciliation Report [facility] Emergency Department [address] [place] [address] Phone #: [phone]- [phone] 03/30/2021 08:30 Patient: TIMI YARBROUGH Sex: M [...] 21 tablet. Refills: 0. Substitution permitted.Pharmacy - [facility] - [address] [place] [address]. .gabapentin 600 mg tablet Take 1 tablet three times a day as directed for 30 days -- Dispense 90 tablet.Refills: 0. Substitution permitted.Pharmacy - [facility] - [address] [place] [address]. Phone: [phone] Medication Reconciliation Report [facility] Emergency Department [address] [place] [address] Phone #: ext- [phone] 03/30/2021 08:30 Patient: TIMI YARBROUGH Sex: M : 1985 Age: [id number] . -- AILYN Gonzalez Name Value Range Interpretation Code Description Data Claudia rce(s) Supporting Document(s) ID Date Data Source [id number] 03/30/2021 08:31:00 AM EDT [facility] 1 Medication Administration Record [facility] Emergency Department [address] [place] [address] Phone #: ext- [phone] 03/30/2021 08:30 [id number] Sex[facility] M : 1985 Age: 36yWeight: 99.7 kgHeight/Length: 74 inBMI: 28.2ALLERGIES: Chantix Date/Time Medication Administered Medication OrderedGiven TORADOL [IM] (KETOROLAC Toradol IM 60 mg09:50 03/30/2021 TROMETHAMINE)Janice Wilson R.N. Dose: 60 mg IMGiven PREDNISONE [PO] predniSONE PO 60 mg09:48 03/30/2021 Dose: 60 mg Tablets Janice Tan R.N. Name Value Range Interpretation Code Description Data Claudia rce(s) Supporting Document(s) ID Date Data Source [id number] 03/30/2021 08:31:00 AM EDT [facility] 1 General Instructions [facility] Emergency Department [address] [place] [address] Phone #: ext- [phone] 03/30/2021 08:30 Patient: [...] 21 tablet. Refills: 0. Substitution permitted.Pharmacy - [facility] - [address] [place] [phone]. .gabapentin 600 mg tablet Take 1 tablet three times a day as directed for 30 days -- Dispense 90 tablet.Refills: 0. Substitution permitted.Pharmacy - [facility] - [address] [place] [phone]. .Follow-up:Follow up with your doctor today. Call for an appointment. Reason for referral: evaluation, treatment andrefer to Neurology. Summary of care provided to patient.Understanding of the discharge instructions verbalized by patient. ADDITIONAL INFORMATION 2 General Instructions [facility] Emergency Department [address] [place] [address] Phone #: ext- [phone] 03/30/2021 08:30 Patient: [...] rest at home today. 3 General Instructions [facility] Emergency Department [address] [place] [address] Phone #: ext- [phone] 03/30/2021 08:30 Patient: [...] leg, or face Trouble speaking or seeing Adocia. [address] [place] [address], [place] [address]. All rights reserved. This information is not intended as asubstitute for professional medical care. Always follow your healthcare professional's instructions. You have been given t he following additional information: Trigeminal Neuralgia(Electronically signed by AILYN Gonzalez 03/30/2021 21:50) 4 General Instructions [facility] Emergency Department [address] [place] [address] Phone #: ext- [phone] 03/30/2021 08:30 Patient: TIMI YARBROUGH Sex: M : 1985 Age: 36y Name Value Range Interpretation Code Description Data Claudia rce(s) Supporting Document(s) ID Date Data Source [id number] 03/30/2021 08:31:00 AM EDT [facility] 1 Clinical Report - Nurses [facility] Emergency Department [address] [place] [address] Phone #: ext- [phone] 03/30/2021 08:30 Patient: [...] eating). No fever, cough or difficulty breathing.Treatment HOSE MAKER:None.SEPSIS SCREEN: SIRS SCREEN NEGATIVE. SEPSIS SCREEN NEGATIVE. [...] Gloria, R.N.History 2 Clinical Report - Nurses [facility] Emergency Department [address] [place] [address] Phone #: ext- [phone] 03/30/2021 08:30 Patient: [...] deltoid. Allergies 3 Clinical Report - Nurses [facility] Em ergency Department [address] [place] [address] Phone #: ext- [phone] 03/30/2021 08:30 Patient: [...] Patient verbalized understanding. Written instructions provided in Polish. The patient was discharged by the physician certified anesthesiologist assistant. He was discharged home and unaccompanied at time of discharge. He left ambulatory and via private vehicle. Patient driving. --10:10 03/30/21 Janice Wilson R.N. 10:09 03/30/21. BP: 126/72. MAP: 90. HR: 65. RR: 18. O2 saturation: 99% on room air. Temp: 98.2 F (temporal). Pain level now: 0/10. --10:10 03/30/21 Janice Wilson R.N.Locked/Released at 03/30/2021 10:10 by Janice Wilson R.N. Name Value Range Interpretation Code Description Data Claudia rce(s) Supporting Document(s) ID Date Data Source [id number] 03/30/2021 08:31:00 AM EDT [facility] 1 Clinical Report - Physicians/Mid Levels [facility] Emergency Department [address] [place] [address] Phone #: ext- [phone] 03/30/2021 08:30 [id number] Sex: M : 1985 Age: 36y Time [...] HISTORY 2 Clinical Report - Physicians/Mid Levels [facility] Emergency Department [address] [place] [address] Phone #: ext- [phone] 03/30/2021 08:30 Patient: [...] Oral. 3 Clinical Report - Physicians/Mid Levels [facility] Emergency Department [address] [place] [address] Phone #: ext- [phone] 03/30/2021 08:30 Patient: TIMI YARBROUGH [facility]#: [id number] Sex: M : 1985 Age: 36y carBAMazepine Oral. Chlorthalidone Oral. Lisinopril Oral. Meclizine HCl Oral. Prescription Medications: Medrol (Shane) 4 mg tablets in a dose pack Take 1 tablet as directed for 6 days -- start tomorrow. Dispense 21 tablet. Refills: 0. Substitution permitted. Pharmacy - [facility] [address] [phone]. . gabapentin 600 mg tablet Take 1 tablet three times a day as directed for 30 days -- Dispense 90 tablet. Refills: 0. Substitution permitted. Pharmacy - [facility] [address] [phone]. . Follow-up: Follow up with your doctor today. Call for an appointment. Reason for referral: evaluation, treatment and refer to Neurology. Summary of care provided to patient. Understanding of the discharge instructions verbalized by patient.(Electronically signed by AILYN Gonzalez 03/30/2021 21:50) Name Value Range Interpretation Code Description Data Claudia rce(s) Supporting Document(s) ID Date Data Source [id number] 02/21/2021 12:00:00 AM EDT [place] ([facility]) Name Value Range Interpretation Code Description Data Claudia rce(s) Supporting Document(s) Color of Urine tnp Color [facility] ([facility]) ID Date Data Source [id number] 02/21/2021 12:00:00 AM EDT [facility]) Name Value Range Interpretation Code Description Data Claudia rce(s) Supporting Document(s) Glucose [Mass/volume] in Serum or Plasma 110 mg/dL 65-99 Above high normal [facility] Creatinine [Mass/volume] in Serum or Plasma 0.70 mg/dL 0.60-1.35 Creatinine [facility]) Urea nitrogen [Mass/volume] in Serum or Plasma 15 mg/dL 7-25 Urea Nitrogen (BUN) [facility] Glomerular filtration rate/1.73 sq M.pre dicted among non-blacks [Volume Rate/Area] in Serum, Plasma or Blood by Creatinine-based formula (CKD-EPI) 121 mL/min/1.73m2 > or = 60 eGFR Non-afr. [place] [facility] ([facility]) Sodium [Moles/volume] in Serum or Plasma 139 mmol/L 135-146 Sodium [place] ([facility]) Urea nitrogen/Creatinine [Mass Ratio] in Serum or Plasma not applic able 6-22 BUN/creatinine Ratio [facility]) Glomerular filtration rate/1.73 sq M.pre dicted among blacks [Volume Rate/Area] in Serum, Plasma or Blood by Creatinine-based formula (CKD-EPI) 140 mL/min/1.73m2 > or = 60 eGFR [facility] ([facility]) Chloride [Moles/volume] in Serum or Plasma 103 mmol/L 98-110 Chloride [facility] ([facility]) Calcium [Mass/volume] in Serum or Plasma 11.0 mg/dL 8.6-10.3 Above high normal Calcium [facility] ([facility]) Carbon dioxide, total [Moles/volume] in Serum or Plasma 29 mmol/L 20-32 Carbon Dioxide [facility] ([facility]) Potassium [Moles/volume] in Serum or Plasma 4.0 mmol/L 3.5-5.3 Potassium [facility] ([facility]) Albumin [Mass/volume] in Serum or Plasma 4.8 g/dL 3.6-5.1 Albumin [facility] ([facility]) Globulin [Mass/volume] in Serum by calculation 2.7 g/dL_(calc) 1.9- 3.7 Globulin [facility] ([facility]) Albumin/Globulin [Mass Ratio] in Serum or Plasma 1.8 (calc) 1.0-2 .5 Albumin/globulin Ratio [facility] ([facility]) Protein [Mass/volume] in Serum or Plasma 7.5 g/dL 6.1-8.1 Protein, Total [facility] ([facility]) Aspartate aminotransferase [Enzymatic activity/volume] in Serum or Plasma 23 U/L 10-40 Ast [facility] ([facility]) Bilirubin.total [Mass/volume] in Serum or Plasma 0.6 mg/dL 0.2-1 .2 Bilirubin, Total [facility] ([facility]) Alanine aminotransferase [Enzymatic activity/volume] in Seru m or Plasma 23 U/L 9-46 Alt [facility] ([facility]) Alkaline phosphatase [Enzymatic activity/volume] in Serum or Plasma 84 U/L 36-130 Alkaline Phosphatase [facility] ([facility]) ID Date Data Source [id number] 02/21/2021 12:00:00 AM EDT [place] ([facility]) Name Value Range Interpretation Code Description Data Claudia rce(s) Supporting Document(s) Triglyceride [Mass/volume] in Serum or Plasma 108 mg/dL <150 Triglycerides [facility] ([facility]) Cholesterol in HDL [Mass/volume] in Serum or Plasma 35 mg/dL > or = 40 Below low normal HDL Cholesterol [facility] ([facility]) Cholesterol [Mass/volume] in Serum or Plasma 233 mg/dL <200 Above high normal Cholesterol, Total [facility] ([facility]) Cholesterol non HDL [Mass/volume] in Serum or Plasma 198 mg/dL_( calc) <130 Above high normal Non HDL Cholesterol [facility] ([facility]) Cholesterol in LDL [Mass/volume] in Serum or Plasma by calculation 175 mg/dL_(calc) Above high normal LDL-cholesterol [facility] ([facility]) Cholesterol.total/Cholesterol in HDL [Mass Ratio] in Serum o r Plasma 6.7 (calc) <5.0 Above high normal Chol/hdlc Ratio [facility] ([facility]) ID Date Data Source [id number] 02/21/2021 12:00:00 AM EDT [facility] Name Value Range Interpretation Code Description Data Claudia rce(s) Supporting Document(s) Color of Urine tnp Color [facility] ([facility]) ID Date Data Source [id number] 02/21/2021 12:00:00 AM EDT [facility] ([facility]) Name Value Range Interpretation Code Description Data Claudia rce(s) Supporting Document(s) Glucose [Mass/volume] in Serum or Plasma 110 mg/dL 65-99 Above high normal Glucose [facility] ([facility]) Urea nitrogen [Mass/volume] in Serum or Plasma 15 mg/dL 7-25 Urea Nitrogen (BUN) [facility] ([facility]) Creatinine [Mass/volume] in Serum or Plasma 0.70 mg/dL 0.60-1.35 Creatinine [facility] ([facility]) Urea nitrogen/Creatinine [Mass Ratio] in Serum or Plasma not applic able 6-22 BUN/creatinine Ratio [facility] ([facility]) Glomerular filtration rate/1.73 sq M.pre dicted among blacks [Volume Rate/Area] in Serum, Plasma or Blood by Creatinine-based formula (CKD-EPI) 140 mL/min/1.73m2 > or = 60 eGFR SUZY ([facility]) Potassium [Moles/volume] in Serum or Plasma 4.0 mmol/L 3.5-5.3 Potassium SUZY ([facility]) Sodium [Moles/volume] in Serum or Plasma 139 mmol/L 135-146 Sodium SUZY ([facility]) Glomerular filtration rate/1.73 sq M.pre dicted among non-blacks [Volume Rate/Area] in Serum, Plasma or Blood by Creatinine-based formula (CKD-EPI) 121 mL/min/1.73m2 > or = 60 eGFR Non-afr. [place] SUZY ([facility]) Calcium [Mass/volume] in Serum or Plasma 11.0 mg/dL 8.6-10.3 Above high normal Calcium SUZY ([facility]) Protein [Mass/volume] in Serum or Plasma 7.5 g/dL 6.1-8.1 Protein, Total SUZY ([facility]) Albumin [Mass/volume] in Serum or Plasma 4.8 g/dL 3.6-5.1 Albumin SUZY ([facility]) Chloride [Moles/volume] in Serum or Plasma 103 mmol/L 98-110 Chloride SUZY ([facility]) Carbon dioxide, total [Moles/volume] in Serum or Plasma 29 mmol/L 20-32 Carbon Dioxide SUZY ([facility]) Albumin/Globulin [Mass Ratio] in Serum or Plasma 1.8 (calc) 1.0-2 .5 Albumin/globulin Ratio SUZY ([facility]) Globulin [Mass/volume] in Serum by calculation 2.7 g/dL_(calc) 1.9- 3.7 Globulin SUZY ([facility]) Alkaline phosphatase [Enzymatic activity/volume] in Serum or Plasma 84 U/L 36-130 Alkaline Phosphatase [place] ([facility]) Aspartate aminotransferase [Enzymatic activity/volume] in Serum or Plasma 23 U/L 10-40 Ast SUZY ([facility]) Bilirubin.total [Mass/volume] in Serum or Plasma 0.6 mg/dL 0.2-1 .2 Bilirubin, Total SUZY ([facility]) Alanine aminotransferase [Enzymatic activity/volume] in Seru m or Plasma 23 U/L 9-46 Alt SUZY ([facility]) ID Date Data Source [id number] 02/21/2021 12:00:00 AM EDT SUZY ([facility]) Name Value Range Interpretation Code Description Data Claudia rce(s) Supporting Document(s) Cholesterol [Mass/volume] in Serum or Plasma 233 mg/dL <200 Above high normal Cholesterol, Total SUZY ([facility]) Triglyceride [Mass/volume] in Serum or Plasma 108 mg/dL <150 Triglycerides SUZY ([facility]) Cholesterol in LDL [Mass/volume] in Serum or Plasma by calculation 175 mg/dL_(calc) Above high normal LDL-cholesterol SUZY ([facility]) Cholesterol in HDL [Mass/volume] in Serum or Plasma 35 mg/dL > or = 40 Below low normal HDL Cholesterol SU[facility] ([facility]) Cholesterol.total/Cholesterol in HDL [Mass Ratio] in Serum o r Plasma 6.7 (calc) <5.0 Above high normal Chol/hdlc Ratio SUZY ([facility]) Cholesterol non HDL [Mass/volume] in Serum or Plasma 198 mg/dL_( calc) <130 Above high normal Non HDL Cholesterol SUZY ([facility]) ID Date Data Source [id number] 02/21/2021 12:00:00 AM EDT SUZY ([facility]) Name Value Range Interpretation Code Description Data Claudia rce(s) Supporting Document(s) Color of Urine tnp Color SUZY ([facility]) ID Date Data Source [id number] 02/21/2021 12:00:00 AM EDT SUZY ([facility]) Name Value Range Interpretation Code Description Data Claudia rce(s) Supporting Document(s) Urea nitrogen [Mass/volume] in Serum or Plasma 15 mg/dL 7-25 Urea Nitrogen (BUN) SUZY ([facility]) Glucose [Mass/volume] in Serum or Plasma 110 mg/dL 65-99 Above high normal Glucose SUZY ([facility]) Creatinine [Mass/volume] in Serum or Plasma 0.70 mg/dL 0.60-1.35 Creatinine SUZY ([facility]) Sodium [Moles/volume] in Serum or Plasma 139 mmol/L 135-146 Sodium SUZY ([facility]) Glomerular filtration rate/1.73 sq M.pre dicted among blacks [Volume Rate/Area] in Serum, Plasma or Blood by Creatinine-based formula (CKD-EPI) 140 mL/min/1.73m2 > or = 60 eGFR SUZY ([facility]) Urea nitrogen/Creatinine [Mass Ratio] in Serum or Plasma not applic able 6-22 BUN/creatinine Ratio SZUY ([facility]) Glomerular filtration rate/1.73 sq M.pre dicted among non-blacks [Volume Rate/Area] in Serum, Plasma or Blood by Creatinine-based formula (CKD-EPI) 121 mL/min/1.73m2 > or = 60 eGFR Non-afr. [place] SUZY ([facility]) Calcium [Mass/volume] in Serum or Plasma 11.0 mg/dL 8.6-10.3 Above high normal Calcium SUZY ([facility]) Chloride [Moles/volume] in Serum or Plasma 103 mmol/L 98-110 Chloride SUZY ([facility]) Potassium [Moles/volume] in Serum or Plasma 4.0 mmol/L 3.5-5.3 Potassium SUZY ([facility]) Protein [Mass/volume] in Serum or Plasma 7.5 g/dL 6.1-8.1 Protein, Total SUZY ([facility]) Carbon dioxide, total [Moles/volume] in Serum or Plasma 29 mmol/L 20-32 [facility] Albumin/Globulin [Mass Ratio] in Serum or Plasma 1.8 (calc) 1.0-2 .5 [facility] Globulin [Mass/volume] in Serum by calculation 2.7 g/dL_(calc) 1.9- 3.7 Globulin SUZY ([facility]) Albumin [Mass/volume] in Serum or Plasma 4.8 g/dL 3.6-5.1 Albumin SUZY ([facility]) Alanine aminotransferase [Enzymatic activity/volume] in Seru m or Plasma 23 U/L 9-46 Alt SUZY ([facility]) Alkaline phosphatase [Enzymatic activity/volume] in Serum or Plasma 84 U/L 36-130 Alkaline Phosphatase SUZY ([facility]) Bilirubin.total [Mass/volume] in Serum or Plasma 0.6 mg/dL 0.2-1 .2 Bilirubin, Total SUZY ([facility]) Aspartate aminotransferase [Enzymatic activity/volume] in Serum or Plasma 23 U/L 10-40 Ast SUZY ([facility]) ID Date Data Source [id number] 02/21/2021 12:00:00 AM EDT SUZY ([facility]) Name Value Range Interpretation Code Description Data Claudia rce(s) Supporting Document(s) Cholesterol in HDL [Mass/volume] in Serum or Plasma 35 mg/dL > or = 40 Below low normal HDL Cholesterol SUZY ([facility]) Cholesterol [Mass/volume] in Serum or Plasma 233 mg/dL <200 Above high normal Cholesterol, Total SUZY ([facility]) Cholesterol.total/Cholesterol in HDL [Mass Ratio] in Serum o r Plasma 6.7 (calc) <5.0 Above high normal Chol/hdlc Ratio SUZY ([facility]) Cholesterol in LDL [Mass/volume] in Serum or Plasma by calculation 175 mg/dL_(calc) Above high normal LDL-cholesterol SUZY ([facility]) Triglyceride [Mass/volume] in Serum or Plasma 108 mg/dL <150 Triglycerides SUZY ([facility]) Cholesterol non HDL [Mass/volume] in Serum or Plasma 198 mg/dL_( calc) <130 Above high normal Non HDL Cholesterol SUZY ([facility]) ID Date Data Source [id number] 12/25/2020 12:19:00 PM EDT SUZY ([facility]) Name Value Range Interpretation Code Description Data Claudia rce(s) Supporting Document(s) amphetamines level urine negative negative Amphetamine s Level Urine SUZY ([facility]) barbiturates urine negative negative Barbiturates Urin e SUZY ([facility]) benzodiazepines urine negative negative Benzodiazepine s Urine SUZY ([facility]) methadone urine negative negative Methadone Urine ATHE NA ([facility]) cannabinoids urine positive negative Above high normal Cannabinoi ds Urine SUZY ([facility]) opiates urine negative negative Opiates Urine SUZY ( [facility]) cocaine metabolite urine negative negative Cocaine Met abolite Urine SUZY ([facility]) phencyclidine urine negative negative Phencyclidine Ur ine SUZY ([facility]) ID Date Data Source [id number] 12/25/2020 12:19:00 PM EDT [place] ([facility]) Name Value Range Interpretation Code Description Data Claudia rce(s) Supporting Document(s) appearance, urine rfx clear clear Appearance, Ur ine Rfx [place] ([facility]) color, urine rfx yellow yellow Color, Urine Rfx AT [place] ([facility]) specific gravity ur auto rfx S3 1.002-1.035 Specif ic [place] Ur Auto Rfx [place] ([facility]) pH,urine rfx 7.0 units 5.0-9.0 pH,urine Rfx [place] ([facility]) protein, urine auto rfx 2+ negative Above high normal Prote in, Urine Auto Rfx [place] ([facility]) ketone, urine auto rfx 1+ negative Above high normal Ketone , Urine Auto Rfx [place] ([facility]) glucose, urine (UA) auto rfx negative negative Glucose , Urine (UA) Auto Rfx [place] ([facility]) urobilinogen, urine auto rfx 0.2 mg/dL 0.0-2.0 Urobili nogen, Urine Auto Rfx [place] ([facility]) blood, urine blood rfx negative negative Blood, Urine Blood Rfx [place] ([facility]) nitrite, urine auto rfx negative negative Nitrite, Uri ne Auto Rfx SUZY ([facility]) leukocyte esterase ur auto rfx negative negative Leukocyte Esterase Ur Auto Rfx SUZY ([facility]) bilirubin, urine auto rfx negative negative Bilirubin, Urine Auto Rfx SUZ[facility] ([facility]) WBC, urine auto rfx 1 /hpf 0-3 WBC, Urine Auto Rfx SUZY ([facility]) bacteria, urine auto rfx negative negative Bacteria, U rine Auto Rfx SUZY ([facility]) RBC, urine auto rfx 1 /hpf 0-3 RBC, Urine Auto Rfx SUZY ([facility]) squam epithelial cell ur aurfx 0 /hpf 0-6 Squam Epithelial Cell Ur Aurfx SUZY ([facility]) mucus, urine rfx small negative Mucus, Urine Rfx AT [facility] ([facility]) hyaline cast, urine auto rfx 0 /lpf 0-1 Hyaline Cast, Urine Auto Rfx [place] ([facility]) ID Date Data Source [id number] 12/25/2020 12:19:00 PM EDT [place] ([facility]) Name Value Range Interpretation Code Description Data Claudia rce(s) Supporting Document(s) barbiturates urine negative negative Barbiturates Urin e SUZY ([facility]) amphetamines level urine negative negative Amphetamine s Level Urine SUZY ([facility]) benzodiazepines urine negative negative Benzodiazepine s Urine SUZY ([facility]) cannabinoids urine positive negative Above high normal Cannabinoi ds Urine SUZY ([facility]) opiates urine negative negative Opiates Urine SUZY ( [facility]) methadone urine negative negative Methadone Urine ATHE ([facility]) cocaine metabolite urine negative negative Cocaine Met abolite Urine SUZY ([facility]) phencyclidine urine negative negative Phencyclidine Ur ine SUZY ([facility]) ID Date Data Source [id number] 12/25/2020 12:19:00 PM EDT [place] ([facility]) Name Value Range Interpretation Code Description Data Claudia rce(s) Supporting Document(s) appearance, urine rfx clear clear Appearance, Ur ine Rfx [place] ([facility]) protein, urine auto rfx 2+ negative Above high normal Prote in, Urine Auto Rfx [place] ([facility]) pH,urine rfx 7.0 units 5.0-9.0 pH,urine Rfx [place] ([facility]) color, urine rfx yellow yellow Color, Urine Rfx AT [facility] ([facility]) specific gravity ur auto rfx S3 1.002-1.035 Specif ic [place] Ur Auto Rfx [place] ([facility]) urobilinogen, urine auto rfx 0.2 mg/dL 0.0-2.0 Urobili nogen, Urine Auto Rfx [place] ([facility]) ketone, urine auto rfx 1+ negative Above high normal Ketone , Urine Auto Rfx [place] ([facility]) glucose, urine (UA) auto rfx negative negative Glucose , Urine (UA) Auto Rfx [place] ([facility]) bilirubin, urine auto rfx negative negative Bilirubin, Urine Auto Rfx [place] ([facility]) nitrite, urine auto rfx negative negative Nitrite, Uri ne Auto Rfx [place] ([facility]) leukocyte esterase ur auto rfx negative negative Leukocyte Esterase Ur Auto Rfx [place] ([facility]) blood, urine blood rfx negative negative Blood, Urine Blood Rfx [place] ([facility]) WBC, urine auto rfx 1 /hpf 0-3 WBC, Urine Auto Rfx [place] ([facility]) bacteria, urine auto rfx negative negative Bacteria, U rine Auto Rfx [place] ([facility]) mucus, urine rfx small negative Mucus, Urine Rfx AT [facility] ([facility]) RBC, urine auto rfx 1 /hpf 0-3 RBC, Urine Auto Rfx [place] ([facility]) squam epithelial cell ur aurfx 0 /hpf 0-6 Squam Epithelial Cell Ur Aurfx [place] ([facility]) hyaline cast, urine auto rfx 0 /lpf 0-1 Hyaline Cast, Urine Auto Rfx SUZY ([facility]) ID Date Data Source [id number] 12/25/2020 12:19:00 PM EDT [place] ([facility]) Name Value Range Interpretation Code Description Data Claudia rce(s) Supporting Document(s) amphetamines level urine negative negative Amphetamine s Level Urine SUZY ([facility]) barbiturates urine negative negative Barbiturates Urin e SUZY ([facility]) cocaine metabolite urine negative negative Cocaine Met abolite Urine SUZY ([facility]) cannabinoids urine positive negative Above high normal Cannabinoi ds Urine SUZY ([facility]) benzodiazepines urine negative negative Benzodiazepine s Urine SUZY ([facility]) methadone urine negative negative Methadone Urine ATHE ([facility]) opiates urine negative negative Opiates Urine [place] ( [facility]) phencyclidine urine negative negative Phencyclidine Ur ine [place] ([facility]) ID Date Data Source [id number] 12/25/2020 12:19:00 PM EDT [place] ([facility]) Name Value Range Interpretation Code Description Data Claudia rce(s) Supporting Document(s) appearance, urine rfx clear clear Appearance, Ur ine Rfx [place] ([facility]) specific gravity ur auto rfx S3 1.002-1.035 Specif ic [place] Ur Auto Rfx [place] ([facility]) color, urine rfx yellow yellow Color, Urine Rfx AT [place] ([facility]) pH,urine rfx 7.0 units 5.0-9.0 pH,urine Rfx [place] ([facility]) protein, urine auto rfx 2+ negative Above high normal Prote in, Urine Auto Rfx [place] ([facility]) ketone, urine auto rfx 1+ negative Above high normal Ketone , Urine Auto Rfx [place] ([facility]) glucose, urine (UA) auto rfx negative negative Glucose , Urine (UA) Auto Rfx [place] ([facility]) urobilinogen, urine auto rfx 0.2 mg/dL 0.0-2.0 Urobili nogen, Urine Auto Rfx [facility] ([facility]) blood, urine blood rfx negative negative Blood, Urine Blood Rfx [facility] ([facility]) bilirubin, urine auto rfx negative negative Bilirubin, Urine Auto Rfx [facility] ([facility]) leukocyte esterase ur auto rfx negative negative Leukocyte Esterase Ur Auto Rfx [facility] ([facility]) nitrite, urine auto rfx negative negative Nitrite, Uri ne Auto Rfx SUZY ([facility]) squam epithelial cell ur aurfx 0 /hpf 0-6 Squam Epithelial Cell Ur Aurfx [facility] ([facility]) RBC, urine auto rfx 1 /hpf 0-3 RBC, Urine Auto Rfx [place] ([facility]) bacteria, urine auto rfx negative negative Bacteria, U rine Auto Rfx [place] ([facility]) WBC, urine auto rfx 1 /hpf 0-3 WBC, Urine Auto Rfx [place] ([facility]) mucus, urine rfx small negative Mucus, Urine Rfx AT [place] ([facility]) hyaline cast, urine auto rfx 0 /lpf 0-1 Hyaline Cast, Urine Auto Rfx [place] ([facility]) ID Date Data Source [id number] 12/25/2020 12:19:00 PM EDT [place] ([facility]) Name Value Range Interpretation Code Description Data Claudia rce(s) Supporting Document(s) barbiturates urine negative negative Barbiturates Urin e SUZY ([facility]) cocaine metabolite urine negative negative Cocaine Met abolite Urine SUZY ([facility]) amphetamines level urine negative negative Amphetamine s Level Urine SUZY ([facility]) cannabinoids urine positive negative Above high normal Cannabinoi ds Urine [facility]Y ([facility]) benzodiazepines urine negative negative Benzodiazepine s Urine [facility] ([facility]) methadone urine negative negative [facility]adone [facility]) phencyclidine urine negative negative Phencyclidine Ur ine [place] ([facility]) opiates urine negative negative Opiates Urine SUZ[facility] ( [facility]) ID Date Data Source [id number] 12/25/2020 12:19:00 PM EDT [place] ([facility]) Name Value Range Interpretation Code Description Data Claudia rce(s) Supporting Document(s) appearance, urine rfx clear clear Appearance, Ur ine Rfx [place] ([facility]) specific gravity ur auto rfx S3 1.002-1.035 Specif ic [place] Ur Auto Rfx [facility] ([facility]) color, urine rfx yellow yellow Color, Urine Rfx AT [place] ([facility]) pH,urine rfx 7.0 units 5.0-9.0 pH,urine Rfx [facility] ([facility]) protein, urine auto rfx 2+ negative Above high normal Prote in, Urine Auto Rfx [place] ([facility]) ketone, urine auto rfx 1+ negative Above high normal Ketone , Urine Auto Rfx [place] ([facility]) glucose, urine (UA) auto rfx negative negative Glucose , Urine (UA) Auto Rfx [place] ([facility]) bilirubin, urine auto rfx negative negative Bilirubin, Urine Auto Rfx [place] ([facility]) urobilinogen, urine auto rfx 0.2 mg/dL 0.0-2.0 Urobili nogen, Urine Auto Rfx [place] ([facility]) nitrite, urine auto rfx negative negative Nitrite, Uri ne Auto Rfx [place] ([facility]) leukocyte esterase ur auto rfx negative negative Leukocyte Esterase Ur Auto Rfx [place] ([facility]) WBC, urine auto rfx 1 /hpf 0-3 WBC, Urine Auto Rfx [facility] ([facility]) RBC, urine auto rfx 1 /hpf 0-3 RBC, Urine Auto Rfx [place] ([facility]) blood, urine blood rfx negative negative Blood, Urine Blood Rfx [place] ([facility]) squam epithelial cell ur aurfx 0 /hpf 0-6 Squam Epithelial Cell Ur Aurfx [place] ([facility]) bacteria, urine auto rfx negative negative Bacteria, U rine Auto Rfx [facility] ([facility]) mucus, urine rfx small negative Mucus, Urine Rfx AT [facility]) hyaline cast, urine auto rfx 0 /lpf 0-1 Hyaline Cast, Urine Auto Rfx [place] ([facility]) ID Date Data Source [id number] 12/25/2020 12:19:00 PM EDT [facility]) Name Value Range Interpretation Code Description Data Claudia rce(s) Supporting Document(s) amphetamines level urine negative negative Amphetamine s Level Urine SUZY ([facility]) cannabinoids urine positive negative Above high normal Cannabinoi ds Urine [place] ([facility]) barbiturates urine negative negative Barbiturates Urin e [place] ([facility]) benzodiazepines urine negative negative Benzodiazepine s Urine [facility] ([facility]) opiates urine negative negative Opiates Urine [place] ( [facility]) methadone urine negative negative Methadone Urine [facility] ([facility]) cocaine metabolite urine negative negative Cocaine Met abolite Urine [place] ([facility]) phencyclidine urine negative negative Phencyclidine Ur ine [place] ([facility]) ID Date Data Source [id number] 12/25/2020 12:19:00 PM EDT [facility]) Name Value Range Interpretation Code Description Data Claudia rce(s) Supporting Document(s) appearance, urine rfx clear clear Appearance, Ur ine Rfx [place] ([facility]) color, urine rfx yellow yellow Color, Urine Rfx AT [facility] ([facility]) specific gravity ur auto rfx S3 1.002-1.035 Specif ic [place] Ur Auto Rfx [place] ([facility]) protein, urine auto rfx 2+ negative Above high normal Prote in, Urine Auto Rfx [place] ([facility]) pH,urine rfx 7.0 units 5.0-9.0 pH,urine Rfx [place] ([facility]) urobilinogen, urine auto rfx 0.2 mg/dL 0.0-2.0 Urobili nogen, Urine Auto Rfx [place] ([facility]) glucose, urine (UA) auto rfx negative negative Glucose , Urine (UA) Auto Rfx [place] ([facility]) ketone, urine auto rfx 1+ negative Above high normal Ketone , Urine Auto Rfx [place] ([facility]) bilirubin, urine auto rfx negative negative Bilirubin, Urine Auto Rfx [place] ([facility]) nitrite, urine auto rfx negative negative Nitrite, Uri ne Auto Rfx [place] ([facility]) blood, urine blood rfx negative negative Blood, Urine Blood Rfx [place] ([facility]) leukocyte esterase ur auto rfx negative negative Leukocyte Esterase Ur Auto Rfx [place] ([facility]) WBC, urine auto rfx 1 /hpf 0-3 WBC, Urine Auto Rfx [place] ([facility]) mucus, urine rfx small negative Mucus, Urine Rfx AT [facility] ([facility]) RBC, urine auto rfx 1 /hpf 0-3 RBC, Urine Auto Rfx [place] ([facility]) squam epithelial cell ur aurfx 0 /hpf 0-6 Squam Epithelial Cell Ur Aurfx [place] ([facility]) bacteria, urine auto rfx negative negative Bacteria, U rine Auto Rfx [place] ([facility]) hyaline cast, urine auto rfx 0 /lpf 0-1 Hyaline Cast, Urine Auto Rfx [place] ([facility]) ID Date Data Source [id number] 12/25/2020 10:53:[address] [facility] Name Value Range Interpretation Code Description Data Claudia rce(s) Supporting Document(s) SARS-CoV-2 (COVID 19) NEGATIVE - SARS-CoV-2 (COVID19) [place] This lab was ordered by [facility] a nd reported by [facility]. ID Date Data Source [id number] 12/25/2020 10:13:00 AM EDT [place] ([facility]) Name Value Range Interpretation Code Description Data Claudia rce(s) Supporting Document(s) bedside glucose 114 mg/dL 70-105 Above high normal Bedside Gluco se [place] ([facility]) ID Date Data Source [id number] 12/25/2020 10:13:00 AM EDT [facility]) Name Value Range Interpretation Code Description Data Claudia rce(s) Supporting Document(s) bedside glucose 114 mg/dL 70-105 Above high normal Bedside Gluco se [facility]) ID Date Data Source [id number] 12/25/2020 10:13:00 AM EDT [facility]) Name Value Range Interpretation Code Description Data Claudia rce(s) Supporting Document(s) bedside glucose 114 mg/dL 70-105 Above high normal Bedside Gluco se [facility]) ID Date Data Source [id number] 12/25/2020 10:13:00 AM EDT [facility]) Name Value Range Interpretation Code Description Data Claudia rce(s) Supporting Document(s) bedside glucose 114 mg/dL 70-105 Above high normal Bedside Gluco se [facility]) ID Date Data Source [id number] 12/25/2020 10:13:00 AM EDT [facility]) Name Value Range Interpretation Code Description Data Claudia rce(s) Supporting Document(s) bedside glucose 114 mg/dL 70-105 Above high normal Bedside Gluco se [facility]) ID Date Data Source [id number] 12/25/2020 08:10:00 AM EDT [facility] Name Value Range Interpretation Code Description Data Claudia rce(s) Supporting Document(s) Troponin Laboratory test result [facility] ([facility]) Thyroid Stimulating Hormone 0.899 ME DENT ([facility]) ID Date Data Source [id number] 12/25/2020 08:10:00 AM EDT [facility] ([facility]) Name Value Range Interpretation Code Description Data Claudia rce(s) Supporting Document(s) Red Blood Count 5.20 4.00-5.40 [facility] ([facility] White Blood Count 11.9 5.0-10.0 [facility] ([facility]) Platelets 217 172-450 [facility] ([facility] Hemoglobin 16.5 [facility] ([facility]) Hematocrit 48.3 [facility] ([facility]) ID Date Data Source [id number] 03/30/2020 05:22:00 PM EDT [facility] Patient: TIMI YARBROUGHion Report - Physicians/Mid Levels [facility].VisitID: [id number] [place] [address] [phone], MRegistration Date/Time: 03/30/2020 11:53 Weight:90.7 kg (S). [...] rce(s) Supporting Document(s) ID Date Data Source [id number] 03/30/2020 02:17:00 PM EDT [facility] TSYSORDER [id number] Name Value Range Interpretation Code Description Data Claudia rce(s) Supporting Document(s) URINE RBC 0-2 /hpf 0-3 [facility] URINE WBC 0-2 /hpf 0-5 [facility] URINE EPITHELIAL CELLS 1+ /hpf 0 [facility] URINE MUCUS 3+ NEGATIVE [facility] ID Date Data Source [id number] 03/30/2020 02:09:00 PM EDT [facility] TSYSORDER [id number] Name Value Range Interpretation Code Description Data Claudia rce(s) Supporting Document(s) URINE COLOR. [facility] URINE APPEARANCE CLEAR [facility] SPECIFIC GRAVITY,URINE >= 1.030 1.001-1.035 [facility] URINE LEUKOCYTE ESTERASE NEGATIVE NEGATIVE [facility] URINE NITRATE NEGATIVE NEGATIVE [facility] PH,URINE 5.5 5.0-9.0 [facility] URINE PROTEIN TRACE mg/dL NEGATIVE [facility] URINE GLUCOSE (UA) NEGATIVE mg/dL NEGATIVE [facility] URINE KETONE 40(MODERATE) mg/dL NEGATIVE [facility] URINE UROBILINOGEN NORMAL(0.2-1) mg/dL 0-[address] [facility] URINE BILIRUBIN NEGATIVE NEGATIVE [facility] URINE BLOOD NEGATIVE NEGATIVE [facility] ID Date Data Source [id number] 03/30/2020 12:43:00 PM EDT [facility] l DATE OF EXAMINATION: 03/30/2020 12:17 [...] rce(s) Supporting Document(s) ID Date Data Source [id number] 03/30/2020 01:05:00 PM EDT [facility] l TSYSORDER [id number] Name Value Range Interpretation Code Description Data Claudia rce(s) Supporting Document(s) FREE T4 1.19 ng/dL 0.76-1.46 [facility] ID Date Data Source [id number] 03/30/2020 01:05:00 PM EDT [facility] l TSYSORDER [id number] Name Value Range Interpretation Code Description Data Claudia rce(s) Supporting Document(s) TSH 0.45 uIU/mL 0.36-3.74 [facility] ID Date Data Source [id number] 03/30/2020 12:58:00 PM EDT [facility] TSYSORDER [id number] Name Value Range Interpretation Code Description Data Claudia rce(s) Supporting Document(s) MAGNESIUM 1.9 mg/dL 1.8-2.4 [facility] ID Date Data Source [id number] 03/30/2020 12:58:00 PM EDT [facility] TSYSORDER [id number] Name Value Range Interpretation Code Description Data Claudia rce(s) Supporting Document(s) LIPASE 100 U/L 73-393 [facility] ID Date Data Source [id number] 03/30/2020 12:58:00 PM EDT [facility] TSYSORDER [id number] Name Value Range Interpretation Code Description Data Claudia rce(s) Supporting Document(s) GLUCOSE 89 mg/dL 74-106 [facility] BLOOD UREA NITROGEN 11 mg/dL 7-18 [facility] CREATININE 0.7 mg/dL 0.7-1.3 [facility] GLOMERULAR FILTRATION RATE >90 mL/min [facility] GFR IS CALCULATED IN mL/min/1.73m2 CLARKE L FUNCTION: >90MILDLY DECREASED: 60-89MILDY TO MODERATELY DECREASED: 45-59 MODERATELY TO SEVERELY DECREASED: 30-44SEVERELY DECREASED: 15-29RENAL FAILURE: <15 AST 24 U/L 15-37 [facility] ALT 30 U/L 12-78 [facility] ALKALINE PHOSPHATASE 83 U/L 46-116 [facility] pital TOTAL BILIRUBIN 0.7 mg/dL 0.2-1.0 [facility] TOTAL PROTEIN 8.4 g/dl 6.4-8.2 H [facility] ALBUMIN 4.7 gm/dL 3.4-5.0 [facility] ID Date Data Source [id number] 03/30/2020 12:51:00 PM [facility] [id number] Name Value Range Interpretation Code Description Data Claudia rce(s) Supporting Document(s) PARTIAL THROMBOPLASTIN TIME 27.6 SECONDS 21.4-30.2 [facility] ID Date Data Source [id number] 03/30/2020 12:51:00 PM EDT [facility] l TSYSORDER [id number] Name Value Range Interpretation Code Description Data Claudia rce(s) Supporting Document(s) PROTHROMBIN TIME (PATIENT) 11.0 SECONDS 9.2-11.6 [facility] INR 1.06 0.87-1.06 [facility] ID Date Data Source [id number] 03/30/2020 12:31:00 PM EDT [facility] TSYSORDER [id number] Name Value Range Interpretation Code Description Data Claudia rce(s) Supporting Document(s) WHITE BLOOD COUNT 7.5 K/mm3 4.0-10.0 [facility] RED BLOOD COUNT 4.59 M/mm3 4.50-6.00 [facility] HEMOGLOBIN 14.6 gm/dL 14.0-18.0 [facility] HEMATOCRIT 41.7 % 42.0-54.0 L [facility] MEAN CELL VOLUME 90.8 fl 80-96 [facility] MEAN CORPUSCULAR HEMOGLOBIN 31.8 pg 27.0-31.0 H [facility] MEAN CORPUSCULAR HGB CONC 35.0 g/dl 32.0-36.0 [facility] RED CELL DISTRIBUTION WIDTH 12.3 % 10.0-14.5 [facility] PLATELET COUNT 253 K/mm3 172-450 [facility] MEAN PLATELET VOLUME 10.1 fl 9.0-13.0 [facility] pital GRAN % 68.0 % 50-80.0 [facility] [...] Value Range Interpretation Code Description Data Source(s) Systolic blood pressure 125 mm[Hg] 125 mm[Hg] A [facility] ([facility]) Diastolic blood pressure 82 mm[Hg] 82 mm[Hg] [place] ([facility]) Body height 74 [in_i] 74 [in_i] [place] ([facility]) Body mass index (BMI) [Ratio] 27.4 kg/m2 27.4 k g/m2 [facility] ([facility]) Body weight 3412 [oz_av] 3412 [oz_av] [facility] ([facility]) Diastolic blood pressure 83 mm[Hg] 83 mm[Hg] [facility] ([facility]) Body height 74 [in_i] 74 [in_i] [facility] ([facility]) Body mass index (BMI) [Ratio] 27.2 kg/m2 27.2 k g/m2 [facility] ([facility]) Systolic blood pressure 132 mm[Hg] 132 mm[Hg] A [facility] ([facility]) Body weight 3394 [oz_av] 3394 [oz_av] [facility] ([facility]) Diastolic blood pressure 83 mm[Hg] 83 mm[Hg] [facility] ([facility]) Body height 74 [in_i] 74 [in_i] [facility] ([facility]) Body mass index (BMI) [Ratio] 27.2 kg/m2 27.2 k g/m2 [facility] ([facility]) Systolic blood pressure 132 mm[Hg] 132 mm[Hg] A [facility] ([facility]) Body weight 3394 [oz_av] 3394 [oz_av] [facility] ([facility]) Diastolic blood pressure 83 mm[Hg] 83 mm[Hg] [facility] ([facility]) Body height 74 [in_i] 74 [in_i] [facility] ([facility]) Body mass index (BMI) [Ratio] 27.2 kg/m2 27.2 k g/m2 [facility] ([facility]) Systolic blood pressure 132 mm[Hg] 132 mm[Hg] A [place] ([facility]) Body weight 3394 [oz_av] 3394 [oz_av] [facility] ([facility]) Body weight 200.00 [lb_av] 200.00 [lb_av] MEDOMAR T ([facility]) Body height 74 [in_i] 74 [in_i] [facility] ([facility]) 6'2" Body mass index (BMI) [Ratio] 25.7 kg/m2 25.7 k g/m2 [facility] ([facility]) Heart rate 77 /min 77 /min [facility] ([facility]) Systolic blood pressure--sitting 128 mm[Hg] 128 mm[Hg] [facility] ([facility]) large cuff, Ra Diastolic blood pressure--sitting 84 mm[Hg] 84 mm[Hg] [facility] ([facility]) large cuff, Ra Body height 74 [in_i] 74 [in_i] [facility] ([facility]) Body height 74 [in_i] 74 [in_i] [facility] ([facility]) Body height 74 [in_i] 74 [in_i] [facility] ([facility]) Body height 74 [in_i] 74 [in_i] [facility] ([facility]) Systolic blood pressure 136 mm[Hg] 136 mm[Hg] A [place]OT[place]A ([facility]) Body weight 3344 [oz_av] 3344 [oz_av] [facility] ([facility]) Body mass index (BMI) [Ratio] 26.8 kg/m2 26.8 k g/m2 [facility] ([facility]) Diastolic blood pressure 75 mm[Hg] 75 mm[Hg] [facility] ([facility]) Body height 74 [in_i] 74 [in_i] [facility] ([facility]) Diastolic blood pressure 75 mm[Hg] 75 mm[Hg] [facility] ([facility]) Body height 74 [in_i] 74 [in_i] [facility] ([facility]) Body mass index (BMI) [Ratio] 26.8 kg/m2 26.8 k g/m2 [facility] ([facility]) Systolic blood pressure 136 mm[Hg] 136 mm[Hg] A THENA ([facility]) Body weight 3344 [oz_av] 3344 [oz_av] [facility] ([facility]) Diastolic blood pressure 75 mm[Hg] 75 mm[Hg] [facility] ([facility]) Body height 74 [in_i] 74 [in_i] [facility] ([facility]) Body mass index (BMI) [Ratio] 26.8 kg/m2 26.8 k g/m2 [facility] ([facility]) Systolic blood pressure 136 mm[Hg] 136 mm[Hg] A THENA ([facility]) Body weight 3344 [oz_av] 3344 [oz_av] [facility] ([facility]) Diastolic blood pressure 75 mm[Hg] 75 mm[Hg] [facility] ([facility]) Body height 74 [in_i] 74 [in_i] [facility] ([facility]) Body mass index (BMI) [Ratio] 26.8 kg/m2 26.8 k g/m2 [facility] ([facility]) Systolic blood pressure 136 mm[Hg] 136 mm[Hg] A THE[facility] ([facility]) Body weight 3344 [oz_av] 3344 [oz_av] [facility] ([facility]) Diastolic blood pressure 75 mm[Hg] 75 mm[Hg] [facility] ([facility]) Body height 74 [in_i] 74 [in_i] [facility] ([facility]) Body mass index (BMI) [Ratio] 26.8 kg/m2 26.8 k g/m2 [facility] ([facility]) Systolic blood pressure 136 mm[Hg] 136 mm[Hg] A THENA ([facility]) Body weight 3344 [oz_av] 3344 [oz_av] [facility] ([facility]) Body weight 216.00 [lb_av] 216.00 [lb_av] MADELEINE T ([facility]) Body height 74 [in_i] 74 [in_i] JOSHUA ([facility]) 6'2" Body mass index (BMI) [Ratio] 27.7 kg/m2 27.7 k g/m2 MEDLIZETT ([facility]) Systolic blood pressure--sitting 146 mm[Hg] 146 mm[Hg] [facility] ([facility]) Ra, large cuff Diastolic blood pressure--sitting 84 mm[Hg] 84 mm[Hg] [facility] ([facility]) Ra, large cuff Diastolic blood pressure 97 mm[Hg] 97 mm[Hg] SUZ[facility] ([facility]) Body height 74 [in_i] 74 [in_i] [facility] ([facility]) Body mass index (BMI) [Ratio] 27 kg/m2 27 kg/ m2 [facility] ([facility]) Systolic blood pressure 143 mm[Hg] 143 mm[Hg] A [facility] ([facility]) Body weight 3364 [oz_av] 3364 [oz_av] [facility] ([facility]) Body height 74 [in_i] 74 [in_i] [facility] ([facility]) Systolic blood pressure 143 mm[Hg] 143 mm[Hg] [facility] Diastolic blood pressure 97 mm[Hg] 97 mm[Hg] SUZ[facility] ([facility]) Body weight 3364 [oz_av] 3364 [oz_av] [facility] ([facility]) Body mass index (BMI) [Ratio] 27 kg/m2 27 kg/ m2 [facility] ([facility]) Diastolic blood pressure 97 mm[Hg] 97 mm[Hg] [facility] ([facility]) Body height 74 [in_i] 74 [in_i] [facility] ([facility]) Body mass index (BMI) [Ratio] 27 kg/m2 27 kg/ m2 [facility] ([facility]) Systolic blood pressure 143 mm[Hg] 143 mm[Hg] A THENA ([facility]) Body weight 3364 [oz_av] 3364 [oz_av] [facility] ([facility]) Diastolic blood pressure 97 mm[Hg] 97 mm[Hg] [facility] ([facility]) Body height 74 [in_i] 74 [in_i] [facility] ([facility]) Body mass index (BMI) [Ratio] 27 kg/m2 27 kg/ m2 [facility] ([facility]) Systolic blood pressure 143 mm[Hg] 143 mm[Hg] A THENA ([facility]) Body weight 3364 [oz_av] 3364 [oz_av] [facility] ([facility]) Diastolic blood pressure 97 mm[Hg] 97 mm[Hg] [facility] ([facility]) Body height 74 [in_i] 74 [in_i] [facility] ([facility]) Body mass index (BMI) [Ratio] 27 kg/m2 27 kg/ m2 [facility] ([facility]) Systolic blood pressure 143 mm[Hg] 143 mm[Hg] A THENA ([facility]) Body weight 3364 [oz_av] 3364 [oz_av] [facility] ([facility]) Systolic blood pressure 143 mm[Hg] 143 mm[Hg] A THENA ([facility]) Body weight 3364 [oz_av] 3364 [oz_av] [facility] ([facility]) Diastolic blood pressure 97 mm[Hg] 97 mm[Hg] [facility] ([facility]) Body height 74 [in_i] 74 [in_i] [facility] ([facility]) Body mass index (BMI) [Ratio] 27 kg/m2 27 kg/ m2 [facility] ([facility]) Diastolic blood pressure 97 mm[Hg] 97 mm[Hg] [facility] ([facility]) Body height 74 [in_i] 74 [in_i] [facility] ([facility]) Body mass index (BMI) [Ratio] 27 kg/m2 27 kg/ m2 [facility] ([facility]) Systolic blood pressure 143 mm[Hg] 143 mm[Hg] A THENA ([facility]) Body weight 3364 [oz_av] 3364 [oz_av] [facility] ([facility]) Diastolic blood pressure 97 mm[Hg] 97 mm[Hg] [facility] ([facility]) Body height 74 [in_i] 74 [in_i] [facility] ([facility]) Body mass index (BMI) [Ratio] 27 kg/m2 27 kg/ m2 [facility] ([facility]) Systolic blood pressure 143 mm[Hg] 143 mm[Hg] [place] THENA ([facility]) Body weight 3364 [oz_av] 3364 [oz_av] [facility] ([facility]) Patient Treatment Plan of Care Planned Activity Planned Date Details Description Data Source (s) 24 HR Nicotine 0.583 MG/HR Transdermal Patch [facility] ([facility]) methylprednisolone 4 mg tablets in a dos e pack USE DIRECTED ON PACKAGE - START TOMORROW [facility] ([facility]) Ibuprofen 800 MG Oral Tablet [facility] ([facility]) gabapentin 600 MG Oral Tablet [facility] ([facility]) Cyclobenzaprine hydrochloride 10 MG Oral Tablet [facility] ([facility]) Carbamazepine 200 MG Oral Tablet [facility] ([facility]) atorvastatin 10 MG Oral Tablet [facility] ([facility]) Amlodipine 10 MG Oral Tablet [facility] ([facility]) 24 HR Nicotine 0.583 MG/HR Transdermal Patch [facility] ([facility]) methylprednisolone 4 mg tablets in a dos e pack USE DIRECTED ON PACKAGE - START TOMORROW SUZ[facility] ([facility]) Ibuprofen 800 MG Oral Tablet [facility] ([facility]) Cyclobenzaprine hydrochloride 10 MG Oral Tablet [facility] ([facility]) atorvastatin 10 MG Oral Tablet [facility] ([facility]) Amlodipine 10 MG Oral Tablet [facility] ([facility]) 24 HR Nicotine 0.583 MG/HR Transdermal Patch [facility] ([facility]) methylprednisolone 4 mg tablets in a dos e pack USE DIRECTED ON PACKAGE - START TOMORROW SUZ[facility] ([facility]) Ibuprofen 800 MG Oral Tablet [facility] ([facility]) Cyclobenzaprine hydrochloride 10 MG Oral Tablet [facility] ([facility]) atorvastatin 10 MG Oral Tablet [facility] ([facility]) Amlodipine 10 MG Oral Tablet [facility] ([facility]) 24 HR Nicotine 0.583 MG/HR Transdermal Patch [facility] ([facility]) Ibuprofen 800 MG Oral Tablet [facility] ([facility]) Cyclobenzaprine hydrochloride 10 MG Oral Tablet [facility] ([facility]) atorvastatin 10 MG Oral Tablet [facility] ([facility]) Amlodipine 10 MG Oral Tablet [facility] ([facility]) 24 HR Nicotine 0.583 MG/HR Transdermal Patch [facility] ([facility]) Ibuprofen 800 MG Oral Tablet [facility] ([facility]) Cyclobenzaprine hydrochloride 10 MG Oral Tablet [facility] ([facility]) atorvastatin 10 MG Oral Tablet [facility] ([facility]) Amlodipine 10 MG Oral Tablet [facility] ([facility]) 24 HR Nicotine 0.583 MG/HR Transdermal Patch [facility] ([facility]) 24 HR Nicotine 0.583 MG/HR Transdermal Patch [facility] ([facility]) 24 HR Nicotine 0.583 MG/HR Transdermal Patch [facility] ([facility])
[2021-05-12] MEDS ORDERED: KETOROLAC 30 MG/ML 1ML VIAL IV ONE (22:20)
[2021-05-12 23:02] LABS: RSV AMPLIFICATION NEGATIVE (NEGATIVE)
[2021-05-13] VITALS: BP 132/68
--- NOTE | 2021-05-13 06:56 | ECGEPIP ---
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
--- NOTE | 2021-05-13 06:59 | ECGEPIP ---
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
[2021-05-13] MEDS ORDERED: GABA600T4 (21:17)
== END 2021-05-13 00:15 | disposition home or self-care (01) ==
LOC: M ED 19:13
DX: R07.89 Other chest pain (principal); R11.0 Nausea; R42 Dizziness and giddiness; I10 Essential (primary) hypertension; F33.9 Major depressive disorder, recurrent, unspecified; K58.9 Irritable bowel syndrome, unspecified; Z87.442 Personal history of urinary calculi; Z79.899 Other long term (current) drug therapy; Z88.8 Allergy status to other drugs, medicaments and biological substances; F17.210 Nicotine dependence, cigarettes, uncomplicated
CPT/HCPCS: 71045; 71275; 80047; 80076; 83690; 83880; 84443; 85025; 87631; 93005; 93041; 94760; 96374; 96375; 99285; J2270; J2405; Q9967

== ENCOUNTER 2021-05-13 21:00 | Emergency (ER) | payer OTHER ==
[~2021-05-13] VITALS: Ht 188 cm; Wt 95.5 kg
[2021-05-13 21:01] VITALS: BP 113/80
--- OUTSIDE RECORDS SUMMARY | 2021-05-13 21:09 | CCD ---
Author Author [facility] Address Unknown Phone Unavailable Care Team Providers Care Care Professionals Name Role Phone Angelia Horner MD Unavailable [...] Unavailable Angelia Horner MD Unavailable Unavailable Angelia Hornre MD Unavailable Unavailable Angelia Horner MD Unavailable [...] EDWARD RPA Unavailable Unavailable Chelle Clay Unavailable [phone] Chelle Clay Unavailable [phone] Yun Clayly Unavailable [phone] Scordo, M Ashia PA Unavailable Unavailable Scordo, [...] CHANLIECCO, C KOMAL MD Unavailable Unavailable Cesar, Kent Lyndsay Unavailable Unavailable Cesar, Kent Lyndsay Unavailable Unavailable Cesar, Kent Lyndsay Unavailable Unavailable Cesar, Kent Lyndsay Unavailable Unavailable Cesar, Kent Lyndsay Unavailable Unavailable Cesar, Kent Lyndsay Unavailable Unavailable Cesar, Kent Lyndsay Unavailable Unavailable Cesar, Kent Lyndsay Unavailable Unavailable Cesar, Kent Lyndsay Unavailable Unavailable Cesar, Kent Lyndsay Unavailable Unavailable Cesar, Kent Lyndsay Unavailable Unavailable Cesar, Kent Lyndsay Unavailable Unavailable Cesar, Kent Lyndsay Unavailable Unavailable Re-disclosure Warning The records [...] law may result in a fine or halfway sentence or both. A general authorization for the release of medical or other information is NOT sufficient authorization for further disc losure. Family History Family Member Name Family Member Gender Family Member Status Date o f Status Description Data Source(s) Unknown Unknown Problem [facility] PGM Unknown Unknown Problem [facility] ([facility]) Encounters Encounter Providers Location Date Indications Data Source(s ) NEERAJ Johnson: [address], [place] [address], Ph. Attender: Chelle Clay [facility] Medical 05/10/2021 12:00:00 AM EDT [facility]) Ashia Steinberg PA-C: [address], [place] [address], Ph. Attender: Ashia ROBERTSON [facility] Medical 04/14/2021 12:00:00 AM EDT [facility]) Ashia Steinberg PA-C: [address], [place] [address], Ph. Attender: Ashia ROBERTSON [facility] Medical 04/14/2021 12:00:00 AM EDT [facility]) Ashia Steinberg PA-C: [address], [place] [address], Ph. Attender: Ashia ROBERTSON [facility] Medical 04/14/2021 12:00:00 AM EDT [facility]) Ashia Scordo, PA-C: [address], [place] [address], Ph. Attender: Ashia ROBERTSON [facility] Medical 04/13/2021 12:00:00 AM EDT [facility]) Ashia Steinberg PA-C: [address], [place] [address], Ph. Attender: Ashia ROBERTSON [facility] Medical 04/13/2021 12:00:00 AM EDT [facility] ([facility]) Ashia Steinberg PA-C: [address], [place] [address], Ph. Attender: Ashia ROBERTSON [facility] Medical 04/13/2021 12:00:00 AM EDT [facility] ([facility]) Outpatient Attender: AIMEE ROBERTSON Main Office 03/31/2021 0 8:15:[address] [facility] ([facility]) Emergency Attender: KOMAL PEREZ MDConsultant: Paul Horner MD 03/30/2021 08:31:00 AM EDT - 03/30/2021 10:10:00 AM EDT [facility] Patient discharged. Outpatient Attender: DAISHA YOON RPA 03/29 09:01:59 AM EDT - 03/29/2021 10:43:28 AM EDT [facility] ([facility] ) Ashia Steinberg PA-C: [address], [place] [address], Ph. Attender: Ashia ROBERTSON [facility] Medical 02/17/2021 12:00:00 AM EDT [facility]) Ashia Steinberg PA-C: [address], [place] [address], Ph. Attender: Ashia ROBERTSON [facility] Medical 02/17/2021 12:00:00 AM EDT [facility] ([facility]) Ashia Steinberg PA-C: [address], [place] [address], Ph. Attender: Ashia ROBERTSON [facility] Medical 02/17/2021 12:00:00 AM EDT [facility] ([facility]) Ashia Steinberg PA-C: [address], [place] [address], Ph. Attender: Ashia ROBERTSON [facility] Medical 02/17/2021 12:00:00 AM EDT [facility] ([facility]) Ashia Steinberg PA-C: [address], [place] [address], Ph. Attender: Ashia ROBERTSON [facility] Medical 02/03/2021 12:00:00 AM EDT [facility] ([facility]) Ashia Steinberg PA-C: [address], [place] [address], Ph. Attender: Ashia ROBERTSON [facility] Medical 02/03/2021 12:00:00 AM EDT [facility] ([facility]) Ashia Steinberg PA-C: [address], [place] [address], Ph. Attender: Ashia ROBERTSON [facility] Medical 02/03/2021 12:00:00 AM EDT [facility] ([facility]) Ashia Steinberg PA-C: [address], [place] [address], Ph. Attender: Ashia ROBERTSON [facility] Medical 02/03/2021 12:00:00 AM EDT [facility] ([facility]) Ashia Steinberg PA-C: [address] [place] [address], Ph. Attender: Ashia ROBERTSON [facility] Medical 02/03/2021 12:00:00 AM EDT [facility] ([facility]) GRETTA GonzalezC: [address], [place] [address], Ph. Attender: Lyndsay Cesar [facility] Medical 11/29/2020 12:00:00 AM EDT [facility] ([facility]) GRETTA GonzalezC: [address] [place] [address], Ph. Attender: Lyndsay Cesar [facility] Medical 11/29/2020 12:00:00 AM EDT [facility] ([facility]) GRETTA GonzalezC: [address], [place] [address], Ph. Attender: Lyndsay Cesar [facility] Medical 11/29/2020 12:00:00 AM EDT [facility] ([facility]) GREG Gonzalez: [address], [place] [address], Ph. Attender: Lyndsay Cesar [facility] Medical 11/29/2020 12:00:00 AM EDT [facility] ([facility]) GRETTA GonzalezC: [address] [place] [address], Ph. Attender: Lyndsay Cesar [facility] Medical 11/29/2020 12:00:00 AM EDT [facility] ([facility]) GRETTA GonzalezC: [address], [place] [address], Ph. Attender: Lyndsay Cesar [facility] Medical 11/29/2020 12:00:00 AM EDT [facility] ([facility]) GRETTA GonzalezC: [address], [place] [address], Ph. Attender: Lyndsay Cesar [facility] Medical 11/01/2020 12:00:00 AM EDT [facility] ([facility]) GRETTA GonzalezC: [address], [place] [address], Ph. Attender: Lyndsay Cesar [facility] Medical 11/01/2020 12:00:00 AM EDT [facility] ([facility]) GRETTA GonzalezC: [address], [place] [address], Ph. Attender: Lyndsay Cesar [facility] Medical 11/01/2020 12:00:00 AM EDT [facility] ([facility]) GRETTA GonzalezC: [address], [place] [address], Ph. Attender: Lyndsay Cesar [facility] Medical 11/01/2020 12:00:00 AM EDT [facility] ([facility]) GRETTA GonzalezC: [address], [place] [address], Ph. Attender: Lyndsay Cesar [facility] Medical 11/01/2020 12:00:00 AM EDT [facility] ([facility]) GRETTA GonzalezC: [address], [place] [address], Ph. Attender: Lyndsay Cesar [facility] Medical 11/01/2020 12:00:00 AM EDT [facility] ([facility]) GRETTA GonzalezC: [address], [place] [address], Ph. Attender: Lyndsay Cesar [facility] Medical 11/01/2020 12:00:00 AM EDT [facility] ([facility]) Outpatient Attender: AIMEE ROBERTSON Main Office 09/27/2020 0 7:00:00 AM EST [facility] ([facility]) Ashia Steinberg PA-C: [address], [facility] [address], Ph. Attender: Ashia ROBERTSON [facility] Medical 05/30/2020 12:00:00 AM EST [facility] ([facility]) Ashia Steinberg PA-C: [address], [facility] [address], Ph. Attender: Ashia ROBERTSON [facility] Medical 05/30/2020 12:00:00 AM EST [facility] ([facility]) Ashia Steinberg PA-C: [address], [place] [address], Ph. Attender: Ashia ROBERTSON [facility] Medical 05/30/2020 12:00:00 AM EST [facility] ([facility]) Ashia Steinberg PA-C: [address], [place] [address], Ph. Attender: Ashia ROBERTSON [facility] Medical 05/30/2020 12:00:00 AM EST [facility] ([facility]) Ashia Steinberg PA-C: [address], [place] [facility] [address], Ph. Attender: Ashia ROBERTSON [facility] Medical 05/30/2020 12:00:00 AM EST [facility] ([facility]) Ashia Steinberg PA-C: [address], [place] [address], Ph. Attender: Ashai ROBERTSON [facility] Medical 05/30/2020 12:00:00 AM EST [facility] ([facility]) Ashia Steinberg PA-C: [address], [place] [address], Ph. Attender: Ashia ROBERTSON [facility] Medical 05/30/2020 12:00:00 AM EST [facility]) Ashia Steinberg PA-C: [address], [place] [facility] [address], Ph. Attender: Ashia ROBERTSON [facility] Medical 05/30/2020 12:00:00 AM [facility]NA VICTORIAENA ([facility]) Emergency Attender: TIMI ROBERTSON EMERGENCY ROOM- ER 03/30/2020 01:12:00 PM EDT - 03/30/2020 02:32:00 PM EDT [facility] Patient discharged. Outpatient Attender: JAYLON WANG MD 03/30/2020 08:06:00 A M EDT [facility] Immunizations Vaccine Date Status Description Data Source(s) COVID-19, mRNA, LNP-S, PF, 100 mcg/0.5 mL dose 11/29/2020 05 :26:14 PM EDT completed .5 mL [facility] ([facility]) COVID-19, mRNA, LNP-S, PF, 100 mcg/0.5 mL dose 11/29/2020 05 :26:14 PM EDT completed .5 mL [facility]) COVID-19, mRNA, LNP-S, PF, 100 mcg/0.5 mL dose 11/29/2020 05 :26:14 PM EDT completed .5 mL [facility]) COVID-19, mRNA, LNP-S, PF, 100 mcg/0.5 mL dose 11/29/2020 05 :26:14 PM EDT completed .5 mL [facility]) COVID-19, mRNA, LNP-S, PF, 100 mcg/0.5 mL dose 11/29/2020 05 :26:14 PM EDT completed .5 mL [facility]) COVID-19, mRNA, LNP-S, PF, 100 mcg/0.5 mL dose 11/29/2020 05 :26:14 PM EDT completed .5 mL [facility]) COVID-19 VACCINE Moderna 11/29/2020 12:00:00 AM EDT completed [employer] Vaccine Series Complete: YESThis Data wa s Submitted to [facility] Via [employer]. COVID-19, mRNA, LNP-S, PF, 100 mcg/0.5 mL dose 11/01/2020 06 :02:28 PM EDT completed .5 mL [facility]) COVID-19, mRNA, LNP-S, PF, 100 mcg/0.5 mL dose 11/01/2020 06 :02:28 PM EDT completed .5 mL [facility]) COVID-19, mRNA, LNP-S, PF, 100 mcg/0.5 mL dose 11/01/2020 06 :02:28 PM EDT completed .5 mL [facility]) COVID-19, mRNA, LNP-S, PF, 100 mcg/0.5 mL dose 11/01/2020 06 :02:28 PM EDT completed .5 mL [facility]) COVID-19, mRNA, LNP-S, PF, 100 mcg/0.5 mL dose 11/01/2020 06 :02:28 PM EDT completed 10.5 mL [facility] ([facility]) COVID-19, mRNA, LNP-S, PF, 100 mcg/0.5 mL dose 11/01/2020 06 :02:28 PM EDT completed .5 mL [facility] ([facility]) COVID-19, mRNA, LNP-S, PF, 100 mcg/0.5 mL dose 11/01/2020 06 :02:28 PM EDT completed .5 mL [facility] ([facility]) COVID-19 VACCINE Moderna 11/01/2020 12:00:00 AM EDT completed [facility] Vaccine Series Complete: NOThis Data was Submitted to [facility] Via [employer]. Medications Medication Brand Name Start Date Product Form Dose Route Admi nistrative Instructions Pharmacy Instructions Status Indications Reaction Description Data Source(s) Methylprednisolone 4 MG Oral Tablet Methylprednisolone 03/2021 12:00:00 AM EDT ORAL active [facility] ([facility] Chlorthalidone 25 MG Oral Tablet Chlorthalidone 03/30/2021 12:00:00 A M EDT ORAL active [facility] ([facility]) atorvastatin 20 MG Oral Tablet Atorvastatin Calcium 03/30/2021 1 2:00:00 AM EDT ORAL active [facility] ( [facility]) Carbamazepine 200 MG Oral Tablet Carbamazepine 03/30/2021 12:00:00 AM EDT ORAL active [facility] ([facility]) Chlorthalidone 25 MG Oral Tablet Chlorthalidone 12/30/2020 12:00:00 A M EDT ORAL active [facility] ([facility]) 40 mg 12/25/2020 12:00:00 AM EDT tablet [...] EDT active [facility] ([facility]) 25 mg 12/25/2020 12:00:00 AM EDT tablet 30 TAKE ONE-HALF TABLET BY MOUTH EVERY DAY TAKE ONE-HALF TABLET BY MOUTH EVERY DAY SOLD: 12/25/2020 Romero Sims 24 HR Nicotine 0.583 MG/HR Transdermal P atch nicotine 14 mg/24 hr daily transdermal patch nicotine 14 mg/24 hr daily transdermal patch completed 24 HR nicotine 0.583 MG/HR Trans dermal System [facility] ([facility]) atorvastatin 10 MG Oral Tablet atorvastatin 10 mg tabl et atorvastatin 10 mg tablet completed atorvastatin 10 MG Oral Tablet [facility] ([facility]) Amlodipine 10 MG Oral Tablet amlodipine 10 mg tablet amlodipine 10 mg tablet completed amlodipine 10 MG Oral Tablet [facility] ([facility]) Amlodipine 10 MG Oral Tablet amlodipine 10 mg tablet amlodipine 10 mg tablet completed amlodipine 10 MG Oral Tablet [facility] ([facility]) gabapentin 600 MG Oral Tablet gabapentin 600 mg tablet TAKE ONE TABLET BY MOUTH THREE TIMES DAILY DIRECTED gabapentin 600 mg tablet TAKE ONE TABLET BY MOUTH THREE TIMES DAILY DIRECTED complete d gabapentin 600 MG Oral Tablet [facility] er) atorvastatin 10 MG Oral Tablet atorvastatin 10 mg tabl et atorvastatin 10 mg tablet completed atorvastatin 10 MG Oral Tablet [facility] ([facility]) Ibuprofen 800 MG Oral Tablet ibuprofen 800 mg tablet ibuprofen 8 00 mg tablet completed ibuprofen 800 MG Oral Tablet [facility]) atorvastatin 10 MG Oral Tablet atorvastatin 10 mg tabl et atorvastatin 10 mg tablet completed atorvastatin 10 MG Oral Tablet [facility] ([facility]) 24 HR Nicotine 0.583 MG/HR Transdermal P atch nicotine 14 mg/24 hr daily transdermal patch nicotine 14 mg/24 hr daily transdermal patch completed 24 HR nicotine 0.583 MG/HR Trans dermal System [facility] ([facility]) 24 HR Nicotine 0.583 MG/HR Transdermal P atch nicotine 14 mg/24 hr daily transdermal patch nicotine 14 mg/24 hr daily transdermal patch completed 24 HR nicotine 0.583 MG/HR Trans dermal System [facility] ([facility]) Ibuprofen 800 MG Oral Tablet ibuprofen 800 mg tablet ibuprofen 8 00 mg tablet completed ibuprofen 800 MG Oral Tablet [facility] ([facility]) Ibuprofen 800 MG Oral Tablet ibuprofen 800 mg tablet ibuprofen 8 00 mg tablet completed ibuprofen 800 MG Oral Tablet [facility] ([facility]) Amlodipine 10 MG Oral Tablet amlodipine 10 mg tablet amlodipine 10 mg tablet completed amlodipine 10 MG Oral Tablet [facility] ([facility]) Cyclobenzaprine hydrochloride 10 MG Oral Tablet cyclobenzaprine 10 mg tablet TAKE ONE TABLET BY MOUTH THREE TIMES DAILY cyclobenzaprine 10 mg tablet TAKE ONE TABLET BY MOUTH THREE TIMES DAILY comp leted cyclobenzaprine hydrochloride 10 MG Oral Tablet [facility] ([facility]) atorvastatin 10 MG Oral Tablet atorvastatin 10 mg tabl et atorvastatin 10 mg tablet completed atorvastatin 10 MG Oral Tablet [facility] ([facility]) Cyclobenzaprine hydrochloride 10 MG Oral Tablet cyclobenzaprine 10 mg tablet TAKE ONE TABLET BY MOUTH THREE TIMES DAILY cyclobenzaprine 10 mg tablet TAKE ONE TABLET BY MOUTH THREE TIMES DAILY comp leted cyclobenzaprine hydrochloride 10 MG Oral Tablet [facility] ([facility]) 24 HR Nicotine 0.583 MG/HR Transdermal P atch nicotine 14 mg/24 hr daily transdermal patch nicotine 14 mg/24 hr daily transdermal patch completed 24 HR nicotine 0.583 MG/HR Trans dermal System [facility] ([facility]) Ibuprofen 800 MG Oral Tablet ibuprofen 800 mg tablet ibuprofen 8 00 mg tablet completed ibuprofen 800 MG Oral Tablet [facility] ([facility]) Carbamazepine 200 MG Oral Tablet carbama zepine 200 mg tablet TAKE 1/2 TABLET BY MOUTH TWICE DAILY FOR FOURTEEN DAYS, THEN TAKE ONE TABLET BY MOUTH TWICE DAILY carbamazepine 200 mg tablet TAKE 1/2 TABLET BY MOUTH TWICE DAILY FOR FOURTEEN DAYS, THEN TAKE ONE TABLET BY MOUTH TWICE DAILY completed carbamazepine 200 MG Oral Tablet [facility] ([facility]) atorvastatin 10 MG Oral Tablet atorvastatin 10 mg tabl et atorvastatin 10 mg tablet completed atorvastatin 10 MG Oral Tablet [facility] ([facility]) Amlodipine 10 MG Oral Tablet amlodipine 10 mg tablet amlodipine 10 mg tablet completed amlodipine 10 MG Oral Tablet [facility] ([facility]) methylprednisolone 4 mg tablets in a dos e pack USE DIRECTED ON PACKAGE - START TOMORROW [id number] completed methylprednisolone 4 mg tablets in a dose pack [facility] ([facility]) 24 HR Nicotine 0.583 MG/HR Transdermal P atch nicotine 14 mg/24 hr daily transdermal patch nicotine 14 mg/24 hr daily transdermal patch completed 24 HR nicotine 0.583 MG/HR Trans dermal System [facility] ([facility]) Amlodipine 10 MG Oral Tablet amlodipine 10 mg tablet amlodipine 10 mg tablet completed amlodipine 10 MG Oral Tablet [facility] ([facility]) 24 HR Nicotine 0.583 MG/HR Transdermal P atch nicotine 14 mg/24 hr daily transdermal patch nicotine 14 mg/24 hr daily transdermal patch completed 24 HR nicotine 0.583 MG/HR Trans dermal System [facility] ([facility]) Cyclobenzaprine hydrochloride 10 MG Oral Tablet cyclobenzaprine 10 mg tablet TAKE ONE TABLET BY MOUTH THREE TIMES DAILY cyclobenzaprine 10 mg tablet TAKE ONE TABLET BY MOUTH THREE TIMES DAILY comp leted cyclobenzaprine hydrochloride 10 MG Oral Tablet [facility] ([facility]) methylprednisolone 4 mg tablets in a dos e pack USE DIRECTED ON PACKAGE - START [id number] completed methylprednisolone 4 mg tablets in a dose pack [facility] ([facility]) 24 HR Nicotine 0.583 MG/HR Transdermal P atch nicotine 14 mg/24 hr daily transdermal patch nicotine 14 mg/24 hr daily transdermal patch completed 24 HR nicotine 0.583 MG/HR Trans dermal System [facility] ([facility]) Ibuprofen 800 MG Oral Tablet ibuprofen 800 mg tablet ibuprofen 8 00 mg tablet completed ibuprofen 800 MG Oral Tablet [facility] ([facility]) Cyclobenzaprine hydrochloride 10 MG Oral Tablet cyclobenzaprine 10 mg tablet TAKE ONE TABLET BY MOUTH THREE TIMES DAILY cyclobenzaprine 10 mg tablet TAKE ONE TABLET BY MOUTH THREE TIMES DAILY comp leted cyclobenzaprine hydrochloride 10 MG Oral Tablet [facility] ([facility]) methylprednisolone 4 mg tablets in a dos e pack USE DIRECTED ON PACKAGE - START [id number] completed methylprednisolone 4 mg tablets in a dose pack [facility] ([facility]) 24 HR Nicotine 0.583 MG/HR Transdermal P atch nicotine 14 mg/24 hr daily transdermal patch nicotine 14 mg/24 hr daily transdermal patch completed 24 HR nicotine 0.583 MG/HR Trans dermal System [facility] ([facility]) Cyclobenzaprine hydrochloride 10 MG Oral Tablet cyclobenzaprine 10 mg tablet TAKE ONE TABLET BY MOUTH THREE TIMES DAILY cyclobenzaprine 10 mg tablet TAKE ONE TABLET BY MOUTH THREE TIMES DAILY comp leted cyclobenzaprine hydrochloride 10 MG Oral Tablet [facility] ([facility]) Insurance Providers Payer name Policy type / Coverage type Policy ID Covered libertarian ID Covered libertarian's relationship to henderson Policy Henderson Plan Information Medicaid S [id number] S [id number] Medicaid S [id number] S [id number] UN COMMUNITY PLAN MCDHMO [id number] SP [id number] Managed Care - [facility] P [id number] S [id number] Medicaid S [id number] S [id number] Managed Care - Community [facility] P [id number] S [id number] Managed Care - Community [facility] P [id number] S [id number] Managed Care - Community [facility] P [id number] S [id number] Medicaid S [id number] S [id number] UN COMMUNITY PLAN MCDHMO [id number] SP [id number] [facility] COMMUNITY PLAN MCDHMO [id number] SP [id number] [facility] COMMUNITY PLAN MCDHMO [id number] SP [id number] Managed Care - Community Plan [facility] P [id number] S [id number] Medicaid S [id number] S [id number] Managed Care - Community Plan [facility] P [id number] S [id number] Medicaid S [id number] S [id number] Managed Care - Community [facility] P [id number] S [id number] Managed Care - [facility] Community Plan P [id number] S [id number] Medicaid S [id number] S [id number] Managed Care - [facility] Community Plan P [id number] S [id number] [facility] [employer] [id number] Self [id number] UN COMMUNITY PLAN XIX - OP/ER [id number] 18 [id number] [facility] MEDICAID [id number] S [id number] [facility] MEDICAID [id number] S [id number] [facility] MEDICAID [id number] S [id number] [facility] Commercial [id number] Self [id number] [facility](MCAID) O [id number] S [id number] [facility] [id number] SP [id number] [facility] Health Maintenance Organization (HMO) [id number] Self [id number] [facility] Commercial [id number] Self [facility] MEDICAID [place] HMO 000 S 000 UN COMMUNITY PLAN [facility] [id number] SP [id number] UN COMMUNITY PLAN [facility] [id number] SP [id number] Problems, Conditions, and Diagnoses Code Display Name Description Problem Type Effective Dates Data Source(s) J09609 Nicotine dependence, cigarettes, uncompl icated Nicotine dependence, cigarettes, uncomplicated Diagnosis 03/30/2021 08:31:00 AM EDT [facility] I10 Essential (primary) hypertension Essential (primary) h ypertension Diagnosis 03/30/2021 08:31:00 AM [facility] G500 Trigeminal neuralgia Trigeminal neuralgia Diagnosis 03/30/2021 08:31:00 AM [facility] K0889 Other specified disorders of teeth and s upporting structures Other specified disorders of teeth and supporting structures Diagnosis 03/30/2021 08:31:00 AM [facility] Z79.899 Other terminal carman (current) drug therapy O THER RETIREMENT (CURRENT) DRUG THERAPY Diagnosis 03/30/2020 01:12:00 PM [facility] F17.210 Nicotine dependence, cigarettes, uncompl icated NICOTINE DEPENDENCE, CIGARETTES, UNCOMPLICATED Diagnosis 03/30/2020 01:12:00 PM T [facility] I10 Essential (primary) hypertension ESSENTIAL (PRIMARY) H YPERTENSION Diagnosis 03/30/2020 01:12:00 PM [facility] R19.7 Diarrhea, unspecified DIARRHEA, UNSPECIFIED Diagnosis 03/30/2020 01:12:00 PM [facility] E78.2 Mixed hyperlipidemia Mixed hyperlipidemia Problem 09/27/2020 12:00:00 AM LORNA LEWIS ([facility]) [id number] Syncope Syncope Problem 09/13/2020 12:00:00 AM ALLEN ALMONTE ([facility]) [id number] Syncope Syncope Problem 09/13/2020 12:00:00 AM ALLEN ALMONTE ([facility]) [id number] Syncope Syncope Problem 09/13/2020 12:00:00 AM ALLEN ALMONTE ([facility]) [id number] Syncope Syncope Problem 09/13/2020 12:00:00 AM ALLEN ALMONTE ([facility]) [id number] Syncope Syncope Problem 09/13/2020 12:00:00 AM ALLEN ALMONTE ([facility]) [id number] Syncope Syncope Problem 09/13/2020 12:00:00 AM ALLEN ALMONTE ([facility]) [id number] Syncope Syncope Problem 09/13/2020 12:00:00 AM ALLEN ALMONTE ([facility]) [id number] Cellulitis of finger of left hand Cellul itis of Finger of Left Hand Problem 10/28/2018 12:00:00 AM EDT - 05/30/2020 12:00:00 AM LORNA ALMONTE ([facility]) [id number] Endocrine/metabolic screening Endocrine/metabolic Scre ening Problem 10/28/2018 12:00:00 AM EDT - 05/30/2020 12:00:00 AM LORNA SUZY ([facility]) [id number] Influenza vaccine needed Influenza Vaccine Needed Pro blem 10/28/2018 12:00:00 AM EDT - 05/30/2020 12:00:00 AM LORNA SUZY ([facility]) [id number] Puncture wound of foot Puncture Wound of Foot Problem 10/28/2018 12:00:00 AM EDT - 05/30/2020 12:00:00 AM LORNA SUZY ([facility]) [id number] Cellulitis of finger of left hand Cellul itis of Finger of Left Hand Problem 10/28/2018 12:00:00 AM EDT - 05/30/2020 12:00:00 AM LORNA SUZY ([facility]) [id number] Endocrine/metabolic screening Endocrine/metabolic Scre ening Problem 10/28/2018 12:00:00 AM EDT - 05/30/2020 12:00:00 AM LORNA SUZY ([facility]) [id number] Influenza vaccine needed Influenza Vaccine Needed Pro blem 10/28/2018 12:00:00 AM EDT - 05/30/2020 12:00:00 AM LORNA ALMONTE ([facility]) [id number] Puncture wound of foot Puncture Wound of Foot Problem 10/28/2018 12:00:00 AM EDT - 05/30/2020 12:00:00 AM LORNA ALMONTE ([facility]) [id number] Cellulitis of finger of left hand Cellul itis of Finger of Left Hand Problem 10/28/2018 12:00:00 AM EDT - 05/30/2020 12:00:00 AM LORNA ALMONTE ([facility]) [id number] Endocrine/metabolic screening Endocrine/metabolic Scre ening Problem 10/28/2018 12:00:00 AM EDT - 05/30/2020 12:00:00 AM LORNA SUZY ([facility]) [id number] Influenza vaccine needed Influenza Vaccine Needed Pro blem 10/28/2018 12:00:00 AM EDT - 05/30/2020 12:00:00 AM LORNA SUZY ([facility]) [id number] Puncture wound of foot Puncture Wound of Foot Problem 10/28/2018 12:00:00 AM EDT - 05/30/2020 12:00:00 AM LORNA ALMONTE ([facility]) [id number] Cellulitis of finger of left hand Cellul itis of Finger of Left Hand Problem 10/28/2018 12:00:00 AM EDT - 05/30/2020 12:00:00 AM LORNA ALMONTE ([facility]) [id number] Endocrine/metabolic screening Endocrine/metabolic Scre ening Problem 10/28/2018 12:00:00 AM EDT - 05/30/2020 12:00:00 AM LORNA SUZY ([facility]) [id number] Influenza vaccine needed Influenza Vaccine Needed Pro blem 10/28/2018 12:00:00 AM EDT - 05/30/2020 12:00:00 AM LORNA SUZY ([facility]) [id number] Puncture wound of foot Puncture Wound of Foot Problem 10/28/2018 12:00:00 AM EDT - 05/30/2020 12:00:00 AM LORNA SUZY ([facility]) [id number] Cellulitis of finger of left hand Cellul itis of Finger of Left Hand Problem 10/28/2018 12:00:00 AM EDT - 05/30/2020 12:00:00 AM EST SUZY ([facility]) [id number] Endocrine/metabolic screening Endocrine/metabolic Scre ening Problem 10/28/2018 12:00:00 AM EDT - 05/30/2020 12:00:00 AM EST SUZY ([facility]) [id number] Influenza vaccine needed Influenza Vaccine Needed Pro blem 10/28/2018 12:00:00 AM EDT - 05/30/2020 12:00:00 AM EST SUZY ([facility]) [id number] Puncture wound of foot Puncture Wound of Foot Problem 10/28/2018 12:00:00 AM EDT - 05/30/2020 12:00:00 AM EST SUZY ([facility]) [id number] Cellulitis of finger of left hand Cellul itis of Finger of Left Hand Problem 10/28/2018 12:00:00 AM EDT - 05/30/2020 12:00:00 AM LORNA ALMONTE ([facility]) [id number] Endocrine/metabolic screening Endocrine/metabolic Scre ening Problem 10/28/2018 12:00:00 AM EDT - 05/30/2020 12:00:00 AM EST SUZY ([facility]) [id number] Influenza vaccine needed Influenza Vaccine Needed Pro blem 10/28/2018 12:00:00 AM EDT - 05/30/2020 12:00:00 AM LORNA ALMONTE ([facility]) [id number] Puncture wound of foot Puncture Wound of Foot Problem 10/28/2018 12:00:00 AM EDT - 05/30/2020 12:00:00 AM LORNA ALMONTE ([facility]) [id number] Cellulitis of finger of left hand Cellul itis of Finger of Left Hand Problem 10/28/2018 12:00:00 AM EDT - 05/30/2020 12:00:00 AM EST SUZY ([facility]) [id number] Endocrine/metabolic screening Endocrine/metabolic Scre ening Problem 10/28/2018 12:00:00 AM EDT - 05/30/2020 12:00:00 AM EST SUZY ([facility]) [id number] Influenza vaccine needed Influenza Vaccine Needed Pro blem 10/28/2018 12:00:00 AM EDT - 05/30/2020 12:00:00 AM LORNA ALMONTE ([facility]) [id number] Puncture wound of foot Puncture Wound of Foot Problem 10/28/2018 12:00:00 AM EDT - 05/30/2020 12:00:00 AM LORNA ALMONTE ([facility]) [id number] Cellulitis of finger of left hand Cellul itis of Finger of Left Hand Problem 10/28/2018 12:00:00 AM EDT - 05/30/2020 12:00:00 AM LORNA SUZY ([facility]) [id number] Endocrine/metabolic screening Endocrine/metabolic Scre ening Problem 10/28/2018 12:00:00 AM EDT - 05/30/2020 12:00:00 AM LORNA SUZY ([facility]) [id number] Influenza vaccine needed Influenza Vaccine Needed Pro blem 10/28/2018 12:00:00 AM EDT - 05/30/2020 12:00:00 AM LORNA SUZY ([facility]) [id number] Puncture wound of foot Puncture Wound of Foot Problem 10/28/2018 12:00:00 AM EDT - 05/30/2020 12:00:00 AM LORNA SUZY ([facility]) [id number] Tobacco use and exposure - finding Tobacco Use a nd Exposure - Finding Problem 05/07/2018 12:00:00 AM EDT - 05/30/2020 12:00:00 AM ALLEN ALMONTE ([facility]) [id number] Tobacco use and exposure - finding Tobacco Use a nd Exposure - Finding Problem 05/07/2018 12:00:00 AM EDT - 05/30/2020 12:00:00 AM ALLEN ALMONTE ([facility]) [id number] Tobacco use and exposure - finding Tobacco Use a nd Exposure - Finding Problem 05/07/2018 12:00:00 AM EDT - 05/30/2020 12:00:00 AM ALLEN ALMONTE ([facility]) [id number] Tobacco use and exposure - finding Tobacco Use a nd Exposure - Finding Problem 05/07/2018 12:00:00 AM EDT - 05/30/2020 12:00:00 AM ALLEN ALMONTE ([facility]) [id number] Tobacco use and exposure - finding Tobacco Use a nd Exposure - Finding Problem 05/07/2018 12:00:00 AM EDT - 05/30/2020 12:00:00 AM ALLEN ALMONTE ([facility]) [id number] Tobacco use and exposure - finding Tobacco Use a nd Exposure - Finding Problem 05/07/2018 12:00:00 AM EDT - 05/30/2020 12:00:00 AM ALLEN ALMONTE ([facility]) [id number] Tobacco use and exposure - finding Tobacco Use a nd Exposure - Finding Problem 05/07/2018 12:00:00 AM EDT - 05/30/2020 12:00:00 AM ALLEN ALMONTE ([facility]) [id number] Tobacco use and exposure - finding Tobacco Use a nd Exposure - Finding Problem 05/07/2018 12:00:00 AM EDT - 05/30/2020 12:00:00 AM ALLEN ALMONTE ([facility]) [id number] Tooth finding Tooth Finding Problem 04/21/2018 12 :00:00 AM EDT - 05/30/2020 12:00:00 AM EST SUZY ([facility]) [id number] Overweight Overweight Problem 04/21/2018 12:0 0:00 AM EDT - 05/30/2020 12:00:00 AM EST SUZY ([facility]) [id number] Tooth finding Tooth Finding Problem 04/21/2018 12 :00:00 AM EDT - 05/30/2020 12:00:00 AM EST SUZY ([facility]) [id number] Overweight Overweight Problem 04/21/2018 12:0 0:00 AM EDT - 05/30/2020 12:00:00 AM EST SUZY ([facility]) [id number] Tooth finding Tooth Finding Problem 04/21/2018 12 :00:00 AM EDT - 05/30/2020 12:00:00 AM EST SUZY ([facility]) [id number] Overweight Overweight Problem 04/21/2018 12:0 0:00 AM EDT - 05/30/2020 12:00:00 AM EST SUZY ([facility]) [id number] Tooth finding Tooth Finding Problem 04/21/2018 12 :00:00 AM EDT - 05/30/2020 12:00:00 AM EST SUZY ([facility]) [id number] Overweight Overweight Problem 04/21/2018 12:0 0:00 AM EDT - 05/30/2020 12:00:00 AM EST SUZY ([facility]) [id number] Tooth finding Tooth Finding Problem 04/21/2018 12 :00:00 AM EDT - 05/30/2020 12:00:00 AM EST SUZY ([facility]) [id number] Overweight Overweight Problem 04/21/2018 12:0 0:00 AM EDT - 05/30/2020 12:00:00 AM EST SUZY ([facility]) [id number] Tooth finding Tooth Finding Problem 04/21/2018 12 :00:00 AM EDT - 05/30/2020 12:00:00 AM EST SUZY ([facility]) [id number] Overweight Overweight Problem 04/21/2018 12:0 0:00 AM EDT - 05/30/2020 12:00:00 AM EST SUZY ([facility]) [id number] Tooth finding Tooth Finding Problem 04/21/2018 12 :00:00 AM EDT - 05/30/2020 12:00:00 AM EST SUZY ([facility]) [id number] Overweight Overweight Problem 04/21/2018 12:0 0:00 AM EDT - 05/30/2020 12:00:00 AM EST SUZY ([facility]) [id number] Tooth finding Tooth Finding Problem 04/21/2018 12 :00:00 AM EDT - 05/30/2020 12:00:00 AM EST SUZY ([facility]) [id number] Overweight Overweight Problem 04/21/2018 12:0 0:00 AM EDT - 05/30/2020 12:00:00 AM EST SUZY ([facility]) [id number] Clinical finding Clinical Finding Problem 017 12:00:00 AM EDT - 05/30/2020 12:00:00 AM EST SUZY ([facility]) [id number] Clinical finding Clinical Finding Problem 017 12:00:00 AM EDT - 05/30/2020 12:00:00 AM EST SUZY ([facility]) [id number] Clinical finding Clinical Finding Problem 017 12:00:00 AM EDT - 05/30/2020 12:00:00 AM EST SUZY ([facility]) [id number] Clinical finding Clinical Finding Problem 017 12:00:00 AM EDT - 05/30/2020 12:00:00 AM EST SUZY ([facility]) [id number] Clinical finding Clinical Finding Problem 017 12:00:00 AM EDT - 05/30/2020 12:00:00 AM EST SUZY ([facility]) [id number] Clinical finding Clinical Finding Problem 017 12:00:00 AM EDT - 05/30/2020 12:00:00 AM EST SUZY ([facility]) [id number] Clinical finding Clinical Finding Problem 017 12:00:00 AM EDT - 05/30/2020 12:00:00 AM EST SUZY ([facility]) [id number] Clinical finding Clinical Finding Problem 017 12:00:00 AM EDT - 05/30/2020 12:00:00 AM EST SUZY ([facility]) [id number] Vomiting without nausea Vomiting without Nausea Pro blem 03/29/2017 12:00:00 AM EDT - 05/30/2020 12:00:00 AM EST SUZY ([facility]) [id number] Vomiting without nausea Vomiting without Nausea Pro blem 03/29/2017 12:00:00 AM EDT - 05/30/2020 12:00:00 AM EST SUZY ([facility]) [id number] Vomiting without nausea Vomiting without Nausea Pro blem 03/29/2017 12:00:00 AM EDT - 05/30/2020 12:00:00 AM EST SUZY ([facility]) [id number] Vomiting without nausea Vomiting without Nausea Pro blem 03/29/2017 12:00:00 AM EDT - 05/30/2020 12:00:00 AM EST SUZY ([facility]) [id number] Vomiting without nausea Vomiting without Nausea Pro blem 03/29/2017 12:00:00 AM EDT - 05/30/2020 12:00:00 AM EST SUZY ([facility]) [id number] Vomiting without nausea Vomiting without Nausea Pro blem 03/29/2017 12:00:00 AM EDT - 05/30/2020 12:00:00 AM EST SUZY ([facility]) [id number] Vomiting without nausea Vomiting without Nausea Pro blem 03/29/2017 12:00:00 AM EDT - 05/30/2020 12:00:00 AM EST SUZY ([facility]) [id number] Vomiting without nausea Vomiting without Nausea Pro blem 03/29/2017 12:00:00 AM EDT - 05/30/2020 12:00:00 AM EST SUZY ([facility]) [id number] Dysthymia Dysthymia Problem 03/28/2016 12:0 0:00 AM EDT - 05/30/2020 12:00:00 AM EST SUZY ([facility]) [id number] Dysthymia Dysthymia Problem 03/28/2016 12:0 0:00 AM EDT - 05/30/2020 12:00:00 AM EST USZY ([facility]) [id number] Dysthymia Dysthymia Problem 03/28/2016 12:0 0:00 AM EDT - 05/30/2020 12:00:00 AM EST SUZY ([facility]) [id number] Dysthymia Dysthymia Problem 03/28/2016 12:0 0:00 AM EDT - 05/30/2020 12:00:00 AM EST SUZY ([facility]) [id number] Dysthymia Dysthymia Problem 03/28/2016 12:0 0:00 AM EDT - 05/30/2020 12:00:00 AM EST SUZY ([facility]) [id number] Dysthymia Dysthymia Problem 03/28/2016 12:0 0:00 AM EDT - 05/30/2020 12:00:00 AM EST SUZY ([facility]) [id number] Dysthymia Dysthymia Problem 03/28/2016 12:0 0:00 AM EDT - 05/30/2020 12:00:00 AM EST SUZY ([facility]) [id number] Dysthymia Dysthymia Problem 03/28/2016 12:0 0:00 AM EDT - 05/30/2020 12:00:00 AM EST SUZY ([facility]) [id number] Memory finding Memory Finding Problem 05/04/2015 12:00:00 AM EDT - 05/30/2020 12:00:00 AM EST SUZY ([facility]) [id number] Memory finding Memory Finding Problem 05/04/2015 12:00:00 AM EDT - 05/30/2020 12:00:00 AM EST SUZY ([facility]) [id number] Memory finding Memory Finding Problem 05/04/2015 12:00:00 AM EDT - 05/30/2020 12:00:00 AM EST SUZY ([facility]) [id number] Memory finding Memory Finding Problem 05/04/2015 12:00:00 AM EDT - 05/30/2020 12:00:00 AM EST SUZY ([facility]) [id number] Memory finding Memory Finding Problem 05/04/2015 12:00:00 AM EDT - 05/30/2020 12:00:00 AM EST SUZY ([facility]) [id number] Memory finding Memory Finding Problem 05/04/2015 12:00:00 AM EDT - 05/30/2020 12:00:00 AM EST SUZY ([facility]) [id number] Memory finding Memory Finding Problem 05/04/2015 12:00:00 AM EDT - 05/30/2020 12:00:00 AM EST SUZY ([facility]) [id number] Memory finding Memory Finding Problem 05/04/2015 12:00:00 AM EDT - 05/30/2020 12:00:00 AM EST SUZY ([facility]) [id number] Syncope and collapse Syncope and Collapse Problem 04/19/2015 12:00:00 AM EDT - 05/30/2020 12:00:00 AM EST SUZY ([facility]) [id number] Syncope and collapse Syncope and Collapse Problem 04/19/2015 12:00:00 AM EDT - 05/30/2020 12:00:00 AM EST SUZY ([facility]) [id number] Syncope and collapse Syncope and Collapse Problem 04/19/2015 12:00:00 AM EDT - 05/30/2020 12:00:00 AM EST SUZY ([facility]) [id number] Syncope and collapse Syncope and Collapse Problem 04/19/2015 12:00:00 AM EDT - 05/30/2020 12:00:00 AM EST SUZY ([facility]) [id number] Syncope and collapse Syncope and Collapse Problem 04/19/2015 12:00:00 AM EDT - 05/30/2020 12:00:00 AM EST SUZY ([facility]) [id number] Syncope and collapse Syncope and Collapse Problem 04/19/2015 12:00:00 AM EDT - 05/30/2020 12:00:00 AM EST SUZY ([facility]) [id number] Syncope and collapse Syncope and Collapse Problem 04/19/2015 12:00:00 AM EDT - 05/30/2020 12:00:00 AM EST SUZY ([facility]) [id number] Syncope and collapse Syncope and Collapse Problem 04/19/2015 12:00:00 AM EDT - 05/30/2020 12:00:00 AM EST SUZY ([facility]) [id number] Open wound of nose Open Wound of Nose Problem 04/2014 12:00:00 AM EDT - 05/30/2020 12:00:00 AM EST SUZY ([facility]) [id number] Open wound of nose Open Wound of Nose Problem 04/2014 12:00:00 AM EDT - 05/30/2020 12:00:00 AM EST SUZY ([facility]) [id number] Open wound of nose Open Wound of Nose Problem 04/2014 12:00:00 AM EDT - 05/30/2020 12:00:00 AM EST SUZY ([facility]) [id number] Open wound of nose Open Wound of Nose Problem 04/2014 12:00:00 AM EDT - 05/30/2020 12:00:00 AM EST SUZY ([facility]) [id number] Open wound of nose Open Wound of Nose Problem 04/2014 12:00:00 AM EDT - 05/30/2020 12:00:00 AM EST SUZY ([facility]) [id number] Open wound of nose Open Wound of Nose Problem 04/2014 12:00:00 AM EDT - 05/30/2020 12:00:00 AM EST SUZY ([facility]) [id number] Open wound of nose Open Wound of Nose Problem 04/2014 12:00:00 AM EDT - 05/30/2020 12:00:00 AM EST SUZY ([facility]) [id number] Open wound of nose Open Wound of Nose Problem 04/2014 12:00:00 AM EDT - 05/30/2020 12:00:00 AM EST SUZY ([facility]) [id number] Emotional state finding Emotional State Finding Proble 03/09/2014 12:00:00 AM EDT - 05/30/2020 12:00:00 AM EST SUZY ([facility]) [id number] Emotional state finding Emotional State Finding Proble 03/09/2014 12:00:00 AM EDT - 05/30/2020 12:00:00 AM EST SUZY ([facility]) [id number] Emotional state finding Emotional State Finding Proble 03/09/2014 12:00:00 AM EDT - 05/30/2020 12:00:00 AM EST SUZY ([facility]) [id number] Emotional state finding Emotional State Finding Proble 03/09/2014 12:00:00 AM EDT - 05/30/2020 12:00:00 AM EST SUZY ([facility]) [id number] Emotional state finding Emotional State Finding Proble 03/09/2014 12:00:00 AM EDT - 05/30/2020 12:00:00 AM EST SUZY ([facility]) [id number] Emotional state finding Emotional State Finding Proble 03/09/2014 12:00:00 AM EDT - 05/30/2020 12:00:00 AM EST SUZY ([facility]) [id number] Emotional state finding Emotional State Finding Proble 03/09/2014 12:00:00 AM EDT - 05/30/2020 12:00:00 AM EST SUZY ([facility]) [id number] Emotional state finding Emotional State Finding Proble 03/09/2014 12:00:00 AM EDT - 05/30/2020 12:00:00 AM EST [facility]) Surgeries/Procedures Procedure Description Date Indications Data Source(s) ECG ROUTINE ECG W/LEAST 12 LDS W/I&R 03/31/2021 12:00: 00 AM EDT [facility] ([facility]) OFFICE OUTPATIENT VISIT 25 MINUTES 03/31/2021 12:00:00 AM EDT [facility] ([facility]) TOBACCO USE CESSATION INTERMEDIATE 3-10 MINUTES 2020 12:00:00 AM EDT [facility] ([facility]) ECG ROUTINE ECG W/LEAST 12 LDS W/I&R 09/27/2020 12:00: [address] [facility] ([facility]) Results ID Date Data Source [id number] 04/17/2021 12:00:00 AM EDT [facility]) Name Value Range Interpretation Code Description Data Claudia rce(s) Supporting Document(s) Borrelia burgdorferi Ab [Units/volume] in Serum by Immunoassay <0.9 0 Lyme Ab Screen [facility]) ID Date Data Source [id number] 04/04/2021 05:11:00 AM EDT [facility]) Name Value Range Interpretation Code Description Data Claudia rce(s) Supporting Document(s) vitamin B12 level 791 pg/mL [id number] Vitamin B12 Level [facility]) ID Date Data Source [id number] 04/04/2021 05:11:00 AM EDT [facility]) Name Value Range Interpretation Code Description Data Claudia rce(s) Supporting Document(s) thyroid stimulating hormone 0.555 uIU/mL 0.358-3.740 Thyroid Stimulating Hormone [facility]) ID Date Data Source [id number] 04/04/2021 05:11:00 AM EDT [facility]) Name Value Range Interpretation Code Description Data Claudia rce(s) Supporting Document(s) magnesium level 2.4 mg/dL 1.8-2.4 Magnesium Level [facility] ([facility]) ID Date Data Source [id number] 04/04/2021 05:11:00 AM EDT [facility] ([facility]) Name Value Range Interpretation Code Description Data Claudia rce(s) Supporting Document(s) phosphorus level 2.3 mg/dL 2.5-4.9 Below low normal Phosphorus [place] [facility]ZY ([facility]) ID Date Data Source [id number] 04/04/2021 05:11:00 AM EDT [facility]) Name Value Range Interpretation Code Description Data Claudia rce(s) Supporting Document(s) glucose, fasting 91 mg/dL 70-100 Glucose, Fasting AT [facility] ([facility]) creatinine for GFR 0.60 mg/dL 0.70-1.30 Below low normal Creatinine for GFR [facility] ([facility]) blood urea nitrogen 19 mg/dL 7-18 Above high normal Blood Ure a Nitrogen [facility] ([facility]) sodium level 141 mEq/L 136-145 Sodium Level [facility] ([facility]) glomerular filtration rate > 60.0 >60 Glomerula r Filtration Rate [facility] ([facility]) potassium serum 4.2 mEq/L 3.5-5.1 Potassium Serum [facility] ([facility]) chloride level 107 mEq/L 98-107 Chloride Level [facility] ([facility]) anion gap 6 mEq/L 8-16 Below low normal Anion Gap [facility] ( [facility]) carbon dioxide level 28 mEq/L 21-32 Carbon Dioxide Level [facility] ([facility]) calcium level 9.7 mg/dL 8.5-10.1 Calcium Level [facility]) ID Date Data Source [id number] 04/04/2021 05:11:00 AM EDT [facility]) Name Value Range Interpretation Code Description Data Claudia rce(s) Supporting Document(s) Hemoglobin A1c/Hemoglobin.total in Blood 5.2 % Hemoglobin a1C [facility] ([facility]) estimated average glucose 103 mg/dL 60-110 Estimated Average Glucose [facility] ([facility]) ID Date Data Source [id number] 04/04/2021 05:11:00 AM EDT [facility] ([facility]) Name Value Range Interpretation Code Description Data Claudia e(s) Supporting Document(s) white blood count 8.0 10 4.0-10.0 White Blood Count [facility] ([facility]) red blood count 4.29 10 4.30-6.10 Below low normal Red Blood Coun t [facility] ([facility]) hemoglobin 14.0 g/dL 13.5-17.5 Hemoglobin [facility] ([facility]) hematocrit 40.2 % 42.0-52.0 Below low normal Hematocrit [facility] ( [facility] [facility]) mean corpuscular volume 93.7 fL 80.0-96.0 Mean Corpusc ular Volume SUZY ([facility]) mean corpuscular HGB conc 34.8 g/dL 32.0-36.5 Mean Corpu scular HGB Conc GRETNA ([facility]) mean corpuscular hemoglobin 32.6 pg 27.0-33.0 Mean Cor puscular Hemoglobin GRETNA ([facility]) red cell distribution width 12.1 % 11.5-14.5 Red Cell Distribution Width GRETNA ([facility]) platelet count, automated 196 10 150-450 Platelet C ount, Automated SUZY ([facility]) neutrophils % 52.6 % 36.0-66.0 Neutrophils % SUZY ( [facility]) lymph % 33.3 % 24.0-44.0 Lymph % SUZY ([facility]) eos % 2.4 % 0.0-3.0 Eos % SUZY ([facility]) mono % 10.6 % 2.0-8.0 Above high normal Emmet % SUZY ([facility]) baso % 0.8 % 0.0-1.0 Baso % SUZY ([facility]) immature granulocyte % 0.3 % 0-3.0 Immature Gran ulocyte % SUZY ([facility]) neutrophils # 4.2 10 1.5-8.5 Neutrophils # SUZY ( [facility]) nucleated red blood cell % 0.0 % 0-0 Nucleated Red Blood Cell % SUZY ([facility]) lymph # 2.7 10 1.5-5.0 Lymph # SUZY ([facility]) eos # 0.2 10 0.0-0.5 Eos # SUZY ([facility]) mono # 0.9 10 0.0-0.8 Above high normal Emmet # SUZY ([facility]) baso # 0.1 10 0.0-0.2 Baso # SUZY ([facility]) ID Date Data Source [id number] 04/04/2021 05:11:00 AM EDT SUZY ([facility]) Name Value Range Interpretation Code Description Data Claudia rce(s) Supporting Document(s) vitamin B12 level 791 pg/mL 247-911 Vitamin B12 Level SUZY ([facility]) ID Date Data Source [id number] 04/04/2021 05:11:00 AM EDT SUZY ([facility]) Name Value Range Interpretation Code Description Data Claudia rce(s) Supporting Document(s) thyroid stimulating hormone 0.555 uIU/mL 0.358-3.740 Thyroid Stimulating Hormone SUZY ([facility]) ID Date Data Source [id number] 04/04/2021 05:11:00 AM EDT SUZY ([facility]) Name Value Range Interpretation Code Description Data Claudia rce(s) Supporting Document(s) magnesium level 2.4 mg/dL 1.8-2.4 Magnesium Level ATHE [facility]) ID Date Data Source [id number] 04/04/2021 05:11:00 AM EDT SUZY ([facility]) Name Value Range Interpretation Code Description Data Claudia rce(s) Supporting Document(s) phosphorus level 2.3 mg/dL 2.5-4.9 Below low normal Phosphorus [place] SUZY ([facility]) ID Date Data Source [id number] 04/04/2021 05:11:00 AM EDT SUZY ([facility]) Name Value Range Interpretation Code Description Data Claudia rce(s) Supporting Document(s) glucose, fasting 91 mg/dL 70-100 Glucose, Fasting AT [facility]) blood urea nitrogen 19 mg/dL 7-18 Above high normal Blood Ure a Nitrogen SUZY ([facility]) glomerular filtration rate > 60.0 >60 Glomerula r Filtration Rate GRETNA ([facility]) creatinine for GFR 0.60 mg/dL 0.70-1.30 Below low normal Creatinine for GFR SUZY ([facility]) sodium level 141 mEq/L 136-145 Sodium Level SUZY (No Counts include 234 beds at the [facility]) chloride level 107 mEq/L 98-107 Chloride Level SUZY ([facility]) potassium serum 4.2 mEq/L 3.5-5.1 Potassium Serum ATH NA ([facility]) anion gap 6 mEq/L 8-16 Below low normal Anion Gap GRETNA ( [facility]) carbon dioxide level 28 mEq/L 21-32 Carbon Dioxide Level GRETNA ([facility]) calcium level 9.7 mg/dL 8.5-10.1 Calcium Level GRETNA ( [facility]) ID Date Data Source [id number] 04/04/2021 05:11:00 AM EDT [facility]) Name Value Range Interpretation Code Description Data Claudia rce(s) Supporting Document(s) estimated average glucose 103 mg/dL 60-110 Estimated Average Glucose [facility]) Hemoglobin A1c/Hemoglobin.total in Blood 5.2 % Hemoglobin a1C [facility]) ID Date Data Source [id number] 04/04/2021 05:11:00 AM EDT GRETNA ([facility]) Name Value Range Interpretation Code Description Data Claudia rce(s) Supporting Document(s) white blood count 8.0 10 4.0-10.0 White Blood Count SUZY ([facility]) red blood count 4.29 10 4.30-6.10 Below low normal Red Blood Coun t SUZY ([facility]) hemoglobin 14.0 g/dL 13.5-17.5 Hemoglobin SUZY ([facility]) hematocrit 40.2 % 42.0-52.0 Below low normal Hematocrit GRETNA ( [facility]) mean corpuscular hemoglobin 32.6 pg 27.0-33.0 Mean Cor puscular Hemoglobin GRETNA ([facility]) mean corpuscular volume 93.7 fL 80.0-96.0 Mean Corpusc ular Volume SUZY ([facility]) mean corpuscular HGB conc 34.8 g/dL 32.0-36.5 Mean Corpu scular HGB Conc GRETNA ([facility]) red cell distribution width 12.1 % 11.5-14.5 Red Cell Distribution Width GRETNA ([facility]) platelet count, automated 196 10 150-450 Platelet C ount, Automated GRETNA ([facility]) neutrophils % 52.6 % 36.0-66.0 Neutrophils % SUZY ( [facility]) lymph % 33.3 % 24.0-44.0 Lymph % SUZY ([facility]) eos % 2.4 % 0.0-3.0 Eos % SUZY ([facility]) mono % 10.6 % 2.0-8.0 Above high normal Emmet % SUZY ([facility]) baso % 0.8 % 0.0-1.0 Baso % GRETNA ([facility]) immature granulocyte % 0.3 % 0-3.0 Immature Gran ulocyte % SUZY ([facility]) lymph # 2.7 10 1.5-5.0 Lymph # SUZY ([facility]) nucleated red blood cell % 0.0 % 0-0 Nucleated Red Blood Cell % SUZY ([facility]) neutrophils # 4.2 10 1.5-8.5 Neutrophils # SUZY ( [facility]) eos # 0.2 10 0.0-0.5 Eos # SUZY ([facility]) mono # 0.9 10 0.0-0.8 Above high normal Emmet # SUZY ([facility]) baso # 0.1 10 0.0-0.2 Baso # SUZY ([facility]) ID Date Data Source [id number] 04/04/2021 05:11:00 AM EDT SUZY ([facility]) Name Value Range Interpretation Code Description Data Claudia rce(s) Supporting Document(s) vitamin B12 level 791 pg/mL 247-911 Vitamin B12 Level SUZY ([facility]) ID Date Data Source [id number] 04/04/2021 05:11:00 AM EDT GRETNA ([facility]) Name Value Range Interpretation Code Description Data Claudia rce(s) Supporting Document(s) thyroid stimulating hormone 0.555 uIU/mL 0.358-3.740 Thyroid Stimulating Hormone GRETNA ([facility]) ID Date Data Source [id number] 04/04/2021 05:11:00 AM EDT SUZY ([facility]) Name Value Range Interpretation Code Description Data Claudia rce(s) Supporting Document(s) magnesium level 2.4 mg/dL 1.8-2.4 Magnesium Level ATHE NA ([facility]) ID Date Data Source [id number] 04/04/2021 05:11:00 AM EDT [facility]) Name Value Range Interpretation Code Description Data Claudia rce(s) Supporting Document(s) phosphorus level 2.3 mg/dL 2.5-4.9 Below low normal [facility] [place] [facility] Date Data Source [id number] 04/04/2021 05:11:00 AM EDT GRETNA ([facility]) Name Value Range Interpretation Code Description Data Claudia rce(s) Supporting Document(s) blood urea nitrogen 19 mg/dL 7-18 Above high normal Blood Ure a Nitrogen SUZY ([facility]) glucose, fasting 91 mg/dL 70-100 Glucose, Fasting AT [facility]) creatinine for GFR 0.60 mg/dL 0.70-1.30 Below low normal Creatinine for GFR SUZY ([facility]) glomerular filtration rate > 60.0 >60 Glomerula r Filtration Rate SUZY ([facility]) sodium level 141 mEq/L 136-145 Sodium Level SUZY (No Counts include 234 beds at the [facility]) potassium serum 4.2 mEq/L 3.5-5.1 [facility] chloride level 107 mEq/L 98-107 Chloride Level SUZY ([facility]) carbon dioxide level 28 mEq/L 21-32 Carbon Dioxide Level SUZY ([facility]) anion gap 6 mEq/L 8-16 Below low normal Anion Gap SUZY ( [facility]) calcium level 9.7 mg/dL 8.5-10.1 Calcium Level GRETNA ( [facility]) ID Date Data Source [id number] 04/04/2021 05:11:00 AM EDT GRETNA ([facility]) Name Value Range Interpretation Code Description Data Claudia rce(s) Supporting Document(s) Hemoglobin A1c/Hemoglobin.total in Blood 5.2 % Hemoglobin a1C SUZY ([facility]) estimated average glucose 103 mg/dL 60-110 Estimated Average Glucose GRETNA ([facility]) ID Date Data Source [id number] 04/04/2021 05:11:00 AM EDT GRETNA ([facility]) Name Value Range Interpretation Code Description Data Claudia rce(s) Supporting Document(s) red blood count 4.29 10 4.30-6.10 Below low normal Red Blood Coun t SUZY ([facility]) white blood count 8.0 10 4.0-10.0 White Blood Count SUZY ([facility]) hemoglobin 14.0 g/dL 13.5-17.5 Hemoglobin SUZY ([facility]) hematocrit 40.2 % 42.0-52.0 Below low normal Hematocrit SUZY ( [facility]) mean corpuscular hemoglobin 32.6 pg 27.0-33.0 Mean Cor puscular Hemoglobin SUZY ([facility]) mean corpuscular volume 93.7 fL 80.0-96.0 Mean Corpusc ular Volume SUZY ([facility]) red cell distribution width 12.1 % 11.5-14.5 Red Cell Distribution Width SUZY ([facility]) mean corpuscular HGB conc 34.8 g/dL 32.0-36.5 Mean Corpu scular HGB Conc SUZY ([facility]) neutrophils % 52.6 % 36.0-66.0 Neutrophils % GRETNA ( [facility]) platelet count, automated 196 10 150-450 Platelet C ount, Automated SUZY ([facility]) lymph % 33.3 % 24.0-44.0 Lymph % GRETNA ([facility]) mono % 10.6 % 2.0-8.0 Above high normal Emmet % GRETNA ([facility]) eos % 2.4 % 0.0-3.0 Eos % SUZY ([facility]) baso % 0.8 % 0.0-1.0 Baso % SUZY ([facility]) nucleated red blood cell % 0.0 % 0-0 Nucleated Red Blood Cell % SUZY ([facility]) neutrophils # 4.2 10 1.5-8.5 Neutrophils # GRETNA ( [facility]) immature granulocyte % 0.3 % 0-3.0 Immature Gran ulocyte % SUZY ([facility]) lymph # 2.7 10 1.5-5.0 Lymph # SUZY ([facility]) mono # 0.9 10 0.0-0.8 Above high normal Emmet # SUZY ([facility]) baso # 0.1 10 0.0-0.2 Baso # SUZY ([facility]) eos # 0.2 10 0.0-0.5 Eos # SUZY ([facility]) ID Date Data Source [id number] 04/04/2021 04:25:00 AM EDT SUZY ([facility]) Name Value Range Interpretation Code Description Data Claudia rce(s) Supporting Document(s) bedside glucose 78 mg/dL 70-105 Bedside Glucose ATHE NEDRA ([facility]) ID Date Data Source [id number] 04/04/2021 04:25:00 AM EDT SUZY ([facility]) Name Value Range Interpretation Code Description Data Claudia rce(s) Supporting Document(s) bedside glucose 78 mg/dL 70-105 Bedside Glucose ATHE ([facility]) ID Date Data Source [id number] 04/04/2021 04:25:00 AM EDT SUZY ([facility]) Name Value Range Interpretation Code Description Data Claudia rce(s) Supporting Document(s) bedside glucose 78 mg/dL 70-105 Bedside Glucose ATHE NEDRA ([facility]) ID Date Data Source [id number] 04/04/2021 03:48:00 AM EDT SUZY ([facility]) Name Value Range Interpretation Code Description Data Claudia rce(s) Supporting Document(s) bedside glucose 75 mg/dL 70-105 Bedside Glucose ATHE NEDRA ([facility]) ID Date Data Source [id number] 04/04/2021 03:48:00 AM EDT SUZY ([facility]) Name Value Range Interpretation Code Description Data Claudia rce(s) Supporting Document(s) bedside glucose 75 mg/dL 70-105 Bedside Glucose ATHE NEDRA ([facility]) ID Date Data Source [id number] 04/04/2021 03:48:00 AM EDT SUZY ([facility]) Name Value Range Interpretation Code Description Data Claudia rce(s) Supporting Document(s) bedside glucose 75 mg/dL 70-105 Bedside Glucose ATHE NEDRA ([facility]) ID Date Data Source [id number] 04/03/2021 06:51:00 AM EDT SUZY ([facility]) Name Value Range Interpretation Code Description Data Claudia rce(s) Supporting Document(s) bedside glucose 91 mg/dL 70-105 Bedside Glucose ATHE NEDRA ([facility]) ID Date Data Source [id number] 04/03/2021 06:51:00 AM EDT SUZY ([facility]) Name Value Range Interpretation Code Description Data Claudia rce(s) Supporting Document(s) bedside glucose 91 mg/dL 70-105 Bedside Glucose ATHE NEDRA ([facility]) ID Date Data Source [id number] 04/03/2021 06:51:00 AM EDT [facility]) Name Value Range Interpretation Code Description Data Claudia rce(s) Supporting Document(s) bedside glucose 91 mg/dL 70-105 Bedside Glucose ATHE NEDRA ([facility]) ID Date Data Source [id number] 04/03/2021 04:56:00 AM EDT SUZY ([facility]) Name Value Range Interpretation Code Description Data Claudia rce(s) Supporting Document(s) magnesium level 2.3 mg/dL 1.8-2.4 Magnesium Level ATHE NA ([facility]) ID Date Data Source [id number] 04/03/2021 04:56[facility] Name Value Range Interpretation Code Description Data Claudia rce(s) Supporting Document(s) blood urea nitrogen 20 mg/dL 7-18 Above high normal Blood Ure a Nitrogen SUZY ([facility]) glucose, fasting 77 mg/dL 70-100 Glucose, Fasting AT [facility] ([facility]) creatinine for GFR 0.67 mg/dL 0.70-1.30 Below low normal Creatinine for GFR SUZY ([facility]) sodium level 142 mEq/L 136-145 Sodium Level SUZY ([facility]) glomerular filtration rate > 60.0 >60 Glomerula r Filtration Rate SUZY ([facility]) potassium serum 4.4 mEq/L 3.5-5.1 Potassium Serum ATHE ([facility]) chloride level 107 mEq/L 98-107 Chloride Level GRETNA ([facility]) carbon dioxide level 32 mEq/L 21-32 Carbon Dioxide Level GRETNA ([facility]) anion gap 3 mEq/L 8-16 Below low normal Anion Gap SUZY ( [facility]) calcium level 10.2 mg/dL 8.5-10.1 Above high normal [facility] Level [facility] ID Date Data Source [id number] 04/03/2021 04:56:00 AM EDT [facility]) Name Value Range Interpretation Code Description Data Claudia rce(s) Supporting Document(s) magnesium level 2.3 mg/dL 1.8-2.4 [facility] ID Date Data Source [id number] 04/03/2021 04:56:00 AM EDT [facility]) Name Value Range Interpretation Code Description Data Claudia rce(s) Supporting Document(s) glucose, fasting 77 mg/dL 70-100 Glucose, Fasting AT [facility] ([facility]) blood urea nitrogen 20 mg/dL 7-18 Above high normal Blood Ure a Nitrogen SUZY ([facility]) glomerular filtration rate > 60.0 >60 Glomerula r Filtration Rate SUZY ([facility]) creatinine for GFR 0.67 mg/dL 0.70-1.30 Below low normal Creatinine for GFR SUZY ([facility]) sodium level 142 mEq/L 136-145 Sodium Level SUZY (No Counts include 234 beds at the [facility]) potassium serum 4.4 mEq/L 3.5-5.1 Potassium Serum ATHE NA ([facility]) chloride level 107 mEq/L 98-107 Chloride Level SUZY ([facility]) anion gap 3 mEq/L 8-16 Below low normal Anion Gap SUZY ( [facility]) carbon dioxide level 32 mEq/L 21-32 Carbon Dioxide Level SUZY ([facility]) calcium level 10.2 mg/dL 8.5-10.1 Above high normal Calcium Level [facility]) ID Date Data Source [id number] 04/03/2021 04:56:00 AM EDT GRETNA ([facility]) Name Value Range Interpretation Code Description Data Claudia rce(s) Supporting Document(s) magnesium level 2.3 mg/dL 1.8-2.4 [facility] ID Date Data Source [id number] 04/03/2021 04:56:00 AM EDT [facility]) Name Value Range Interpretation Code Description Data Claudia rce(s) Supporting Document(s) glucose, fasting 77 mg/dL 70-100 Glucose, Fasting AT [facility]) blood urea nitrogen 20 mg/dL 7-18 Above high normal Blood Ure a Nitrogen SUZY ([facility]) glomerular filtration rate > 60.0 >60 Glomerula r Filtration Rate SUZY ([facility]) sodium level 142 mEq/L 136-145 Sodium Level SUZY ([facility]) creatinine for GFR 0.67 mg/dL 0.70-1.30 Below low normal Creatinine for GFR SUZY ([facility]) chloride level 107 mEq/L 98-107 Chloride Level SUZY ([facility]) potassium serum 4.4 mEq/L 3.5-5.1 Potassium Serum ATHE NA ([facility]) carbon dioxide level 32 mEq/L 21-32 Carbon Dioxide Level SUZY ([facility]) calcium level 10.2 mg/dL 8.5-10.1 Above high normal Calcium Level A THENA ([facility]) anion gap 3 mEq/L 8-16 Below low normal Anion Gap SUZY ( [facility]) ID Date Data Source [id number] 04/03/2021 04:55:00 AM EDT SUZY ([facility]) Name Value Range Interpretation Code Description Data Claudia rce(s) Supporting Document(s) white blood count 10.5 10 4.0-10.0 Above high normal White Blood Count SUZY ([facility]) red blood count 4.38 10 4.30-6.10 Red Blood Count ATHE ([facility]) hemoglobin 14.3 g/dL 13.5-17.5 Hemoglobin SUZY ([facility]) hematocrit 41.8 % 42.0-52.0 Below low normal Hematocrit SUZY ( [facility]) mean corpuscular volume 95.4 fL 80.0-96.0 Mean Corpusc ular Volume SUZY ([facility]) mean corpuscular HGB conc 34.2 g/dL 32.0-36.5 Mean Corpu scular HGB Conc SUZY ([facility]) mean corpuscular hemoglobin 32.6 pg 27.0-33.0 Mean Cor puscular Hemoglobin SUZY ([facility]) red cell distribution width 12.4 % 11.5-14.5 Red Cell Distribution Width SUZY ([facility]) neutrophils % 59.7 % 36.0-66.0 Neutrophils % SZUY ( [facility]) platelet count, automated 232 10 150-450 Platelet C ount, Automated SUZY ([facility]) mono % 12.1 % 2.0-8.0 Above high normal [place] % SUZY ([facility]) lymph % 25.1 % 24.0-44.0 Lymph % SUZY ([facility]) baso % 0.5 % 0.0-1.0 Baso % SUZY ([facility]) eos % 2.3 % 0.0-3.0 Eos % SUZY ([facility]) immature granulocyte % 0.3 % 0-3.0 Immature Gran ulocyte % SUZY ([facility]) nucleated red blood cell % 0.0 % 0-0 Nucleated Red Blood Cell % SUZY ([facility]) neutrophils # 6.3 10 1.5-8.5 Neutrophils # SUZY ( [facility]) lymph # 2.6 10 1.5-5.0 Lymph # SUZY ([facility]) eos # 0.2 10 0.0-0.5 Eos # SUZY ([facility]) mono # 1.3 10 0.0-0.8 Above high normal [place] # SUZY ([facility]) baso # 0.1 10 0.0-0.2 Baso # SUZY ([facility]) ID Date Data Source [id number] 04/03/2021 04:55:00 AM EDT GRETNA ([facility]) Name Value Range Interpretation Code Description Data Claudia rce(s) Supporting Document(s) white blood count 10.5 10 4.0-10.0 Above high normal White Blood Count SUZY ([facility]) hemoglobin 14.3 g/dL 13.5-17.5 Hemoglobin SUZY ([facility]) hematocrit 41.8 % 42.0-52.0 Below low normal Hematocrit SUZY ( [facility]) red blood count 4.38 10 4.30-6.10 Red Blood Count ATHE NA ([facility]) mean corpuscular hemoglobin 32.6 pg 27.0-33.0 Mean Cor puscular Hemoglobin SUZY ([facility]) mean corpuscular volume 95.4 fL 80.0-96.0 Mean Corpusc ular Volume SUZY ([facility]) platelet count, automated 232 10 150-450 Platelet C ount, Automated SUZY ([facility]) red cell distribution width 12.4 % 11.5-14.5 Red Cell Distribution Width SUZY ([facility]) mean corpuscular HGB conc 34.2 g/dL 32.0-36.5 Mean Corpu scular HGB Conc SUZY ([facility]) neutrophils % 59.7 % 36.0-66.0 Neutrophils % SUZY ( [facility]) lymph % 25.1 % 24.0-44.0 Lymph % SUZY ([facility]) mono % 12.1 % 2.0-8.0 Above high normal [place] % SUZY ([facility]) baso % 0.5 % 0.0-1.0 Baso % SUZY ([facility]) eos % 2.3 % 0.0-3.0 Eos % SUZY ([facility]) immature granulocyte % 0.3 % 0-3.0 Immature Gran ulocyte % SUZY ([facility]) neutrophils # 6.3 10 1.5-8.5 Neutrophils # SUZY ( [facility]) nucleated red blood cell % 0.0 % 0-0 Nucleated Red Blood Cell % SUZY ([facility]) eos # 0.2 10 0.0-0.5 Eos # SUZY ([facility]) lymph # 2.6 10 1.5-5.0 Lymph # SUZY ([facility]) mono # 1.3 10 0.0-0.8 Above high normal [place] # SUZY ([facility]) baso # 0.1 10 0.0-0.2 Baso # SUZY ([facility]) ID Date Data Source [id number] 04/03/2021 04:55:00 AM EDT SUZY ([facility]) Name Value Range Interpretation Code Description Data Claudia rce(s) Supporting Document(s) white blood count 10.5 10 4.0-10.0 Above high normal White Blood Count SUZY ([facility]) red blood count 4.38 10 4.30-6.10 Red Blood Count ATHE NA ([facility] [facility]) hemoglobin 14.3 g/dL 13.5-17.5 Hemoglobin SUZY ([facility]) mean corpuscular hemoglobin 32.6 pg 27.0-33.0 Mean Cor puscular Hemoglobin SUZY ([facility]) mean corpuscular volume 95.4 fL 80.0-96.0 Mean Corpusc ular Volume SUZY ([facility]) hematocrit 41.8 % 42.0-52.0 Below low normal Hematocrit SUZY ( [facility]) red cell distribution width 12.4 % 11.5-14.5 Red Cell Distribution Width SUZY ([facility]) mean corpuscular HGB conc 34.2 g/dL 32.0-36.5 Mean Corpu scular HGB Conc SUZY ([facility]) lymph % 25.1 % 24.0-44.0 Lymph % SUZY ([facility]) neutrophils % 59.7 % 36.0-66.0 Neutrophils % GRETNA ( [facility]) platelet count, automated 232 10 150-450 Platelet C ount, Automated SUZY ([facility]) eos % 2.3 % 0.0-3.0 Eos % GRETNA ([facility]) baso % 0.5 % 0.0-1.0 Baso % SUZY ([facility]) mono % 12.1 % 2.0-8.0 Above high normal Emmet % SUZY ([facility]) nucleated red blood cell % 0.0 % 0-0 Nucleated Red Blood Cell % GRETNA ([facility]) immature granulocyte % 0.3 % 0-3.0 Immature Gran ulocyte % GRETNA ([facility]) neutrophils # 6.3 10 1.5-8.5 Neutrophils # SUZY ( [facility]) mono # 1.3 10 0.0-0.8 Above high normal Emm[place] # SUZY ([facility]) lymph # 2.6 10 1.5-5.0 Lymph # SUZY ([facility]) eos # 0.2 10 0.0-0.5 Eos # SUZY ([facility]) baso # 0.1 10 0.0-0.2 Baso # SUZY ([facility]) ID Date Data Source [id number] 04/02/2021 03:14:00 PM EDT SUZY ([facility]) Name Value Range Interpretation Code Description Data Claudia rce(s) Supporting Document(s) ionized calcium 4.5 mg/dL 4.5-5.3 Ionized Calcium ATHE NA ([facility]) ID Date Data Source [id number] 04/02/2021 03:14:00 [facility] Name Value Range Interpretation Code Description Data Claudia rce(s) Supporting Document(s) ionized calcium 4.5 mg/dL 4.5-5.3 Ionized Calcium ATHE NA ([facility]) ID Date Data Source [id number] 04/02/2021 03:14:00 PM [facility] Name Value Range Interpretation Code Description Data Claudia rce(s) Supporting Document(s) ionized calcium 4.5 mg/dL 4.5-5.3 Ionized Calcium ATHE ([facility]) ID Date Data Source [id number] 04/02/2021 01:16:00 PM EDT [facility]) Name Value Range Interpretation Code Description Data Claudia rce(s) Supporting Document(s) influenza A amplification negative negative Influenza a Amplification SUZY ([facility]) influenza B amplification negative negative Influenza B [facility] RSV amplification negative negative RSV Amplification SUZY ([facility]) sars covid-19 amplification negative negative Sars Cov id-19 [facility] ID Date Data Source [id number] 04/02/2021 01:16:00 PM [facility] Name Value Range Interpretation Code Description Data Claudia rce(s) Supporting Document(s) influenza B amplification negative negative Influenza B Amplification SUZY ([facility]) influenza A amplification negative negative Influenza a Amplification SUZY ([facility]) RSV amplification negative negative RSV Amplification SUZY ([facility]) sars covid-19 amplification negative negative Sars Cov id-19 Amplification [facility]) ID Date Data Source [id number] 04/02/2021 01:16:00 PM EDT [facility]) Name Value Range Interpretation Code Description Data Claudia rce(s) Supporting Document(s) influenza A amplification negative negative Influenza a Amplification GRETNA ([facility]) influenza B amplification negative negative Influenza B Amplification GRETNA ([facility]) RSV amplification negative negative RSV Amplification GRETNA ([facility]) sars covid-19 amplification negative negative Sars Cov id-19 Amplification [facility]) ID Date Data Source [id number] 04/02/2021 01:16:00 PM EDT [facility] Name Value Range Interpretation Code Description Data Claudia rce(s) Supporting Document(s) SARS coronavirus 2 RNA [Presence] in Res piratory specimen by SUE with probe detection NEGATIVE [facility] This lab was ordered by [facility] a nd reported by [facility]. ID Date Data Source [id number] 04/02/2021 11:30:00 AM EDT [facility]) Name Value Range Interpretation Code Description Data Claudia rce(s) Supporting Document(s) total 25(oh) vitamin D 27.8 NG/mL 30.0-100.0 Below low normal T otal 25(Oh) Vitamin D [facility]) ID Date Data Source [id number] 04/02/2021 11:30:00 AM EDT [facility]) Name Value Range Interpretation Code Description Data Claudia rce(s) Supporting Document(s) PTH intact 73.9 pg/mL 18.5-88.0 PTH Intact [facility]) ID Date Data Source [id number] 04/02/2021 11:30:00 AM EDT [facility]) Name Value Range Interpretation Code Description Data Claudia rce(s) Supporting Document(s) glucose, fasting 155 mg/dL 70-100 Above high normal Glucose, Fas ting SUZY ([facility]) blood urea nitrogen 21 mg/dL 7-18 Above high normal Blood Ure a Nitrogen SUZY ([facility]) glomerular filtration rate > 60.0 >60 Glomerula r Filtration Rate SUZY ([facility]) creatinine for GFR 0.86 mg/dL 0.70-1.30 Creatinine for GF R SUZY ([facility]) sodium level 139 mEq/L 136-145 Sodium Level SUZY (No Counts include 234 beds at the [facility]) carbon dioxide level 30 mEq/L 21-32 Carbon Dioxide Level SUZY ([facility]) potassium serum 4.5 mEq/L 3.5-5.1 Potassium Serum ATHE ([facility]) chloride level 103 mEq/L 98-107 Chloride Level SUZY ([facility]) AST/SGOT 19 U/L 7-37 AST/SGOT SUZY ([facility]) calcium level 11.3 mg/dL 8.5-10.1 Above high normal Calcium Level A THENA ([facility]) anion gap 6 mEq/L 8-16 Below low normal Anion Gap SUZY ( [facility]) ALT/SGPT 52 U/L 12-78 ALT/SGPT SUZY ([facility]) bilirubin,total 0.6 mg/dL 0.2-1.0 Bilirubin,total ATHE ([facility]) total protein 8.0 gm/dL 6.4-8.2 Total Protein SUZY ( [facility]) alkaline phosphatase 88 U/L 45-117 Alkaline Phosph atase SUZY ([facility]) albumin/globulin ratio Albumin/globu mar Ratio SUZY ([facility]) albumin 4.6 gm/dL 3.2-5.2 Albumin SUZY ([facility]) ID Date Data Source [id number] 04/02/2021 11:30:00 AM EDT SUZY ([facility]) Name Value Range Interpretation Code Description Data Claudia rce(s) Supporting Document(s) white blood count 14.8 10 4.0-10.0 Above high normal White Blood Count SUZY ([facility]) hemoglobin 16.0 g/dL 13.5-17.5 Hemoglobin SUZY ([facility]) red blood count 4.89 10 4.30-6.10 Red Blood Count ATHE NA ([facility]) hematocrit 45.1 % 42.0-52.0 Hematocrit SUZY ([facility]) mean corpuscular volume 92.2 fL 80.0-96.0 Mean Corpusc ular Volume SUZY ([facility]) mean corpuscular HGB conc 35.5 g/dL 32.0-36.5 Mean Corpu scular HGB Conc SUZY ([facility]) mean corpuscular hemoglobin 32.7 pg 27.0-33.0 Mean Cor puscular Hemoglobin SUZY ([facility]) platelet count, automated 283 10 150-450 Platelet C ount, Automated SUZY ([facility]) nucleated red blood cell % 0.0 % 0-0 Nucleated Red Blood Cell % SUZY ([facility]) red cell distribution width 12.1 % 11.5-14.5 Red Cell Distribution Width SUZY ([facility]) ID Date Data Source [id number] 04/02/2021 11:30:00 AM EDT [facility]) Name Value Range Interpretation Code Description Data Claudia rce(s) Supporting Document(s) total 25(oh) vitamin D 27.8 NG/mL 30.0-100.0 Below low normal T otal 25(Oh) Vitamin D SUZY ([facility]) ID Date Data Source [id number] 04/02/2021 11:30:00 AM EDT [facility]) Name Value Range Interpretation Code Description Data Claudia rce(s) Supporting Document(s) PTH intact 73.9 pg/mL 18.5-88.0 [facility]act [facility] ID Date Data Source [id number] 04/02/2021 11:30:00 AM EDT SUZY ([facility]) Name Value Range Interpretation Code Description Data Claudia rce(s) Supporting Document(s) glucose, fasting 155 mg/dL 70-100 Above high normal Glucose, Fas ting SUZY ([facility]) creatinine for GFR 0.86 mg/dL 0.70-1.30 Creatinine for GF R SUZY ([facility]) blood urea nitrogen 21 mg/dL 7-18 Above high normal Blood Ure a Nitrogen SUZY ([facility]) glomerular filtration rate > 60.0 >60 Glomerula r Filtration Rate SUZY ([facility]) carbon dioxide level 30 mEq/L 21-32 Carbon Dioxide Level SUZY ([facility]) potassium serum 4.5 mEq/L 3.5-5.1 Potassium Serum ATHE NA ([facility]) sodium level 139 mEq/L 136-145 Sodium Level SUZY ([facility]) chloride level 103 mEq/L 98-107 Chloride Level SUZY ([facility]) anion gap 6 mEq/L 8-16 Below low normal Anion Gap SUZY ( [facility]) AST/SGOT 19 U/L 7-37 AST/SGOT SUZY ([facility]) calcium level 11.3 mg/dL 8.5-10.1 Above high normal Calcium Level A THENA ([facility]) ALT/SGPT 52 U/L 12-78 ALT/SGPT SUZY ([facility]) bilirubin,total 0.6 mg/dL 0.2-1.0 Bilirubin,total ATHE NA ([facility]) alkaline phosphatase 88 U/L 45-117 Alkaline Phosph atase SUZY ([facility]) albumin/globulin ratio Albumin/globu mar Ratio SUZY ([facility]) albumin 4.6 gm/dL 3.2-5.2 Albumin SUZY ([facility]) total protein 8.0 gm/dL 6.4-8.2 Total Protein SUZY ( [facility]) ID Date Data Source [id number] 04/02/2021 11:30:00 AM EDT GRETNA ([facility]) Name Value Range Interpretation Code Description Data Claudia rce(s) Supporting Document(s) red blood count 4.89 10 4.30-6.10 Red Blood Count ATHE ([facility]) hemoglobin 16.0 g/dL 13.5-17.5 Hemoglobin SUZY ([facility]) white blood count 14.8 10 4.0-10.0 Above high normal White Blood Count SUZY ([facility]) mean corpuscular hemoglobin 32.7 pg 27.0-33.0 Mean Cor puscular Hemoglobin SUZY ([facility]) hematocrit 45.1 % 42.0-52.0 Hematocrit SUZY ([facility]) mean corpuscular volume 92.2 fL 80.0-96.0 Mean Corpusc ular Volume SUZY ([facility]) red cell distribution width 12.1 % 11.5-14.5 Red Cell Distribution Width SUZY ([facility]) mean corpuscular HGB conc 35.5 g/dL 32.0-36.5 Mean Corpu scular HGB Conc SUZY ([facility]) platelet count, automated 283 10 150-450 Platelet C ount, Automated SUZY ([facility]) nucleated red blood cell % 0.0 % 0-0 Nucleated Red Blood Cell % SUZY ([facility]) ID Date Data Source [id number] 04/02/2021 11:30:00 AM EDT GRETNA ([facility]) Name Value Range Interpretation Code Description Data Claudia rce(s) Supporting Document(s) total 25(oh) vitamin D 27.8 NG/mL 30.0-100.0 Below low normal T otal 25(Oh) Vitamin D GRETNA ([facility]) ID Date Data Source [id number] 04/02/2021 11:30:00 AM EDT [facility]) Name Value Range Interpretation Code Description Data Claudia rce(s) Supporting Document(s) PTH intact 73.9 pg/mL 18.5-88.0 PTH Intact SUZY ([facility]) ID Date Data Source [id number] 04/02/2021 11:30:00 AM EDT SUZY ([facility]) Name Value Range Interpretation Code Description Data Claudia rce(s) Supporting Document(s) blood urea nitrogen 21 mg/dL 7-18 Above high normal Blood Ure a Nitrogen SUZY ([facility]) glucose, fasting 155 mg/dL 70-100 Above high normal Glucose, Fas ting SUZY ([facility]) creatinine for GFR 0.86 mg/dL 0.70-1.30 Creatinine for GF R SUZY ([facility]) glomerular filtration rate > 60.0 >60 Glomerula r Filtration Rate SUZY ([facility]) potassium serum 4.5 mEq/L 3.5-5.1 Potassium Serum ATHE NA ([facility]) sodium level 139 mEq/L 136-145 Sodium Level SUZY (No Counts include 234 beds at the [facility]) chloride level 103 mEq/L 98-107 Chloride Level SUZY ([facility]) carbon dioxide level 30 mEq/L 21-32 Carbon Dioxide Level SUZY ([facility]) calcium level 11.3 mg/dL 8.5-10.1 Above high normal Calcium Level A THENA ([facility]) anion gap 6 mEq/L 8-16 Below low normal Anion Gap SUZY ( [facility]) alkaline phosphatase 88 U/L 45-117 Alkaline Phosph atase SUZY ([facility]) AST/SGOT 19 U/L 7-37 AST/SGOT SUZY ([facility]) ALT/SGPT 52 U/L 12-78 ALT/SGPT SUZY ([facility]) bilirubin,total 0.6 mg/dL 0.2-1.0 Bilirubin,total ATHE ([facility]) total protein 8.0 gm/dL 6.4-8.2 Total Protein SUZY ( [facility]) albumin 4.6 gm/dL 3.2-5.2 Albumin SUZY ([facility]) albumin/globulin ratio Albumin/globu mar Ratio SUZY ([facility]) ID Date Data Source [id number] 04/02/2021 11:30:00 AM EDT GRETNA ([facility]) Name Value Range Interpretation Code Description Data Claudia rce(s) Supporting Document(s) red blood count 4.89 10 4.30-6.10 Red Blood Count ATHE NA ([facility]) white blood count 14.8 10 4.0-10.0 Above high normal White Blood Count SUZY ([facility]) hemoglobin 16.0 g/dL 13.5-17.5 Hemoglobin SUZY ([facility]) hematocrit 45.1 % 42.0-52.0 Hematocrit SUZY ([facility]) mean corpuscular volume 92.2 fL 80.0-96.0 Mean Corpusc ular Volume SUZY ([facility]) mean corpuscular HGB conc 35.5 g/dL 32.0-36.5 Mean Corpu scular HGB Conc SUZY ([facility]) mean corpuscular hemoglobin 32.7 pg 27.0-33.0 Mean Cor puscular Hemoglobin SUZY ([facility]) platelet count, automated 283 10 150-450 Platelet C ount, Automated SUZY ([facility]) nucleated red blood cell % 0.0 % 0-0 Nucleated Red Blood Cell % GRETNA ([facility]) red cell distribution width 12.1 % 11.5-14.5 Red Cell Distribution Width GRETNA ([facility]) ID Date Data Source [id number] 03/30/2021 08:31:00 AM EDT [facility] 1 OrderSheet [facility] Emergency Department [address] [place] [address] Phone #: ext- [phone] 03/30/2021 08:30 Patient: [...] rce(s) Supporting Document(s) ID Date Data Source [id number] 03/30/2021 08:31:00 AM EDT [facility] 1 Medication Reconciliation Report [facility] Emergency Department [address] [place] [address] Phone #: [phone] 03/30/2021 08:30 Patient: TIMI YARBROUGH Sex: M [...] [facility] [address] [place] [address]. .gabapentin 600 mg tablet Take 1 tablet three times a day as directed for 30 days -- Dispense 90 tablet.Refills: 0. Substitution permitted.Pharmacy - [facility] - [address] [place] [address]. Phone: [phone] Medication Reconciliation Report [facility] Department [address] [place] [address] Phone #: ext- [phone] 03/30/2021 08:30 Patient: TIMI YARBROUGH Sex: M : 1985 Age: [id number] . -- AILYN Gonzalez Name Value Range Interpretation Code Description Data Claudia rce(s) Supporting Document(s) ID Date Data Source [id number] 03/30/2021 08:31:00 AM EDT [facility] 1 Medication Administration Record [facility] Emergency Department [address] [place] [address] Phone #: ext- [phone] 03/30/2021 08:30 [id number] Sex[facility] : 1985 Age: 36yWeight: 99.7 kgHeight/Length: 74 inBMI: 28.2ALLERGIES: Chantix Date/Time Medication Administered Medication OrderedGiven TORADOL [IM] (KETOROLAC Toradol IM 60 mg09:50 03/30/2021 TROMETHAMINE)Janice Wilson R.N. Dose: 60 mg IMGiven PREDNISONE [PO] predniSONE PO 60 mg09:48 03/30/2021 Dose: 60 mg Tablets Janice Tan R.N. Name Value Range Interpretation Code Description Data Claudia rce(s) Supporting Document(s) ID Date Data Source [id number] 03/30/2021 08:31:00 AM EDT [facility] 1 General Instructions [facility] [address] [place] [address] Phone #: ext- [phone] 03/30/2021 08:30 Patient: [...] [facility] [address] [place] [phone]. .gabapentin 600 mg tablet Take 1 tablet three times a day as directed for 30 days -- Dispense 90 tablet.Refills: 0. Substitution permitted.Pharmacy - [facility] - [address] [place] [phone]. .Follow-up:Follow up with your doctor today. Call for an appointment. Reason for referral: evaluation, treatment andrefer to Neurology. Summary of care provided to patient.Understanding of the discharge instructions verbalized by patient. ADDITIONAL INFORMATION 2 General Instructions [facility] [address] [place] [address] Phone #: ext- [phone] 03/30/2021 08:30 Patient: [...] rest at home today. 3 General Instructions [facility] [address] [place] [address] Phone #: ext- [phone] 03/30/2021 08:30 Patient: [...] leg, or face Trouble speaking or seeing [place]. [address] [place] [address], [place] [address]. All rights reserved. This information is not intended as asubstitute for professional medical care. Always follow your healthcare professional's instructions. You have been given t he following additional information: Trigeminal Neuralgia(Electronically signed by AILYN Gonzalez 03/30/2021 21:50) 4 General Instructions [facility] [address] [place] [address] Phone #: ext- [phone] 03/30/2021 08:30 Patient: TIMI YARBROUGH Sex: M : 1985 Age: 36y Name Value Range Interpretation Code Description Data Claudia rce(s) Supporting Document(s) ID Date Data Source [id number] 03/30/2021 08:31:00 AM EDT [facility] 1 Clinical Report - Nurses [facility] [address] [place] [address] Phone #: ext- [phone] 03/30/2021 08:30 Patient: [...] eating). 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 SEPSIS SCREEN NEGATIVE. [...] Gloria, R.N.History 2 Clinical Report - Nurses [facility] Department [address] [place] [address] Phone #: ext- [phone] 03/30/2021 08:30 Patient: [...] deltoid. Allergies 3 Clinical Report - Nurses [facility] [address] [place] [address] Phone #: ext- [phone] 03/30/2021 08:30 Patient: [...] The patient was discharged by the physician front end assistant. He was discharged home and unaccompanied [...] rce(s) Supporting Document(s) ID Date Data Source [id number] 03/30/2021 08:31:00 AM EDT [facility] 1 Clinical Report - Physicians/Mid Levels [facility] Emergency Department [address] [place] [address] Phone #: ext- [phone] 03/30/2021 08:30 [id number] Sex: M : 1985 Age: 36y Time [...] HISTORY 2 Clinical Report - Physicians/Mid Levels [facility] [address] [place] [address] Phone #: ext- [phone] 03/30/2021 08:30 Patient: [...] Oral. 3 Clinical Report - Physicians/Mid Levels [facility] [address] [place] [address] Phone #: ext- [phone] 03/30/2021 08:30 Patient: TIMI YARBROUGH [facility]#: [id number] Sex: M : 1985 Age: 36y carBAMazepine Oral. Chlorthalidone Oral. Lisinopril Oral. Meclizine HCl Oral. Prescription Medications: Medrol (Shane) 4 mg tablets in a dose pack Take 1 tablet as directed for 6 days -- start tomorrow. Dispense 21 tablet. Refills: 0. Substitution permitted. Pharmacy - [facility] [address] [phone]. . gabapentin 600 mg tablet Take 1 tablet three times a day as directed for 30 days -- Dispense 90 tablet. Refills: 0. Substitution permitted. Pharmacy - [facility] [address] [phone]. . Follow-up: Follow up with your doctor today. Call for an appointment. Reason for referral: evaluation, treatment and refer to Neurology. Summary of care provided to patient. Understanding of the discharge instructions verbalized by patient.(Electronically signed by AILYN Gonzalez 03/30/2021 21:50) Name Value Range Interpretation Code Description Data Claudia rce(s) Supporting Document(s) ID Date Data Source [id number] 02/21/2021 12:00:00 AM EDT GRETNA ([facility]) Name Value Range Interpretation Code Description Data Claudia rce(s) Supporting Document(s) Color of Urine tnp Color GRETNA ([facility]) ID Date Data Source [id number] 02/21/2021 12:00:00 AM EDT [facility]) Name Value Range Interpretation Code Description Data Claudia rce(s) Supporting Document(s) Glucose [Mass/volume] in Serum or Plasma 110 mg/dL 65-99 Above high normal [facility] Creatinine [Mass/volume] in Serum or Plasma 0.70 mg/dL 0.60-1.35 Creatinine [facility]) Urea nitrogen [Mass/volume] in Serum or Plasma 15 mg/dL 7-25 Urea Nitrogen (BUN) [facility] Glomerular filtration rate/1.73 sq M.pre dicted among non-blacks [Volume Rate/Area] in Serum, Plasma or Blood by Creatinine-based formula (CKD-EPI) 121 mL/min/1.73m2 > or = 60 eGFR Non-afr. [place] SUZY ([facility]) Sodium [Moles/volume] in Serum or Plasma 139 mmol/L 135-146 Sodium GRETNA ([facility]) Urea nitrogen/Creatinine [Mass Ratio] in Serum or Plasma not applic able 6-22 BUN/creatinine Ratio [facility]) Glomerular filtration rate/1.73 sq M.pre dicted among blacks [Volume Rate/Area] in Serum, Plasma or Blood by Creatinine-based formula (CKD-EPI) 140 mL/min/1.73m2 > or = 60 eGFR SUZY ([facility]) Chloride [Moles/volume] in Serum or Plasma 103 mmol/L 98-110 Chloride SUZY ([facility]) Calcium [Mass/volume] in Serum or Plasma 11.0 mg/dL 8.6-10.3 Above high normal Calcium SUZY ([facility]) Carbon dioxide, total [Moles/volume] in Serum or Plasma 29 mmol/L 20-32 Carbon Dioxide SUZY ([facility]) Potassium [Moles/volume] in Serum or Plasma 4.0 mmol/L 3.5-5.3 Potassium GRETNA ([facility]) Albumin [Mass/volume] in Serum or Plasma 4.8 g/dL 3.6-5.1 Albumin GRETNA ([facility]) Globulin [Mass/volume] in Serum by calculation 2.7 g/dL_(calc) 1.9- 3.7 Globulin GRETNA ([facility]) Albumin/Globulin [Mass Ratio] in Serum or Plasma 1.8 (calc) 1.0-2 .5 Albumin/globulin Ratio GRETNA ([facility]) Protein [Mass/volume] in Serum or Plasma 7.5 g/dL 6.1-8.1 Protein, Total GRETNA ([facility]) Aspartate aminotransferase [Enzymatic activity/volume] in Serum or Plasma 23 U/L 10-40 Ast GRETNA ([facility]) Bilirubin.total [Mass/volume] in Serum or Plasma 0.6 mg/dL 0.2-1 .2 Bilirubin, Total SUZY ([facility]) Alanine aminotransferase [Enzymatic activity/volume] in Seru m or Plasma 23 U/L 9-46 Alt GRETNA ([facility]) Alkaline phosphatase [Enzymatic activity/volume] in Serum or Plasma 84 U/L 36-130 Alkaline Phosphatase GRETNA ([facility]) ID Date Data Source [id number] 02/21/2021 12:00:00 AM EDT GRETNA ([facility]) Name Value Range Interpretation Code Description Data Claudia rce(s) Supporting Document(s) Triglyceride [Mass/volume] in Serum or Plasma 108 mg/dL <150 Triglycerides SUZY ([facility]) Cholesterol in HDL [Mass/volume] in Serum or Plasma 35 mg/dL > or = 40 Below low normal HDL Cholesterol SUZY ([facility]) Cholesterol [Mass/volume] in Serum or Plasma 233 mg/dL <200 Above high normal Cholesterol, Total SUZY ([facility]) Cholesterol non HDL [Mass/volume] in Serum or Plasma 198 mg/dL_( calc) <130 Above high normal Non HDL Cholesterol SUZY ([facility]) Cholesterol in LDL [Mass/volume] in Serum or Plasma by calculation 175 mg/dL_(calc) Above high normal LDL-cholesterol SUZY ([facility]) Cholesterol.total/Cholesterol in HDL [Mass Ratio] in Serum o r Plasma 6.7 (calc) <5.0 Above high normal Chol/hdlc Ratio SUZY ([facility]) ID Date Data Source [id number] 02/21/2021 12:00:00 [facility] Name Value Range Interpretation Code Description Data Claudia rce(s) Supporting Document(s) Color of Urine tnp Color SUZY ([facility]) ID Date Data Source [id number] 02/21/2021 12:00:00 AM EDT SUZY ([facility]) Name Value Range Interpretation Code Description Data Claudia rce(s) Supporting Document(s) Glucose [Mass/volume] in Serum or Plasma 110 mg/dL 65-99 Above high normal Glucose SUZY ([facility]) Urea nitrogen [Mass/volume] in Serum or Plasma 15 mg/dL 7-25 Urea Nitrogen (BUN) SUZY ([facility]) Creatinine [Mass/volume] in Serum or Plasma 0.70 mg/dL 0.60-1.35 Creatinine SUZY ([facility]) Urea nitrogen/Creatinine [Mass Ratio] in Serum or Plasma not applic able 6-22 BUN/creatinine Ratio SUZY ([facility]) Glomerular filtration rate/1.73 sq M.pre dicted among blacks [Volume Rate/Area] in Serum, Plasma or Blood by Creatinine-based formula (CKD-EPI) 140 mL/min/1.73m2 > or = 60 eGFR SUZY (No Counts include 234 beds at the [facility]) Potassium [Moles/volume] in Serum or Plasma 4.0 mmol/L 3.5-5.3 Potassium SUZY ([facility]) Sodium [Moles/volume] in Serum or Plasma 139 mmol/L 135-146 Sodium SUZY ([facility]) Glomerular filtration rate/1.73 sq M.pre dicted among non-blacks [Volume Rate/Area] in Serum, Plasma or Blood by Creatinine-based formula (CKD-EPI) 121 mL/min/1.73m2 > or = 60 eGFR Non-afr. [place] SUZY ([facility]) Calcium [Mass/volume] in Serum or Plasma 11.0 mg/dL 8.6-10.3 Above high normal Calcium SUZY ([facility]) Protein [Mass/volume] in Serum or Plasma 7.5 g/dL 6.1-8.1 Protein, Total SUZY ([facility]) Albumin [Mass/volume] in Serum or Plasma 4.8 g/dL 3.6-5.1 Albumin SUZY ([facility]) Chloride [Moles/volume] in Serum or Plasma 103 mmol/L 98-110 Chloride SUZY ([facility]) Carbon dioxide, total [Moles/volume] in Serum or Plasma 29 mmol/L 20-32 Carbon Dioxide SUZY ([facility]) Albumin/Globulin [Mass Ratio] in Serum or Plasma 1.8 (calc) 1.0-2 .5 Albumin/globulin Ratio SUZY ([facility]) Globulin [Mass/volume] in Serum by calculation 2.7 g/dL_(calc) 1.9- 3.7 Globulin SUZY ([facility]) Alkaline phosphatase [Enzymatic activity/volume] in Serum or Plasma 84 U/L 36-130 Alkaline Phosphatase GRETNA ([facility]) Aspartate aminotransferase [Enzymatic activity/volume] in Serum or Plasma 23 U/L 10-40 Ast SUZY ([facility]) Bilirubin.total [Mass/volume] in Serum or Plasma 0.6 mg/dL 0.2-1 .2 Bilirubin, Total SUZY ([facility]) Alanine aminotransferase [Enzymatic activity/volume] in Seru m or Plasma 23 U/L 9-46 Alt SUZY ([facility]) ID Date Data Source [id number] 02/21/2021 12:00:00 AM EDT SUZY ([facility]) Name Value Range Interpretation Code Description Data Claudia rce(s) Supporting Document(s) Cholesterol [Mass/volume] in Serum or Plasma 233 mg/dL <200 Above high normal Cholesterol, Total SUZY ([facility]) Triglyceride [Mass/volume] in Serum or Plasma 108 mg/dL <150 Triglycerides SUZY ([facility]) Cholesterol in LDL [Mass/volume] in Serum or Plasma by calculation 175 mg/dL_(calc) Above high normal LDL-cholesterol SUZY ([facility]) Cholesterol in HDL [Mass/volume] in Serum or Plasma 35 mg/dL > or = 40 Below low normal HDL Cholesterol SUZY ([facility]) Cholesterol.total/Cholesterol in HDL [Mass Ratio] in Serum o r Plasma 6.7 (calc) <5.0 Above high normal Chol/hdlc Ratio SUZY ([facility]) Cholesterol non HDL [Mass/volume] in Serum or Plasma 198 mg/dL_( calc) <130 Above high normal Non HDL Cholesterol SUZY ([facility]) ID Date Data Source [id number] 02/21/2021 12:00:00 AM EDT SUZY ([facility]) Name Value Range Interpretation Code Description Data Claudia rce(s) Supporting Document(s) Color of Urine tnp Color SUZY ([facility]) ID Date Data Source [id number] 02/21/2021 12:00:00 AM EDT SUZY ([facility]) Name Value Range Interpretation Code Description Data Claudia rce(s) Supporting Document(s) Urea nitrogen [Mass/volume] in Serum or Plasma 15 mg/dL 7-25 Urea Nitrogen (BUN) SUZY ([facility]) Glucose [Mass/volume] in Serum or Plasma 110 mg/dL 65-99 Above high normal Glucose SUZY ([facility]) Creatinine [Mass/volume] in Serum or Plasma 0.70 mg/dL 0.60-1.35 Creatinine SUZY ([facility]) Sodium [Moles/volume] in Serum or Plasma 139 mmol/L 135-146 Sodium SUYZ ([facility]) Glomerular filtration rate/1.73 sq M.pre dicted among blacks [Volume Rate/Area] in Serum, Plasma or Blood by Creatinine-based formula (CKD-EPI) 140 mL/min/1.73m2 > or = 60 eGFR SUZY ([facility]) Urea nitrogen/Creatinine [Mass Ratio] in Serum or Plasma not applic able 6-22 BUN/creatinine Ratio SUZY ([facility]) Glomerular filtration rate/1.73 sq M.pre dicted among non-blacks [Volume Rate/Area] in Serum, Plasma or Blood by Creatinine-based formula (CKD-EPI) 121 mL/min/1.73m2 > or = 60 eGFR Non-afr. [place] SUZY ([facility]) Calcium [Mass/volume] in Serum or Plasma 11.0 mg/dL 8.6-10.3 Above high normal Calcium SUZY ([facility]) Chloride [Moles/volume] in Serum or Plasma 103 mmol/L 98-110 Chloride SUZY ([facility]) Potassium [Moles/volume] in Serum or Plasma 4.0 mmol/L 3.5-5.3 Potassium SUZY ([facility]) Protein [Mass/volume] in Serum or Plasma 7.5 g/dL 6.1-8.1 Protein, Total SUZY ([facility]) Carbon dioxide, total [Moles/volume] in Serum or Plasma 29 mmol/L 20-32 [facility] Albumin/Globulin [Mass Ratio] in Serum or Plasma 1.8 (calc) 1.0-2 .5 [facility] Globulin [Mass/volume] in Serum by calculation 2.7 g/dL_(calc) 1.9- 3.7 Globulin SUZY ([facility]) Albumin [Mass/volume] in Serum or Plasma 4.8 g/dL 3.6-5.1 Albumin SUZY ([facility]) Alanine aminotransferase [Enzymatic activity/volume] in Seru m or Plasma 23 U/L 9-46 Alt SUZY ([facility]) Alkaline phosphatase [Enzymatic activity/volume] in Serum or Plasma 84 U/L 36-130 Alkaline Phosphatase SUZY ([facility]) Bilirubin.total [Mass/volume] in Serum or Plasma 0.6 mg/dL 0.2-1 .2 Bilirubin, Total SUZY ([facility]) Aspartate aminotransferase [Enzymatic activity/volume] in Serum or Plasma 23 U/L 10-40 Ast SUZY ([facility]) ID Date Data Source [id number] 02/21/2021 12:00:00 AM EDT SUZY ([facility]) Name Value Range Interpretation Code Description Data Claudia rce(s) Supporting Document(s) Cholesterol in HDL [Mass/volume] in Serum or Plasma 35 mg/dL > or = 40 Below low normal HDL Cholesterol SUZY ([facility]) Cholesterol [Mass/volume] in Serum or Plasma 233 mg/dL <200 Above high normal Cholesterol, Total SUZY ([facility]) Cholesterol.total/Cholesterol in HDL [Mass Ratio] in Serum o r Plasma 6.7 (calc) <5.0 Above high normal Chol/hdlc Ratio SUZY ([facility]) Cholesterol in LDL [Mass/volume] in Serum or Plasma by calculation 175 mg/dL_(calc) Above high normal LDL-cholesterol SUZY ([facility]) Triglyceride [Mass/volume] in Serum or Plasma 108 mg/dL <150 Triglycerides SUZY ([facility]) Cholesterol non HDL [Mass/volume] in Serum or Plasma 198 mg/dL_( calc) <130 Above high normal Non HDL Cholesterol SUZY ([facility]) ID Date Data Source [id number] 12/25/2020 12:19:00 PM EDT SUZY ([facility]) Name Value Range Interpretation Code Description Data Claudia rce(s) Supporting Document(s) amphetamines level urine negative negative Amphetamine s Level Urine SUZY ([facility]) barbiturates urine negative negative Barbiturates Urin e SUZY ([facility]) benzodiazepines urine negative negative Benzodiazepine s Urine SUZY ([facility]) methadone urine negative negative Methadone Urine ATHE NA ([facility]) cannabinoids urine positive negative Above high normal Cannabinoi ds Urine SUZY ([facility]) opiates urine negative negative Opiates Urine SUZY ( [facility]) cocaine metabolite urine negative negative Cocaine Met abolite Urine SUZY ([facility]) phencyclidine urine negative negative Phencyclidine Ur ine SUZY ([facility]) ID Date Data Source [id number] 12/25/2020 12:19:00 PM EDT GRETNA ([facility]) Name Value Range Interpretation Code Description Data Claudia rce(s) Supporting Document(s) appearance, urine rfx clear clear Appearance, Ur ine Rfx GRETNA ([facility]) color, urine rfx yellow yellow Color, Urine Rfx AT [place] ([facility]) specific gravity ur auto rfx S3 1.002-1.035 Specif ic [place] Ur Auto Rfx GRETNA ([facility]) pH,urine rfx 7.0 units 5.0-9.0 pH,urine Rfx GRETNA (No Counts include 234 beds at the [facility]) protein, urine auto rfx 2+ negative Above high normal Prote in, Urine Auto Rfx GRETNA ([facility]) ketone, urine auto rfx 1+ negative Above high normal Ketone , Urine Auto Rfx GRETNA ([facility]) glucose, urine (UA) auto rfx negative negative Glucose , Urine (UA) Auto Rfx GRETNA ([facility]) urobilinogen, urine auto rfx 0.2 mg/dL 0.0-2.0 Urobili nogen, Urine Auto Rfx GRETNA ([facility]) blood, urine blood rfx negative negative Blood, Urine Blood Rfx GRETNA ([facility]) nitrite, urine auto rfx negative negative Nitrite, Uri ne Auto Rfx SUZY ([facility]) leukocyte esterase ur auto rfx negative negative Leukocyte Esterase Ur Auto Rfx SUZY ([facility]) bilirubin, urine auto rfx negative negative Bilirubin, Urine Auto Rfx SUZY ([facility]) WBC, urine auto rfx 1 /hpf 0-3 WBC, Urine Auto Rfx SUZY ([facility]) bacteria, urine auto rfx negative negative Bacteria, U rine Auto Rfx SUZY ([facility]) RBC, urine auto rfx 1 /hpf 0-3 RBC, Urine Auto Rfx SUZY ([facility]) squam epithelial cell ur aurfx 0 /hpf 0-6 Squam Epithelial Cell Ur Aurfx SUZY ([facility]) mucus, urine rfx small negative Mucus, Urine Rfx AT [facility] ([facility]) hyaline cast, urine auto rfx 0 /lpf 0-1 Hyaline Cast, Urine Auto Rfx GRETNA ([facility]) ID Date Data Source [id number] 12/25/2020 12:19:00 PM EDT GRETNA ([facility]) Name Value Range Interpretation Code Description Data Claudia rce(s) Supporting Document(s) barbiturates urine negative negative Barbiturates Urin e SUZY ([facility]) amphetamines level urine negative negative Amphetamine s Level Urine SUZY ([facility]) benzodiazepines urine negative negative Benzodiazepine s Urine SUZY ([facility]) cannabinoids urine positive negative Above high normal Cannabinoi ds Urine SUZY ([facility]) opiates urine negative negative Opiates Urine SUZY ( [facility]) methadone urine negative negative Methadone Urine ATHE ([facility]) cocaine metabolite urine negative negative Cocaine Met abolite Urine SUZY ([facility]) phencyclidine urine negative negative Phencyclidine Ur ine SUZY ([facility]) ID Date Data Source [id number] 12/25/2020 12:19:00 PM EDT GRETNA ([facility]) Name Value Range Interpretation Code Description Data Claudia rce(s) Supporting Document(s) appearance, urine rfx clear clear Appearance, Ur ine Rfx GRETNA ([facility]) protein, urine auto rfx 2+ negative Above high normal Prote in, Urine Auto Rfx GRETNA ([facility]) pH,urine rfx 7.0 units 5.0-9.0 pH,urine Rfx GRETNA (No Counts include 234 beds at the [facility]) color, urine rfx yellow yellow Color, Urine Rfx AT [facility] ([facility]) specific gravity ur auto rfx S3 1.002-1.035 Specif ic [place] Ur Auto Rfx GRETNA ([facility]) urobilinogen, urine auto rfx 0.2 mg/dL 0.0-2.0 Urobili nogen, Urine Auto Rfx GRETNA ([facility]) ketone, urine auto rfx 1+ negative Above high normal Ketone , Urine Auto Rfx GRET[place] ([facility]) glucose, urine (UA) auto rfx negative negative Glucose , Urine (UA) Auto Rfx GRETNA ([facility]) bilirubin, urine auto rfx negative negative Bilirubin, Urine Auto Rfx [place] ([facility]) nitrite, urine auto rfx negative negative Nitrite, Uri ne Auto Rfx GRETNA ([facility]) leukocyte esterase ur auto rfx negative negative Leukocyte Esterase Ur Auto Rfx GRETNA ([facility]) blood, urine blood rfx negative negative Blood, Urine Blood Rfx [place] ([facility]) WBC, urine auto rfx 1 /hpf 0-3 WBC, Urine Auto Rfx [place] ([facility]) bacteria, urine auto rfx negative negative Bacteria, U rine Auto Rfx [place] ([facility]) mucus, urine rfx small negative Mucus, Urine Rfx AT [facility] ([facility]) RBC, urine auto rfx 1 /hpf 0-3 RBC, Urine Auto Rfx G[place] ([facility]) squam epithelial cell ur aurfx 0 /hpf 0-6 Squam Epithelial Cell Ur Aurfx GRETNA ([facility]) hyaline cast, urine auto rfx 0 /lpf 0-1 Hyaline Cast, Urine Auto Rfx SUZY ([facility]) ID Date Data Source [id number] 12/25/2020 12:19:00 PM EDT GRETNA ([facility]) Name Value Range Interpretation Code Description Data Claudia rce(s) Supporting Document(s) amphetamines level urine negative negative Amphetamine s Level Urine SUZY ([facility]) barbiturates urine negative negative Barbiturates Urin e SUZY ([facility]) cocaine metabolite urine negative negative Cocaine Met abolite Urine SUZY ([facility]) cannabinoids urine positive negative Above high normal Cannabinoi ds Urine SUZY ([facility]) benzodiazepines urine negative negative Benzodiazepine s Urine SUZY ([facility]) methadone urine negative negative Methadone Urine ATHE ([facility]) opiates urine negative negative Opiates Urine GRETNA ( [facility]) phencyclidine urine negative negative Phencyclidine Ur ine GRETNA ([facility]) ID Date Data Source [id number] 12/25/2020 12:19:00 PM EDT GRETNA ([facility]) Name Value Range Interpretation Code Description Data Claudia rce(s) Supporting Document(s) appearance, urine rfx clear clear Appearance, Ur ine Rfx GRETNA ([facility]) specific gravity ur auto rfx S3 1.002-1.035 Specif ic [place] Ur Auto Rfx GRETNA ([facility]) color, urine rfx yellow yellow Color, Urine Rfx AT [place] ([facility]) pH,urine rfx 7.0 units 5.0-9.0 pH,urine Rfx GRETNA (No Counts include 234 beds at the [facility]) protein, urine auto rfx 2+ negative Above high normal Prote in, Urine Auto Rfx GRETNA ([facility]) ketone, urine auto rfx 1+ negative Above high normal Ketone , Urine Auto Rfx GRETNA ([facility]) glucose, urine (UA) auto rfx negative negative Glucose , Urine (UA) Auto Rfx GRETNA ([facility]) urobilinogen, urine auto rfx 0.2 mg/dL 0.0-2.0 Urobili nogen, Urine Auto Rfx SUZY ([facility]) blood, urine blood rfx negative negative Blood, Urine Blood Rfx SUZY ([facility]) bilirubin, urine auto rfx negative negative Bilirubin, Urine Auto Rfx SUZY ([facility]) leukocyte esterase ur auto rfx negative negative Leukocyte Esterase Ur Auto Rfx SUZY ([facility]) nitrite, urine auto rfx negative negative Nitrite, Uri ne Auto Rfx SUZY ([facility]) squam epithelial cell ur aurfx 0 /hpf 0-6 Squam Epithelial Cell Ur Aurfx SUZY ([facility]) RBC, urine auto rfx 1 /hpf 0-3 RBC, Urine Auto Rfx SUZY ([facility]) bacteria, urine auto rfx negative negative Bacteria, U rine Auto Rfx GRETNA ([facility]) WBC, urine auto rfx 1 /hpf 0-3 WBC, Urine Auto Rfx SUZY ([facility]) mucus, urine rfx small negative Mucus, Urine Rfx AT [place] ([facility]) hyaline cast, urine auto rfx 0 /lpf 0-1 Hyaline Cast, Urine Auto Rfx GRETNA ([facility]) ID Date Data Source [id number] 12/25/2020 12:19:00 PM EDT GRETNA ([facility]) Name Value Range Interpretation Code Description Data Claudia rce(s) Supporting Document(s) barbiturates urine negative negative Barbiturates Urin e SUZY ([facility]) cocaine metabolite urine negative negative Cocaine Met abolite Urine SUZY ([facility]) amphetamines level urine negative negative Amphetamine s Level Urine SUZY ([facility]) cannabinoids urine positive negative Above high normal Cannabinoi ds Urine SUZY ([facility]) benzodiazepines urine negative negative Benzodiazepine s Urine SUZY ([facility]) methadone urine negative negative [facility] phencyclidine urine negative negative Phencyclidine Ur ine GRETNA ([facility]) opiates urine negative negative Opiates Urine SUZY ( [facility]) ID Date Data Source [id number] 12/25/2020 12:19:00 PM EDT GRETNA ([facility]) Name Value Range Interpretation Code Description Data Claudia rce(s) Supporting Document(s) appearance, urine rfx clear clear Appearance, Ur ine Rfx G[place] ([facility]) specific gravity ur auto rfx S3 1.002-1.035 Specif ic [place] Ur Auto Rfx SUZY ([facility]) color, urine rfx yellow yellow Color, Urine Rfx AT [place] ([facility]) pH,urine rfx 7.0 units 5.0-9.0 pH,urine Rfx SUZY (No Counts include 234 beds at the [facility]) protein, urine auto rfx 2+ negative Above high normal Prote in, Urine Auto Rfx [place] ([facility]) ketone, urine auto rfx 1+ negative Above high normal Ketone , Urine Auto Rfx [place] ([facility]) glucose, urine (UA) auto rfx negative negative Glucose , Urine (UA) Auto Rfx [place] ([facility]) bilirubin, urine auto rfx negative negative Bilirubin, Urine Auto Rfx [place] ([facility]) urobilinogen, urine auto rfx 0.2 mg/dL 0.0-2.0 Urobili nogen, Urine Auto Rfx [place] ([facility]) nitrite, urine auto rfx negative negative Nitrite, Uri ne Auto Rfx [place] ([facility]) leukocyte esterase ur auto rfx negative negative Leukocyte Esterase Ur Auto Rfx SUZY ([facility]) WBC, urine auto rfx 1 /hpf 0-3 WBC, Urine Auto Rfx SUZY ([facility]) RBC, urine auto rfx 1 /hpf 0-3 RBC, Urine Auto Rfx [place] ([facility]) blood, urine blood rfx negative negative Blood, Urine Blood Rfx [place] ([facility]) squam epithelial cell ur aurfx 0 /hpf 0-6 Squam Epithelial Cell Ur Aurfx [place] ([facility]) bacteria, urine auto rfx negative negative Bacteria, U rine Auto Rfx SUZY ([facility]) mucus, urine rfx small negative Mucus, Urine Rfx AT [facility] [facility]) hyaline cast, urine auto rfx 0 /lpf 0-1 Hyaline Cast, Urine Auto Rfx GRETNA ([facility]) ID Date Data Source [id number] 12/25/2020 12:19:00 PM EDT [facility]) Name Value Range Interpretation Code Description Data Claudia rce(s) Supporting Document(s) amphetamines level urine negative negative Amphetamine s Level Urine SUZY ([facility]) cannabinoids urine positive negative Above high normal Cannabinoi ds Urine GRETNA ([facility]) barbiturates urine negative negative Barbiturates Urin e GRETNA ([facility]) benzodiazepines urine negative negative Benzodiazepine s Urine SUZY ([facility]) opiates urine negative negative Opiates Urine GRETNA ( [facility]) methadone urine negative negative [facility] cocaine metabolite urine negative negative Cocaine Met abolite Urine GRETNA ([facility]) phencyclidine urine negative negative Phencyclidine Ur ine GRETNA ([facility]) ID Date Data Source [id number] 12/25/2020 12:19:00 PM EDT [facility]) Name Value Range Interpretation Code Description Data Claudia rce(s) Supporting Document(s) appearance, urine rfx clear clear Appearance, Ur ine Rfx GRETNA ([facility]) color, urine rfx yellow yellow Color, Urine Rfx AT [facility] ([facility]) specific gravity ur auto rfx S3 1.002-1.035 Specif ic [place] Ur Auto Rfx GRETNA ([facility]) protein, urine auto rfx 2+ negative Above high normal Prote in, Urine Auto Rfx GRETNA ([facility]) pH,urine rfx 7.0 units 5.0-9.0 pH,urine Rfx GRETNA ([facility]) urobilinogen, urine auto rfx 0.2 mg/dL 0.0-2.0 Urobili nogen, Urine Auto Rfx SUZY ([facility]) glucose, urine (UA) auto rfx negative negative Glucose , Urine (UA) Auto Rfx GRETNA ([facility]) ketone, urine auto rfx 1+ negative Above high normal Ketone , Urine Auto Rfx GRET[place] ([facility]) bilirubin, urine auto rfx negative negative Bilirubin, Urine Auto Rfx [place] ([facility]) nitrite, urine auto rfx negative negative Nitrite, Uri ne Auto Rfx GRETNA ([facility]) blood, urine blood rfx negative negative Blood, Urine Blood Rfx GRET[place] ([facility]) leukocyte esterase ur auto rfx negative negative Leukocyte Esterase Ur Auto Rfx GRET[facility] ([facility]) WBC, urine auto rfx 1 /hpf 0-3 WBC, Urine Auto Rfx [facility] ([facility]) mucus, urine rfx small negative Mucus, Urine Rfx AT [facility] ([facility]) RBC, urine auto rfx 1 /hpf 0-3 RBC, Urine Auto Rfx SUZY ([facility]) squam epithelial cell ur aurfx 0 /hpf 0-6 Squam Epithelial Cell Ur Aurfx GRETNA ([facility]) bacteria, urine auto rfx negative negative Bacteria, U rine Auto Rfx GRET[facility] ([facility]) hyaline cast, urine auto rfx 0 /lpf 0-1 Hyaline Cast, Urine Auto Rfx GRET[place] ([facility]) ID Date Data Source [id number] 12/25/2020 10:53:00 AM EDT [facility] Name Value Range Interpretation Code Description Data Claudia rce(s) Supporting Document(s) SARS-CoV-2 (COVID 19) NEGATIVE - SARS-CoV-2 (COVID19) [facility] This lab was ordered by [facility] a nd reported by [facility]. ID Date Data Source [id number] 12/25/2020 10:13:00 AM EDT GRETNA ([facility]) Name Value Range Interpretation Code Description Data Claudia rce(s) Supporting Document(s) bedside glucose 114 mg/dL 70-105 Above high normal Bedside Gluco se GRETNA ([facility]) ID Date Data Source [id number] 12/25/2020 10:13:00 AM EDT [facility]) Name Value Range Interpretation Code Description Data Claudia rce(s) Supporting Document(s) bedside glucose 114 mg/dL 70-105 Above high normal Bedside Gluco se [facility]) ID Date Data Source [id number] 12/25/2020 10:13:00 AM EDT [facility]) Name Value Range Interpretation Code Description Data Claudia rce(s) Supporting Document(s) bedside glucose 114 mg/dL 70-105 Above high normal Bedside Gluco se [facility]) ID Date Data Source [id number] 12/25/2020 10:13:00 AM EDT [facility]) Name Value Range Interpretation Code Description Data Claudia rce(s) Supporting Document(s) bedside glucose 114 mg/dL 70-105 Above high normal Bedside Gluco se [facility]) ID Date Data Source [id number] 12/25/2020 10:13:00 AM EDT [facility]) Name Value Range Interpretation Code Description Data Claudia rce(s) Supporting Document(s) bedside glucose 114 mg/dL 70-105 Above high normal Bedside Gluco se [facility]) ID Date Data Source [id number] 12/25/2020 08:10:00 AM EDT [facility] ([facility]) Name Value Range Interpretation Code Description Data Claudia rce(s) Supporting Document(s) Troponin Laboratory test result MEDLIZETT ([facility]) Thyroid Stimulating Hormone 0.899 ME DENT ([facility]) ID Date Data Source [id number] 12/25/2020 08:10:00 AM EDT MEDENT ([facility]) Name Value Range Interpretation Code Description Data Claudia rce(s) Supporting Document(s) Red Blood Count 5.20 4.00-5.40 MED[facility] ([facility]) White Blood Count 11.9 5.0-10.0 MEDENT ([facility]) Platelets 217 172-450 MEDENT ([facility] Hemoglobin 16.5 MEDENT ([facility]) Hematocrit 48.3 MEDENT ([facility]) ID Date Data Source [id number] 03/30/2020 05:22:00 PM EDT [facility] Patient: TIMI YARBROUGHion Report - Physicians/Mid Levels [facility].VisitID: [id number] [place] [address] [phone], MRegistration Date/Time: 03/30/2020 11:53 Weight:90.7 kg (S). [...] rce(s) Supporting Document(s) ID Date Data Source [id number] 03/30/2020 02:17:00 PM EDT [facility] TSYSORDER [id number] Name Value Range Interpretation Code Description Data Claudia rce(s) Supporting Document(s) URINE RBC 0-2 /hpf 0-3 [facility] URINE WBC 0-2 /hpf 0-5 [facility] URINE EPITHELIAL CELLS 1+ /hpf 0 [facility] URINE MUCUS 3+ NEGATIVE [facility] ID Date Data Source [id number] 03/30/2020 02:09:00 PM EDT [facility] ital TSYSORDER [id number] Name Value Range Interpretation Code Description Data Claudia rce(s) Supporting Document(s) URINE COLOR. [facility] URINE APPEARANCE CLEAR [facility] SPECIFIC GRAVITY,URINE >= 1.030 1.001-1.035 [facility] URINE LEUKOCYTE ESTERASE NEGATIVE NEGATIVE [facility] URINE NITRATE NEGATIVE NEGATIVE [facility] PH,URINE 5.5 5.0-9.0 [facility] URINE PROTEIN TRACE mg/dL NEGATIVE [facility] URINE GLUCOSE (UA) NEGATIVE mg/dL NEGATIVE [facility] URINE KETONE 40(MODERATE) mg/dL NEGATIVE [facility] URINE UROBILINOGEN NORMAL(0.2-1) mg/dL 0-1 [facility] URINE BILIRUBIN NEGATIVE NEGATIVE [facility] URINE BLOOD NEGATIVE NEGATIVE [facility] ID Date Data Source [id number] 03/30/2020 12:43:00 PM EDT [facility] DATE OF EXAMINATION: 03/30/2020 12:17 [...] rce(s) Supporting Document(s) ID Date Data Source [id number] 03/30/2020 01:05:00 PM EDT [facility] TSYSORDER [id number] Name Value Range Interpretation Code Description Data Claudia rce(s) Supporting Document(s) FREE T4 1.19 ng/dL 0.76-1.46 [facility] ID Date Data Source [id number] 03/30/2020 01:05:00 PM EDT [facility] TSYSORDER [id number] Name Value Range Interpretation Code Description Data Claudia rce(s) Supporting Document(s) TSH 0.45 uIU/mL 0.36-3.74 [facility] ID Date Data Source [id number] 03/30/2020 12:58:00 PM EDT [facility] TSYSORDER [id number] Name Value Range Interpretation Code Description Data Claudia rce(s) Supporting Document(s) MAGNESIUM 1.9 mg/dL 1.8-2.4 [facility] ID Date Data Source [id number] 03/30/2020 12:58:00 PM EDT [facility] TSYSORDER [id number] Name Value Range Interpretation Code Description Data Claudia rce(s) Supporting Document(s) LIPASE 100 U/L 73-393 [facility] ID Date Data Source [id number] 03/30/2020 12:58:00 PM EDT [facility] TSYSORDER [id number] Name Value Range Interpretation Code Description Data Claudia rce(s) Supporting Document(s) GLUCOSE 89 mg/dL 74-106 [facility] BLOOD UREA NITROGEN 11 mg/dL 7-18 [facility] ital CREATININE 0.7 mg/dL 0.7-1.3 [facility] SODIUM 139 mmol/L 136-145 [facility] POTASSIUM 3.4 mmol/L 3.5-5.1 L [facility] CHLORIDE 102 mmol/L 98-107 [facility] CO2 27 mmol/L 21-32 [facility] CALCIUM 9.8 mg/dL 8.5-10.1 [facility] ANION GAP 10.0 mmol/L 5-12 [facility] GLOMERULAR FILTRATION RATE >90 mL/min [facility] GFR IS CALCULATED IN mL/min/1.73m2 CLARKE L FUNCTION: >90MILDLY DECREASED: 60-89MILDY TO MODERATELY DECREASED: 45-59 MODERATELY TO SEVERELY DECREASED: 30-44SEVERELY DECREASED: 15-29RENAL FAILURE: <15 AST 24 U/L 15-37 [facility] ALT 30 U/L 12-78 [facility] ALKALINE PHOSPHATASE 83 U/L 46-116 [facility] pital TOTAL BILIRUBIN 0.7 mg/dL 0.2-1.0 [facility] TOTAL PROTEIN 8.4 g/dl 6.4-8.2 H [facility] ALBUMIN 4.7 gm/dL 3.4-5.0 [facility] ID Date Data Source [id number] 03/30/2020 12:51:00 PM EDT [facility] TSYS[facility] [id number] Name Value Range Interpretation Code Description Data Claudia rce(s) Supporting Document(s) PARTIAL THROMBOPLASTIN TIME 27.6 SECONDS 21.4-30.2 [facility] ID Date Data Source [id number] 03/30/2020 12:51:00 PM EDT [facility] TSYSORDER [id number] Name Value Range Interpretation Code Description Data Claudia rce(s) Supporting Document(s) PROTHROMBIN TIME (PATIENT) 11.0 SECONDS 9.2-11.6 [facility] INR 1.06 0.87-1.06 [facility] ID Date Data Source [id number] 03/30/2020 12:31:00 PM EDT [facility] TSYSORDER [id number] Name Value Range Interpretation Code Description Data Claudia rce(s) Supporting Document(s) WHITE BLOOD COUNT 7.5 K/mm3 4.0-10.0 [facility] al RED BLOOD COUNT 4.59 M/mm3 4.50-6.00 [facility] HEMOGLOBIN 14.6 gm/dL 14.0-18.0 [facility] HEMATOCRIT 41.7 % 42.0-54.0 L [facility] MEAN CELL VOLUME 90.8 fl 80-96 [facility] MEAN CORPUSCULAR HEMOGLOBIN 31.8 pg 27.0-31.0 H [facility] MEAN CORPUSCULAR HGB CONC 35.0 g/dl 32.0-36.0 [facility] RED CELL DISTRIBUTION WIDTH 12.3 % 10.0-14.5 [facility] PLATELET COUNT 253 K/mm3 172-450 [facility] MEAN PLATELET VOLUME 10.1 fl 9.0-13.0 [facility] pital GRAN % 68.0 % 50-80.0 [facility] IG% 0.1 % 0.0-0.2 [facility] LYMPH % 23.1 % 25.0-50.0 L [facility] MONO % 7.3 % 2.0-10.0 [facility] EOS % 1.2 % 0-5.0 [facility] BASO % 0.3 % 0.0-2.0 [facility] GRAN # 5.1 K/mm3 2.0-8.00 [facility] IG# 0.0 K/mm3 0.0-0.2 [facility] LYMPH # 1.7 K/mm3 1.0-5.0 [facility] MONO # 0.6 K/mm3 0.10-1.20 [facility] EOS # 0.1 K/mm3 0.0-0.5 [facility] BASO # 0.0 K/mm3 0.0-0.2 [facility] Procedure Social History No Information Vital Signs ID Date Data Source [id number] Name Value Range Interpretation Code Description Data Source(s) Systolic blood pressure 125 mm[Hg] 125 mm[Hg] A [facility] ([facility]) Diastolic blood pressure 82 mm[Hg] 82 mm[Hg] GRETNA ([facility]) Body height 74 [in_i] 74 [in_i] GRETNA ([facility]) Body mass index (BMI) [Ratio] 27.4 kg/m2 27.4 k g/m2 SUZY ([facility]) Body weight 3412 [oz_av] 3412 [oz_av] SUZY ([facility]) Diastolic blood pressure 83 mm[Hg] 83 mm[Hg] SUZY ([facility]) Body height 74 [in_i] 74 [in_i] SUZY ([facility]) Body mass index (BMI) [Ratio] 27.2 kg/m2 27.2 k g/m2 SUZY ([facility]) Systolic blood pressure 132 mm[Hg] 132 mm[Hg] A [facility] ([facility]) Body weight 3394 [oz_av] 3394 [oz_av] SUZY ([facility]) Diastolic blood pressure 83 mm[Hg] 83 mm[Hg] SUZY ([facility]) Body height 74 [in_i] 74 [in_i] SUZY ([facility]) Body mass index (BMI) [Ratio] 27.2 kg/m2 27.2 k g/m2 SUZY ([facility]) Systolic blood pressure 132 mm[Hg] 132 mm[Hg] A [facility] ([facility]) Body weight 3394 [oz_av] 3394 [oz_av] SUZY ([facility]) Diastolic blood pressure 83 mm[Hg] 83 mm[Hg] SUZY ([facility]) Body height 74 [in_i] 74 [in_i] SUZY ([facility]) Body mass index (BMI) [Ratio] 27.2 kg/m2 27.2 k g/m2 SUZY ([facility]) Systolic blood pressure 132 mm[Hg] 132 mm[Hg] A [facility] ([facility]) Body weight 3394 [oz_av] 3394 [oz_av] SUZY ([facility]) Body weight 200.00 [lb_av] 200.00 [lb_av] MAEDLEINE T ([facility]) Body height 74 [in_i] 74 [in_i] MEDLIZETT ([facility]) 6'2" Body mass index (BMI) [Ratio] 25.7 kg/m2 25.7 k g/m2 MEDENT ([facility]) Heart rate 77 /min 77 /min MEDENT ([facility]) Systolic blood pressure--sitting 128 mm[Hg] 128 mm[Hg] MEDENT ([facility]) large cuff, Ra Diastolic blood pressure--sitting 84 mm[Hg] 84 mm[Hg] MEDENT ([facility]) large cuff, Ra Body height 74 [in_i] 74 [in_i] SUZY ([facility]) Body height 74 [in_i] 74 [in_i] SUZY ([facility]) Body height 74 [in_i] 74 [in_i] SUZY ([facility]) Body height 74 [in_i] 74 [in_i] SUZY ([facility]) Diastolic blood pressure 75 mm[Hg] 75 mm[Hg] SUZY ([facility]) Body height 74 [in_i] 74 [in_i] SUZY ([facility]) Body mass index (BMI) [Ratio] 26.8 kg/m2 26.8 k g/m2 SUZY ([facility]) Body weight 3344 [oz_av] 3344 [oz_av] SUZY ([facility]) Systolic blood pressure 136 mm[Hg] 136 mm[Hg] A THENA ([facility]) Diastolic blood pressure 75 mm[Hg] 75 mm[Hg] SUZY ([facility]) Body height 74 [in_i] 74 [in_i] SUZY ([facility]) Body mass index (BMI) [Ratio] 26.8 kg/m2 26.8 k g/m2 SUZY ([facility]) Systolic blood pressure 136 mm[Hg] 136 mm[Hg] A THENA ([facility]) Body weight 3344 [oz_av] 3344 [oz_av] SUZY ([facility]) Diastolic blood pressure 75 mm[Hg] 75 mm[Hg] SUZY ([facility]) Body height 74 [in_i] 74 [in_i] SUZY ([facility]) Body mass index (BMI) [Ratio] 26.8 kg/m2 26.8 k g/m2 SUZY ([facility]) Systolic blood pressure 136 mm[Hg] 136 mm[Hg] A THENA ([facility]) Body weight 3344 [oz_av] 3344 [oz_av] SUZY ([facility]) Diastolic blood pressure 75 mm[Hg] 75 mm[Hg] SUZY ([facility]) Body height 74 [in_i] 74 [in_i] SUZY ([facility]) Body mass index (BMI) [Ratio] 26.8 kg/m2 26.8 k g/m2 SUZY ([facility]) Systolic blood pressure 136 mm[Hg] 136 mm[Hg] A THENA ([facility]) Body weight 3344 [oz_av] 3344 [oz_av] SUZY ([facility]) Diastolic blood pressure 75 mm[Hg] 75 mm[Hg] SUZY ([facility]) Body height 74 [in_i] 74 [in_i] SUZY ([facility]) Body mass index (BMI) [Ratio] 26.8 kg/m2 26.8 k g/m2 SUZY ([facility]) Systolic blood pressure 136 mm[Hg] 136 mm[Hg] [facility] Body weight 3344 [oz_av] 3344 [oz_av] SUZY ([facility]) Body weight 216.00 [lb_av] 216.00 [lb_av] MADELEINE T ([facility]) Body height 74 [in_i] 74 [in_i] JOSHUA ([facility]) 6'2" Body mass index (BMI) [Ratio] 27.7 kg/m2 27.7 k g/m2 MEDLIZETT ([facility]) Systolic blood pressure--sitting 146 mm[Hg] 146 mm[Hg] MEDENT ([facility]) Ra, large cuff Diastolic blood pressure--sitting 84 mm[Hg] 84 mm[Hg] MEDENT ([facility]) Ra, large cuff Diastolic blood pressure 97 mm[Hg] 97 mm[Hg] SUZY ([facility]) Body height 74 [in_i] 74 [in_i] SUZY ([facility]) Body mass index (BMI) [Ratio] 27 kg/m2 27 kg/ m2 SUZY ([facility]) Systolic blood pressure 143 mm[Hg] 143 mm[Hg] A [facility] ([facility]) Body weight 3364 [oz_av] 3364 [oz_av] SUZY ([facility]) Diastolic blood pressure 97 mm[Hg] 97 mm[Hg] SUZY ([facility]) Body weight 3364 [oz_av] 3364 [oz_av] SUZY ([facility]) Systolic blood pressure 143 mm[Hg] 143 mm[Hg] A THENA ([facility]) Body height 74 [in_i] 74 [in_i] SUZY ([facility]) Body mass index (BMI) [Ratio] 27 kg/m2 27 kg/ m2 SUZY ([facility]) Diastolic blood pressure 97 mm[Hg] 97 mm[Hg] SUZY ([facility]) Body height 74 [in_i] 74 [in_i] SUZY ([facility]) Body mass index (BMI) [Ratio] 27 kg/m2 27 kg/ m2 SUZY ([facility]) Systolic blood pressure 143 mm[Hg] 143 mm[Hg] A THENA ([facility]) Body weight 3364 [oz_av] 3364 [oz_av] SUZY ([facility]) Diastolic blood pressure 97 mm[Hg] 97 mm[Hg] SUZY ([facility]) Body height 74 [in_i] 74 [in_i] SUZY ([facility]) Body mass index (BMI) [Ratio] 27 kg/m2 27 kg/ m2 SUZY ([facility]) Systolic blood pressure 143 mm[Hg] 143 mm[Hg] [facility] Body weight 3364 [oz_av] 3364 [oz_av] SUZY ([facility]) Body weight 3364 [oz_av] 3364 [oz_av] SUZY ([facility]) Diastolic blood pressure 97 mm[Hg] 97 mm[Hg] SUZY ([facility]) Body height 74 [in_i] 74 [in_i] SUZY ([facility]) Body mass index (BMI) [Ratio] 27 kg/m2 27 kg/ m2 SUZY ([facility]) Systolic blood pressure 143 mm[Hg] 143 mm[Hg] [facility] Systolic blood pressure 143 mm[Hg] 143 mm[Hg] A THENA ([facility]) Body weight 3364 [oz_av] 3364 [oz_av] SUZY ([facility]) Diastolic blood pressure 97 mm[Hg] 97 mm[Hg] SUZY ([facility]) Body height 74 [in_i] 74 [in_i] SUZY ([facility]) Body mass index (BMI) [Ratio] 27 kg/m2 27 kg/ m2 SUZY ([facility]) Diastolic blood pressure 97 mm[Hg] 97 mm[Hg] SUZY ([facility]) Body height 74 [in_i] 74 [in_i] SUZY ([facility]) Body mass index (BMI) [Ratio] 27 kg/m2 27 kg/ m2 SUZY ([facility]) Systolic blood pressure 143 mm[Hg] 143 mm[Hg] A THENA ([facility]) Body weight 3364 [oz_av] 3364 [oz_av] SUZY ([facility]) Diastolic blood pressure 97 mm[Hg] 97 mm[Hg] SUZY ([facility]) Body height 74 [in_i] 74 [in_i] SUZY ([facility]) Body mass index (BMI) [Ratio] 27 kg/m2 27 kg/ m2 SUZY ([facility]) Systolic blood pressure 143 mm[Hg] 143 mm[Hg] [place] THENA ([facility]) Body weight 3364 [oz_av] 3364 [oz_av] SUZY ([facility]) Patient Treatment Plan of Care Planned Activity Planned Date Details Description Data Source (s) 24 HR Nicotine 0.583 MG/HR Transdermal Patch SUZY ([facility]) methylprednisolone 4 mg tablets in a dos e pack USE DIRECTED ON PACKAGE - START TOMORROW SUZY ([facility]) Ibuprofen 800 MG Oral Tablet SUZY ([facility]) gabapentin 600 MG Oral Tablet SUZY ([facility]) Cyclobenzaprine hydrochloride 10 MG Oral Tablet SUZY ([facility]) Carbamazepine 200 MG Oral Tablet SUZY ([facility]) atorvastatin 10 MG Oral Tablet SUZY ([facility]) Amlodipine 10 MG Oral Tablet SUZY ([facility]) 24 HR Nicotine 0.583 MG/HR Transdermal Patch SUZY ([facility]) methylprednisolone 4 mg tablets in a dos e pack USE DIRECTED ON PACKAGE - START TOMORROW SUZY ([facility]) Ibuprofen 800 MG Oral Tablet SUZY ([facility]) Cyclobenzaprine hydrochloride 10 MG Oral Tablet SUZY ([facility]) atorvastatin 10 MG Oral Tablet SUZY ([facility]) Amlodipine 10 MG Oral Tablet SUZY ([facility]) 24 HR Nicotine 0.583 MG/HR Transdermal Patch SUZY ([facility]) methylprednisolone 4 mg tablets in a dos e pack USE DIRECTED ON PACKAGE - START TOMORROW SUZY ([facility]) Ibuprofen 800 MG Oral Tablet SUZY ([facility]) Cyclobenzaprine hydrochloride 10 MG Oral Tablet SUZY ([facility]) atorvastatin 10 MG Oral Tablet SUZY ([facility]) Amlodipine 10 MG Oral Tablet SUZY ([facility]) 24 HR Nicotine 0.583 MG/HR Transdermal Patch SUZY ([facility]) Ibuprofen 800 MG Oral Tablet SUZY ([facility]) Cyclobenzaprine hydrochloride 10 MG Oral Tablet SUZY ([facility]) atorvastatin 10 MG Oral Tablet SUZY ([facility]) Amlodipine 10 MG Oral Tablet SUZY ([facility]) 24 HR Nicotine 0.583 MG/HR Transdermal Patch SUZY ([facility]) Ibuprofen 800 MG Oral Tablet SUZY ([facility]) Cyclobenzaprine hydrochloride 10 MG Oral Tablet SUZY ([facility]) atorvastatin 10 MG Oral Tablet SUZY ([facility]) Amlodipine 10 MG Oral Tablet SUZY ([facility]) 24 HR Nicotine 0.583 MG/HR Transdermal Patch SUZY ([facility]) 24 HR Nicotine 0.583 MG/HR Transdermal Patch SUZY ([facility]) 24 HR Nicotine 0.583 MG/HR Transdermal Patch SUZY ([facility])
[2021-05-13] MEDS ORDERED: GABA600T4 (21:17)
--- OUTSIDE RECORDS SUMMARY | 2021-05-14 00:34 | CCD ---
Author Author [facility] Address Unknown Phone Unavailable Care Team Providers Care Account Management Assistant Name Role Phone Angelia Horner MD Unavailable [...] EDWARD RPA Unavailable Unavailable Chelle Clay Unavailable [phone] Chelle Clay Unavailable [phone] Yun Clayly Unavailable [phone] Scordo, M Ashia PA Unavailable Unavailable Scordo, [...] CHANLIECCO, C KOMAL MD Unavailable Unavailable Cesar, [place] Lyndsay Unavailable Unavailable Cesar, [place] Lyndsay Unavailable Unavailable Cesar, [place] Lyndsay Unavailable Unavailable Cesar, [place] Lyndsay Unavailable Unavailable Cesar, [place] Lyndsay Unavailable Unavailable Cesar, [place] Lyndsay Unavailable Unavailable Cesar, [place] Lyndsay Unavailable Unavailable Cesar, [place] Lyndsay Unavailable Unavailable Cesar, [place] Lyndsay Unavailable Unavailable Cesar, [place] Lyndsay Unavailable Unavailable Cesar, [place] Lyndsay Unavailable Unavailable Cesar, [place] Lyndsay Unavailable Unavailable Cesar, [place] Lyndsay Unavailable Unavailable Re-disclosure Warning The records [...] is protected by Article 27-F of the [facility] Public Health law. If you continue you may have access to information: Regarding HIV / AIDS; Provided by facilities licensed or operated by the [facility] Office of Mental Health; or Provided by the [facility] Office for People With Developmental Disabilities. If such information is present, then the following [facility] mandated warning applies: This information has been [...] law may result in a fine or penitentiary sentence or both. A general authorization for the release of medical or other information is NOT sufficient authorization for further disc losure. Family History Family Member Name Family Member Gender Family Member Status Date o f Status Description Data Source(s) Unknown Unknown Problem [facility] PGM Unknown Unknown Problem [facility] ([facility]) Encounters Encounter Providers Location Date Indications Data Source(s ) NEERAJ Johnson: [address], [place] [address], Ph. Attender: Chelle Clay [facility] Medical 05/10/2021 12:00:00 AM EDT [facility]) Ashia Steinberg PA-C: [address], [place] [address], Ph. Attender: Ashia ROBERTSON [facility] Medical 04/14/2021 12:00:00 AM EDT [facility]) Ashia Steinberg PA-C: [address], [place] [address], Ph. Attender: Ashia ROBERTSON [facility] Medical 04/14/2021 12:00:00 AM EDT [facility]) Ashia Steinberg PA-C: [address], [place] [address], Ph. Attender: Ashia ROBERTSON [facility] Medical 04/14/2021 12:00:00 AM EDT [facility]) Ashia Scordo, PA-C: [address], [place] [address], Ph. Attender: Ashia ROBERTSON [facility] Medical 04/13/2021 12:00:00 AM EDT [facility]) Ashia Steinberg PA-C: [address], [place] [address], Ph. Attender: Ashia ROBERTSON [facility] Medical 04/13/2021 12:00:00 AM EDT [facility] ([facility]) Ashia Steinberg PA-C: [address], [place] [address], Ph. Attender: Ashia ROBERTSON [facility] Medical 04/13/2021 12:00:00 AM EDT [facility] ([facility]) Outpatient Attender: AIMEE ROBERTSON Main Office 03/31/2021 0 8:15:00 AM EDT [facility] ([facility]) Emergency Attender: KOMAL PEREZ MDConsultant: Paul Horner MD 03/30/2021 08:31:00 AM EDT - 03/30/2021 10:10:00 AM EDT [facility] Patient discharged. Outpatient Attender: DAISHA YOON RPA 03/29 09:01:59 AM EDT - 03/29/2021 10:43:28 AM EDT [facility] ([facility] ) Ashia Steinberg PA-C: [address], [place] [address], Ph. Attender: Ashia ROBERTSON [facility] Medical 02/17/2021 12:00:00 AM EDT [facility]) Ashia Steinberg PA-C: [address], [place] [address], Ph. Attender: Ashia ROBERTSON [facility] Medical 02/17/2021 12:00:00 AM EDT [facility] ([facility]) Ashia Steinberg PA-C: [address], [place] [address], Ph. Attender: Ashia ROBERTSON [facility] Medical 02/17/2021 12:00:00 AM EDT [facility] ([facility]) Ashia Steinberg PA-C: [address], [place] [address], Ph. Attender: Ashia ROBERTSON [facility] Medical 02/17/2021 12:00:00 AM EDT [facility] ([facility]) Ashia Steinberg PA-C: [address], [place] [address], Ph. Attender: Ashia ROBERTSON [facility] Medical 02/03/2021 12:00:00 AM EDT [facility] ([facility]) Ashia Steinberg PA-C: [address], [place] [address], Ph. Attender: Ashia ROBERTSON [facility] Medical 02/03/2021 12:00:00 AM EDT [facility] ([facility]) Ashia Steinberg PA-C: [address], [place] [address], Ph. Attender: Ashia ROBERTSON [facility] Medical 02/03/2021 12:00:00 AM EDT [facility] ([facility]) Ashia Steinberg PA-C: [address], [place] [address], Ph. Attender: Ashia ROBERTSON [facility] Medical 02/03/2021 12:00:00 AM EDT [facility] ([facility]) Ashia Steinberg PA-C: [address] [place] [address], Ph. Attender: Ashia ROBERTSON [facility] Medical 02/03/2021 12:00:00 AM EDT [facility] ([facility]) GRETTA GonzalezC: [address], [place] [address], Ph. Attender: Lyndsay Cesar [facility] Medical 11/29/2020 12:00:00 AM EDT [facility] ([facility]) GRETTA GonzalezC: [address] [place] [address], Ph. Attender: Lyndsay Cesar [facility] Medical 11/29/2020 12:00:00 AM EDT [facility] ([facility]) GRETTA GonzalezC: [address], [place] [address], Ph. Attender: Lyndsay Cesar [facility] Medical 11/29/2020 12:00:00 AM EDT [facility] ([facility]) GREG Gonzalez: [address], [place] [address], Ph. Attender: Lyndsay Cesar [facility] Medical 11/29/2020 12:00:00 AM EDT [facility] ([facility]) GRETTA GonzalezC: [address] [place] [address], Ph. Attender: Lyndsay Cesar [facility] Medical 11/29/2020 12:00:00 AM EDT [facility] ([facility]) GRETTA GonzalezC: [address], [place] [address], Ph. Attender: Lyndsay Cesar [facility] Medical 11/29/2020 12:00:00 AM EDT [facility] ([facility]) GRETTA GonzalezC: [address], [place] [address], Ph. Attender: Lyndsay Cesar [facility] Medical 11/01/2020 12:00:00 AM EDT [facility] ([facility]) GRETTA GonzalezC: [address], [place] [address], Ph. Attender: Lyndsay Cesar [facility] Medical 11/01/2020 12:00:00 AM EDT [facility] ([facility]) GRETTA GonzalezC: [address], [place] [address], Ph. Attender: Lyndsay Cesar [facility] Medical 11/01/2020 12:00:00 AM EDT [facility] ([facility]) GRETTA GonzalezC: [address], [place] [address], Ph. Attender: Lyndsay Cesar [facility] Medical 11/01/2020 12:00:00 AM EDT [facility] ([facility]) GRETTA GonzalezC: [address], [place] [address], Ph. Attender: Lyndsay Cesar [facility] Medical 11/01/2020 12:00:00 AM EDT [facility] ([facility]) GRETTA GonzlaezC: [address], [place] [address], Ph. Attender: Lyndsay Cesar [facility] Medical 11/01/2020 12:00:00 AM EDT [facility] ([facility]) GRETTA GonzalezC: [address], [place] [address], Ph. Attender: Lyndsay Cesar [facility] Medical 11/01/2020 12:00:00 AM EDT [facility] ([facility]) Outpatient Attender: AIMEE ROBERTSON Main Office 09/27/2020 0 7:00:00 AM EST MED[facility] ([facility]) Ashia Steinberg PA-C: [address], [facility] [place] [address], Ph. Attender: Ashia ROBERTSON [facility] Medical 05/30/2020 12:00:00 AM EST [facility] ([facility]) Ashia Steinberg PA-C: [address], [facility] [place] [address], Ph. Attender: Ashia ROBERTSON [facility] Medical 05/30/2020 12:00:00 AM EST [facility] ([facility]) Ashia Steinberg PA-C: [address], [place] [address], Ph. Attender: Ashia ROBERTSON [facility] Medical 05/30/2020 12:00:00 AM EST [facility] ([facility]) Ashia Steinberg PA-C: [address], [place] [address], Ph. Attender: Ashia ROBERTSON [facility] Medical 05/30/2020 12:00:00 AM EST [facility] ([facility]) Ashia Steinberg PA-C: [address], [place] [address], Ph. Attender: Ashia ROBRETSON [facility] Medical 05/30/2020 12:00:00 AM EST [facility] ([facility]) Ashia Steinberg PA-C: [address], [place] [address], Ph. Attender: Ashia ROBERTSON [facility] Medical 05/30/2020 12:00:00 AM EST [facility] ([facility]) Ashia Steinberg PA-C: [address], [place] [address], Ph. Attender: Ashia ROBERTSON [facility] Medical 05/30/2020 12:00:00 AM EST [facility]) Ashia Steinberg PA-C: [address], [place] [address], Ph. Attender: Ashia ROBERTSON [facility] Medical 05/30/2020 12:00:00 AM LORNA VICTORIAENA ([facility]) Emergency Attender: TIMI ROBERTSON EMERGENCY ROOM- ER 03/30/2020 01:12:00 PM EDT - 03/30/2020 02:32:00 PM EDT [facility] Patient discharged. Outpatient Attender: JAYLON WANG MD 03/30/2020 08:06:00 A M EDT [facility] Immunizations Vaccine Date Status Description Data Source(s) COVID-19, mRNA, LNP-S, PF, 100 mcg/0.5 mL dose 11/29/2020 05 :26:14 PM EDT completed .5 mL [facility] ([facility]) COVID-19, mRNA, LNP-S, PF, 100 mcg/0.5 mL dose 11/29/2020 05 :26:14 PM EDT completed .5 mL [facility]) COVID-19, mRNA, LNP-S, PF, 100 mcg/0.5 mL dose 11/29/2020 05 :26:14 PM EDT completed .5 mL [facility]) COVID-19, mRNA, LNP-S, PF, 100 mcg/0.5 mL dose 11/29/2020 05 :26:14 PM EDT completed .5 mL [facility]) COVID-19, mRNA, LNP-S, PF, 100 mcg/0.5 mL dose 11/29/2020 05 :26:14 PM EDT completed .5 mL [facility]) COVID-19, mRNA, LNP-S, PF, 100 mcg/0.5 mL dose 11/29/2020 05 :26:14 PM EDT completed .5 mL [facility]) COVID-19 VACCINE Moderna 11/29/2020 12:00:00 AM EDT completed [employer] Vaccine Series Complete: YESThis Data wa s Submitted to [facility] Via [employer]. COVID-19, mRNA, LNP-S, PF, 100 mcg/0.5 mL dose 11/01/2020 06 :02:28 PM EDT completed .5 mL [facility]) COVID-19, mRNA, LNP-S, PF, 100 mcg/0.5 mL dose 11/01/2020 06 :02:28 PM EDT completed .5 mL [facility]) COVID-19, mRNA, LNP-S, PF, 100 mcg/0.5 mL dose 11/01/2020 06 :02:28 PM EDT completed .5 mL [facility]) COVID-19, mRNA, LNP-S, PF, 100 mcg/0.5 mL dose 11/01/2020 06 :02:28 PM EDT completed .5 mL [facility]) COVID-19, mRNA, LNP-S, PF, 100 mcg/0.5 mL dose 11/01/2020 06 :02:28 PM EDT completed 10.5 mL [facility] ([facility]) COVID-19, mRNA, LNP-S, PF, 100 mcg/0.5 mL dose 11/01/2020 06 :02:28 PM EDT completed .5 mL [facility] ([facility]) COVID-19, mRNA, LNP-S, PF, 100 mcg/0.5 mL dose 11/01/2020 06 :02:28 PM EDT completed .5 mL [facility] ([facility]) COVID-19 VACCINE Moderna 11/01/2020 12:00:00 AM EDT completed [facility] Vaccine Series Complete: NOThis Data was Submitted to [facility] Via [employer]. Medications Medication Brand Name Start Date Product Form Dose Route Admi nistrative Instructions Pharmacy Instructions Status Indications Reaction Description Data Source(s) Methylprednisolone 4 MG Oral Tablet Methylprednisolone 03/2021 12:00:00 AM EDT ORAL active [facility] ([facility] Chlorthalidone 25 MG Oral Tablet Chlorthalidone 03/30/2021 12:00:00 A M EDT ORAL active [facility] ([facility]) atorvastatin 20 MG Oral Tablet Atorvastatin Calcium 03/30/2021 1 2:00:00 AM EDT ORAL active [facility] ( [facility]) Carbamazepine 200 MG Oral Tablet Carbamazepine 03/30/2021 12:00:00 AM EDT ORAL active [facility] ([facility]) Chlorthalidone 25 MG Oral Tablet Chlorthalidone 12/30/2020 12:00:00 A M EDT ORAL active [facility] ([facility]) 40 mg 12/25/2020 12:00:00 AM EDT [...] EDT active [facility] ([facility]) 25 mg 12/25/2020 12:00:00 AM EDT tablet 30 TAKE ONE-HALF TABLET BY MOUTH EVERY DAY TAKE ONE-HALF TABLET BY MOUTH EVERY DAY SOLD: 12/25/2020 Romero Sims 24 HR Nicotine 0.583 MG/HR Transdermal P atch nicotine 14 mg/24 hr daily transdermal patch nicotine 14 mg/24 hr daily transdermal patch completed 24 HR nicotine 0.583 MG/HR Trans dermal System [facility] ([facility]) atorvastatin 10 MG Oral Tablet atorvastatin 10 mg tabl et atorvastatin 10 mg tablet completed atorvastatin 10 MG Oral Tablet [facility] ([facility]) Amlodipine 10 MG Oral Tablet amlodipine 10 mg tablet amlodipine 10 mg tablet completed amlodipine 10 MG Oral Tablet [facility] ([facility]) Amlodipine 10 MG Oral Tablet amlodipine 10 mg tablet amlodipine 10 mg tablet completed amlodipine 10 MG Oral Tablet [facility] ([facility]) gabapentin 600 MG Oral Tablet gabapentin 600 mg tablet TAKE ONE TABLET BY MOUTH THREE TIMES DAILY DIRECTED gabapentin 600 mg tablet TAKE ONE TABLET BY MOUTH THREE TIMES DAILY DIRECTED complete d gabapentin 600 MG Oral Tablet [facility] er) atorvastatin 10 MG Oral Tablet atorvastatin 10 mg tabl et atorvastatin 10 mg tablet completed atorvastatin 10 MG Oral Tablet [facility] ([facility]) Ibuprofen 800 MG Oral Tablet ibuprofen 800 mg tablet ibuprofen 8 00 mg tablet completed ibuprofen 800 MG Oral Tablet [facility]) atorvastatin 10 MG Oral Tablet atorvastatin 10 mg tabl et atorvastatin 10 mg tablet completed atorvastatin 10 MG Oral Tablet [facility] ([facility]) 24 HR Nicotine 0.583 MG/HR Transdermal P atch nicotine 14 mg/24 hr daily transdermal patch nicotine 14 mg/24 hr daily transdermal patch completed 24 HR nicotine 0.583 MG/HR Trans dermal System [facility] ([facility]) 24 HR Nicotine 0.583 MG/HR Transdermal P atch nicotine 14 mg/24 hr daily transdermal patch nicotine 14 mg/24 hr daily transdermal patch completed 24 HR nicotine 0.583 MG/HR Trans dermal System [facility] ([facility]) Ibuprofen 800 MG Oral Tablet ibuprofen 800 mg tablet ibuprofen 8 00 mg tablet completed ibuprofen 800 MG Oral Tablet [facility] ([facility]) Ibuprofen 800 MG Oral Tablet ibuprofen 800 mg tablet ibuprofen 8 00 mg tablet completed ibuprofen 800 MG Oral Tablet [facility] ([facility]) Amlodipine 10 MG Oral Tablet amlodipine 10 mg tablet amlodipine 10 mg tablet completed amlodipine 10 MG Oral Tablet [facility] ([facility]) Cyclobenzaprine hydrochloride 10 MG Oral Tablet cyclobenzaprine 10 mg tablet TAKE ONE TABLET BY MOUTH THREE TIMES DAILY cyclobenzaprine 10 mg tablet TAKE ONE TABLET BY MOUTH THREE TIMES DAILY comp leted cyclobenzaprine hydrochloride 10 MG Oral Tablet [facility] ([facility]) atorvastatin 10 MG Oral Tablet atorvastatin 10 mg tabl et atorvastatin 10 mg tablet completed atorvastatin 10 MG Oral Tablet [facility] ([facility]) Cyclobenzaprine hydrochloride 10 MG Oral Tablet cyclobenzaprine 10 mg tablet TAKE ONE TABLET BY MOUTH THREE TIMES DAILY cyclobenzaprine 10 mg tablet TAKE ONE TABLET BY MOUTH THREE TIMES DAILY comp leted cyclobenzaprine hydrochloride 10 MG Oral Tablet [facility] ([facility]) 24 HR Nicotine 0.583 MG/HR Transdermal P atch nicotine 14 mg/24 hr daily transdermal patch nicotine 14 mg/24 hr daily transdermal patch completed 24 HR nicotine 0.583 MG/HR Trans dermal System [facility] ([facility]) Ibuprofen 800 MG Oral Tablet ibuprofen 800 mg tablet ibuprofen 8 00 mg tablet completed ibuprofen 800 MG Oral Tablet [facility] ([facility]) Carbamazepine 200 MG Oral Tablet carbama zepine 200 mg tablet TAKE 1/2 TABLET BY MOUTH TWICE DAILY FOR FOURTEEN DAYS, THEN TAKE ONE TABLET BY MOUTH TWICE DAILY carbamazepine 200 mg tablet TAKE 1/2 TABLET BY MOUTH TWICE DAILY FOR FOURTEEN DAYS, THEN TAKE ONE TABLET BY MOUTH TWICE DAILY completed carbamazepine 200 MG Oral Tablet [facility] ([facility]) atorvastatin 10 MG Oral Tablet atorvastatin 10 mg tabl et atorvastatin 10 mg tablet completed atorvastatin 10 MG Oral Tablet [facility] ([facility]) Amlodipine 10 MG Oral Tablet amlodipine 10 mg tablet amlodipine 10 mg tablet completed amlodipine 10 MG Oral Tablet [facility] ([facility]) methylprednisolone 4 mg tablets in a dos e pack USE DIRECTED ON PACKAGE - START TOMORROW [id number] completed methylprednisolone 4 mg tablets in a dose pack [facility] ([facility]) 24 HR Nicotine 0.583 MG/HR Transdermal P atch nicotine 14 mg/24 hr daily transdermal patch nicotine 14 mg/24 hr daily transdermal patch completed 24 HR nicotine 0.583 MG/HR Trans dermal System [facility] ([facility]) Amlodipine 10 MG Oral Tablet amlodipine 10 mg tablet amlodipine 10 mg tablet completed amlodipine 10 MG Oral Tablet [facility] ([facility]) 24 HR Nicotine 0.583 MG/HR Transdermal P atch nicotine 14 mg/24 hr daily transdermal patch nicotine 14 mg/24 hr daily transdermal patch completed 24 HR nicotine 0.583 MG/HR Trans dermal System [facility] ([facility]) Cyclobenzaprine hydrochloride 10 MG Oral Tablet cyclobenzaprine 10 mg tablet TAKE ONE TABLET BY MOUTH THREE TIMES DAILY cyclobenzaprine 10 mg tablet TAKE ONE TABLET BY MOUTH THREE TIMES DAILY comp leted cyclobenzaprine hydrochloride 10 MG Oral Tablet [facility] ([facility]) methylprednisolone 4 mg tablets in a dos e pack USE DIRECTED ON PACKAGE - START [id number] completed methylprednisolone 4 mg tablets in a dose pack [facility] ([facility]) 24 HR Nicotine 0.583 MG/HR Transdermal P atch nicotine 14 mg/24 hr daily transdermal patch nicotine 14 mg/24 hr daily transdermal patch completed 24 HR nicotine 0.583 MG/HR Trans dermal System [facility] ([facility]) Ibuprofen 800 MG Oral Tablet ibuprofen 800 mg tablet ibuprofen 8 00 mg tablet completed ibuprofen 800 MG Oral Tablet [facility] ([facility]) Cyclobenzaprine hydrochloride 10 MG Oral Tablet cyclobenzaprine 10 mg tablet TAKE ONE TABLET BY MOUTH THREE TIMES DAILY cyclobenzaprine 10 mg tablet TAKE ONE TABLET BY MOUTH THREE TIMES DAILY comp leted cyclobenzaprine hydrochloride 10 MG Oral Tablet [facility] ([facility]) methylprednisolone 4 mg tablets in a dos e pack USE DIRECTED ON PACKAGE - START [id number] completed methylprednisolone 4 mg tablets in a dose pack [facility] ([facility]) 24 HR Nicotine 0.583 MG/HR Transdermal P atch nicotine 14 mg/24 hr daily transdermal patch nicotine 14 mg/24 hr daily transdermal patch completed 24 HR nicotine 0.583 MG/HR Trans dermal System [facility] ([facility]) Cyclobenzaprine hydrochloride 10 MG Oral Tablet cyclobenzaprine 10 mg tablet TAKE ONE TABLET BY MOUTH THREE TIMES DAILY cyclobenzaprine 10 mg tablet TAKE ONE TABLET BY MOUTH THREE TIMES DAILY comp leted cyclobenzaprine hydrochloride 10 MG Oral Tablet [facility] ([facility]) Insurance Providers Payer name Policy type / Coverage type Policy ID Covered green party ID Covered green party's relationship to henderson Policy Henderson Plan Information Medicaid S [id number] S [id number] Medicaid S [id number] S [id number] [employer] MCDHMO [id number] SP [id number] Managed Care - Community Plan [facility] P [id number] S [id number] Medicaid S [id number] S [id number] Managed Care - Community Plan [facility] P [id number] S [id number] Managed Care - Community Plan [facility] P [id number] S [id number] Managed Care - Community Plan [facility] P [id number] S [id number] Medicaid S [id number] S [id number] [employer] MCDHMO [id number] SP [id number] [facility] COMMUNITY PLAN MCDHMO [id number] SP [id number] [facility] COMMUNITY PLAN MCDHMO [id number] SP [id number] Managed Care - Community Plan [facility] P [id number] S [id number] Medicaid S [id number] S [id number] Managed Care - Community Plan [facility] P [id number] S [id number] Medicaid S [id number] S [id number] Managed Care - Community Plan [facility] P [id number] S [id number] Managed Care - [facility] Community Plan P [id number] S [id number] Medicaid S [id number] S [id number] Managed Care - [facility] Community Plan P [id number] S [id number] [facility] Commercial Insurance Co. [id number] Self [id number] UN COMMUNITY PLAN XIX - OP/ER [id number] 18 [id number] [facility] MEDICAID [id number] S [id number] [facility] MEDICAID [id number] S [id number] [facility] MEDICAID [id number] S [id number] [facility]-Community Plan-[facility] Commercial [id number] Self [id number] [facility](MCAID) O [id number] S [id number] [facility] [id number] SP [id number] [facility] [place]/MCR Health Maintenance Organization (HMO) [id number] Self [id number] [facility]-Community Plan-[place] Commercial [id number] Self [facility] MEDICAID [place] HMO 000 S 000 [employer] COMMUNITY PLAN [facility] [id number] SP [id number] UN COMMUNITY PLAN [facility] [id number] SP [id number] Problems, Conditions, and Diagnoses Code Display Name Description Problem Type Effective Dates Data Source(s) G92347 Nicotine dependence, cigarettes, uncompl icated Nicotine dependence, cigarettes, uncomplicated Diagnosis 03/30/2021 08:31:00 AM EDT [facility] I10 Essential (primary) hypertension Essential (primary) h ypertension Diagnosis 03/30/2021 08:31:[address] [facility] G500 Trigeminal neuralgia Trigeminal neuralgia Diagnosis 03/30/2021 08:31:[address] [facility] K0889 Other specified disorders of teeth and s upporting structures Other specified disorders of teeth and supporting structures Diagnosis 03/30/2021 08:31:[address] [facility] Z79.899 Other long term care phlebotomist (current) drug therapy O THER HALFWAY (CURRENT) DRUG THERAPY Diagnosis 03/30/2020 01:12:00 PM [facility] F17.210 Nicotine dependence, cigarettes, uncompl icated NICOTINE DEPENDENCE, CIGARETTES, UNCOMPLICATED Diagnosis 03/30/2020 01:12:00 PM [facility] ospital I10 Essential (primary) hypertension ESSENTIAL (PRIMARY) H YPERTENSION Diagnosis 03/30/2020 01:12:00 PM [facility] R19.7 Diarrhea, unspecified DIARRHEA, UNSPECIFIED Diagnosis 03/30/2020 01:12:00 PM [facility] E78.2 Mixed hyperlipidemia Mixed hyperlipidemia Problem 09/27/2020 12:00:00 AM LORNA LEWIS ([facility]) [id number] Syncope Syncope Problem 09/13/2020 12:00:00 AM ALLEN ALMONTE ([facility]) [id number] Syncope Syncope Problem 09/13/2020 12:00:00 AM ALLEN ALMONTE ([facility]) [id number] Syncope Syncope Problem 09/13/2020 12:00:00 AM ALLEN ALMONTE ([facility]) [id number] Syncope Syncope Problem 09/13/2020 12:00:00 AM ALLEN ALMONTE ([facility]) [id number] Syncope Syncope Problem 09/13/2020 12:00:00 AM ALLEN ALMONTE ([facility]) [id number] Syncope Syncope Problem 09/13/2020 12:00:00 AM ALLEN ALMONTE ([facility]) [id number] Syncope Syncope Problem 09/13/2020 12:00:00 AM ALLEN ALMONTE ([facility]) [id number] Cellulitis of finger of left hand Cellul itis of Finger of Left Hand Problem 10/28/2018 12:00:00 AM EDT - 05/30/2020 12:00:00 AM LORNA ALMONTE ([facility]) [id number] Endocrine/metabolic screening Endocrine/metabolic Scre ening Problem 10/28/2018 12:00:00 AM EDT - 05/30/2020 12:00:00 AM LORNA SUZY ([facility]) [id number] Influenza vaccine needed Influenza Vaccine Needed Pro blem 10/28/2018 12:00:00 AM EDT - 05/30/2020 12:00:00 AM LORNA SUZY ([facility]) [id number] Puncture wound of foot Puncture Wound of Foot Problem 10/28/2018 12:00:00 AM EDT - 05/30/2020 12:00:00 AM LORNA SUZY ([facility]) [id number] Cellulitis of finger of left hand Cellul itis of Finger of Left Hand Problem 10/28/2018 12:00:00 AM EDT - 05/30/2020 12:00:00 AM LORNA SUZY ([facility]) [id number] Endocrine/metabolic screening Endocrine/metabolic Scre ening Problem 10/28/2018 12:00:00 AM EDT - 05/30/2020 12:00:00 AM LORNA SUZY ([facility]) [id number] Influenza vaccine needed Influenza Vaccine Needed Pro blem 10/28/2018 12:00:00 AM EDT - 05/30/2020 12:00:00 AM LORNA ALMONTE ([facility]) [id number] Puncture wound of foot Puncture Wound of Foot Problem 10/28/2018 12:00:00 AM EDT - 05/30/2020 12:00:00 AM LORNA ALMONTE ([facility]) [id number] Cellulitis of finger of left hand Cellul itis of Finger of Left Hand Problem 10/28/2018 12:00:00 AM EDT - 05/30/2020 12:00:00 AM LORNA ALMONTE ([facility]) [id number] Endocrine/metabolic screening Endocrine/metabolic Scre ening Problem 10/28/2018 12:00:00 AM EDT - 05/30/2020 12:00:00 AM LORNA SUZY ([facility]) [id number] Influenza vaccine needed Influenza Vaccine Needed Pro blem 10/28/2018 12:00:00 AM EDT - 05/30/2020 12:00:00 AM LORNA SUZY ([facility]) [id number] Puncture wound of foot Puncture Wound of Foot Problem 10/28/2018 12:00:00 AM EDT - 05/30/2020 12:00:00 AM LORNA ALMONTE ([facility]) [id number] Cellulitis of finger of left hand Cellul itis of Finger of Left Hand Problem 10/28/2018 12:00:00 AM EDT - 05/30/2020 12:00:00 AM LORNA ALMONTE ([facility]) [id number] Endocrine/metabolic screening Endocrine/metabolic Scre ening Problem 10/28/2018 12:00:00 AM EDT - 05/30/2020 12:00:00 AM LORNA SUZY ([facility]) [id number] Influenza vaccine needed Influenza Vaccine Needed Pro blem 10/28/2018 12:00:00 AM EDT - 05/30/2020 12:00:00 AM LORNA SUZY ([facility]) [id number] Puncture wound of foot Puncture Wound of Foot Problem 10/28/2018 12:00:00 AM EDT - 05/30/2020 12:00:00 AM LORNA SUZY ([facility]) [id number] Cellulitis of finger of left hand Cellul itis of Finger of Left Hand Problem 10/28/2018 12:00:00 AM EDT - 05/30/2020 12:00:00 AM EST SUZY ([facility]) [id number] Endocrine/metabolic screening Endocrine/metabolic Scre ening Problem 10/28/2018 12:00:00 AM EDT - 05/30/2020 12:00:00 AM EST SUZY ([facility]) [id number] Influenza vaccine needed Influenza Vaccine Needed Pro blem 10/28/2018 12:00:00 AM EDT - 05/30/2020 12:00:00 AM EST SUZY ([facility]) [id number] Puncture wound of foot Puncture Wound of Foot Problem 10/28/2018 12:00:00 AM EDT - 05/30/2020 12:00:00 AM EST SUZY ([facility]) [id number] Cellulitis of finger of left hand Cellul itis of Finger of Left Hand Problem 10/28/2018 12:00:00 AM EDT - 05/30/2020 12:00:00 AM LORNA ALMONTE ([facility]) [id number] Endocrine/metabolic screening Endocrine/metabolic Scre ening Problem 10/28/2018 12:00:00 AM EDT - 05/30/2020 12:00:00 AM EST SUZY ([facility]) [id number] Influenza vaccine needed Influenza Vaccine Needed Pro blem 10/28/2018 12:00:00 AM EDT - 05/30/2020 12:00:00 AM LORNA ALMONTE ([facility]) [id number] Puncture wound of foot Puncture Wound of Foot Problem 10/28/2018 12:00:00 AM EDT - 05/30/2020 12:00:00 AM LORNA ALMONTE ([facility]) [id number] Cellulitis of finger of left hand Cellul itis of Finger of Left Hand Problem 10/28/2018 12:00:00 AM EDT - 05/30/2020 12:00:00 AM EST SUZY ([facility]) [id number] Endocrine/metabolic screening Endocrine/metabolic Scre ening Problem 10/28/2018 12:00:00 AM EDT - 05/30/2020 12:00:00 AM EST SUZY ([facility]) [id number] Influenza vaccine needed Influenza Vaccine Needed Pro blem 10/28/2018 12:00:00 AM EDT - 05/30/2020 12:00:00 AM LORNA ALMONTE ([facility]) [id number] Puncture wound of foot Puncture Wound of Foot Problem 10/28/2018 12:00:00 AM EDT - 05/30/2020 12:00:00 AM LORNA ALMONTE ([facility]) [id number] Cellulitis of finger of left hand Cellul itis of Finger of Left Hand Problem 10/28/2018 12:00:00 AM EDT - 05/30/2020 12:00:00 AM LORNA SUZY ([facility]) [id number] Endocrine/metabolic screening Endocrine/metabolic Scre ening Problem 10/28/2018 12:00:00 AM EDT - 05/30/2020 12:00:00 AM LORNA SUZY ([facility]) [id number] Influenza vaccine needed Influenza Vaccine Needed Pro blem 10/28/2018 12:00:00 AM EDT - 05/30/2020 12:00:00 AM LORNA SUZY ([facility]) [id number] Puncture wound of foot Puncture Wound of Foot Problem 10/28/2018 12:00:00 AM EDT - 05/30/2020 12:00:00 AM LORNA SUZY ([facility]) [id number] Tobacco use and exposure - finding Tobacco Use a nd Exposure - Finding Problem 05/07/2018 12:00:00 AM EDT - 05/30/2020 12:00:00 AM ALLEN ALMONTE ([facility]) [id number] Tobacco use and exposure - finding Tobacco Use a nd Exposure - Finding Problem 05/07/2018 12:00:00 AM EDT - 05/30/2020 12:00:00 AM ALLEN ALMONTE ([facility]) [id number] Tobacco use and exposure - finding Tobacco Use a nd Exposure - Finding Problem 05/07/2018 12:00:00 AM EDT - 05/30/2020 12:00:00 AM ALLEN ALMONTE ([facility]) [id number] Tobacco use and exposure - finding Tobacco Use a nd Exposure - Finding Problem 05/07/2018 12:00:00 AM EDT - 05/30/2020 12:00:00 AM ALLEN ALMONTE ([facility]) [id number] Tobacco use and exposure - finding Tobacco Use a nd Exposure - Finding Problem 05/07/2018 12:00:00 AM EDT - 05/30/2020 12:00:00 AM ALLEN ALMONTE ([facility]) [id number] Tobacco use and exposure - finding Tobacco Use a nd Exposure - Finding Problem 05/07/2018 12:00:00 AM EDT - 05/30/2020 12:00:00 AM ALLEN ALMONTE ([facility]) [id number] Tobacco use and exposure - finding Tobacco Use a nd Exposure - Finding Problem 05/07/2018 12:00:00 AM EDT - 05/30/2020 12:00:00 AM ALLEN ALMONTE ([facility]) [id number] Tobacco use and exposure - finding Tobacco Use a nd Exposure - Finding Problem 05/07/2018 12:00:00 AM EDT - 05/30/2020 12:00:00 AM ALLEN ALMONTE ([facility]) [id number] Tooth finding Tooth Finding Problem 04/21/2018 12 :00:00 AM EDT - 05/30/2020 12:00:00 AM EST SUZY ([facility]) [id number] Overweight Overweight Problem 04/21/2018 12:0 0:00 AM EDT - 05/30/2020 12:00:00 AM EST SUZY ([facility]) [id number] Tooth finding Tooth Finding Problem 04/21/2018 12 :00:00 AM EDT - 05/30/2020 12:00:00 AM EST SUZY ([facility]) [id number] Overweight Overweight Problem 04/21/2018 12:0 0:00 AM EDT - 05/30/2020 12:00:00 AM EST SUZY ([facility]) [id number] Tooth finding Tooth Finding Problem 04/21/2018 12 :00:00 AM EDT - 05/30/2020 12:00:00 AM EST SUZY ([facility]) [id number] Overweight Overweight Problem 04/21/2018 12:0 0:00 AM EDT - 05/30/2020 12:00:00 AM EST SUZY ([facility]) [id number] Tooth finding Tooth Finding Problem 04/21/2018 12 :00:00 AM EDT - 05/30/2020 12:00:00 AM EST SUZY ([facility]) [id number] Overweight Overweight Problem 04/21/2018 12:0 0:00 AM EDT - 05/30/2020 12:00:00 AM EST SUZY ([facility]) [id number] Tooth finding Tooth Finding Problem 04/21/2018 12 :00:00 AM EDT - 05/30/2020 12:00:00 AM EST SUZY ([facility]) [id number] Overweight Overweight Problem 04/21/2018 12:0 0:00 AM EDT - 05/30/2020 12:00:00 AM EST SUZY ([facility]) [id number] Tooth finding Tooth Finding Problem 04/21/2018 12 :00:00 AM EDT - 05/30/2020 12:00:00 AM EST SUZY ([facility]) [id number] Overweight Overweight Problem 04/21/2018 12:0 0:00 AM EDT - 05/30/2020 12:00:00 AM EST SUZY ([facility]) [id number] Tooth finding Tooth Finding Problem 04/21/2018 12 :00:00 AM EDT - 05/30/2020 12:00:00 AM EST SUZY ([facility]) [id number] Overweight Overweight Problem 04/21/2018 12:0 0:00 AM EDT - 05/30/2020 12:00:00 AM EST SUZY ([facility]) [id number] Tooth finding Tooth Finding Problem 04/21/2018 12 :00:00 AM EDT - 05/30/2020 12:00:00 AM EST SUZY ([facility]) [id number] Overweight Overweight Problem 04/21/2018 12:0 0:00 AM EDT - 05/30/2020 12:00:00 AM EST SUZY ([facility]) [id number] Clinical finding Clinical Finding Problem 017 12:00:00 AM EDT - 05/30/2020 12:00:00 AM EST SUZY ([facility]) [id number] Clinical finding Clinical Finding Problem 017 12:00:00 AM EDT - 05/30/2020 12:00:00 AM EST SUZY ([facility]) [id number] Clinical finding Clinical Finding Problem 017 12:00:00 AM EDT - 05/30/2020 12:00:00 AM EST SUZY ([facility]) [id number] Clinical finding Clinical Finding Problem 017 12:00:00 AM EDT - 05/30/2020 12:00:00 AM EST SUZY ([facility]) [id number] Clinical finding Clinical Finding Problem 017 12:00:00 AM EDT - 05/30/2020 12:00:00 AM EST SUZY ([facility]) [id number] Clinical finding Clinical Finding Problem 017 12:00:00 AM EDT - 05/30/2020 12:00:00 AM EST SUZY ([facility]) [id number] Clinical finding Clinical Finding Problem 017 12:00:00 AM EDT - 05/30/2020 12:00:00 AM EST SUZY ([facility]) [id number] Clinical finding Clinical Finding Problem 017 12:00:00 AM EDT - 05/30/2020 12:00:00 AM EST SUZY ([facility]) [id number] Vomiting without nausea Vomiting without Nausea Pro blem 03/29/2017 12:00:00 AM EDT - 05/30/2020 12:00:00 AM EST SUZY ([facility]) [id number] Vomiting without nausea Vomiting without Nausea Pro blem 03/29/2017 12:00:00 AM EDT - 05/30/2020 12:00:00 AM EST SUZY ([facility]) [id number] Vomiting without nausea Vomiting without Nausea Pro blem 03/29/2017 12:00:00 AM EDT - 05/30/2020 12:00:00 AM EST SUZY ([facility]) [id number] Vomiting without nausea Vomiting without Nausea Pro blem 03/29/2017 12:00:00 AM EDT - 05/30/2020 12:00:00 AM EST SUZY ([facility]) [id number] Vomiting without nausea Vomiting without Nausea Pro blem 03/29/2017 12:00:00 AM EDT - 05/30/2020 12:00:00 AM EST SUZY ([facility]) [id number] Vomiting without nausea Vomiting without Nausea Pro blem 03/29/2017 12:00:00 AM EDT - 05/30/2020 12:00:00 AM EST SUZY ([facility]) [id number] Vomiting without nausea Vomiting without Nausea Pro blem 03/29/2017 12:00:00 AM EDT - 05/30/2020 12:00:00 AM EST SUZY ([facility]) [id number] Vomiting without nausea Vomiting without Nausea Pro blem 03/29/2017 12:00:00 AM EDT - 05/30/2020 12:00:00 AM EST SUZY ([facility]) [id number] Dysthymia Dysthymia Problem 03/28/2016 12:0 0:00 AM EDT - 05/30/2020 12:00:00 AM EST USZY ([facility]) [id number] Dysthymia Dysthymia Problem 03/28/2016 12:0 0:00 AM EDT - 05/30/2020 12:00:00 AM EST SUZY ([facility]) [id number] Dysthymia Dysthymia Problem 03/28/2016 12:0 0:00 AM EDT - 05/30/2020 12:00:00 AM EST SUZY ([facility]) [id number] Dysthymia Dysthymia Problem 03/28/2016 12:0 0:00 AM EDT - 05/30/2020 12:00:00 AM EST SUZY ([facility]) [id number] Dysthymia Dysthymia Problem 03/28/2016 12:0 0:00 AM EDT - 05/30/2020 12:00:00 AM EST SUZY ([facility]) [id number] Dysthymia Dysthymia Problem 03/28/2016 12:0 0:00 AM EDT - 05/30/2020 12:00:00 AM EST SUZY ([facility]) [id number] Dysthymia Dysthymia Problem 03/28/2016 12:0 0:00 AM EDT - 05/30/2020 12:00:00 AM EST SUZY ([facility]) [id number] Dysthymia Dysthymia Problem 03/28/2016 12:0 0:00 AM EDT - 05/30/2020 12:00:00 AM EST SUZY ([facility]) [id number] Memory finding Memory Finding Problem 05/04/2015 12:00:00 AM EDT - 05/30/2020 12:00:00 AM EST SUZY ([facility]) [id number] Memory finding Memory Finding Problem 05/04/2015 12:00:00 AM EDT - 05/30/2020 12:00:00 AM EST SUZY ([facility]) [id number] Memory finding Memory Finding Problem 05/04/2015 12:00:00 AM EDT - 05/30/2020 12:00:00 AM EST SUZY ([facility]) [id number] Memory finding Memory Finding Problem 05/04/2015 12:00:00 AM EDT - 05/30/2020 12:00:00 AM EST SUZY ([facility]) [id number] Memory finding Memory Finding Problem 05/04/2015 12:00:00 AM EDT - 05/30/2020 12:00:00 AM EST SUZY ([facility]) [id number] Memory finding Memory Finding Problem 05/04/2015 12:00:00 AM EDT - 05/30/2020 12:00:00 AM EST SUZY ([facility]) [id number] Memory finding Memory Finding Problem 05/04/2015 12:00:00 AM EDT - 05/30/2020 12:00:00 AM EST SUZY ([facility]) [id number] Memory finding Memory Finding Problem 05/04/2015 12:00:00 AM EDT - 05/30/2020 12:00:00 AM EST SUZY ([facility]) [id number] Syncope and collapse Syncope and Collapse Problem 04/19/2015 12:00:00 AM EDT - 05/30/2020 12:00:00 AM EST SUZY ([facility]) [id number] Syncope and collapse Syncope and Collapse Problem 04/19/2015 12:00:00 AM EDT - 05/30/2020 12:00:00 AM EST SUZY ([facility]) [id number] Syncope and collapse Syncope and Collapse Problem 04/19/2015 12:00:00 AM EDT - 05/30/2020 12:00:00 AM EST SUZY ([facility]) [id number] Syncope and collapse Syncope and Collapse Problem 04/19/2015 12:00:00 AM EDT - 05/30/2020 12:00:00 AM EST SUZY ([facility]) [id number] Syncope and collapse Syncope and Collapse Problem 04/19/2015 12:00:00 AM EDT - 05/30/2020 12:00:00 AM EST SUZY ([facility]) [id number] Syncope and collapse Syncope and Collapse Problem 04/19/2015 12:00:00 AM EDT - 05/30/2020 12:00:00 AM EST SUZY ([facility]) [id number] Syncope and collapse Syncope and Collapse Problem 04/19/2015 12:00:00 AM EDT - 05/30/2020 12:00:00 AM EST SUZY ([facility]) [id number] Syncope and collapse Syncope and Collapse Problem 04/19/2015 12:00:00 AM EDT - 05/30/2020 12:00:00 AM EST SUZY ([facility]) [id number] Open wound of nose Open Wound of Nose Problem 04/2014 12:00:00 AM EDT - 05/30/2020 12:00:00 AM EST SUZY ([facility]) [id number] Open wound of nose Open Wound of Nose Problem 04/2014 12:00:00 AM EDT - 05/30/2020 12:00:00 AM EST SUZY ([facility]) [id number] Open wound of nose Open Wound of Nose Problem 04/2014 12:00:00 AM EDT - 05/30/2020 12:00:00 AM EST SUZY ([facility]) [id number] Open wound of nose Open Wound of Nose Problem 04/2014 12:00:00 AM EDT - 05/30/2020 12:00:00 AM EST SUZY ([facility]) [id number] Open wound of nose Open Wound of Nose Problem 04/2014 12:00:00 AM EDT - 05/30/2020 12:00:00 AM EST SUZY ([facility]) [id number] Open wound of nose Open Wound of Nose Problem 04/2014 12:00:00 AM EDT - 05/30/2020 12:00:00 AM EST SUZY ([facility]) [id number] Open wound of nose Open Wound of Nose Problem 04/2014 12:00:00 AM EDT - 05/30/2020 12:00:00 AM EST SUZY ([facility]) [id number] Open wound of nose Open Wound of Nose Problem 04/2014 12:00:00 AM EDT - 05/30/2020 12:00:00 AM EST SUZY ([facility]) [id number] Emotional state finding Emotional State Finding Proble 03/09/2014 12:00:00 AM EDT - 05/30/2020 12:00:00 AM EST SUZY ([facility]) [id number] Emotional state finding Emotional State Finding Proble 03/09/2014 12:00:00 AM EDT - 05/30/2020 12:00:00 AM EST SUZY ([facility]) [id number] Emotional state finding Emotional State Finding Proble 03/09/2014 12:00:00 AM EDT - 05/30/2020 12:00:00 AM EST SUZY ([facility]) [id number] Emotional state finding Emotional State Finding Proble 03/09/2014 12:00:00 AM EDT - 05/30/2020 12:00:00 AM EST SUZY ([facility]) [id number] Emotional state finding Emotional State Finding Proble 03/09/2014 12:00:00 AM EDT - 05/30/2020 12:00:00 AM EST SUZY ([facility]) [id number] Emotional state finding Emotional State Finding Proble 03/09/2014 12:00:00 AM EDT - 05/30/2020 12:00:00 AM EST SUZY ([facility]) [id number] Emotional state finding Emotional State Finding Proble 03/09/2014 12:00:00 AM EDT - 05/30/2020 12:00:00 AM EST SUZY ([facility]) [id number] Emotional state finding Emotional State Finding Proble 03/09/2014 12:00:00 AM EDT - 05/30/2020 12:00:00 AM EST [facility]) Surgeries/Procedures Procedure Description Date Indications Data Source(s) ECG ROUTINE ECG W/LEAST 12 LDS W/I&R 03/31/2021 12:00: 00 AM EDT [facility] ([facility]) OFFICE OUTPATIENT VISIT 25 MINUTES 03/31/2021 12:00:00 AM EDT [facility] ([facility]) TOBACCO USE CESSATION INTERMEDIATE 3-10 MINUTES 2020 12:00:00 AM EDT [facility] ([facility]) ECG ROUTINE ECG W/LEAST 12 LDS W/I&R 09/27/2020 12:00: 00 AM EST [facility] ([facility]) Results ID Date Data Source [id number] 04/17/2021 12:00:00 AM EDT [facility]) Name Value Range Interpretation Code Description Data Claudia rce(s) Supporting Document(s) Borrelia burgdorferi Ab [Units/volume] in Serum by Immunoassay <0.9 0 Lyme Ab Screen [facility]) ID Date Data Source [id number] 04/04/2021 05:11:00 AM EDT [facility]) Name Value Range Interpretation Code Description Data Claudia rce(s) Supporting Document(s) vitamin B12 level 791 pg/mL [id number] Vitamin B12 Level [facility]) ID Date Data Source [id number] 04/04/2021 05:11:00 AM EDT [facility]) Name Value Range Interpretation Code Description Data Claudia rce(s) Supporting Document(s) thyroid stimulating hormone 0.555 uIU/mL 0.358-3.740 Thyroid Stimulating Hormone [facility]) ID Date Data Source [id number] 04/04/2021 05:11:00 AM EDT [facility]) Name Value Range Interpretation Code Description Data Claudia rce(s) Supporting Document(s) magnesium level 2.4 mg/dL 1.8-2.4 Magnesium Level [facility] ([facility]) ID Date Data Source [id number] 04/04/2021 05:11:00 AM EDT [facility] ([facility]) Name Value Range Interpretation Code Description Data Claudia rce(s) Supporting Document(s) phosphorus level 2.3 mg/dL 2.5-4.9 Below low normal Phosphorus [place] SUZY ([facility]) ID Date Data Source [id number] 04/04/2021 05:11:00 AM EDT [facility]) Name Value Range Interpretation Code Description Data Claudia rce(s) Supporting Document(s) glucose, fasting 91 mg/dL 70-100 Glucose, Fasting AT [facility] ([facility]) creatinine for GFR 0.60 mg/dL 0.70-1.30 Below low normal Creatinine for GFR [facility] ([facility]) blood urea nitrogen 19 mg/dL 7-18 Above high normal Blood Ure a Nitrogen [facility] ([facility]) sodium level 141 mEq/L 136-145 Sodium Level SUZY ([facility]) glomerular filtration rate > 60.0 >60 Glomerula r Filtration Rate [facility] ([facility]) potassium serum 4.2 mEq/L 3.5-5.1 Potassium Serum [facility]) chloride level 107 mEq/L 98-107 Chloride Level [facility] ([facility]) anion gap 6 mEq/L 8-16 Below low normal Anion Gap [facility] ( [facility]) carbon dioxide level 28 mEq/L 21-32 Carbon Dioxide Level SUZY ([facility]) calcium level 9.7 mg/dL 8.5-10.1 Calcium Level [facility]) ID Date Data Source [id number] 04/04/2021 05:11:00 AM EDT [facility]) Name Value Range Interpretation Code Description Data Claudia rce(s) Supporting Document(s) Hemoglobin A1c/Hemoglobin.total in Blood 5.2 % Hemoglobin a1C SUZY ([facility]) estimated average glucose 103 mg/dL 60-110 Estimated Average Glucose SIDON ([facility]) ID Date Data Source [id number] 04/04/2021 05:11:00 AM EDT SIDON ([facility]) Name Value Range Interpretation Code Description Data Claudia e(s) Supporting Document(s) white blood count 8.0 10 4.0-10.0 White Blood Count SUZY ([facility]) red blood count 4.29 10 4.30-6.10 Below low normal Red Blood Coun t SUZY ([facility]) hemoglobin 14.0 g/dL 13.5-17.5 Hemoglobin SIDON ([facility]) hematocrit 40.2 % 42.0-52.0 Below low normal Hematocrit SIDON ( [facility]) mean corpuscular volume 93.7 fL 80.0-96.0 Mean Corpusc ular Volume SUZY ([facility]) mean corpuscular HGB conc 34.8 g/dL 32.0-36.5 Mean Corpu scular HGB Conc SIDON ([facility]) mean corpuscular hemoglobin 32.6 pg 27.0-33.0 Mean Cor puscular Hemoglobin SIDON ([facility]) red cell distribution width 12.1 % 11.5-14.5 Red Cell Distribution Width SIDON ([facility]) platelet count, automated 196 10 150-450 Platelet C ount, Automated SUZY ([facility]) neutrophils % 52.6 % 36.0-66.0 Neutrophils % SUZY ( [facility]) lymph % 33.3 % 24.0-44.0 Lymph % SUZY ([facility]) eos % 2.4 % 0.0-3.0 Eos % SUZY ([facility]) mono % 10.6 % 2.0-8.0 Above high normal [place] % SUZY ([facility]) baso % 0.8 % 0.0-1.0 Baso % SUZY ([facility]) immature granulocyte % 0.3 % 0-3.0 Immature Gran ulocyte % SUZY ([facility]) neutrophils # 4.2 10 1.5-8.5 Neutrophils # SUZY ( [facility]) nucleated red blood cell % 0.0 % 0-0 Nucleated Red Blood Cell % SUZY ([facility]) lymph # 2.7 10 1.5-5.0 Lymph # SUZY ([facility]) eos # 0.2 10 0.0-0.5 Eos # SUZY ([facility]) mono # 0.9 10 0.0-0.8 Above high normal [place] # SUZY ([facility]) baso # 0.1 10 0.0-0.2 Baso # SUZY ([facility]) ID Date Data Source [id number] 04/04/2021 05:11:00 AM EDT SUZY ([facility]) Name Value Range Interpretation Code Description Data Claudia rce(s) Supporting Document(s) vitamin B12 level 791 pg/mL 247-911 Vitamin B12 Level SUZY ([facility]) ID Date Data Source [id number] 04/04/2021 05:11:00 AM EDT SUZY ([facility]) Name Value Range Interpretation Code Description Data Claudia rce(s) Supporting Document(s) thyroid stimulating hormone 0.555 uIU/mL 0.358-3.740 Thyroid Stimulating Hormone SUZY ([facility]) ID Date Data Source [id number] 04/04/2021 05:11:00 AM EDT SUZY ([facility]) Name Value Range Interpretation Code Description Data Claudia rce(s) Supporting Document(s) magnesium level 2.4 mg/dL 1.8-2.4 Magnesium Level ATHE [facility]) ID Date Data Source [id number] 04/04/2021 05:11:00 AM EDT SUZY ([facility]) Name Value Range Interpretation Code Description Data Claudia rce(s) Supporting Document(s) phosphorus level 2.3 mg/dL 2.5-4.9 Below low normal Phosphorus [place] SUZY ([facility]) ID Date Data Source [id number] 04/04/2021 05:11:00 AM EDT SUZY ([facility]) Name Value Range Interpretation Code Description Data Claudia rce(s) Supporting Document(s) glucose, fasting 91 mg/dL 70-100 Glucose, Fasting AT [facility]) blood urea nitrogen 19 mg/dL 7-18 Above high normal Blood Ure a Nitrogen SUZY ([facility]) glomerular filtration rate > 60.0 >60 Glomerula r Filtration Rate SIDON ([facility]) creatinine for GFR 0.60 mg/dL 0.70-1.30 Below low normal Creatinine for GFR SUZY ([facility]) sodium level 141 mEq/L 136-145 Sodium Level SUZY (No [facility]) chloride level 107 mEq/L 98-107 Chloride Level SUZY ([facility]) potassium serum 4.2 mEq/L 3.5-5.1 Potassium Serum ATH NA ([facility]) anion gap 6 mEq/L 8-16 Below low normal Anion Gap SIDON ( [facility]) carbon dioxide level 28 mEq/L 21-32 Carbon Dioxide Level SIDON ([facility]) calcium level 9.7 mg/dL 8.5-10.1 Calcium Level SIDON ( [facility]) ID Date Data Source [id number] 04/04/2021 05:11:00 AM EDT [facility]) Name Value Range Interpretation Code Description Data Claudia rce(s) Supporting Document(s) estimated average glucose 103 mg/dL 60-110 Estimated Average Glucose [facility]) Hemoglobin A1c/Hemoglobin.total in Blood 5.2 % Hemoglobin a1C [facility]) ID Date Data Source [id number] 04/04/2021 05:11:00 AM EDT SIDON ([facility]) Name Value Range Interpretation Code Description Data Claudia rce(s) Supporting Document(s) white blood count 8.0 10 4.0-10.0 White Blood Count SUZY ([facility]) red blood count 4.29 10 4.30-6.10 Below low normal Red Blood Coun t SUZY ([facility]) hemoglobin 14.0 g/dL 13.5-17.5 Hemoglobin SUZY ([facility]) hematocrit 40.2 % 42.0-52.0 Below low normal Hematocrit SIDON ( [facility]) mean corpuscular hemoglobin 32.6 pg 27.0-33.0 Mean Cor puscular Hemoglobin SIDON ([facility]) mean corpuscular volume 93.7 fL 80.0-96.0 Mean Corpusc ular Volume SUZY ([facility]) mean corpuscular HGB conc 34.8 g/dL 32.0-36.5 Mean Corpu scular HGB Conc SIDON ([facility]) red cell distribution width 12.1 % 11.5-14.5 Red Cell Distribution Width SIDON ([facility]) platelet count, automated 196 10 150-450 Platelet C ount, Automated SIDON ([facility]) neutrophils % 52.6 % 36.0-66.0 Neutrophils % SUZY ( [facility]) lymph % 33.3 % 24.0-44.0 Lymph % SUZY ([facility]) eos % 2.4 % 0.0-3.0 Eos % SUZY ([facility]) mono % 10.6 % 2.0-8.0 Above high normal [place] % SUZY ([facility]) baso % 0.8 % 0.0-1.0 Baso % SIDON ([facility]) immature granulocyte % 0.3 % 0-3.0 Immature Gran ulocyte % SUZY ([facility]) lymph # 2.7 10 1.5-5.0 Lymph # SUZY ([facility]) nucleated red blood cell % 0.0 % 0-0 Nucleated Red Blood Cell % SUZY ([facility]) neutrophils # 4.2 10 1.5-8.5 Neutrophils # SUZY ( [facility]) eos # 0.2 10 0.0-0.5 Eos # SUZY ([facility]) mono # 0.9 10 0.0-0.8 Above high normal [place] # SUZY ([facility]) baso # 0.1 10 0.0-0.2 Baso # SUZY ([facility]) ID Date Data Source [id number] 04/04/2021 05:11:00 AM EDT SUZY ([facility]) Name Value Range Interpretation Code Description Data Claudia rce(s) Supporting Document(s) vitamin B12 level 791 pg/mL 247-911 Vitamin B12 Level SUZY ([facility]) ID Date Data Source [id number] 04/04/2021 05:11:00 AM EDT SIDON ([facility]) Name Value Range Interpretation Code Description Data Claudia rce(s) Supporting Document(s) thyroid stimulating hormone 0.555 uIU/mL 0.358-3.740 Thyroid Stimulating Hormone SIDON ([facility]) ID Date Data Source [id number] 04/04/2021 05:11:00 AM EDT SUZY ([facility]) Name Value Range Interpretation Code Description Data Claudia rce(s) Supporting Document(s) magnesium level 2.4 mg/dL 1.8-2.4 Magnesium Level ATHE NA ([facility]) ID Date Data Source [id number] 04/04/2021 05:11:00 AM EDT [facility]) Name Value Range Interpretation Code Description Data Claudia rce(s) Supporting Document(s) phosphorus level 2.3 mg/dL 2.5-4.9 Below low normal Phosphorus [place] [facility] ID Date Data Source [id number] 04/04/2021 05:11:00 AM EDT SIDON ([facility]) Name Value Range Interpretation Code Description Data Claudia rce(s) Supporting Document(s) blood urea nitrogen 19 mg/dL 7-18 Above high normal Blood Ure a Nitrogen SUZY ([facility]) glucose, fasting 91 mg/dL 70-100 Glucose, Fasting AT [facility]) creatinine for GFR 0.60 mg/dL 0.70-1.30 Below low normal Creatinine for GFR SUZY ([facility]) glomerular filtration rate > 60.0 >60 Glomerula r Filtration Rate SUZY ([facility]) sodium level 141 mEq/L 136-145 Sodium Level SUZY (No [facility]) potassium serum 4.2 mEq/L 3.5-5.1 [facility] chloride level 107 mEq/L 98-107 Chloride Level SUZY ([facility]) carbon dioxide level 28 mEq/L 21-32 Carbon Dioxide Level SUZY ([facility]) anion gap 6 mEq/L 8-16 Below low normal Anion Gap SUZY ( [facility]) calcium level 9.7 mg/dL 8.5-10.1 Calcium Level SIDON ( [facility]) ID Date Data Source [id number] 04/04/2021 05:11:00 AM EDT SIDON ([facility]) Name Value Range Interpretation Code Description Data Claudia rce(s) Supporting Document(s) Hemoglobin A1c/Hemoglobin.total in Blood 5.2 % Hemoglobin a1C SUZY ([facility]) estimated average glucose 103 mg/dL 60-110 Estimated Average Glucose SIDON ([facility]) ID Date Data Source [id number] 04/04/2021 05:11:00 AM EDT SIDON ([facility]) Name Value Range Interpretation Code Description Data Claudia rce(s) Supporting Document(s) red blood count 4.29 10 4.30-6.10 Below low normal Red Blood Coun t SUZY ([facility]) white blood count 8.0 10 4.0-10.0 White Blood Count SUZY ([facility]) hemoglobin 14.0 g/dL 13.5-17.5 Hemoglobin SUZY ([facility]) hematocrit 40.2 % 42.0-52.0 Below low normal Hematocrit SUZY ( [facility]) mean corpuscular hemoglobin 32.6 pg 27.0-33.0 Mean Cor puscular Hemoglobin SUZY ([facility]) mean corpuscular volume 93.7 fL 80.0-96.0 Mean Corpusc ular Volume SUZY ([facility]) red cell distribution width 12.1 % 11.5-14.5 Red Cell Distribution Width SUZY ([facility]) mean corpuscular HGB conc 34.8 g/dL 32.0-36.5 Mean Corpu scular HGB Conc SUZY ([facility]) neutrophils % 52.6 % 36.0-66.0 Neutrophils % SIDON ( [facility]) platelet count, automated 196 10 150-450 Platelet C ount, Automated SUZY ([facility]) lymph % 33.3 % 24.0-44.0 Lymph % SIDON ([facility]) mono % 10.6 % 2.0-8.0 Above high normal [place] % SIDON ([facility]) eos % 2.4 % 0.0-3.0 Eos % SUZY ([facility]) baso % 0.8 % 0.0-1.0 Baso % SUZY ([facility]) nucleated red blood cell % 0.0 % 0-0 Nucleated Red Blood Cell % SUZY ([facility]) neutrophils # 4.2 10 1.5-8.5 Neutrophils # SIDON ( [facility]) immature granulocyte % 0.3 % 0-3.0 Immature Gran ulocyte % SUZY ([facility]) lymph # 2.7 10 1.5-5.0 Lymph # SUZY ([facility]) mono # 0.9 10 0.0-0.8 Above high normal [place] # SUZY ([facility]) baso # 0.1 10 0.0-0.2 Baso # [facility]ZY ([facility]) eos # 0.2 10 0.0-0.5 Eos # SUZY ([facility]) ID Date Data Source [id number] 04/04/2021 04:25:00 AM EDT SUZY ([facility]) Name Value Range Interpretation Code Description Data Claudia rce(s) Supporting Document(s) bedside glucose 78 mg/dL 70-105 Bedside Glucose ATHE NEDRA ([facility]) ID Date Data Source [id number] 04/04/2021 04:25:00 AM EDT SUZY ([facility]) Name Value Range Interpretation Code Description Data Claudia rce(s) Supporting Document(s) bedside glucose 78 mg/dL 70-105 Bedside Glucose ATHE ([facility]) ID Date Data Source [id number] 04/04/2021 04:25:00 AM EDT SUZY ([facility]) Name Value Range Interpretation Code Description Data Claudia rce(s) Supporting Document(s) bedside glucose 78 mg/dL 70-105 Bedside Glucose ATHE NEDRA ([facility]) ID Date Data Source [id number] 04/04/2021 03:48:00 AM EDT SUZY ([facility]) Name Value Range Interpretation Code Description Data Claudia rce(s) Supporting Document(s) bedside glucose 75 mg/dL 70-105 Bedside Glucose ATHE NEDRA ([facility]) ID Date Data Source [id number] 04/04/2021 03:48:00 AM EDT SUZY ([facility]) Name Value Range Interpretation Code Description Data Claudia rce(s) Supporting Document(s) bedside glucose 75 mg/dL 70-105 Bedside Glucose ATHE NEDRA ([facility]) ID Date Data Source [id number] 04/04/2021 03:48:00 AM EDT SUZY ([facility]) Name Value Range Interpretation Code Description Data Claudia rce(s) Supporting Document(s) bedside glucose 75 mg/dL 70-105 Bedside Glucose ATHE NEDRA ([facility]) ID Date Data Source [id number] 04/03/2021 06:51:00 AM EDT SUZY ([facility]) Name Value Range Interpretation Code Description Data Claudia rce(s) Supporting Document(s) bedside glucose 91 mg/dL 70-105 Bedside Glucose ATHE NEDRA ([facility]) ID Date Data Source [id number] 04/03/2021 06:51:00 AM EDT SUZY ([facility]) Name Value Range Interpretation Code Description Data Claudai rce(s) Supporting Document(s) bedside glucose 91 mg/dL 70-105 Bedside Glucose ATHE NEDRA ([facility]) ID Date Data Source [id number] 04/03/2021 06:51:00 AM EDT [facility]) Name Value Range Interpretation Code Description Data Claudia rce(s) Supporting Document(s) bedside glucose 91 mg/dL 70-105 Bedside Glucose ATHE NEDRA ([facility]) ID Date Data Source [id number] 04/03/2021 04:56:00 AM EDT SUZY ([facility]) Name Value Range Interpretation Code Description Data Claudia rce(s) Supporting Document(s) magnesium level 2.3 mg/dL 1.8-2.4 Magnesium Level ATHE NA ([facility]) ID Date Data Source [id number] 04/03/2021 04:56:00 AM [facility] Name Value Range Interpretation Code Description Data Claudia rce(s) Supporting Document(s) blood urea nitrogen 20 mg/dL 7-18 Above high normal Blood Ure a Nitrogen SUZY ([facility]) glucose, fasting 77 mg/dL 70-100 Glucose, Fasting AT [facility] ([facility]) creatinine for GFR 0.67 mg/dL 0.70-1.30 Below low normal Creatinine for GFR SUZY ([facility]) sodium level 142 mEq/L 136-145 Sodium Level SUZY ([facility]) glomerular filtration rate > 60.0 >60 Glomerula r Filtration Rate SUZY ([facility]) potassium serum 4.4 mEq/L 3.5-5.1 Potassium Serum ATHE ([facility]) chloride level 107 mEq/L 98-107 Chloride Level SIDON ([facility]) carbon dioxide level 32 mEq/L 21-32 Carbon Dioxide Level SIDON ([facility]) anion gap 3 mEq/L 8-16 Below low normal Anion Gap SUZY ( [facility]) calcium level 10.2 mg/dL 8.5-10.1 Above high normal [facility] ID Date Data Source [id number] 04/03/2021 04:56:00 AM EDT [facility]) Name Value Range Interpretation Code Description Data Claudia rce(s) Supporting Document(s) magnesium level 2.3 mg/dL 1.8-2.4 [facility] ID Date Data Source [id number] 04/03/2021 04:56:00 AM EDT [facility]) Name Value Range Interpretation Code Description Data Claudia rce(s) Supporting Document(s) glucose, fasting 77 mg/dL 70-100 Glucose, Fasting AT [facility] ([facility]) blood urea nitrogen 20 mg/dL 7-18 Above high normal Blood Ure a Nitrogen SUZY ([facility]) glomerular filtration rate > 60.0 >60 Glomerula r Filtration Rate SUZY ([facility]) creatinine for GFR 0.67 mg/dL 0.70-1.30 Below low normal Creatinine for GFR SUZY ([facility]) sodium level 142 mEq/L 136-145 Sodium Level SUZY (No [facility]) potassium serum 4.4 mEq/L 3.5-5.1 Potassium Serum ATHE NA ([facility]) chloride level 107 mEq/L 98-107 Chloride Level SUZY ([facility]) anion gap 3 mEq/L 8-16 Below low normal Anion Gap SUZY ( [facility]) carbon dioxide level 32 mEq/L 21-32 Carbon Dioxide Level SUZY ([facility]) calcium level 10.2 mg/dL 8.5-10.1 Above high normal [facility] ID Date Data Source [id number] 04/03/2021 04:56:00 AM EDT SIDON ([facility]) Name Value Range Interpretation Code Description Data Claudia rce(s) Supporting Document(s) magnesium level 2.3 mg/dL 1.8-2.4 [facility]) ID Date Data Source [id number] 04/03/2021 04:56:00 AM EDT [facility]) Name Value Range Interpretation Code Description Data Claudia rce(s) Supporting Document(s) glucose, fasting 77 mg/dL 70-100 Glucose, Fasting AT [facility]) blood urea nitrogen 20 mg/dL 7-18 Above high normal Blood Ure a Nitrogen SUZY ([facility]) glomerular filtration rate > 60.0 >60 Glomerula r Filtration Rate SUZY ([facility]) sodium level 142 mEq/L 136-145 Sodium Level SUZY ([facility]) creatinine for GFR 0.67 mg/dL 0.70-1.30 Below low normal Creatinine for GFR SUZY ([facility]) chloride level 107 mEq/L 98-107 Chloride Level SUZY ([facility]) potassium serum 4.4 mEq/L 3.5-5.1 Potassium Serum ATHE NA ([facility]) carbon dioxide level 32 mEq/L 21-32 Carbon Dioxide Level SUZY ([facility]) calcium level 10.2 mg/dL 8.5-10.1 Above high normal Calcium Level A [facility] ([facility]) anion gap 3 mEq/L 8-16 Below low normal Anion Gap SUZY ( [facility]) ID Date Data Source [id number] 04/03/2021 04:55:00 AM EDT SUZY ([facility]) Name Value Range Interpretation Code Description Data Claudia rce(s) Supporting Document(s) white blood count 10.5 10 4.0-10.0 Above high normal White Blood Count SUZY ([facility]) red blood count 4.38 10 4.30-6.10 Red Blood Count ATHE ([facility]) hemoglobin 14.3 g/dL 13.5-17.5 Hemoglobin SUZY ([facility]) hematocrit 41.8 % 42.0-52.0 Below low normal Hematocrit SUZY ( [facility]) mean corpuscular volume 95.4 fL 80.0-96.0 Mean Corpusc ular Volume SUZY ([facility]) mean corpuscular HGB conc 34.2 g/dL 32.0-36.5 Mean Corpu scular HGB Conc SUZY ([facility]) mean corpuscular hemoglobin 32.6 pg 27.0-33.0 Mean Cor puscular Hemoglobin SUZY ([facility]) red cell distribution width 12.4 % 11.5-14.5 Red Cell Distribution Width SUZY ([facility]) neutrophils % 59.7 % 36.0-66.0 Neutrophils % SUZY ( [facility]) platelet count, automated 232 10 150-450 Platelet C ount, Automated SUZY ([facility]) mono % 12.1 % 2.0-8.0 Above high normal [place] % SUZY ([facility]) lymph % 25.1 % 24.0-44.0 Lymph % SUYZ ([facility]) baso % 0.5 % 0.0-1.0 Baso % SUZY ([facility]) eos % 2.3 % 0.0-3.0 Eos % SUZY ([facility]) immature granulocyte % 0.3 % 0-3.0 Immature Gran ulocyte % SUZY ([facility]) nucleated red blood cell % 0.0 % 0-0 Nucleated Red Blood Cell % SUZY ([facility]) neutrophils # 6.3 10 1.5-8.5 Neutrophils # SUZY ( [facility]) lymph # 2.6 10 1.5-5.0 Lymph # SUZY ([facility]) eos # 0.2 10 0.0-0.5 Eos # SUZY ([facility]) mono # 1.3 10 0.0-0.8 Above high normal [place] # SUZY ([facility]) baso # 0.1 10 0.0-0.2 Baso # SUZY ([facility]) ID Date Data Source [id number] 04/03/2021 04:55:00 AM EDT SIDON ([facility]) Name Value Range Interpretation Code Description Data Claudia rce(s) Supporting Document(s) white blood count 10.5 10 4.0-10.0 Above high normal White Blood Count SUZY ([facility]) hemoglobin 14.3 g/dL 13.5-17.5 Hemoglobin SUZY ([facility]) hematocrit 41.8 % 42.0-52.0 Below low normal Hematocrit SUZY ( [facility]) red blood count 4.38 10 4.30-6.10 Red Blood Count ATHE NA ([facility]) mean corpuscular hemoglobin 32.6 pg 27.0-33.0 Mean Cor puscular Hemoglobin SUZY ([facility]) mean corpuscular volume 95.4 fL 80.0-96.0 Mean Corpusc ular Volume SUZY ([facility]) platelet count, automated 232 10 150-450 Platelet C ount, Automated SUZY ([facility]) red cell distribution width 12.4 % 11.5-14.5 Red Cell Distribution Width SUZY ([facility]) mean corpuscular HGB conc 34.2 g/dL 32.0-36.5 Mean Corpu scular HGB Conc SUZY ([facility]) neutrophils % 59.7 % 36.0-66.0 Neutrophils % SUZY ( [facility]) lymph % 25.1 % 24.0-44.0 Lymph % SUZY ([facility]) mono % 12.1 % 2.0-8.0 Above high normal [place] % [facility] [facility]) baso % 0.5 % 0.0-1.0 Baso % SUZY ([facility]) eos % 2.3 % 0.0-3.0 Eos % SUZY ([facility]) immature granulocyte % 0.3 % 0-3.0 Immature Gran ulocyte % SUZY ([facility]) neutrophils # 6.3 10 1.5-8.5 Neutrophils # SUZY ( [facility]) nucleated red blood cell % 0.0 % 0-0 Nucleated Red Blood Cell % SUZY ([facility]) eos # 0.2 10 0.0-0.5 Eos # SUZY ([facility]) lymph # 2.6 10 1.5-5.0 Lymph # SUZY ([facility]) mono # 1.3 10 0.0-0.8 Above high normal Finney # SUZY ([facility]) baso # 0.1 10 0.0-0.2 Baso # SUZY ([facility]) ID Date Data Source [id number] 04/03/2021 04:55:00 AM EDT SUZY ([facility]) Name Value Range Interpretation Code Description Data Claudia rce(s) Supporting Document(s) white blood count 10.5 10 4.0-10.0 Above high normal White Blood Count SUZY ([facility]) red blood count 4.38 10 4.30-6.10 Red Blood Count ATHE NA ([facility]) hemoglobin 14.3 g/dL 13.5-17.5 Hemoglobin SUZY ([facility]) mean corpuscular hemoglobin 32.6 pg 27.0-33.0 Mean Cor puscular Hemoglobin SUZY ([facility]) mean corpuscular volume 95.4 fL 80.0-96.0 Mean Corpusc ular Volume SUZY ([facility]) hematocrit 41.8 % 42.0-52.0 Below low normal Hematocrit SUZY ( [facility]) red cell distribution width 12.4 % 11.5-14.5 Red Cell Distribution Width SUZY ([facility]) mean corpuscular HGB conc 34.2 g/dL 32.0-36.5 Mean Corpu scular HGB Conc SUZY ([facility]) lymph % 25.1 % 24.0-44.0 Lymph % SUZY ([facility]) neutrophils % 59.7 % 36.0-66.0 Neutrophils % SIDON ( [facility]) platelet count, automated 232 10 150-450 Platelet C ount, Automated SUZY ([facility]) eos % 2.3 % 0.0-3.0 Eos % SIDON ([facility]) baso % 0.5 % 0.0-1.0 Baso % SUZY ([facility]) mono % 12.1 % 2.0-8.0 Above high normal Finney % SUZY ([facility]) nucleated red blood cell % 0.0 % 0-0 Nucleated Red Blood Cell % SIDON ([facility]) immature granulocyte % 0.3 % 0-3.0 Immature Gran ulocyte % SIDON ([facility]) neutrophils # 6.3 10 1.5-8.5 Neutrophils # SUZY ( [facility]) mono # 1.3 10 0.0-0.8 Above high normal Finney # SUZY ([facility]) lymph # 2.6 10 1.5-5.0 Lymph # SUZY ([facility]) eos # 0.2 10 0.0-0.5 Eos # SUZY ([facility]) baso # 0.1 10 0.0-0.2 Baso # SUZY ([facility]) ID Date Data Source [id number] 04/02/2021 03:14:00 PM EDT SUZY ([facility]) Name Value Range Interpretation Code Description Data Claudia rce(s) Supporting Document(s) ionized calcium 4.5 mg/dL 4.5-5.3 Ionized Calcium ATHE NA ([facility]) ID Date Data Source [id number] 04/02/2021 03:14:00 [facility] Name Value Range Interpretation Code Description Data Claudia rce(s) Supporting Document(s) ionized calcium 4.5 mg/dL 4.5-5.3 Ionized Calcium ATHE NA ([facility]) ID Date Data Source [id number] 04/02/2021 03:14:00 PM [facility]T [facility] Name Value Range Interpretation Code Description Data Claudia rce(s) Supporting Document(s) ionized calcium 4.5 mg/dL 4.5-5.3 Ionized Calcium ATHE ([facility]) ID Date Data Source [id number] 04/02/2021 01:16:00 PM EDT [facility]) Name Value Range Interpretation Code Description Data Claudia rce(s) Supporting Document(s) influenza A amplification negative negative Influenza a Amplification SUZY ([facility]) influenza B amplification negative negative [facility] RSV amplification negative negative RSV Amplification SUZY ([facility]) sars covid-19 amplification negative negative Sars Cov id-[facility] ID Date Data Source [id number] 04/02/2021 01:16:00 PM [facility]T [facility] Name Value Range Interpretation Code Description Data Claudia rce(s) Supporting Document(s) influenza B amplification negative negative Influenza B Amplification SUZY ([facility]) influenza A amplification negative negative Influenza a Amplification SUZY ([facility]) RSV amplification negative negative RSV Amplification SUZY ([facility]) sars covid-19 amplification negative negative Sars Cov id-19 Amplification [facility]) ID Date Data Source [id number] 04/02/2021 01:16:00 PM EDT [facility]) Name Value Range Interpretation Code Description Data Claudia rce(s) Supporting Document(s) influenza A amplification negative negative Influenza a Amplification SIDON ([facility]) influenza B amplification negative negative Influenza B Amplification SIDON ([facility]) RSV amplification negative negative RSV Amplification SIDON ([facility]) sars covid-19 amplification negative negative Sars Cov id-19 Amplification [facility]) ID Date Data Source [id number] 04/02/2021 01:16:00 PM EDT [facility] Name Value Range Interpretation Code Description Data Claudia rce(s) Supporting Document(s) SARS coronavirus 2 RNA [Presence] in Res piratory specimen by SUE with probe detection NEGATIVE [facility] This lab was ordered by [facility] a nd reported by [facility]. ID Date Data Source [id number] 04/02/2021 11:30:00 AM EDT [facility]) Name Value Range Interpretation Code Description Data Claudia rce(s) Supporting Document(s) total 25(oh) vitamin D 27.8 NG/mL 30.0-100.0 Below low normal T otal 25(Oh) Vitamin D [facility]) ID Date Data Source [id number] 04/02/2021 11:30:00 AM EDT [facility]) Name Value Range Interpretation Code Description Data Claudia rce(s) Supporting Document(s) PTH intact 73.9 pg/mL 18.5-88.0 PTH Intact [facility]) ID Date Data Source [id number] 04/02/2021 11:30:00 AM EDT [facility]) Name Value Range Interpretation Code Description Data Claudia rce(s) Supporting Document(s) glucose, fasting 155 mg/dL 70-100 Above high normal Glucose, Fas ting SUZY ([facility]) blood urea nitrogen 21 mg/dL 7-18 Above high normal Blood Ure a Nitrogen SUZY ([facility]) glomerular filtration rate > 60.0 >60 Glomerula r Filtration Rate SUZY ([facility]) creatinine for GFR 0.86 mg/dL 0.70-1.30 Creatinine for GF R SUZY ([facility]) sodium level 139 mEq/L 136-145 Sodium Level SUZY (No [facility]) carbon dioxide level 30 mEq/L 21-32 Carbon Dioxide Level SUZY ([facility]) potassium serum 4.5 mEq/L 3.5-5.1 Potassium Serum ATHE ([facility]) chloride level 103 mEq/L 98-107 Chloride Level SUZY ([facility]) AST/SGOT 19 U/L 7-37 AST/SGOT SUZY ([facility]) calcium level 11.3 mg/dL 8.5-10.1 Above high normal Calcium Level A THENA ([facility]) anion gap 6 mEq/L 8-16 Below low normal Anion Gap SUZY ( [facility]) ALT/SGPT 52 U/L 12-78 ALT/SGPT SUZY ([facility]) bilirubin,total 0.6 mg/dL 0.2-1.0 Bilirubin,total ATHE ([facility]) total protein 8.0 gm/dL 6.4-8.2 Total Protein SUZY ( [facility]) alkaline phosphatase 88 U/L 45-117 Alkaline Phosph atase SUZY ([facility]) albumin/globulin ratio Albumin/globu mar Ratio SUZY ([facility]) albumin 4.6 gm/dL 3.2-5.2 Albumin SUZY ([facility]) ID Date Data Source [id number] 04/02/2021 11:30:00 AM EDT SUZY ([facility]) Name Value Range Interpretation Code Description Data Claudia rce(s) Supporting Document(s) white blood count 14.8 10 4.0-10.0 Above high normal White Blood Count SUZY ([facility]) hemoglobin 16.0 g/dL 13.5-17.5 Hemoglobin SUZY ([facility]) red blood count 4.89 10 4.30-6.10 Red Blood Count ATHE NA ([facility]) hematocrit 45.1 % 42.0-52.0 Hematocrit SUZY ([facility]) mean corpuscular volume 92.2 fL 80.0-96.0 Mean Corpusc ular Volume SUZY ([facility]) mean corpuscular HGB conc 35.5 g/dL 32.0-36.5 Mean Corpu scular HGB Conc SUZY ([facility]) mean corpuscular hemoglobin 32.7 pg 27.0-33.0 Mean Cor puscular Hemoglobin SUZY ([facility]) platelet count, automated 283 10 150-450 Platelet C ount, Automated SUZY ([facility]) nucleated red blood cell % 0.0 % 0-0 Nucleated Red Blood Cell % SUZY ([facility]) red cell distribution width 12.1 % 11.5-14.5 Red Cell Distribution Width SUZY ([facility]) ID Date Data Source [id number] 04/02/2021 11:30:00 AM EDT [facility]) Name Value Range Interpretation Code Description Data Claudia rce(s) Supporting Document(s) total 25(oh) vitamin D 27.8 NG/mL 30.0-100.0 Below low normal T otal 25(Oh) Vitamin D SUZY ([facility]) ID Date Data Source [id number] 04/02/2021 11:30:00 AM EDT [facility]) Name Value Range Interpretation Code Description Data Claudia rce(s) Supporting Document(s) PTH intact 73.9 pg/mL 18.5-88.0 [facility]TH Intact [facility] ID Date Data Source [id number] 04/02/2021 11:30:00 AM EDT SUZY ([facility]) Name Value Range Interpretation Code Description Data Claudia rce(s) Supporting Document(s) glucose, fasting 155 mg/dL 70-100 Above high normal Glucose, Fas ting SUZY ([facility]) creatinine for GFR 0.86 mg/dL 0.70-1.30 Creatinine for GF R SUZY ([facility]) blood urea nitrogen 21 mg/dL 7-18 Above high normal Blood Ure a Nitrogen SUZY ([facility]) glomerular filtration rate > 60.0 >60 Glomerula r Filtration Rate SUZY ([facility]) carbon dioxide level 30 mEq/L 21-32 Carbon Dioxide Level SUZY ([facility]) potassium serum 4.5 mEq/L 3.5-5.1 Potassium Serum ATHE NA ([facility]) sodium level 139 mEq/L 136-145 Sodium Level SUZY ([facility]) chloride level 103 mEq/L 98-107 Chloride Level SUZY ([facility]) anion gap 6 mEq/L 8-16 Below low normal Anion Gap SUZY ( [facility]) AST/SGOT 19 U/L 7-37 AST/SGOT SUZY ([facility]) calcium level 11.3 mg/dL 8.5-10.1 Above high normal Calcium Level A THENA ([facility]) ALT/SGPT 52 U/L 12-78 ALT/SGPT SUZY ([facility]) bilirubin,total 0.6 mg/dL 0.2-1.0 Bilirubin,total ATHE NA ([facility]) alkaline phosphatase 88 U/L 45-117 Alkaline Phosph atase SUZY ([facility]) albumin/globulin ratio Albumin/globu mar Ratio SUZY ([facility]) albumin 4.6 gm/dL 3.2-5.2 Albumin SUZY ([facility]) total protein 8.0 gm/dL 6.4-8.2 Total Protein SUZY ( [facility]) ID Date Data Source [id number] 04/02/2021 11:30:00 AM EDT SIDON ([facility]) Name Value Range Interpretation Code Description Data Claudia rce(s) Supporting Document(s) red blood count 4.89 10 4.30-6.10 Red Blood Count ATHE ([facility]) hemoglobin 16.0 g/dL 13.5-17.5 Hemoglobin SUZY ([facility]) white blood count 14.8 10 4.0-10.0 Above high normal White Blood Count SUZY ([facility]) mean corpuscular hemoglobin 32.7 pg 27.0-33.0 Mean Cor puscular Hemoglobin SUZY ([facility]) hematocrit 45.1 % 42.0-52.0 Hematocrit SUZY ([facility]) mean corpuscular volume 92.2 fL 80.0-96.0 Mean Corpusc ular Volume SUZY ([facility]) red cell distribution width 12.1 % 11.5-14.5 Red Cell Distribution Width SUZY ([facility]) mean corpuscular HGB conc 35.5 g/dL 32.0-36.5 Mean Corpu scular HGB Conc SUZY ([facility]) platelet count, automated 283 10 150-450 Platelet C ount, Automated SUZY ([facility]) nucleated red blood cell % 0.0 % 0-0 Nucleated Red Blood Cell % SUZY ([facility]) ID Date Data Source [id number] 04/02/2021 11:30:00 AM EDT SIDON ([facility]) Name Value Range Interpretation Code Description Data Claudia rce(s) Supporting Document(s) total 25(oh) vitamin D 27.8 NG/mL 30.0-100.0 Below low normal T otal 25(Oh) Vitamin D SIDON ([facility]) ID Date Data Source [id number] 04/02/2021 11:30:00 AM EDT [facility]) Name Value Range Interpretation Code Description Data Claudia rce(s) Supporting Document(s) PTH intact 73.9 pg/mL 18.5-88.0 PTH Intact SUZY ([facility]) ID Date Data Source [id number] 04/02/2021 11:30:00 AM EDT SUZY ([facility]) Name Value Range Interpretation Code Description Data Claudia rce(s) Supporting Document(s) blood urea nitrogen 21 mg/dL 7-18 Above high normal Blood Ure a Nitrogen SUZY ([facility]) glucose, fasting 155 mg/dL 70-100 Above high normal Glucose, Fas ting SUZY ([facility]) creatinine for GFR 0.86 mg/dL 0.70-1.30 Creatinine for GF R SUZY ([facility]) glomerular filtration rate > 60.0 >60 Glomerula r Filtration Rate SUZY ([facility]) potassium serum 4.5 mEq/L 3.5-5.1 Potassium Serum ATHE NA ([facility]) sodium level 139 mEq/L 136-145 Sodium Level SUZY (No [facility]) chloride level 103 mEq/L 98-107 Chloride Level SUZY ([facility]) carbon dioxide level 30 mEq/L 21-32 Carbon Dioxide Level SUZY ([facility]) calcium level 11.3 mg/dL 8.5-10.1 Above high normal Calcium Level A THENA ([facility]) anion gap 6 mEq/L 8-16 Below low normal Anion Gap SUZY ( [facility]) alkaline phosphatase 88 U/L 45-117 Alkaline Phosph atase SUZY ([facility]) AST/SGOT 19 U/L 7-37 AST/SGOT SUZY ([facility]) ALT/SGPT 52 U/L 12-78 ALT/SGPT SUZY ([facility]) bilirubin,total 0.6 mg/dL 0.2-1.0 Bilirubin,total ATHE ([facility]) total protein 8.0 gm/dL 6.4-8.2 Total Protein SUZY ( [facility]) albumin 4.6 gm/dL 3.2-5.2 Albumin SUZY ([facility]) albumin/globulin ratio Albumin/globu mar Ratio SUZY ([facility]) ID Date Data Source [id number] 04/02/2021 11:30:00 AM EDT SIDON ([facility]) Name Value Range Interpretation Code Description Data Claudia rce(s) Supporting Document(s) red blood count 4.89 10 4.30-6.10 Red Blood Count ATHE NA ([facility]) white blood count 14.8 10 4.0-10.0 Above high normal White Blood Count SUZY ([facility]) hemoglobin 16.0 g/dL 13.5-17.5 Hemoglobin SUZY ([facility]) hematocrit 45.1 % 42.0-52.0 Hematocrit SUZY ([facility]) mean corpuscular volume 92.2 fL 80.0-96.0 Mean Corpusc ular Volume SUZY ([facility]) mean corpuscular HGB conc 35.5 g/dL 32.0-36.5 Mean Corpu scular HGB Conc SUZY ([facility]) mean corpuscular hemoglobin 32.7 pg 27.0-33.0 Mean Cor puscular Hemoglobin SUZY ([facility]) platelet count, automated 283 10 150-450 Platelet C ount, Automated SUZY ([facility]) nucleated red blood cell % 0.0 % 0-0 Nucleated Red Blood Cell % SIDON ([facility]) red cell distribution width 12.1 % 11.5-14.5 Red Cell Distribution Width SIDON ([facility]) ID Date Data Source [id number] 03/30/2021 08:31:00 AM EDT [facility] 1 OrderSheet [facility] Emergency Department [address] [place] [address] Phone #: ext- [phone] 03/30/2021 08:30 Patient: [...] rce(s) Supporting Document(s) ID Date Data Source [id number] 03/30/2021 08:31:00 AM EDT [facility] 1 Medication Reconciliation Report [facility] Emergency Department [address] [place] [address] Phone #: [phone]- [phone] 03/30/2021 08:30 Patient: TIMI YARBROUGH Sex: M [...] 21 tablet. Refills: 0. Substitution permitted.Pharmacy - [facility] - [address] [place] [address]. .gabapentin 600 mg tablet Take 1 tablet three times a day as directed for 30 days -- Dispense 90 tablet.Refills: 0. Substitution permitted.Pharmacy - [facility] - [address] [place] [address]. Phone: [phone] Medication Reconciliation Report [facility] Emergency Department [address] [place] [address] Phone #: ext- [phone] 03/30/2021 08:30 Patient: TIMI YARBROUGH Sex: M : 1985 Age: [id number] . -- AILYN Gonzalez Name Value Range Interpretation Code Description Data Claudia rce(s) Supporting Document(s) ID Date Data Source [id number] 03/30/2021 08:31:00 AM EDT [facility] 1 Medication Administration Record [facility] Emergency Department [address] [place] [address] Phone #: ext- [phone] 03/30/2021 08:30 [id number] Sex[facility] M : 1985 Age: 36yWeight: 99.7 kgHeight/Length: 74 inBMI: 28.2ALLERGIES: Chantix Date/Time Medication Administered Medication OrderedGiven TORADOL [IM] (KETOROLAC Toradol IM 60 mg09:50 03/30/2021 TROMETHAMINE)Janice Wilson R.N. Dose: 60 mg IMGiven PREDNISONE [PO] predniSONE PO 60 mg09:48 03/30/2021 Dose: 60 mg Tablets Janice Tan R.N. Name Value Range Interpretation Code Description Data Claudia rce(s) Supporting Document(s) ID Date Data Source [id number] 03/30/2021 08:31:00 AM EDT [facility] 1 General Instructions [facility] Emergency Department [address] [place] [address] Phone #: ext- [phone] 03/30/2021 08:30 Patient: [...] 21 tablet. Refills: 0. Substitution permitted.Pharmacy - [facility] - [address] [place] [phone]. .gabapentin 600 mg tablet Take 1 tablet three times a day as directed for 30 days -- Dispense 90 tablet.Refills: 0. Substitution permitted.Pharmacy - [facility] - [address] [place] [phone]. .Follow-up:Follow up with your doctor today. Call for an appointment. Reason for referral: evaluation, treatment andrefer to Neurology. Summary of care provided to patient.Understanding of the discharge instructions verbalized by patient. ADDITIONAL INFORMATION 2 General Instructions [facility] Emergency Department [address] [place] [address] Phone #: ext- [phone] 03/30/2021 08:30 Patient: [...] rest at home today. 3 General Instructions [facility] Department [address] [place] [address] Phone #: ext- [phone] 03/30/2021 08:30 Patient: [...] leg, or face Trouble speaking or seeing [employer]. [address] [place] [address], [place] [address]. All rights reserved. This information is not intended as asubstitute for professional medical care. Always follow your healthcare professional's instructions. You have been given t he following additional information: Trigeminal Neuralgia(Electronically signed by AILYN Gonzalez 03/30/2021 21:50) 4 General Instructions [facility] Emergency Department [address] [place] [address] Phone #: ext- [phone] 03/30/2021 08:30 Patient: TIMI YARBROUGH Sex: M : 1985 Age: 36y Name Value Range Interpretation Code Description Data Claudia rce(s) Supporting Document(s) ID Date Data Source [id number] 03/30/2021 08:31:00 AM EDT [facility] 1 Clinical Report - Nurses [facility] Emergency Department [address] [place] [address] Phone #: ext- [phone] 03/30/2021 08:30 Patient: [...] eating). No fever, cough or difficulty breathing.Treatment PLATE CONDITIONER:None.SEPSIS SCREEN: SIRS SCREEN NEGATIVE. SEPSIS SCREEN NEGATIVE. [...] Gloria, R.N.History 2 Clinical Report - Nurses [facility] Emergency Department [address] [place] [address] Phone #: ext- [phone] 03/30/2021 08:30 Patient: [...] on patient. To waiting room. --08:52 03/30/21 Rois Gloria R.N.PHYSICAL ASSESSMENTAmbulatory to room.GENERAL / NEURO [...] deltoid. Allergies 3 Clinical Report - Nurses [facility] [address] [place] [address] Phone #: ext- [phone] 03/30/2021 08:30 Patient: [...] Patient verbalized understanding. Written instructions provided in Khmer. The patient was discharged by the physician marketing communications assistant. He was discharged home and unaccompanied [...] rce(s) Supporting Document(s) ID Date Data Source [id number] 03/30/2021 08:31:00 AM EDT [facility] 1 Clinical Report - Physicians/Mid Levels [facility] Emergency Department [address] [place] [address] Phone #: ext- [phone] 03/30/2021 08:30 [id number] Sex: M : 1985 Age: 36y Time [...] HISTORY 2 Clinical Report - Physicians/Mid Levels [facility] Emergency Department [address] [place] [address] Phone #: ext- [phone] 03/30/2021 08:30 Patient: [...] Oral. 3 Clinical Report - Physicians/Mid Levels [facility] Emergency Department [address] [place] [address] Phone #: ext- [phone] 03/30/2021 08:30 Patient: TIMI YARBROUGH [facility]#: [id number] Sex: M : 1985 Age: 36y carBAMazepine Oral. Chlorthalidone Oral. Lisinopril Oral. Meclizine HCl Oral. Prescription Medications: Medrol (Shane) 4 mg tablets in a dose pack Take 1 tablet as directed for 6 days -- start tomorrow. Dispense 21 tablet. Refills: 0. Substitution permitted. Pharmacy - [facility] [address] [phone]. . gabapentin 600 mg tablet Take 1 tablet three times a day as directed for 30 days -- Dispense 90 tablet. Refills: 0. Substitution permitted. Pharmacy - [facility] [address] [phone]. . Follow-up: Follow up with your doctor today. Call for an appointment. Reason for referral: evaluation, treatment and refer to Neurology. Summary of care provided to patient. Understanding of the discharge instructions verbalized by patient.(Electronically signed by AILYN Gonzalez 03/30/2021 21:50) Name Value Range Interpretation Code Description Data Claudia rce(s) Supporting Document(s) ID Date Data Source [id number] 02/21/2021 12:00:00 AM EDT SIDON ([facility]) Name Value Range Interpretation Code Description Data Claudia rce(s) Supporting Document(s) Color of Urine tnp Color SIDON ([facility]) ID Date Data Source [id number] 02/21/2021 12:00:00 AM EDT [facility]) Name Value Range Interpretation Code Description Data Claudia rce(s) Supporting Document(s) Glucose [Mass/volume] in Serum or Plasma 110 mg/dL 65-99 Above high normal [facility]ucose [facility] Creatinine [Mass/volume] in Serum or Plasma 0.70 mg/dL 0.60-1.35 Creatinine [facility]) Urea nitrogen [Mass/volume] in Serum or Plasma 15 mg/dL 7-25 Urea Nitrogen (BUN) [facility]) Glomerular filtration rate/1.73 sq M.pre dicted among non-blacks [Volume Rate/Area] in Serum, Plasma or Blood by Creatinine-based formula (CKD-EPI) 121 mL/min/1.73m2 > or = 60 eGFR Non-afr. Maltese SUZY ([facility]) Sodium [Moles/volume] in Serum or Plasma 139 mmol/L 135-146 Sodium SIDON ([facility]) Urea nitrogen/Creatinine [Mass Ratio] in Serum or Plasma not applic able 6-22 BUN/creatinine Ratio [facility]) Glomerular filtration rate/1.73 sq M.pre dicted among blacks [Volume Rate/Area] in Serum, Plasma or Blood by Creatinine-based formula (CKD-EPI) 140 mL/min/1.73m2 > or = 60 eGFR SUZY ([facility]) Chloride [Moles/volume] in Serum or Plasma 103 mmol/L 98-110 Chloride SUZY ([facility]) Calcium [Mass/volume] in Serum or Plasma 11.0 mg/dL 8.6-10.3 Above high normal Calcium SUZY ([facility]) Carbon dioxide, total [Moles/volume] in Serum or Plasma 29 mmol/L 20-32 Carbon Dioxide SUZY ([facility]) Potassium [Moles/volume] in Serum or Plasma 4.0 mmol/L 3.5-5.3 Potassium SIDON ([facility]) Albumin [Mass/volume] in Serum or Plasma 4.8 g/dL 3.6-5.1 Albumin SIDON ([facility]) Globulin [Mass/volume] in Serum by calculation 2.7 g/dL_(calc) 1.9- 3.7 Globulin SIDON ([facility]) Albumin/Globulin [Mass Ratio] in Serum or Plasma 1.8 (calc) 1.0-2 .5 Albumin/globulin Ratio SIDON ([facility]) Protein [Mass/volume] in Serum or Plasma 7.5 g/dL 6.1-8.1 Protein, Total SIDON ([facility]) Aspartate aminotransferase [Enzymatic activity/volume] in Serum or Plasma 23 U/L 10-40 Ast SIDON ([facility]) Bilirubin.total [Mass/volume] in Serum or Plasma 0.6 mg/dL 0.2-1 .2 Bilirubin, Total SUZY ([facility]) Alanine aminotransferase [Enzymatic activity/volume] in Seru m or Plasma 23 U/L 9-46 Alt SIDON ([facility]) Alkaline phosphatase [Enzymatic activity/volume] in Serum or Plasma 84 U/L 36-130 Alkaline Phosphatase SIDON ([facility]) ID Date Data Source [id number] 02/21/2021 12:00:00 AM EDT SIDON ([facility]) Name Value Range Interpretation Code Description Data Claudia rce(s) Supporting Document(s) Triglyceride [Mass/volume] in Serum or Plasma 108 mg/dL <150 Triglycerides SUZY ([facility]) Cholesterol in HDL [Mass/volume] in Serum or Plasma 35 mg/dL > or = 40 Below low normal HDL Cholesterol SUZY ([facility]) Cholesterol [Mass/volume] in Serum or Plasma 233 mg/dL <200 Above high normal Cholesterol, Total SUZY ([facility]) Cholesterol non HDL [Mass/volume] in Serum or Plasma 198 mg/dL_( calc) <130 Above high normal Non HDL Cholesterol SUZY ([facility]) Cholesterol in LDL [Mass/volume] in Serum or Plasma by calculation 175 mg/dL_(calc) Above high normal LDL-cholesterol SUZY ([facility]) Cholesterol.total/Cholesterol in HDL [Mass Ratio] in Serum o r Plasma 6.7 (calc) <5.0 Above high normal Chol/hdlc Ratio SUZY ([facility]) ID Date Data Source [id number] 02/21/2021 12:00:00 AM EDT [facility]) Name Value Range Interpretation Code Description Data Claudia rce(s) Supporting Document(s) Color of Urine tnp Color SUZY ([facility]) ID Date Data Source [id number] 02/21/2021 12:00:00 AM EDT SUZY ([facility]) Name Value Range Interpretation Code Description Data Claudia rce(s) Supporting Document(s) Glucose [Mass/volume] in Serum or Plasma 110 mg/dL 65-99 Above high normal Glucose SUZY ([facility]) Urea nitrogen [Mass/volume] in Serum or Plasma 15 mg/dL 7-25 Urea Nitrogen (BUN) SUZY ([facility]) Creatinine [Mass/volume] in Serum or Plasma 0.70 mg/dL 0.60-1.35 Creatinine SUZY ([facility]) Urea nitrogen/Creatinine [Mass Ratio] in Serum or Plasma not applic able 6-22 BUN/creatinine Ratio SUZY ([facility]) Glomerular filtration rate/1.73 sq M.pre dicted among blacks [Volume Rate/Area] in Serum, Plasma or Blood by Creatinine-based formula (CKD-EPI) 140 mL/min/1.73m2 > or = 60 eGFR SUZY (No [facility]) Potassium [Moles/volume] in Serum or Plasma 4.0 mmol/L 3.5-5.3 Potassium SUZY ([facility]) Sodium [Moles/volume] in Serum or Plasma 139 mmol/L 135-146 Sodium SUZY ([facility]) Glomerular filtration rate/1.73 sq M.pre dicted among non-blacks [Volume Rate/Area] in Serum, Plasma or Blood by Creatinine-based formula (CKD-EPI) 121 mL/min/1.73m2 > or = 60 eGFR Non-afr. Maltese SUZY ([facility]) Calcium [Mass/volume] in Serum or Plasma 11.0 mg/dL 8.6-10.3 Above high normal Calcium SUZY ([facility]) Protein [Mass/volume] in Serum or Plasma 7.5 g/dL 6.1-8.1 Protein, Total SUZY ([facility]) Albumin [Mass/volume] in Serum or Plasma 4.8 g/dL 3.6-5.1 Albumin SUZY ([facility]) Chloride [Moles/volume] in Serum or Plasma 103 mmol/L 98-110 Chloride SUZY ([facility]) Carbon dioxide, total [Moles/volume] in Serum or Plasma 29 mmol/L 20-32 Carbon Dioxide SUZY ([facility]) Albumin/Globulin [Mass Ratio] in Serum or Plasma 1.8 (calc) 1.0-2 .5 Albumin/globulin Ratio SUZY ([facility]) Globulin [Mass/volume] in Serum by calculation 2.7 g/dL_(calc) 1.9- 3.7 Globulin SUZY ([facility]) Alkaline phosphatase [Enzymatic activity/volume] in Serum or Plasma 84 U/L 36-130 Alkaline Phosphatase SIDON ([facility]) Aspartate aminotransferase [Enzymatic activity/volume] in Serum or Plasma 23 U/L 10-40 Ast SUZY ([facility]) Bilirubin.total [Mass/volume] in Serum or Plasma 0.6 mg/dL 0.2-1 .2 Bilirubin, Total SUZY ([facility]) Alanine aminotransferase [Enzymatic activity/volume] in Seru m or Plasma 23 U/L 9-46 Alt SUZY ([facility]) ID Date Data Source [id number] 02/21/2021 12:00:00 AM EDT SUZY ([facility]) Name Value Range Interpretation Code Description Data Claudia rce(s) Supporting Document(s) Cholesterol [Mass/volume] in Serum or Plasma 233 mg/dL <200 Above high normal Cholesterol, Total SUZY ([facility]) Triglyceride [Mass/volume] in Serum or Plasma 108 mg/dL <150 Triglycerides SUZY ([facility]) Cholesterol in LDL [Mass/volume] in Serum or Plasma by calculation 175 mg/dL_(calc) Above high normal LDL-cholesterol SUZY ([facility]) Cholesterol in HDL [Mass/volume] in Serum or Plasma 35 mg/dL > or = 40 Below low normal HDL Cholesterol SUZY ([facility]) Cholesterol.total/Cholesterol in HDL [Mass Ratio] in Serum o r Plasma 6.7 (calc) <5.0 Above high normal Chol/hdlc Ratio SUZY ([facility]) Cholesterol non HDL [Mass/volume] in Serum or Plasma 198 mg/dL_( calc) <130 Above high normal Non HDL Cholesterol SUZY ([facility]) ID Date Data Source [id number] 02/21/2021 12:00:00 AM EDT SUZY ([facility]) Name Value Range Interpretation Code Description Data Claudia rce(s) Supporting Document(s) Color of Urine tnp Color SUZY ([facility]) ID Date Data Source [id number] 02/21/2021 12:00:00 AM EDT SUZY ([facility]) Name Value Range Interpretation Code Description Data Claudia rce(s) Supporting Document(s) Urea nitrogen [Mass/volume] in Serum or Plasma 15 mg/dL 7-25 Urea Nitrogen (BUN) SUZY ([facility]) Glucose [Mass/volume] in Serum or Plasma 110 mg/dL 65-99 Above high normal Glucose SUZY ([facility]) Creatinine [Mass/volume] in Serum or Plasma 0.70 mg/dL 0.60-1.35 Creatinine SUZY ([facility]) Sodium [Moles/volume] in Serum or Plasma 139 mmol/L 135-146 Sodium SUZY ([facility]) Glomerular filtration rate/1.73 sq M.pre dicted among blacks [Volume Rate/Area] in Serum, Plasma or Blood by Creatinine-based formula (CKD-EPI) 140 mL/min/1.73m2 > or = 60 eGFR SUZY ([facility]) Urea nitrogen/Creatinine [Mass Ratio] in Serum or Plasma not applic able 6-22 BUN/creatinine Ratio SUZY ([facility]) Glomerular filtration rate/1.73 sq M.pre dicted among non-blacks [Volume Rate/Area] in Serum, Plasma or Blood by Creatinine-based formula (CKD-EPI) 121 mL/min/1.73m2 > or = 60 eGFR Non-afr. Maltese SUZY ([facility]) Calcium [Mass/volume] in Serum or Plasma 11.0 mg/dL 8.6-10.3 Above high normal Calcium SUZY ([facility]) Chloride [Moles/volume] in Serum or Plasma 103 mmol/L 98-110 Chloride SUZY ([facility]) Potassium [Moles/volume] in Serum or Plasma 4.0 mmol/L 3.5-5.3 Potassium SUZY ([facility]) Protein [Mass/volume] in Serum or Plasma 7.5 g/dL 6.1-8.1 Protein, Total SUZY ([facility]) Carbon dioxide, total [Moles/volume] in Serum or Plasma 29 mmol/L 20-32 Carbon Dioxide [facility]) Albumin/Globulin [Mass Ratio] in Serum or Plasma 1.8 (calc) 1.0-2 .5 Albumin/globulin Ratio [facility]) Globulin [Mass/volume] in Serum by calculation 2.7 g/dL_(calc) 1.9- 3.7 Globulin SUZY ([facility]) Albumin [Mass/volume] in Serum or Plasma 4.8 g/dL 3.6-5.1 Albumin SUZY ([facility]) Alanine aminotransferase [Enzymatic activity/volume] in Seru m or Plasma 23 U/L 9-46 Alt SUZY ([facility]) Alkaline phosphatase [Enzymatic activity/volume] in Serum or Plasma 84 U/L 36-130 Alkaline Phosphatase SUZY ([facility]) Bilirubin.total [Mass/volume] in Serum or Plasma 0.6 mg/dL 0.2-1 .2 Bilirubin, Total SUZY ([facility]) Aspartate aminotransferase [Enzymatic activity/volume] in Serum or Plasma 23 U/L 10-40 Ast SUZY ([facility]) ID Date Data Source [id number] 02/21/2021 12:00:00 AM EDT SUZY ([facility]) Name Value Range Interpretation Code Description Data Claudia rce(s) Supporting Document(s) Cholesterol in HDL [Mass/volume] in Serum or Plasma 35 mg/dL > or = 40 Below low normal HDL Cholesterol SUZY ([facility]) Cholesterol [Mass/volume] in Serum or Plasma 233 mg/dL <200 Above high normal Cholesterol, Total SUZY ([facility]) Cholesterol.total/Cholesterol in HDL [Mass Ratio] in Serum o r Plasma 6.7 (calc) <5.0 Above high normal Chol/hdlc Ratio SUZY ([facility]) Cholesterol in LDL [Mass/volume] in Serum or Plasma by calculation 175 mg/dL_(calc) Above high normal LDL-cholesterol SUZY ([facility]) Triglyceride [Mass/volume] in Serum or Plasma 108 mg/dL <150 Triglycerides SUZY ([facility]) Cholesterol non HDL [Mass/volume] in Serum or Plasma 198 mg/dL_( calc) <130 Above high normal Non HDL Cholesterol SUZY ([facility]) ID Date Data Source [id number] 12/25/2020 12:19:00 PM EDT SUZY ([facility]) Name Value Range Interpretation Code Description Data Claudia rce(s) Supporting Document(s) amphetamines level urine negative negative Amphetamine s Level Urine SUZY ([facility]) barbiturates urine negative negative Barbiturates Urin e SUZY ([facility]) benzodiazepines urine negative negative Benzodiazepine s Urine SUZY ([facility]) methadone urine negative negative Methadone Urine ATHE NA ([facility]) cannabinoids urine positive negative Above high normal Cannabinoi ds Urine SUZY ([facility]) opiates urine negative negative Opiates Urine SUZY ( [facility]) cocaine metabolite urine negative negative Cocaine Met abolite Urine SUZY ([facility]) phencyclidine urine negative negative Phencyclidine Ur ine SUZY ([facility]) ID Date Data Source [id number] 12/25/2020 12:19:00 PM EDT SIDON ([facility]) Name Value Range Interpretation Code Description Data Claudia rce(s) Supporting Document(s) appearance, urine rfx clear clear Appearance, Ur ine Rfx SIDON ([facility]) color, urine rfx yellow yellow Color, Urine Rfx AT [place] ([facility]) specific gravity ur auto rfx S3 1.002-1.035 Specif ic [place] Ur Auto Rfx SIDON ([facility]) pH,urine rfx 7.0 units 5.0-9.0 pH,urine Rfx SIDON (No [facility]) protein, urine auto rfx 2+ negative Above high normal Prote in, Urine Auto Rfx SIDON ([facility]) ketone, urine auto rfx 1+ negative Above high normal Ketone , Urine Auto Rfx SIDON ([facility]) glucose, urine (UA) auto rfx negative negative Glucose , Urine (UA) Auto Rfx SIDON ([facility]) urobilinogen, urine auto rfx 0.2 mg/dL 0.0-2.0 Urobili nogen, Urine Auto Rfx SIDON ([facility]) blood, urine blood rfx negative negative Blood, Urine Blood Rfx SIDON ([facility]) nitrite, urine auto rfx negative negative Nitrite, Uri ne Auto Rfx SUZY ([facility]) leukocyte esterase ur auto rfx negative negative Leukocyte Esterase Ur Auto Rfx SUZY ([facility]) bilirubin, urine auto rfx negative negative Bilirubin, Urine Auto Rfx SUZY ([facility]) WBC, urine auto rfx 1 /hpf 0-3 WBC, Urine Auto Rfx SUZY ([facility]) bacteria, urine auto rfx negative negative Bacteria, U rine Auto Rfx SUZY ([facility]) RBC, urine auto rfx 1 /hpf 0-3 RBC, Urine Auto Rfx SUZY ([facility]) squam epithelial cell ur aurfx 0 /hpf 0-6 Squam Epithelial Cell Ur Aurfx SUZY ([facility]) mucus, urine rfx small negative Mucus, Urine Rfx AT [facility] ([facility]) hyaline cast, urine auto rfx 0 /lpf 0-1 Hyaline Cast, Urine Auto Rfx SIDON ([facility]) ID Date Data Source [id number] 12/25/2020 12:19:00 PM EDT SIDON ([facility]) Name Value Range Interpretation Code Description Data Claudia rce(s) Supporting Document(s) barbiturates urine negative negative Barbiturates Urin e SUZY ([facility]) amphetamines level urine negative negative Amphetamine s Level Urine SUZY ([facility]) benzodiazepines urine negative negative Benzodiazepine s Urine SUZY ([facility]) cannabinoids urine positive negative Above high normal Cannabinoi ds Urine SUZY ([facility]) opiates urine negative negative Opiates Urine SUZY ( [facility]) methadone urine negative negative Methadone Urine ATHE ([facility]) cocaine metabolite urine negative negative Cocaine Met abolite Urine SUZY ([facility]) phencyclidine urine negative negative Phencyclidine Ur ine SUZY ([facility]) ID Date Data Source [id number] 12/25/2020 12:19:00 PM EDT SIDON ([facility]) Name Value Range Interpretation Code Description Data Claudia rce(s) Supporting Document(s) appearance, urine rfx clear clear Appearance, Ur ine Rfx SIDON ([facility]) protein, urine auto rfx 2+ negative Above high normal Prote in, Urine Auto Rfx [facility]ON ([facility]) pH,urine rfx 7.0 units 5.0-9.0 pH,urine Rfx SIDON (No [facility]) color, urine rfx yellow yellow Color, Urine Rfx AT [facility] ([facility]) specific gravity ur auto rfx S3 1.002-1.035 Specif ic [place] Ur Auto Rfx SIDON ([facility]) urobilinogen, urine auto rfx 0.2 mg/dL 0.0-2.0 Urobili nogen, Urine Auto Rfx [facility]ON ([facility]) ketone, urine auto rfx 1+ negative Above high normal Ketone , Urine Auto Rfx S[facility]ON ([facility]) glucose, urine (UA) auto rfx negative negative Glucose , Urine (UA) Auto Rfx SIDON ([facility]) bilirubin, urine auto rfx negative negative Bilirubin, Urine Auto Rfx [facility]ON ([facility]) nitrite, urine auto rfx negative negative Nitrite, Uri ne Auto Rfx SIDON ([facility]) leukocyte esterase ur auto rfx negative negative Leukocyte Esterase Ur Auto Rfx SIDON ([facility]) blood, urine blood rfx negative negative Blood, Urine Blood Rfx SIDON ([facility]) WBC, urine auto rfx 1 /hpf 0-3 WBC, Urine Auto Rfx [facility] ([facility]) bacteria, urine auto rfx negative negative Bacteria, U rine Auto Rfx [facility] ([facility]) mucus, urine rfx small negative Mucus, Urine Rfx AT [facility] ([facility]) RBC, urine auto rfx 1 /hpf 0-3 RBC, Urine Auto Rfx S[facility]ON ([facility]) squam epithelial cell ur aurfx 0 /hpf 0-6 Squam Epithelial Cell Ur Aurfx SIDON ([facility]) hyaline cast, urine auto rfx 0 /lpf 0-1 Hyaline Cast, Urine Auto Rfx SUZY ([facility]) ID Date Data Source [id number] 12/25/2020 12:19:00 PM EDT SIDON ([facility]) Name Value Range Interpretation Code Description Data Claudia rce(s) Supporting Document(s) amphetamines level urine negative negative Amphetamine s Level Urine SUZY ([facility]) barbiturates urine negative negative Barbiturates Urin e SUZY ([facility]) cocaine metabolite urine negative negative Cocaine Met abolite Urine SUZY ([facility]) cannabinoids urine positive negative Above high normal Cannabinoi ds Urine SUZY ([facility]) benzodiazepines urine negative negative Benzodiazepine s Urine SUZY ([facility]) methadone urine negative negative Methadone Urine ATHE ([facility]) opiates urine negative negative Opiates Urine SIDON ( [facility]) phencyclidine urine negative negative Phencyclidine Ur ine SIDON ([facility]) ID Date Data Source [id number] 12/25/2020 12:19:00 PM EDT SIDON ([facility]) Name Value Range Interpretation Code Description Data Claudia rce(s) Supporting Document(s) appearance, urine rfx clear clear Appearance, Ur ine Rfx SIDON ([facility]) specific gravity ur auto rfx S3 1.002-1.035 Specif ic [place] Ur Auto Rfx SIDON ([facility]) color, urine rfx yellow yellow Color, Urine Rfx AT [place] ([facility]) pH,urine rfx 7.0 units 5.0-9.0 pH,urine Rfx SIDON (No [facility]) protein, urine auto rfx 2+ negative Above high normal Prote in, Urine Auto Rfx SIDON ([facility]) ketone, urine auto rfx 1+ negative Above high normal Ketone , Urine Auto Rfx [facility]ON ([facility]) glucose, urine (UA) auto rfx negative negative Glucose , Urine (UA) Auto Rfx [facility]IDON ([facility]) urobilinogen, urine auto rfx 0.2 mg/dL 0.0-2.0 Urobili nogen, Urine Auto Rfx SUZY ([facility]) blood, urine blood rfx negative negative Blood, Urine Blood Rfx SUZY ([facility]) bilirubin, urine auto rfx negative negative Bilirubin, Urine Auto Rfx SUZY ([facility]) leukocyte esterase ur auto rfx negative negative Leukocyte Esterase Ur Auto Rfx SUZY ([facility]) nitrite, urine auto rfx negative negative Nitrite, Uri ne Auto Rfx SUZY ([facility]) squam epithelial cell ur aurfx 0 /hpf 0-6 Squam Epithelial Cell Ur Aurfx SUZY ([facility]) RBC, urine auto rfx 1 /hpf 0-3 RBC, Urine Auto Rfx SUZY ([facility]) bacteria, urine auto rfx negative negative Bacteria, U rine Auto Rfx [facility]IDON ([facility]) WBC, urine auto rfx 1 /hpf 0-3 WBC, Urine Auto Rfx SUZY ([facility]) mucus, urine rfx small negative Mucus, Urine Rfx AT [place] ([facility]) hyaline cast, urine auto rfx 0 /lpf 0-1 Hyaline Cast, Urine Auto Rfx [facility]IDON ([facility]) ID Date Data Source [id number] 12/25/2020 12:19:00 PM EDT SIDON ([facility]) Name Value Range Interpretation Code Description Data Claudia rce(s) Supporting Document(s) barbiturates urine negative negative Barbiturates Urin e SUZY ([facility]) cocaine metabolite urine negative negative Cocaine Met abolite Urine SUZY ([facility]) amphetamines level urine negative negative Amphetamine s Level Urine SUZY ([facility]) cannabinoids urine positive negative Above high normal Cannabinoi ds Urine SUZY ([facility]) benzodiazepines urine negative negative Benzodiazepine s Urine SUZY ([facility]) methadone urine negative [facility] phencyclidine urine negative negative Phencyclidine Ur ine SIDON ([facility]) opiates urine negative negative Opiates Urine SUZY ( [facility]) ID Date Data Source [id number] 12/25/2020 12:19:00 PM EDT SIDON ([facility]) Name Value Range Interpretation Code Description Data Claudia rce(s) Supporting Document(s) appearance, urine rfx clear clear Appearance, Ur ine Rfx [facility]IDON ([facility]) specific gravity ur auto rfx S3 1.002-1.035 Specif ic [place] Ur Auto Rfx [facility] ([facility] [facility]) color, urine rfx yellow yellow Color, Urine Rfx AT MIKAEL ([facility]) pH,urine rfx 7.0 units 5.0-9.0 pH,urine Rfx SUZY (No [facility]) protein, urine auto rfx 2+ negative Above high normal Prote in, Urine Auto Rfx SIDON ([facility]) ketone, urine auto rfx 1+ negative Above high normal Ketone , Urine Auto Rfx SIDON ([facility]) glucose, urine (UA) auto rfx negative negative Glucose , Urine (UA) Auto Rfx SIDON ([facility]) bilirubin, urine auto rfx negative negative Bilirubin, Urine Auto Rfx SIDON ([facility]) urobilinogen, urine auto rfx 0.2 mg/dL 0.0-2.0 Urobili nogen, Urine Auto Rfx SIDON ([facility]) nitrite, urine auto rfx negative negative Nitrite, Uri ne Auto Rfx SIDON ([facility]) leukocyte esterase ur auto rfx negative negative Leukocyte Esterase Ur Auto Rfx SUZY ([facility]) WBC, urine auto rfx 1 /hpf 0-3 WBC, Urine Auto Rfx SUZY ([facility]) RBC, urine auto rfx 1 /hpf 0-3 RBC, Urine Auto Rfx SIDON ([facility]) blood, urine blood rfx negative negative Blood, Urine Blood Rfx SIDON ([facility]) squam epithelial cell ur aurfx 0 /hpf 0-6 Squam Epithelial Cell Ur Aurfx SIDON ([facility]) bacteria, urine auto rfx negative negative Bacteria, U rine Auto Rfx SUZY ([facility]) mucus, urine rfx small negative Mucus, Urine Rfx AT [facility]) hyaline cast, urine auto rfx 0 /lpf 0-1 Hyaline Cast, Urine Auto Rfx SIDON ([facility]) ID Date Data Source [id number] 12/25/2020 12:19:00 PM EDT [facility]) Name Value Range Interpretation Code Description Data Claudia rce(s) Supporting Document(s) amphetamines level urine negative negative Amphetamine s Level Urine SUZY ([facility]) cannabinoids urine positive negative Above high normal Cannabinoi ds Urine SIDON ([facility]) barbiturates urine negative negative Barbiturates Urin e SIDON ([facility]) benzodiazepines urine negative negative Benzodiazepine s Urine SUZY ([facility]) opiates urine negative negative Opiates Urine SIDON ( [facility]) methadone urine negative negative [facility] cocaine metabolite urine negative negative Cocaine Met abolite Urine SIDON ([facility]) phencyclidine urine negative negative Phencyclidine Ur ine SIDON ([facility]) ID Date Data Source [id number] 12/25/2020 12:19:00 PM EDT [facility]) Name Value Range Interpretation Code Description Data Claudia rce(s) Supporting Document(s) appearance, urine rfx clear clear Appearance, Ur ine Rfx SIDON ([facility]) color, urine rfx yellow yellow Color, Urine Rfx AT [facility] ([facility]) specific gravity ur auto rfx S3 1.002-1.035 Specif ic [place] Ur Auto Rfx SIDON ([facility]) protein, urine auto rfx 2+ negative Above high normal Prote in, Urine Auto Rfx SIDON ([facility]) pH,urine rfx 7.0 units 5.0-9.0 pH,urine Rfx SIDON ([facility]) urobilinogen, urine auto rfx 0.2 mg/dL 0.0-2.0 Urobili nogen, Urine Auto Rfx SUZY ([facility]) glucose, urine (UA) auto rfx negative negative Glucose , Urine (UA) Auto Rfx SIDON ([facility]) ketone, urine auto rfx 1+ negative Above high normal Ketone , Urine Auto Rfx SIDON ([facility]) bilirubin, urine auto rfx negative negative Bilirubin, Urine Auto Rfx SIDON ([facility]) nitrite, urine auto rfx negative negative Nitrite, Uri ne Auto Rfx SIDON ([facility]) blood, urine blood rfx negative negative Blood, Urine Blood Rfx SIDON ([facility]) leukocyte esterase ur auto rfx negative negative Leukocyte Esterase Ur Auto Rfx SIDON ([facility]) WBC, urine auto rfx 1 /hpf 0-3 WBC, Urine Auto Rfx SIDON ([facility]) mucus, urine rfx small negative Mucus, Urine Rfx AT [facility] ([facility]) RBC, urine auto rfx 1 /hpf 0-3 RBC, Urine Auto Rfx SUZY ([facility]) squam epithelial cell ur aurfx 0 /hpf 0-6 Squam Epithelial Cell Ur Aurfx SIDON ([facility]) bacteria, urine auto rfx negative negative Bacteria, U rine Auto Rfx SIDON ([facility]) hyaline cast, urine auto rfx 0 /lpf 0-1 Hyaline Cast, Urine Auto Rfx SIDON ([facility]) ID Date Data Source [id number] 12/25/2020 10:53:00 AM EDT [facility] Name Value Range Interpretation Code Description Data Claudia rce(s) Supporting Document(s) SARS-CoV-2 (COVID 19) NEGATIVE - SARS-CoV-2 (COVID19) [place] This lab was ordered by [facility] a nd reported by [facility]. ID Date Data Source [id number] 12/25/2020 10:13:00 AM EDT SIDON ([facility]) Name Value Range Interpretation Code Description Data Claudia rce(s) Supporting Document(s) bedside glucose 114 mg/dL 70-105 Above high normal Bedside Gluco se SIDON ([facility]) ID Date Data Source [id number] 12/25/2020 10:13:00 AM EDT [facility]) Name Value Range Interpretation Code Description Data Claudia rce(s) Supporting Document(s) bedside glucose 114 mg/dL 70-105 Above high normal Bedside Gluco se [facility]) ID Date Data Source [id number] 12/25/2020 10:13:00 AM EDT [facility]) Name Value Range Interpretation Code Description Data Claudia rce(s) Supporting Document(s) bedside glucose 114 mg/dL 70-105 Above high normal Bedside Gluco se [facility]) ID Date Data Source [id number] 12/25/2020 10:13:00 AM EDT [facility]) Name Value Range Interpretation Code Description Data Claudia rce(s) Supporting Document(s) bedside glucose 114 mg/dL 70-105 Above high normal Bedside Gluco se [facility]) ID Date Data Source [id number] 12/25/2020 10:13:00 AM EDT [facility]) Name Value Range Interpretation Code Description Data Claudia rce(s) Supporting Document(s) bedside glucose 114 mg/dL 70-105 Above high normal Bedside Gluco se [facility]) ID Date Data Source [id number] 12/25/2020 08:10:00 AM EDT [facility]) Name Value Range Interpretation Code Description Data Claudia rce(s) Supporting Document(s) Troponin Laboratory test result MEDLIZETT ([facility]) Thyroid Stimulating Hormone 0.899 ME DENT ([facility]) ID Date Data Source [id number] 12/25/2020 08:10:00 AM EDT [facility] ([facility]) Name Value Range Interpretation Code Description Data Claudia rce(s) Supporting Document(s) Red Blood Count 5.20 4.00-5.40 [facility] ([facility]) White Blood Count 11.9 5.0-10.0 [facility] ([facility]) Platelets 217 172-450 [facility] ([facility] Hemoglobin 16.5 [facility] ([facility]) Hematocrit 48.3 [facility] ([facility]) ID Date Data Source [id number] 03/30/2020 05:22:00 PM EDT [facility] Patient: TIMI YARBROUGHion Report - Physicians/[facility].VisitID: [id number] [place] [address] [phone], MRegistration Date/Time: 03/30/2020 11:53 Weight:90.7 kg (S). [...] rce(s) Supporting Document(s) ID Date Data Source [id number] 03/30/2020 02:17:00 PM EDT [facility] TSYSORDER [id number] Name Value Range Interpretation Code Description Data Claudia rce(s) Supporting Document(s) URINE RBC 0-2 /hpf 0-3 [facility] URINE WBC 0-2 /hpf 0-5 [facility] URINE EPITHELIAL CELLS 1+ /hpf 0 [facility] URINE MUCUS 3+ NEGATIVE [facility] ID Date Data Source [id number] 03/30/2020 02:09:00 PM EDT [facility] ital TSYSORDER [id number] Name Value Range Interpretation Code Description Data Claudia rce(s) Supporting Document(s) URINE COLOR. [facility] URINE APPEARANCE CLEAR [facility] SPECIFIC GRAVITY,URINE >= 1.030 1.001-1.035 [facility] URINE LEUKOCYTE ESTERASE NEGATIVE NEGATIVE [facility] URINE NITRATE NEGATIVE NEGATIVE [facility] PH,URINE 5.5 5.0-9.0 [facility] URINE PROTEIN TRACE mg/dL NEGATIVE [facility] URINE GLUCOSE (UA) NEGATIVE mg/dL NEGATIVE [facility] URINE KETONE 40(MODERATE) mg/dL NEGATIVE [facility]ital URINE UROBILINOGEN NORMAL(0.2-1) mg/dL 0-1 R [facility] URINE BILIRUBIN NEGATIVE NEGATIVE [facility] URINE BLOOD NEGATIVE NEGATIVE [facility] ID Date Data Source [id number] 03/30/2020 12:43:00 PM EDT [facility] [...] rce(s) Supporting Document(s) ID Date Data Source [id number] 03/30/2020 01:05:00 PM EDT [facility] TSYSORDER [id number] Name Value Range Interpretation Code Description Data Claudia rce(s) Supporting Document(s) FREE T4 1.19 ng/dL 0.76-1.46 [facility] ID Date Data Source [id number] 03/30/2020 01:05:00 PM EDT [facility] TSYSORDER [id number] Name Value Range Interpretation Code Description Data Claudia rce(s) Supporting Document(s) TSH 0.45 uIU/mL 0.36-3.74 [facility] ID Date Data Source [id number] 03/30/2020 12:58:00 PM EDT [facility] TSYSORDER [id number] Name Value Range Interpretation Code Description Data Claudia rce(s) Supporting Document(s) MAGNESIUM 1.9 mg/dL 1.8-2.4 [facility] ID Date Data Source [id number] 03/30/2020 12:58:00 PM EDT [facility] TSYSORDER [id number] Name Value Range Interpretation Code Description Data Claudia rce(s) Supporting Document(s) LIPASE 100 U/L 73-393 [facility] ID Date Data Source [id number] 03/30/2020 12:58:00 PM EDT [facility] TSYSORDER [id number] Name Value Range Interpretation Code Description Data Claudia rce(s) Supporting Document(s) GLUCOSE 89 mg/dL 74-106 [facility] BLOOD UREA NITROGEN 11 mg/dL 7-18 [facility] CREATININE 0.7 mg/dL 0.7-1.3 [facility] SODIUM 139 mmol/L 136-145 [facility] POTASSIUM 3.4 mmol/L 3.5-5.1 L [facility] CHLORIDE 102 mmol/L 98-107 [facility] CO2 27 mmol/L 21-32 [facility] CALCIUM 9.8 mg/dL 8.5-10.1 [facility] ANION GAP 10.0 mmol/L 5-12 [facility] GLOMERULAR FILTRATION RATE >90 mL/min [facility] GFR IS CALCULATED IN mL/min/1.73m2 CLARKE L FUNCTION: >90MILDLY DECREASED: 60-89MILDY TO MODERATELY DECREASED: 45-59 MODERATELY TO SEVERELY DECREASED: 30-44SEVERELY DECREASED: 15-29RENAL FAILURE: <15 AST 24 U/L 15-37 [facility] ALT 30 U/L 12-78 [facility] ALKALINE PHOSPHATASE 83 U/L 46-116 [facility] pital TOTAL BILIRUBIN 0.7 mg/dL 0.2-1.0 [facility] TOTAL PROTEIN 8.4 g/dl 6.4-8.2 H [facility] ALBUMIN 4.7 gm/dL 3.4-5.0 [facility] ID Date Data Source [id number] 03/30/2020 12:51:00 PM EDT [facility] [id number] Name Value Range Interpretation Code Description Data Claudia rce(s) Supporting Document(s) PARTIAL THROMBOPLASTIN TIME 27.6 SECONDS 21.4-30.2 [facility] ID Date Data Source [id number] 03/30/2020 12:51:00 PM EDT [facility] TSYSORDER [id number] Name Value Range Interpretation Code Description Data Claudia rce(s) Supporting Document(s) PROTHROMBIN TIME (PATIENT) 11.0 SECONDS 9.2-11.6 [facility] INR 1.06 0.87-1.06 [facility] ID Date Data Source [id number] 03/30/2020 12:31:00 PM EDT [facility] TSYSORDER [id number] Name Value Range Interpretation Code Description Data Claudia rce(s) Supporting Document(s) WHITE BLOOD COUNT 7.5 K/mm3 4.0-10.0 [facility] al RED BLOOD COUNT 4.59 M/mm3 4.50-6.00 [facility] HEMOGLOBIN 14.6 gm/dL 14.0-18.0 [facility] HEMATOCRIT 41.7 % 42.0-54.0 L [facility] MEAN CELL VOLUME 90.8 fl 80-96 [facility] MEAN CORPUSCULAR HEMOGLOBIN 31.8 pg 27.0-31.0 H [facility] MEAN CORPUSCULAR HGB CONC 35.0 g/dl 32.0-36.0 [facility] RED CELL DISTRIBUTION WIDTH 12.3 % 10.0-14.5 [facility] PLATELET COUNT 253 K/mm3 172-450 [facility] MEAN PLATELET VOLUME 10.1 fl 9.0-13.0 [facility] pital GRAN % 68.0 % 50-80.0 [facility] IG% 0.1 % 0.0-0.2 [facility] LYMPH % 23.1 % 25.0-50.0 L [facility] MONO % 7.3 % 2.0-10.0 [facility] EOS % 1.2 % 0-5.0 [facility] BASO % 0.3 % 0.0-2.0 [facility] GRAN # 5.1 K/mm3 2.0-8.00 [facility] IG# 0.0 K/mm3 0.0-0.2 [facility] LYMPH # 1.7 K/mm3 1.0-5.0 [facility] MONO # 0.6 K/mm3 0.10-1.20 [facility] EOS # 0.1 K/mm3 0.0-0.5 [facility] BASO # 0.0 K/mm3 0.0-0.2 [facility] Procedure Social History No Information Vital Signs ID Date Data Source [id number] Name Value Range Interpretation Code Description Data Source(s) Diastolic blood pressure 82 mm[Hg] 82 mm[Hg] SUZY ([facility]) Body height 74 [in_i] 74 [in_i] SIDON ([facility]) Body mass index (BMI) [Ratio] 27.4 kg/m2 27.4 k g/m2 SUZY ([facility]) Systolic blood pressure 125 mm[Hg] 125 mm[Hg] A [facility] ([facility]) Body weight 3412 [oz_av] 3412 [oz_av] SUZY ([facility]) Diastolic blood pressure 83 mm[Hg] 83 mm[Hg] SUZY ([facility]) Body height 74 [in_i] 74 [in_i] SIDON ([facility]) Body mass index (BMI) [Ratio] 27.2 kg/m2 27.2 k g/m2 SUZY ([facility]) Systolic blood pressure 132 mm[Hg] 132 mm[Hg] A [facility] ([facility]) Body weight 3394 [oz_av] 3394 [oz_av] SUZY ([facility]) Diastolic blood pressure 83 mm[Hg] 83 mm[Hg] SUZY ([facility]) Body height 74 [in_i] 74 [in_i] SUZY ([facility]) Body mass index (BMI) [Ratio] 27.2 kg/m2 27.2 k g/m2 SUZY ([facility]) Systolic blood pressure 132 mm[Hg] 132 mm[Hg] A [facility] ([facility]) Body weight 3394 [oz_av] 3394 [oz_av] SUZY ([facility]) Diastolic blood pressure 83 mm[Hg] 83 mm[Hg] SUZY ([facility]) Body height 74 [in_i] 74 [in_i] SUZY ([facility]) Body mass index (BMI) [Ratio] 27.2 kg/m2 27.2 k g/m2 SUZY ([facility]) Systolic blood pressure 132 mm[Hg] 132 mm[Hg] A [facility] ([facility]) Body weight 3394 [oz_av] 3394 [oz_av] SUZY ([facility]) Body weight 200.00 [lb_av] 200.00 [lb_av] MEDOMAR T ([facility]) Body height 74 [in_i] 74 [in_i] MEDENT ([facility]) 6'2" Body mass index (BMI) [Ratio] 25.7 kg/m2 25.7 k g/m2 MEDENT ([facility]) Heart rate 77 /min 77 /min [facility] ([facility]) Systolic blood pressure--sitting 128 mm[Hg] 128 mm[Hg] MEDENT ([facility]) large cuff, Ra Diastolic blood pressure--sitting 84 mm[Hg] 84 mm[Hg] MEDENT ([facility]) large cuff, Ra Body height 74 [in_i] 74 [in_i] SUZY ([facility]) Body height 74 [in_i] 74 [in_i] SUZY ([facility]) Body height 74 [in_i] 74 [in_i] SUZY ([facility]) Body height 74 [in_i] 74 [in_i] SUZY ([facility]) Diastolic blood pressure 75 mm[Hg] 75 mm[Hg] SUZY ([facility]) Body height 74 [in_i] 74 [in_i] SUZY ([facility]) Body mass index (BMI) [Ratio] 26.8 kg/m2 26.8 k g/m2 SUZY ([facility]) Systolic blood pressure 136 mm[Hg] 136 mm[Hg] A TIMOTHYA ([facility]) Body weight 3344 [oz_av] 3344 [oz_av] SUZY ([facility]) Diastolic blood pressure 75 mm[Hg] 75 mm[Hg] SUZY ([facility]) Body height 74 [in_i] 74 [in_i] SUZY ([facility]) Body mass index (BMI) [Ratio] 26.8 kg/m2 26.8 k g/m2 SUZY ([facility]) Systolic blood pressure 136 mm[Hg] 136 mm[Hg] A THENA ([facility]) Body weight 3344 [oz_av] 3344 [oz_av] SUZY ([facility]) Diastolic blood pressure 75 mm[Hg] 75 mm[Hg] SUZY ([facility]) Body height 74 [in_i] 74 [in_i] SUZY ([facility]) Body mass index (BMI) [Ratio] 26.8 kg/m2 26.8 k g/m2 SUZY ([facility]) Systolic blood pressure 136 mm[Hg] 136 mm[Hg] A THENA ([facility]) Body weight 3344 [oz_av] 3344 [oz_av] SUZY ([facility]) Diastolic blood pressure 75 mm[Hg] 75 mm[Hg] SUZY ([facility]) Body height 74 [in_i] 74 [in_i] SUZY ([facility]) Body mass index (BMI) [Ratio] 26.8 kg/m2 26.8 k g/m2 SUZY ([facility]) Systolic blood pressure 136 mm[Hg] 136 mm[Hg] A THENA ([facility]) Body weight 3344 [oz_av] 3344 [oz_av] SUZY ([facility]) Diastolic blood pressure 75 mm[Hg] 75 mm[Hg] SUZY ([facility]) Body height 74 [in_i] 74 [in_i] SUZY ([facility]) Body mass index (BMI) [Ratio] 26.8 kg/m2 26.8 k g/m2 SUZY ([facility]) Systolic blood pressure 136 mm[Hg] 136 mm[Hg] A THENA ([facility]) Body weight 3344 [oz_av] 3344 [oz_av] SUZY ([facility]) Body weight 216.00 [lb_av] 216.00 [lb_av] MADELEINE Valentine ([facility]) Body height 74 [in_i] 74 [in_i] JOSHUA ([facility]) 6'2" Body mass index (BMI) [Ratio] 27.7 kg/m2 27.7 k g/m2 MEDLIZETT ([facility]) Systolic blood pressure--sitting 146 mm[Hg] 146 mm[Hg] MEDENT ([facility]) Ra, large cuff Diastolic blood pressure--sitting 84 mm[Hg] 84 mm[Hg] MEDENT ([facility]) Ra, large cuff Diastolic blood pressure 97 mm[Hg] 97 mm[Hg] SUZY ([facility]) Body height 74 [in_i] 74 [in_i] SUZY ([facility]) Body mass index (BMI) [Ratio] 27 kg/m2 27 kg/ m2 SUZY ([facility]) Systolic blood pressure 143 mm[Hg] 143 mm[Hg] A [facility] ([facility]) Body weight 3364 [oz_av] 3364 [oz_av] SUZY ([facility]) Diastolic blood pressure 97 mm[Hg] 97 mm[Hg] SUZY ([facility]) Body height 74 [in_i] 74 [in_i] SUZY ([facility]) Body mass index (BMI) [Ratio] 27 kg/m2 27 kg/ m2 SUZY ([facility]) Systolic blood pressure 143 mm[Hg] 143 mm[Hg] [facility] Body weight 3364 [oz_av] 3364 [oz_av] SUZY ([facility]) Diastolic blood pressure 97 mm[Hg] 97 mm[Hg] SUZY ([facility]) Body height 74 [in_i] 74 [in_i] SUZY ([facility]) Body mass index (BMI) [Ratio] 27 kg/m2 27 kg/ m2 SUZY ([facility]) Systolic blood pressure 143 mm[Hg] 143 mm[Hg] [facility]) Body weight 3364 [oz_av] 3364 [oz_av] SUZY ([facility]) Diastolic blood pressure 97 mm[Hg] 97 mm[Hg] SUZY ([facility]) Body height 74 [in_i] 74 [in_i] SUZY ([facility]) Body mass index (BMI) [Ratio] 27 kg/m2 27 kg/ m2 SUZY ([facility]) Systolic blood pressure 143 mm[Hg] 143 mm[Hg] A THENA ([facility]) Body weight 3364 [oz_av] 3364 [oz_av] SUZY ([facility]) Diastolic blood pressure 97 mm[Hg] 97 mm[Hg] SUZY ([facility]) Body height 74 [in_i] 74 [in_i] SUZY ([facility]) Body mass index (BMI) [Ratio] 27 kg/m2 27 kg/ m2 SUZY ([facility]) Systolic blood pressure 143 mm[Hg] 143 mm[Hg] A THENA ([facility]) Body weight 3364 [oz_av] 3364 [oz_av] SUZY ([facility]) Diastolic blood pressure 97 mm[Hg] 97 mm[Hg] SUZY ([facility]) Body height 74 [in_i] 74 [in_i] SUZY ([facility]) Body mass index (BMI) [Ratio] 27 kg/m2 27 kg/ m2 SUZY ([facility]) Systolic blood pressure 143 mm[Hg] 143 mm[Hg] A THENA ([facility]) Body weight 3364 [oz_av] 3364 [oz_av] SUZY ([facility]) Diastolic blood pressure 97 mm[Hg] 97 mm[Hg] SUZY ([facility]) Body height 74 [in_i] 74 [in_i] SUZY ([facility]) Body mass index (BMI) [Ratio] 27 kg/m2 27 kg/ m2 SUZY ([facility]) Systolic blood pressure 143 mm[Hg] 143 mm[Hg] [facility]) Body weight 3364 [oz_av] 3364 [oz_av] SUZY ([facility]) Diastolic blood pressure 97 mm[Hg] 97 mm[Hg] SUZY ([facility]) Body height 74 [in_i] 74 [in_i] SUZY ([facility]) Body mass index (BMI) [Ratio] 27 kg/m2 27 kg/ m2 SUZY ([facility]) Systolic blood pressure 143 mm[Hg] 143 mm[Hg] Lashon THENA ([facility]) Body weight 3364 [oz_av] 3364 [oz_av] SUZY ([facility]) Patient Treatment Plan of Care Planned Activity Planned Date Details Description Data Source (s) 24 HR Nicotine 0.583 MG/HR Transdermal Patch SUZY ([facility]) methylprednisolone 4 mg tablets in a dos e pack USE DIRECTED ON PACKAGE - START TOMORROW SUZY ([facility]) Ibuprofen 800 MG Oral Tablet [facility] [facility] gabapentin 600 MG Oral Tablet SUZY ([facility]) Cyclobenzaprine hydrochloride 10 MG Oral Tablet SUZY ([facility]) Carbamazepine 200 MG Oral Tablet SUZY ([facility]) atorvastatin 10 MG Oral Tablet SUZY ([facility]) Amlodipine 10 MG Oral Tablet SUZY ([facility]) 24 HR Nicotine 0.583 MG/HR Transdermal Patch SUZY ([facility]) methylprednisolone 4 mg tablets in a dos e pack USE DIRECTED ON PACKAGE - START TOMORROW SUZY ([facility]) Ibuprofen 800 MG Oral Tablet SUZY ([facility]) Cyclobenzaprine hydrochloride 10 MG Oral Tablet SUZY ([facility]) atorvastatin 10 MG Oral Tablet SUZY ([facility]) Amlodipine 10 MG Oral Tablet SUZY ([facility]) 24 HR Nicotine 0.583 MG/HR Transdermal Patch SUZY ([facility]) methylprednisolone 4 mg tablets in a dos e pack USE DIRECTED ON PACKAGE - START TOMORROW SUZY ([facility]) Ibuprofen 800 MG Oral Tablet SUZY ([facility]) Cyclobenzaprine hydrochloride 10 MG Oral Tablet SUZY ([facility]) atorvastatin 10 MG Oral Tablet SUZY ([facility]) Amlodipine 10 MG Oral Tablet SUZY ([facility]) 24 HR Nicotine 0.583 MG/HR Transdermal Patch SUZY ([facility]) Ibuprofen 800 MG Oral Tablet SUZY ([facility]) Cyclobenzaprine hydrochloride 10 MG Oral Tablet SUZY ([facility]) atorvastatin 10 MG Oral Tablet SUZY ([facility]) Amlodipine 10 MG Oral Tablet SUZY ([facility]) 24 HR Nicotine 0.583 MG/HR Transdermal Patch SUZY ([facility]) Ibuprofen 800 MG Oral Tablet SUZY ([facility]) Cyclobenzaprine hydrochloride 10 MG Oral Tablet SUZY ([facility]) atorvastatin 10 MG Oral Tablet SUZY ([facility]) Amlodipine 10 MG Oral Tablet SUZY ([facility]) 24 HR Nicotine 0.583 MG/HR Transdermal Patch SUZY ([facility]) 24 HR Nicotine 0.583 MG/HR Transdermal Patch SUZY ([facility]) 24 HR Nicotine 0.583 MG/HR Transdermal Patch SUZY ([facility])
== END 2021-05-14 00:12 | disposition left against medical advice (07) ==
LOC: M ED 21:00
DX: Z53.29 Procedure and treatment not carried out because of patient's decision for other reasons (principal)

== ENCOUNTER 2021-08-21 02:09 | Emergency (ER) | payer OTHER ==
[~2021-08-21] VITALS: Ht 188 cm; Wt 99.7 kg
[2021-08-21 08:56] VITALS: BP 133/84
== END 2021-08-21 08:58 | disposition left against medical advice (07) ==
LOC: M ED 02:09
DX: M54.10 Radiculopathy, site unspecified (principal); M51.37 Other intervertebral disc degeneration, lumbosacral region; I10 Essential (primary) hypertension; Z87.442 Personal history of urinary calculi; Z88.8 Allergy status to other drugs, medicaments and biological substances; Z79.899 Other long term (current) drug therapy

== ENCOUNTER → 2021-09-04 | Outpatient (CLI) | payer OTHER | LOC: M PLAIMG 10:17 | PROVIDERS: ATTEND Nurse Practitioner Family | DX: Z53.9 Procedure and treatment not carried out, unspecified reason (principal) ==

== ENCOUNTER → 2022-03-12 | Outpatient (CLI) | payer OTHER | LOC: M LABSMTC 09:35 | PROVIDERS: ATTEND Anesthesiology | DX: Z01.818 Encounter for other preprocedural examination (principal); Z11.52 Encounter for screening for COVID-19 ==

== ENCOUNTER 2022-03-16 12:20 | Day surgery (SDC) | payer OTHER ==
[~2022-03-16] VITALS: Ht 188 cm; Wt 94.3 kg
[~2022-03-16 12:20] MED LIST changes: +LIDOCAINE W/EPINEPHRINE 1% 20ML VIAL As Ordered ONE
[2022-03-16] MEDS ORDERED: LR 1,000 ML IV SCH (12:40)
[2022-03-16] MEDS ORDERED: LIDOCAINE 2% 100MG/5ML SDV (FOR ANES.) As Ordered ONE (12:58)
[2022-03-16] MEDS ORDERED: fentaNYL 100 MCG/2 ML INJECTION As Ordered ONE (13:00)
[2022-03-16] MEDS ORDERED: MIDAZOLAM INJ 2MG/2ML VIAL (J2250 PER 1MG) As Ordered ONE ×2 (13:00→13:28)
[2022-03-16 14:56] VITALS: BP 169/85
== END 2022-03-16 15:10 | disposition home or self-care (01) ==
LOC: M SDC 12:20
PROVIDERS: ATTEND Dentist Oral and Maxillofacial Surgery
DX: K02.9 Dental caries, unspecified (principal); I10 Essential (primary) hypertension; E78.9 Disorder of lipoprotein metabolism, unspecified; D64.9 Anemia, unspecified; F32.A Depression, unspecified; F41.9 Anxiety disorder, unspecified; G47.30 Sleep apnea, unspecified; K21.9 Gastro-esophageal reflux disease without esophagitis; Z95.818 Presence of other cardiac implants and grafts; Z88.8 Allergy status to other drugs, medicaments and biological substances; Z79.899 Other long term (current) drug therapy; F17.200 Nicotine dependence, unspecified, uncomplicated
CPT/HCPCS: 88300; D7140; D9223; J2250; J3010

== ENCOUNTER 2022-10-31 03:00 | Emergency (ER) | payer OTHER ==
[~2022-10-31] VITALS: Ht 188 cm; Wt 100.0 kg
[~2022-10-31 03:00] MED LIST changes: -LIDOCAINE W/EPINEPHRINE 1% 20ML VIAL As Ordered ONE
[2022-10-31] MEDS ORDERED: ONDANSETRON 4MG 2ML VIAL IV ONE (03:05)
[2022-10-31 03:24] LABS: BASO # 0.1 10^3/uL (0.0-0.2); BASO % 0.5 % (0.0-1.0); EOS # 0.3 10^3/uL (0.0-0.5); EOS % 2.2 % (0.0-3.0); HEMATOCRIT 43.8 % (42.0-52.0); HEMOGLOBIN 15.4 g/dl (13.5-17.5); LYMPH # 3.6 10^3/uL (1.5-5.0); LYMPH % 30.6 % (24.0-44.0); MEAN CORPUSCULAR HEMOGLOBIN 32.3 pg (27.0-33.0); MEAN CORPUSCULAR HGB CONC 35.2 g/dl (32.0-36.5); MEAN CORPUSCULAR VOLUME 91.8 fl (80.0-96.0); MONO # 1.1 10^3/uL (0.0-0.8); MONO % 9.7 % (2.0-8.0); NEUTROPHILS # 6.6 10^3/uL (1.5-8.5); NEUTROPHILS % 56.7 % (36.0-66.0); PLATELET COUNT, AUTOMATED 260 10^3/uL (150-450); RED BLOOD COUNT 4.77 10^6/uL (4.30-6.10); WHITE BLOOD COUNT 11.7 10^3/uL (4.0-10.0)
[2022-10-31] MEDS: NS 1,000 ML IV SCH ×2 (03:35→04:07)
[2022-10-31] MEDS ORDERED: MECLIZINE 25 MG TABLET PO ONE (03:40)
[2022-10-31 03:47] LABS: LIPASE 48 U/L (12-53)
[2022-10-31 03:49] LABS: ALBUMIN 4.4 G/DL (3.2-5.2); ALKALINE PHOSPHATASE 81 U/L (46-116); ALT/SGPT 32 U/L (7.0-40); AST/SGOT 22 U/L (<34); BILIRUBIN,DIRECT 0.3 MG/DL (<0.4); BILIRUBIN,TOTAL 0.9 MG/DL (0.3-1.2); BLOOD UREA NITROGEN 14 MG/DL (9-23); CALCIUM LEVEL 10.2 MG/DL (8.5-10.1); CARBON DIOXIDE LEVEL 22 MMOL/L (20-31); CHLORIDE LEVEL 105 MMOL/L (98-107); CREATININE FOR GFR 0.56 MG/DL (0.70-1.30); GLOMERULAR FILTRATION RATE > 60.0 (>60); GLUCOSE, FASTING 144 MG/DL (60-100); POTASSIUM SERUM 3.6 MMOL/L (3.5-5.1); SODIUM LEVEL 139 MMOL/L (136-145); TOTAL PROTEIN 7.2 G/DL (5.7-8.2)
[2022-10-31 03:53] LABS: CPK CREATINE PHOSPHOKINASE 181 U/L (46-171)
[2022-10-31 03:54] LABS: CK-MB VALUE MASS 2.6 NG/ML (<3.6); MB/CK RELATIVE INDEX 1.43 (< OR =4)
[2022-10-31] MEDS ORDERED: PROMETHAZINE 25MG/ML 1ML VIAL IV ONE (04:05)
[2022-10-31 04:47] LABS: CK-MB VALUE MASS 2.5 NG/ML (<3.6)
[2022-10-31 05:09] LABS: MB/CK RELATIVE INDEX 1.5 (< OR =4)
[2022-10-31 06:30] VITALS: BP 159/96
[2022-10-31] MEDS: carBAMazepine 100MG *1/2* TABLET PO ONE ×2 (06:35→06:53)
[2022-10-31] MEDS ORDERED: MECL1TAB31 PO (06:39)
== END 2022-10-31 07:25 | disposition home or self-care (01) ==
LOC: M ED 03:00
DX: H81.4 Vertigo of central origin (principal); I10 Essential (primary) hypertension; G50.0 Trigeminal neuralgia; F17.200 Nicotine dependence, unspecified, uncomplicated; Z88.8 Allergy status to other drugs, medicaments and biological substances; Z79.899 Other long term (current) drug therapy
CPT/HCPCS: 71045; 80048; 80076; 82550; 82553; 83690; 85025; 93005; 93041; 96374; 96375; 99285; J2405; J2550

== ENCOUNTER → 2022-11-22 | Outpatient (REF) | payer OTHER ==
[2022-11-22 13:00] LABS: ALBUMIN 4.3 G/DL (3.2-5.2); ALKALINE PHOSPHATASE 83 U/L (46-116); ALT/SGPT 32 U/L (7.0-40); AST/SGOT 20 U/L (<34); BILIRUBIN,TOTAL 0.3 MG/DL (0.3-1.2); BLOOD UREA NITROGEN 11 MG/DL (9-23); CALCIUM LEVEL 9.9 MG/DL (8.5-10.1); CARBON DIOXIDE LEVEL 28 MMOL/L (20-31); CHLORIDE LEVEL 105 MMOL/L (98-107); CHOLESTEROL LEVEL 245 MG/DL (<200); CHOLESTEROL RISK RATIO 6.29 (<5); CREATININE FOR GFR 0.64 MG/DL (0.70-1.30); GLOMERULAR FILTRATION RATE > 60.0 (>60); GLUCOSE, FASTING 87 MG/DL (60-100); HDL CHOLESTEROL 38.9 MG/DL (>40); LDL CHOLESTEROL 188.1 MG/DL (<100); NON-HDL-C 206.1 MG/DL; POTASSIUM SERUM 4.2 MMOL/L (3.5-5.1); SODIUM LEVEL 137 MMOL/L (136-145); TOTAL PROTEIN 7.4 G/DL (5.7-8.2); TRIGLYCERIDES LEVEL 90 MG/DL (<150)
[2022-11-22 13:04] LABS: TOTAL 25(OH) VITAMIN D 23.6 NG/ML (20.0-100.0)
[2022-11-22 13:32] LABS: HEMOGLOBIN A1c 5.1 % (4.0-6.0)
== END ==
LOC: M LAB REF 12:21
PROVIDERS: ATTEND Nurse Practitioner Family
DX: Z13.228 Encounter for screening for other metabolic disorders (principal)

== ENCOUNTER → 2022-12-13 | Outpatient (REF) | payer OTHER ==
[2022-12-13 17:48] LABS: ALBUMIN 4.5 G/DL (3.2-5.2); ALKALINE PHOSPHATASE 97 U/L (46-116); ALT/SGPT 28 U/L (7.0-40); AST/SGOT 27 U/L (<34); BILIRUBIN,DIRECT < 0.1 MG/DL (<0.4); BILIRUBIN,TOTAL 0.3 MG/DL (0.3-1.2); BLOOD UREA NITROGEN 16 MG/DL (9-23); CREATININE FOR GFR 0.61 MG/DL (0.70-1.30); GLOMERULAR FILTRATION RATE > 60.0 (>60); TOTAL PROTEIN 7.6 G/DL (5.7-8.2); VITAMIN B12 LEVEL 532 PG/ML (211-911)
[2022-12-13 19:58] LABS: FOLATE 17.9 NG/ML (>5.4)
[2022-12-15 08:10] LABS: CARBAMAZEPINE (TEGRETOL) LEVEL 4.9 ug/mL (4.0-12.0)
== END ==
LOC: M LABDRAWC 16:43
PROVIDERS: ATTEND Psychiatry & Neurology Neurology
DX: G50.0 Trigeminal neuralgia (principal)

== ENCOUNTER → 2023-03-06 | Outpatient (REF) | payer OTHER ==
[2023-03-06 13:01] LABS: CHOLESTEROL RISK RATIO 4.24 (<5); HDL CHOLESTEROL 33.9 MG/DL (>40); LDL CHOLESTEROL 91.7 MG/DL (<100); NON-HDL-C 110.1 MG/DL
== END ==
LOC: M LAB REF 11:57
PROVIDERS: ATTEND Nurse Practitioner Family
DX: E78.5 Hyperlipidemia, unspecified (principal)

== ENCOUNTER → 2023-03-18 | Outpatient (REF) | payer OTHER ==
[2023-03-18 18:59] LABS: BASO # 0.1 10^3/uL (0.0-0.2); BASO % 0.3 % (0.0-1.0); EOS # 0.2 10^3/uL (0.0-0.5); EOS % 1.3 % (0.0-3.0); HEMATOCRIT 39.6 % (42.0-52.0); HEMOGLOBIN 13.6 g/dl (13.5-17.5); LYMPH # 2.9 10^3/uL (1.5-5.0); LYMPH % 19.5 % (24.0-44.0); MEAN CORPUSCULAR HEMOGLOBIN 32.9 pg (27.0-33.0); MEAN CORPUSCULAR HGB CONC 34.3 g/dl (32.0-36.5); MEAN CORPUSCULAR VOLUME 95.7 fl (80.0-96.0); MONO # 0.9 10^3/uL (0.0-0.8); MONO % 6.1 % (2.0-8.0); NEUTROPHILS # 10.8 10^3/uL (1.5-8.5); NEUTROPHILS % 72.3 % (36.0-66.0); PLATELET COUNT, AUTOMATED 218 10^3/uL (150-450); RED BLOOD COUNT 4.14 10^6/uL (4.30-6.10); WHITE BLOOD COUNT 14.9 10^3/uL (4.0-10.0)
[2023-03-18 19:09] LABS: BLOOD UREA NITROGEN 10 MG/DL (9-23); CALCIUM LEVEL 10.2 MG/DL (8.5-10.1); CARBON DIOXIDE LEVEL 30 MMOL/L (20-31); CHLORIDE LEVEL 102 MMOL/L (98-107); CREATININE FOR GFR 0.67 MG/DL (0.70-1.30); GLOMERULAR FILTRATION RATE > 60.0 (>60); GLUCOSE, FASTING 86 MG/DL (60-100); POTASSIUM SERUM 3.6 MMOL/L (3.5-5.1); SODIUM LEVEL 137 MMOL/L (136-145)
== END ==
LOC: M LAB REF 18:20
PROVIDERS: ATTEND Nurse Practitioner Family
DX: Z01.818 Encounter for other preprocedural examination (principal)

== ENCOUNTER 2023-05-02 09:06 | Emergency (ER) | payer OTHER ==
[~2023-05-02] VITALS: Ht 188 cm; Wt 95.7 kg
[~2023-05-02 09:06] MED LIST changes: +B-COTAB4 PO; +MECL-209 PO; -MECL1TAB31 PO; +SERT25TA21 PO; +VITA100093 PO
[2023-05-02 09:07] VITALS: BP 132/81; TEMP 98.4; O2SAT 99
[2023-05-02] MEDS ORDERED: CLIN-250 (09:43)
[2023-05-02] MEDS ORDERED: NAPR220C23 PO (09:43)
== END 2023-05-02 11:19 | disposition left against medical advice (07) ==
LOC: M ED 09:06
DX: Z53.21 Procedure and treatment not carried out due to patient leaving prior to being seen by health care provider (principal)

== ENCOUNTER → 2023-11-25 | Outpatient (REF) | payer OTHER ==
[~2023-11-25] MED LIST changes: -B-COTAB4 PO; +CLIN-250; +NAPR220C23 PO; +VITA1TAB78 PO
[2023-11-25 14:10] LABS: ALBUMIN 4.1 G/DL (3.2-5.2); ALKALINE PHOSPHATASE 97 U/L (46-116); ALT/SGPT 22 U/L (7.0-40); AST/SGOT 16 U/L (<34); BILIRUBIN,TOTAL 0.2 MG/DL (0.3-1.2); BLOOD UREA NITROGEN 13 MG/DL (9-23); CALCIUM LEVEL 11.2 MG/DL (8.5-10.1); CARBON DIOXIDE LEVEL 28 MMOL/L (20-31); CHLORIDE LEVEL 103 MMOL/L (98-107); CHOLESTEROL LEVEL 130 MG/DL (<200); CHOLESTEROL RISK RATIO 3.68 (<5); CREATININE FOR GFR 0.58 MG/DL (0.70-1.30); GLOMERULAR FILTRATION RATE > 60.0 (>60); GLUCOSE, FASTING 119 MG/DL (60-100); HDL CHOLESTEROL 35.3 MG/DL (>40); LDL CHOLESTEROL 71.5 MG/DL (<100); NON-HDL-C 94.7 MG/DL; POTASSIUM SERUM 4.3 MMOL/L (3.5-5.1); SODIUM LEVEL 134 MMOL/L (136-145); TOTAL PROTEIN 7.2 G/DL (5.7-8.2); TRIGLYCERIDES LEVEL 116 MG/DL (<150)
[2023-11-25 14:11] LABS: THYROID STIMULATING HORMONE 1.057 uIU/ML (0.55-4.78); TOTAL 25(OH) VITAMIN D 41.6 NG/ML (20.0-100.0)
[2023-11-25 14:13] LABS: BASO # 0.1 10^3/uL (0.0-0.2); BASO % 0.6 % (0.0-1.0); EOS # 0.3 10^3/uL (0.0-0.5); EOS % 2.6 % (0.0-3.0); HEMATOCRIT 44.7 % (42.0-52.0); HEMOGLOBIN 15.8 g/dl (13.5-17.5); LYMPH # 2.5 10^3/uL (1.5-5.0); LYMPH % 23.2 % (24.0-44.0); MEAN CORPUSCULAR HEMOGLOBIN 33.9 pg (27.0-33.0); MEAN CORPUSCULAR HGB CONC 35.3 g/dl (32.0-36.5); MEAN CORPUSCULAR VOLUME 95.9 fl (80.0-96.0); MONO # 0.8 10^3/uL (0.0-0.8); MONO % 7.5 % (2.0-8.0); NEUTROPHILS % 65.9 % (36.0-66.0); PLATELET COUNT, AUTOMATED 289 10^3/uL (150-450); RED BLOOD COUNT 4.66 10^6/uL (4.30-6.10); WHITE BLOOD COUNT 10.7 10^3/uL (4.0-10.0)
[2023-11-25 15:00] LABS: HEMOGLOBIN A1c 4.9 % (4.0-6.0)
== END ==
LOC: M LAB REF 12:55
PROVIDERS: ATTEND Nurse Practitioner Family
DX: E66.3 Overweight (principal); E55.9 Vitamin D deficiency, unspecified